=== PATIENT | male | born 1955 | race Hispanic/Latino ===

== ENCOUNTER 2017-01-29 09:48 | Inpatient (IN) | payer MEDICARE ==
[2017-01-29 09:49] VITALS: BMI 35.2
[2017-01-29 11:31] LABS: BASO # 0.02 K/mm3 (0.0-2.0); BASO % 0.1 % (0.0-3.0); EOS % 0.1 % (1.5-5.0); GRAN # 17.49 (1.4-6.5); GRAN % 83.9 % (50.0-68.0); HEMATOCRIT 38.4 % (42.0-52.0); LYMPH # 1.6 (1.2-3.4); LYMPH % 7.6 % (22.0-35.0); MEAN CELL VOLUME 81.4 fl (80.0-105.0); MEAN CORPUSCULAR HEMOGLOBIN 27.3 pg (25.0-35.0); MEAN CORPUSCULAR HGB CONC 33.6 g/dl (31.0-37.0); MEAN PLATELET VOLUME 9.9 fl (7.0-11.0); MONO # 1.7 (0.1-0.6); MONO % 8.3 % (1.0-6.0); RED CELL DISTRIBUTION WIDTH 13.1 % (11.5-14.5); WHITE BLOOD COUNT 20.9 10^3/ul (4.5-11.0)
[2017-01-29 11:42] LABS: INR 1.4 (0.93-1.08); PARTIAL THROMBOPLASTIN TIME 30.8 Seconds (25.1-36.5)
[2017-01-29 11:50] LABS: ALB/GLOB RATIO 0.8 (1.1-1.8); ALKALINE PHOSPHATASE 105 U/L (38-126); ALT/SGPT 31 U/L (7-56); AST/SGOT 23 U/L (17-59); BILIRUBIN,TOTAL 0.5 mg/dL (0.2-1.3); BLOOD UREA NITROGEN 12 mg/dL (7-21); CALCIUM 9.1 mg/dL (8.4-10.5); CARBON DIOXIDE 27 mmol/L (21-33); CHLORIDE 97 mmol/L (98-107); GFR AFRICAN-AMERICAN > 60; GLUCOSE,RANDOM 308 mg/dL (70-110); POTASSIUM 4.1 mmol/L (3.6-5.0); SODIUM 134 mmol/L (132-148); TOTAL PROTEIN 7.6 g/dL (5.8-8.3)
[2017-01-29] MEDS ORDERED: Piperacill/Tazo 4.5gm in NS 4.5 GM/100 ML BAG IVPB STA (12:01)
[2017-01-29] MEDS ORDERED: Vancomycin 1gm in NS 250ml 1 GM/250 ML BAG IVPB STA (12:01)
[2017-01-29] MEDS ORDERED: Sodium Chloride 0.9% 1,000 ML IV STA (12:01)
--- NOTE | 2017-01-29 12:03 | ED PDOC ---
Arrival/HPI - General Chief Complaint: Lower Extremity Problem/Injury Time Seen by Provider: 01/29/17 10:36 Historian: Patient - History of Present Illness Narrative History of Present Illness (Text): 01/29/17 12:07 61 yo male w/PMHx of hypertension, NIDDM, PVD/stent placement, hx of osteo left foot, was sent to Emergency department by his processing manager for admission and further evaluation and treatment of Right heel non-healing ulcer. Pt admits, just recently completed abx tx without improvement. Strong wound odor noted from Right foot. Otherwise, pt denies fever, chills, headache, dizziness, chest pain, shortness of breath, dyspnea, diaphoresis, abd. pain, V/D , back apin, denies weakness, sensory or vascular deficit to Right leg. Ambulate to Emergency department for evaluation, not in any apparent distress. His medical history; Hypertension Diabetes Status post B2 amputation of the left foot /osteomyelitis Psoriasis PVD/stent placement noncompliance past surgical history; multiple surgeries in the leftFoot in 1976 and 1986. Left big toe amputation 1 year ago Peripheral vascular disease with stent placement in The left leg. Medications at home; Metformin 500 by mouth twice a day Glipizide 5 by mouth daily Oxycodone when necessary Allergies; None Social history; Smokes a few cigarettes per day. Used to smoke heavily about 2 packs for 30 years. denies alcohol abuse Denies drug abuse Past Medical History - Provider Review Nursing Documentation Reviewed: Yes - Travel History Have you recently traveled outside [place] w/in the past 3 mons?: No - Infectious Disease Hx of Infectious Diseases: None - Cardiac Hx Peripheral Vascular Disease: Yes Other/Comment: PAD - Pulmonary Hx Respiratory Disorders: No - Neurological Hx Neurological Disorder: No - HEENT Hx HEENT Disorder: No - Renal Hx Renal Disorder: No - Endocrine/Metabolic Hx Endocrine Disorders: Yes Hx Diabetes Mellitus Type 2: Yes - Hematological/Oncological Hx Blood Disorders: No - Integumentary Hx Dermatological Disorder: Yes Hx Psoriasis: Yes - Musculoskeletal/Rheumatological Hx Musculoskeletal Disorders: Yes Hx Osteoarthritis: Yes (KNEES ANKLES) Hx Osteomyelitis: Yes Hx Unsteady Gait: Yes (cane) - Gastrointestinal Hx Gastrointestinal Disorders: No - Genitourinary/Gynecological Hx Genitourinary Disorders: No - Psychiatric Hx Psychophysiologic Disorder: No Hx Substance Use: No - Surgical History Hx Amputation: Yes (great left toe) Hx Angiogram: Yes (STENTING LEFT LEG) Hx Orthopedic Surgery: Yes (L FOOT) - Anesthesia Hx Anesthesia: Yes Hx Anesthesia Reactions: No Hx Malignant Hyperthermia: No - Suicidal Assessment Feels Threatened In Home Enviroment: No Family/Social History - Physician Review Nursing Documentation Reviewed: Yes Family/Social History: No Known Family HX Smoking Status: Current Some Days Smoker Hx Alcohol Use: No Hx Substance Use: No Hx Substance Use Treatment: No Allergies/Home Meds Allergies/Adverse Reactions: Allergies No Known Allergies Allergy (Verified 01/29/17 10:19) Home Medications: Home Meds Medication Instructions Recorded Confirmed Glipizide 5 mg PO DAILY 07/18/15 01/29/17 Metformin HCl [Glucophage] 500 mg PO BID 07/18/15 01/29/17 Review of Systems - Review of Systems Constitutional: Normal Eyes: Normal ENT: Normal Respiratory: Normal Cardiovascular: Normal Gastrointestinal: Normal Genitourinary Male: Normal Musculoskeletal: Normal Skin: Ulcer Neurological: Normal Endocrine: Normal Hemo/Lymphatic: Normal Psychiatric: Normal Physical Exam Vital Signs Reviewed: Yes Vital Signs Temp Pulse Resp BP Pulse Ox 01/29/17 10:39 98.0 F 88 17 128/61 97 Temperature: Afebrile Blood Pressure: Normal Pulse: Regular Respiratory Rate: Normal Appearance: Positive for: Well-Appearing, Non-Toxic, Comfortable Pain Distress: Moderate Mental Status: Positive for: Alert and Oriented X 3 Finger Stick Blood Glucose: 280 - Systems Exam Conjunctiva: Present: Normal Mouth: Present: Moist Mucous Membranes Pharnyx: No: ERYTHEMA Neck: Present: Trachea Midline. No: JVD, Bruit Respiratory/Chest: Present: Clear to Auscultation, Good Air Exchange. No: Respiratory Distress, Accessory Muscle Use Cardiovascular: Present: Regular Rate and Rhythm, Normal S1, S2. No: Murmurs Abdomen: Present: Normal Bowel Sounds. No: Tenderness, Distention, Peritoneal Signs, Rebound Back: No: CVA Tenderness Upper Extremity: Present: Normal ROM, NORMAL PULSES. No: Deformity Lower Extremity: Present: Normal ROM Neurological: Present: GCS=15, Speech Normal Skin: Present: Warm, Dry, Normal Color. No: Rashes Psychiatric: Present: Alert, Oriented x 3, Normal Insight, Normal Concentration Medical Decision Making ED Course and Treatment: 01/29/17 12:12 Pt was seen in Emergency department by and Arterial Doppler RLE performed. Blood work review, acute leukocytosis with left shift, hyperglycemia. No evidence of ketoacidosis. Pt is afebrile in ED. Cutures ordered. Abx initiated empirically. case discussed with and admission arranged. also evaluated pt in Emergency department. During the Emergency department evaluation, pt remained stable, not in any apparent distress - Lab Interpretations Lab Results: 01/29/17 11:10 01/29/17 11:10 Lab Results 01/29/17 11:10: Sodium 134, Potassium 4.1, Chloride 97 L, Carbon Dioxide 27, Anion Gap 15, BUN 12, Creatinine 0.7 L, Est GFR ( Amer) > 60, Est GFR ( Non-Af Amer) > 60, Random Glucose 308 H*, Calcium 9.1, Total Bilirubin 0.5, AST 23, ALT 31, Alkaline Phosphatase 105, Total Protein 7.6, Albumin 3.5, Globulin 4.1, Albumin/Globulin Ratio 0.8 L 01/29/17 11:10: PT 15.5 H, INR 1.40 H, APTT 30.8 01/29/17 11:10: WBC 20.9 H, RBC 4.72, Hgb 12.9 L, Hct 38.4 L, MCV 81.4, MCH 27.3 , MCHC 33.6, RDW 13.1, Plt Count 456 H, MPV 9.9, Gran % 83.9 H, Lymph % (Auto) 7.6 L, [place] % (Auto) 8.3 H, Eos % (Auto) 0.1 L, Baso % (Auto) 0.1, Gran # 17.49 H, Lymph # 1.6, [place] # 1.7 H, Eos # 0.0, Baso # 0.02 01/29/17 10:36: POC Glucose (mg/dL) 280 H - RAD Interpretation Radiology Orders: 01/29/17 10:39 FOOT RIGHT 3 VIEWS ROUTINE [RAD] Stat 01/29/17 12:04 LOWER EXT ART NON-INV COMPL [US] Stat - Medication Orders Current Medication Orders: Vancomycin HCl (Vancomycin 1gm) 1 gm in 250 mls @ 167 mls/hr IVPB STAT STA PRN Reason: Protocol Stop: 01/29/17 13:30 Sodium Chloride (Sodium Chloride 0.9%) 1,000 mls @ 999 mls/hr IV .Q1H1M STA Stop: 01/29/17 13:01 Discontinued Medications Piperacillin Sod/Tazobactam Sod (Zosyn 4.5 Gm In Ns 100ml) 4.5 gm in 100 mls @ 200 mls/hr IVPB STAT STA PRN Reason: Protocol Stop: 01/29/17 12:30 Ketorolac Tromethamine (Toradol) 30 mg IVP STAT STA Stop: 01/29/17 12:02 Disposition/Present on Arrival - Present on Arrival Any Indicators Present on Arrival: No History of DVT/PE: No History of Uncontrolled Diabetes: No Urinary Catheter: No History of Decub. Ulcer: Yes (heels) History Surgical Site Infection Following: None - Disposition Have Diagnosis and Disposition been Completed?: Yes Diagnosis: Foot ulcer due to secondary DM, Osteomyelitis Disposition: HOSPITALIZED Disposition Time: 12:00 Condition: STABLE Referrals: Tra Soto MD [Primary Care Provider] - Follow up with primary Forms: [employer] (Peruvian)
--- NOTE | 2017-01-29 14:48 | CP.PCM.HP ---
History of Present Illness - History of Present Illness History of Present Illness: Noé Ralph PGY1 IM H&P Note for Dr. Gutiérrez CC: Sent by Dr. Solis for R heel ulcer Mr. Willoughby is a 61yo male with a PMH of poorly controlled DM2 (not on insulin), severe PAD s/p multiple angioplasties, Left 1st toe amputation s/p gangrene and osteomyelitis, b/l non-healing heel ulcers, tobacco smoker, non- compliance, and psoriasis who presents with non-healing b/l ulcers and difficulty ambulating due to progressing PAD. Patient states that he is unable to climb a flight of stairs before having his legs hurt, and isn't able to walk too much as well. He uses a cane to ambulate, however, his has a scooter at home, that he sometimes uses to get around. The patient follows up with Dr. Solis as an outpatient and was given an antibiotic for his ulcers; however, the patient states that he completed the course yesterday with no relief and was told to come into ED for workup. Patient was unable to come to ED yesterday for social issues and so he returned today. The patient denies any trauma to the region, numbness/tingling in his extremities, fevers/chills, weakness, weight changes, chest pain, shortness of breath, headaches, abdominal pain, and changes in urine/bowel habits. Regarding his medication, the patient states that he is only on Metformin and Glyburide, and that there was a period where he ran out and needed refills but Dr. Soto could not get them to him in time. Otherwise, the patient says he has been compliant. He is not on any other medications. He denies vision changes, however, he does wear glasses. 12-pt ROS was reviewed and is otherwise negative. PMD: Dr. Soto Pods: Dr. Solis Pharm: [facility] PMH: PSH: amputation of L 1st toe (03/2013), cataract NKDA SHx: "former" 50pkyr tobacco user, states he quit 3 days ago. occasional ETOH use. denies recent substance/drug use. Meds: Metformin and Glyburide ([facility] was contacted regarding home meds however they state he doesn't feel meds with them) Present on Admission - Present on Admission Any Indicators Present on Admission: Yes History of DVT/PE: No History of Uncontrolled Diabetes: Yes Urinary Catheter: No Decubitus Ulcer Present: No Review of Systems - Review of Systems All systems: reviewed and no additional remarkable complaints except (as per HPI ) Past Patient History - Infectious Disease Hx of Infectious Diseases: None - Past Medical History & Family History Past Medical History?: Yes - Past Social History Smoking Status: Current Some Days Smoker Alcohol: Occasional Drugs: Denies Home Situation {Lives}: With Family ( and autistic son) - CARDIAC Hx Cardiac Disorders: Yes Hx Peripheral Vascular Disease: Yes Other/Comment: PAD - PULMONARY Hx Respiratory Disorders: No - NEUROLOGICAL Hx Neurological Disorder: No - HEENT Hx HEENT Problems: Yes Hx Cataracts: Yes - RENAL Hx Chronic Kidney Disease: No - ENDOCRINE/METABOLIC Hx Endocrine Disorders: Yes Hx Diabetes Mellitus Type 2: Yes - HEMATOLOGICAL/ONCOLOGICAL Hx Blood Disorders: No - INTEGUMENTARY Hx Dermatological Problems: Yes Hx Psoriasis: Yes - MUSCULOSKELETAL/RHEUMATOLOGICAL Hx Musculoskeletal Disorders: Yes Hx Osteoarthritis: Yes Hx Osteomyelitis: Yes (s/p L 1st toe amputation) Hx Unsteady Gait: Yes (cane) - GASTROINTESTINAL Hx Gastrointestinal Disorders: No - GENITOURINARY/GYNECOLOGICAL Hx Genitourinary Disorders: No - PSYCHIATRIC Hx Psychophysiologic Disorder: No Hx Substance Use: No - SURGICAL HISTORY Hx Amputation: Yes (great left toe) Hx Angiogram: Yes (STENTING LEFT LEG) Hx Angioplasty: Yes (L SFA and TA) Hx Cataract Extraction: Yes (R) - ANESTHESIA Hx Anesthesia: Yes Hx Anesthesia Reactions: No Hx Malignant Hyperthermia: No Meds Allergies/Adverse Reactions: Allergies Allergy/AdvReac Type Severity Reaction Status Date / Time No Known Allergies Allergy Verified 01/29/17 10:19 Physical Exam - Constitutional Appears: Well, Non-toxic, No Acute Distress - Head Exam Head Exam: ATRAUMATIC, NORMOCEPHALIC Additional comments: +dandruff - Eye Exam Eye Exam: EOMI, Normal appearance, PERRL - ENT Exam ENT Exam: Mucous Membranes Moist, Normal Exam - Neck Exam Neck exam: Positive for: Normal Inspection - Respiratory Exam Respiratory Exam: Clear to Auscultation Bilateral, NORMAL BREATHING PATTERN. absent: Rales, Wheezes - Cardiovascular Exam Cardiovascular Exam: RRR, +S1, +S2. absent: JVD - GI/Abdominal Exam GI & Abdominal Exam: Normal Bowel Sounds, Soft. absent: Distended, Tenderness - Extremities Exam Extremities exam: Negative for: calf tenderness, pedal edema, pedal pulses present Additional comments: pedal pulses could not be detected manually at popliteal or pedal level chronic poor circulation skin changes both feet wrapped in gauze bandage and in short boot L toe digit 1 s/p amputation - Back Exam Back exam: NORMAL INSPECTION. absent: tenderness Additional comments: 1inch lipoma over L scapular region psoriatic skin peeling over lower back - Neurological Exam Neurological exam: Alert, Oriented x3 Additional comments: requires cane to ambulate - Psychiatric Exam Psychiatric exam: Normal Affect, Normal Mood - Skin Skin Exam: Normal Color, Warm Results - Vital Signs Recent Vital Signs: Last Vital Signs Temp 98.0 F 01/29/17 14:04 Pulse 90 01/29/17 14:04 Resp 17 01/29/17 14:04 BP 130/71 01/29/17 14:04 Pulse Ox 98 01/29/17 14:04 - Labs Result Diagrams: 01/29/17 11:10 01/29/17 11:10 Assessment & Plan - Assessment and Plan (Free Text) Assessment: 61yo male with a PMH of poorly controlled DM2 (not on insulin), PAD s/ p multiple angioplasties, Left 1st toe amputation s/p gangrene and osteomyelitis , b/l non-healing heel ulcers, tobacco smoker, non-compliance, and psoriasis who presents with non-healing b/l ulcers and difficulty ambulating due to progressing PAD. Leukocytosis is present but patient is afebrile. will need to r /o osteomyelitis of feet. Patient has moderate severity PAD s/p LE duplex. Pt is noted to be hyperglycemic, will need to r/o DKA. Plan: 1. b/l heel ulcers 2/2 PAD and poorly controlled DM2 - will rule out osteomyelitis - MRI b/l feet ordered - ESR and CRP ordered - cont Vanc and Zosyn d1 for osteomyelitis empiric coverage - Tylenol PRN fevers - Motrin and Toradol PRN pain - Zofran PRN n/v - blood, urine and wound cultures ordered - LE duplex showed absence of pulses popliteal artery and distal b/l; MAURO showed moderate severe PAD b/l calf and distally - R foot XR showed ossible osseous erosion of the inferior calcaneus immediately adjacent to the plantar ulceration. Possible osteomyelitis. - ID consulted, recs appreciated - Podiatry consulted, recs appreciated - IR consulted, recs appreciated - wound care eval and nursing referral ordered for wound - PT/OT ordered 2. PAD - LE duplex shwoed absence of distal pulses and moderate severe PAD - IR consulted 3. DM2 - Hyperglycemia, will need UA to r/o DKA (VBG shock panel and UA ordered; currently no AG so DKA unlikely) - A1C 11 - holding PO home medications due to poor control - ISS - Levemir 10u HS - Accuchecks ACHS - diabetic education ordered - Carb consistent HHD 4. Leukocytosis - likely 2/2 cellulitis vs oteomyelitis - conducting tests to r/o osteomyelitis - will trend WBC - blood, urine and wound cultures to be sent - UA to be collected 5. Anemia - will trend and follow up more workup if needed or if continues to trend down 6. DVT/GI PPX - Heparin/PTX Patient was seen, examined and discussed with attending, Dr. Gutiérrez, Noé Rosas PGY1 Pager # [phone] - Date & Time Date: 01/29/17 Time: 13:38
[2017-01-29 14:54] LABS: PHOSPHOROUS 4.6 mg/dL (2.5-4.5)
--- NOTE | 2017-01-29 15:06 | RAD ---
PROCEDURE: Right Foot Radiographs. HISTORY: PAIN, CHROIC WOUND R/O OSTEO COMPARISON: None. FINDINGS: BONES: No osseous fracture. There is questionable erosion of the inferior most aspect of the calcaneus without clear periosteal reaction. Consider correlation with magnetic resonance imaging if there is clinical concern for osteomyelitis. Plantar calcaneal spur noted. JOINTS: Normal. SOFT TISSUES: Probable ulceration of the posterior plantar aspect immediately beneath the calcaneus. OTHER FINDINGS: None. IMPRESSION: Possible osseous erosion of the inferior calcaneus immediately adjacent to the plantar ulceration. Possible osteomyelitis. Consider correlation with magnetic resonance imaging.
[2017-01-29 16:04] LABS: VENOUS BLOOD GAS BASE EXCESS 4.5 mmol/L (0.0-2.0); VENOUS BLOOD PH 7.42 (7.32-7.43)
[2017-01-29] MEDS ORDERED: Lidocaine 2% Inj (20ml) ONE (17:08)
[2017-01-29] MEDS ORDERED: Iodixanol 320 mg/ml 150 ml Bottle IV ONE (17:09)
[2017-01-29] MEDS ORDERED: Iodixanol 320 MG/ML 200 ML BOTTLE IV ONE (17:09)
[2017-01-29] MEDS ORDERED: Nitroglycerin 50mg in D5W 50 MG/250 ML BOTTLE IV ONE (17:09)
[2017-01-29] MEDS ORDERED: HEPARIN SODIUM/NS 1,000 ML IV ONE ×2 (17:09→18:46)
[2017-01-29] MEDS: Insulin Lispro (humaLOG) MEDIUM Coverage SC SCH (17:26)
--- NOTE | 2017-01-29 17:26 | US ---
PROCEDURE: Lower extremity MAURO exam HISTORY: Severe peripheral vascular disease. Infected ischemic ulcers bilaterally. Diabetes. Smoker. PHYSICIAN(S): Nir Paez MD. FINDINGS: The resting MAURO's are moderately abnormal: Right, 0.52 and left, 0.6 There is a 23 mm difference between the brachial pressures, lower on the right. The high thigh pressures are symmetric. The right high thigh PVR waveform is decreased in amplitude compared to the left. This is of uncertain significance. A could represent right iliac occlusive disease P There is an 82 mm gradient across the right thigh and a 49 mm gradient across the left thigh. The calf PVR waveforms do not augment. The findings are consistent with bilateral SFA occlusive disease. The ankle and metatarsal waveforms are moderately blunted bilaterally. Findings are suggestive of bilateral tibial disease. IMPRESSION: 1. Moderately abnormal ABIs at rest. 2. Bilateral SFA occlusive disease 3. Bilateral tibial disease. 4. Possible right iliac occlusive disease.
[2017-01-29] MEDS ORDERED: Midazolam 2 MG/2 ML VIAL ONE ×3 (17:54→19:45)
[2017-01-29] MEDS ORDERED: Piperacillin/Tazobact 3.375 gm 100 ML IVPB SCH (18:00)
[2017-01-29] MEDS ORDERED: Iodixanol 320 MG/ML 100 ML BOTTLE IV ONE (19:33)
[2017-01-29] MEDS ORDERED: Vancomycin 500 mg Inj IVPB SCH (22:00)
[2017-01-29] MEDS ORDERED: Vancomycin 1.75 GM in Sodium Chloride 0.9% 500 ML IVPB SCH (22:00)
[2017-01-29] MEDS: Vancomycin 1gm in NS 250ml 1 GM/250 ML BAG IVPB SCH (22:11)
--- NOTE | 2017-01-29 23:10 | CON ---
The patient was seen earlier today. The patient's complaint is right foot infection times several days. HISTORY OF PRESENT ILLNESS: This is a 61-year-old male with significant peripheral vascular disease, diabetes mellitus, hypertension, high cholesterol, psoriasis, history of sensitive Staph aureus left foot cellulitis, history of left big toe amputation and a left leg stent placement in the past. He has no known allergies. Admitted now with a right foot infection times several days. The patient denies any fevers, any chills, any chest pain, any shortness of breath or cough. No abdominal pain, diarrhea or constipation. PAST MEDICAL HISTORY: Significant for diabetes mellitus, hypertension, peripheral vascular disease, high cholesterol and psoriasis and a sensitive Staph aureus left foot cellulitis. PAST SURGICAL HISTORY: Significant for left leg stent placement and a left big toe amputation. SOCIAL HISTORY: The patient is a tobacco user. The patient has also had angioplasty and angiogram done in the past. ALLERGIES: THE PATIENT HAS NO KNOWN ALLERGIES TO ANY ANTIBIOTICS. MEDICATIONS AT HOME: Include glipizide and metformin. PHYSICAL EXAMINATION: GENERAL: The patient is in bed, answering questions. VITAL SIGNS: Temperature of 98, blood pressure is 128/60, heart rate of 90, respiratory rate of 20. HEENT: Examination of HEENT is unremarkable. NECK: Supple. LUNGS: Have decreased breath sounds. HEART: Normal S1 and S2. ABDOMEN: Soft, nontender. EXTREMITIES: Examination of right foot is foul odorous, erythematous. LABORATORY DATA: Laboratory examination reveals a white count of 20,000, hemoglobin of 12, platelets of 466. BUN of 12, creatinine of 0.7 and glucose is 308. Microbiology is pending. The patient had an x-ray of the foot, which is consistent with an osteomyelitis and Dr. Nir Paez's note is reviewed from the ultrasound. ASSESSMENT AND PLAN: This is a 61-year-old male with peripheral vascular disease, diabetes, hypertension, high cholesterol, psoriasis, sensitive Staphylococcus aureus left foot cellulitis. Presenting now with a right foot cellulitis with an osteomyelitis. We will treat the patient with vancomycin and Zosyn and awaiting for the patient for possible OR and Vascular consultation, Podiatry consultation. We will follow closely with you. Pending cultures, initial workup results. Rakesh Bautista MD [facility] # [id number]
[2017-01-30] MEDS: Insulin Lispro (humaLOG) MEDIUM Coverage SC SCH ×5 (00:05→22:00)
[2017-01-30] MEDS: Insulin Detemir 100 units/ml Vial (Levemir) SC SCH ×2 (00:06→22:00)
--- NOTE | 2017-01-30 00:06 | CON ---
DATE: 01/29/2017 HISTORY OF PRESENT ILLNESS: This is a 61-year-old diabetic male well known to me [facility], seen for sepsis, infections, and PVD. Patient has had this heel ulceration for several months. He has been extremely noncompliant with odors. I have been trying to get him arterial Doppler studies for almost a year, and he has never gotten the test done. He is still smoking against medical advise. Patient also was given a prescription for blood work and x-rays and an MRI over 5 weeks ago. He never had any of the test done, even though he __00:48__ at the [facility] weekly, and we would be remind him and give him new prescriptions. Patient did come in yesterday with blood work done and his white blood cell count was 21,000 at that time. He was afebrile yesterday when he presented to the [facility], however, he had a very foul smelling ulceration on his right heel. I told the patient to be admitted yesterday [facility] for sepsis and he denied. 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 Patient's temperature at the Emergency Room today was also afebrile. PAST MEDICAL HISTORY: Positive for diabetes and peripheral vascular disease. He also has a history of arthritic ankle on his right ankle secondary to an old trauma. Patient also has a history of psoriasis, which is partially the cause of his ulcerations. MEDICATIONS: His medication is noted on the MAR. Patient was seen with Dr. Paez while he was in x-ray today, and we spoke with this patient at length and told him that if he does not take care of himself, he will most likely loose his life, which is what I told him yesterday, but unfortunately, I am not even sure of at this point I can save his limb. I am extremely worried about a bone infection of the calcaneus. Patient states that he stopped smoking today and that he will abide by our orders and do all the testing that is necessary to get him well. SOCIAL HISTORY: Positive for smoking. Negative for alcohol and positive for living at home with who is also sick and an autistic son. Patient also has a history of lower extremity angiogram as noted above. Patient also had cataract history. ALLERGIES: PATIENT HAS NO KNOWN DRUG ALLERGIES. He was seen again up on the fifth floor. At that time, his vital signs were reviewed. His temperature is 98, his blood pressure is 130/71, his pulse is 90, respirations are 17. LABORATORY DATA: His labs again show white blood cell count of 21,000. His ESR is 109. His hemoglobin and hematocrit is 12.9 and 38.4, platelets of 456. Chemistry shows glucose of 308. His BUN and creatinine is 12 and 0.7 respectively. Coagulation has an INR of 1.4. Patient's microbiology from 01/14/2017 showed corynebacterium species and he had gotten quinolone for that infection and again he did not take the antibiotic until a week after was prescribed. Patient's foot was inspected. He has nonpalpable pedal pulses. I did then go over the arterial Doppler's, they were not formally read, but his MAURO was 0.5 on his bilateral lower extremities. His right lower extremity as well as his left does appear to be an SFA occlusion and I did speak to Dr. Paez about this. He is planning to take the patient for an angioplasty this evening. Patient's foot is foul smelling on the heel. There is necrotic infected tissue encompassing the entire heel, and there seems to be a sinus tract heading dorsally up the medial ankle. At this time, there is no bone exposed; however, once the tissue is cleaned, he may have bone exposed from the severity of this infection. He also has small ulceration on the base of the hallux of his right foot, this has pale tissue in it with some callus, but no sinus tract or signs of infection in the toe wound. He does have scaling on both feet secondary to psoriasis. His left heel also has a small ulceration and is not as infected as the right. There was some small amount of purulence coming from it. There is some callus and again that is heavy scaling from the psoriasis. ASSESSMENT: Diabetic peripheral vascular disease with sepsis and right foot infection and left heel ulcer. PLAN AND TREATMENT: Patient is going to angio today, antibiotics as per Infectious Disease. Culture and sensitivity was taken today. We will do another one tomorrow during the OR. He is going down to the OR tomorrow for debridement of the bilateral heels. I discussed all this with the patient and he agreed. I also did review patient's foot x-ray and I did not see any break in the cortex on the plantar heel. There was some lucency in the posterior heel where a spur was. At this point, that is not the size of the ulceration, we will know more tomorrow post surgery and we will get an MRI to complete. Chantel Solis DPM
[2017-01-30] MEDS: Piperacillin/Tazobact 3.375 gm 100 ML IVPB SCH ×5 (00:10→23:28)
[2017-01-30] MEDS: Sodium Chloride 0.45% 1,000 ML IV SCH ×2 (05:25→06:34)
[2017-01-30] MEDS: Pantoprazole 40 mg EC Tab PO SCH (05:25)
[2017-01-30 06:14] LABS: HEMATOCRIT 38.6 % (42.0-52.0); MEAN CELL VOLUME 81.4 fl (80.0-105.0); MEAN CORPUSCULAR HEMOGLOBIN 26.8 pg (25.0-35.0); MEAN CORPUSCULAR HGB CONC 32.9 g/dl (31.0-37.0); MEAN PLATELET VOLUME 9.8 fl (7.0-11.0); RED CELL DISTRIBUTION WIDTH 13.1 % (11.5-14.5); WHITE BLOOD COUNT 17.1 10^3/ul (4.5-11.0)
[2017-01-30 06:42] LABS: ALB/GLOB RATIO 0.8 (1.1-1.8); ALKALINE PHOSPHATASE 93 U/L (38-126); ALT/SGPT 18 U/L (7-56); AST/SGOT 22 U/L (17-59); BILIRUBIN,TOTAL 0.5 mg/dL (0.2-1.3); BLOOD UREA NITROGEN 12 mg/dL (7-21); CALCIUM 8.7 mg/dL (8.4-10.5); CARBON DIOXIDE 26 mmol/L (21-33); CHLORIDE 103 mmol/L (98-107); GFR AFRICAN-AMERICAN > 60; GLUCOSE,RANDOM 160 mg/dL (70-110); POTASSIUM 3.9 mmol/L (3.6-5.0); SODIUM 139 mmol/L (132-148); TOTAL PROTEIN 7.4 g/dL (5.8-8.3)
--- NOTE | 2017-01-30 08:13 | PN ---
DATE: 01/30/2017 SUBJECTIVE: The patient is in bed, in no acute distress, nontoxic. PHYSICAL EXAMINATION: VITAL SIGNS: Temperature is 98, blood pressure is 140/70, respiratory rate of 16. HEENT: Unremarkable. NECK: Supple. LUNGS: Have decreased breath sounds. HEART: Normal S1, S2. ABDOMEN: Soft, nontender. LABORATORY DATA: Reveals the patient's white count of 17,000, hemoglobin of 12 and platelets of 441. Chemistries are noted. BUN of 12, creatinine 0.7. Microbiology reveals the right foot culture is pending. ASSESSMENT AND PLAN: A 61-year-old male with peripheral vascular disease, diabetes mellitus, hypertension, high cholesterol, psoriasis, sensitive Staph aureus, left foot cellulitis presenting now with right foot cellulitis and osteomyelitis, of vancomycin and Zosyn. The patient had a vascular intervention yesterday. Podiatry is on the case. We will check on the identification of the organism. The patient does have osteomyelitis and will need a prolonged antibiotics 4-6 weeks. The choice of antibiotics will be based on the culture results; however, the duration most likely will need further prolonged antibiotics. Currently, on vancomycin and Zosyn with a creatinine of 0.7. We will also order an HIV testing because of his age of 61. He has not had HIV testing in the past. Rakesh Bautista MD
[2017-01-30] MEDS: Vancomycin 1gm in NS 250ml 1 GM/250 ML BAG IVPB SCH ×2 (08:53→18:08)
--- NOTE | 2017-01-30 09:35 | RAD ---
HISTORY: preop COMPARISON: Chest radiograph dated 10/11/2015 FINDINGS: LUNGS: No active pulmonary disease. PLEURA: No significant pleural effusion identified, no pneumothorax apparent. CARDIOVASCULAR: Normal. OSSEOUS STRUCTURES: Unchanged. VISUALIZED UPPER ABDOMEN: Normal. OTHER FINDINGS: None. IMPRESSION: No active disease.
--- NOTE | 2017-01-30 10:00 | CP.PCM.PN ---
<Noé Rosas - Last Filed: 01/31/17 04:49> Subjective - Date & Time of Evaluation Date of Evaluation: 01/30/17 Time of Evaluation: 08:00 - Subjective Subjective: Patient was seen and examined at bedside. He had no complaints and states that he was able to reach his family. The patient denies current pain or acute problems overnight. He denies cp, sob, cough, fevers/chills, abdominal pain, or numbness/tingling. The patient was notified that he would be going to OR this morning per Dr. Solis's notes for surgical debridement. Objective - Vital Signs/Intake and Output Vital Signs (last 24 hours): Temp Pulse Resp BP Pulse Ox 98.6 F 88 18 146/75 96 01/30/17 00:10 01/30/17 05:59 01/30/17 02:40 01/30/17 02:40 01/30/17 00:10 Intake and Output: 01/30/17 01/30/17 06:59 18:59 Intake Total 900 Output Total 1450 Balance -550 - Medications Medications: Current Medications Acetaminophen (Tylenol 325mg Tab) 650 mg PO Q4 PRN PRN Reason: Fever >100.4 F Heparin Sodium (Porcine) (Heparin) 5,000 units SC Q12 SCOTTY PRN Reason: Protocol Vancomycin HCl (Vancomycin 1gm) 1 gm in 250 mls @ 167 mls/hr IVPB Q12H SCOTTY PRN Reason: Protocol Stop: 02/07/17 19:01 Last Admin: 01/30/17 08:53 Dose: 167 mls/hr Piperacillin Sod/Tazobactam Sod (Zosyn 3.375 In Ns 100ml) 100 mls @ 200 mls/hr IVPB Q6 SCOTTY PRN Reason: Protocol Stop: 02/08/17 00:01 Last Admin: 01/30/17 05:24 Dose: 200 mls/hr Sodium Chloride (Sodium Chloride 0.45%) 1,000 mls @ 100 mls/hr IV .Q10H [facility] Last Admin: 01/30/17 06:34 Dose: Not Given Ibuprofen (Motrin Tab) 400 mg PO Q6H PRN PRN Reason: Pain, Mild (1-3) Insulin Detemir (Levemir) 10 unit SC [facility] Last Admin: 01/30/17 00:06 Dose: Not Given Insulin Human Lispro (Humalog Med) 0 units SC ACHS SCOTTY PRN Reason: Protocol Last Admin: 01/30/17 08:17 Dose: Not Given Ketorolac Tromethamine (Toradol) 30 mg IVP Q6H PRN PRN Reason: Pain, moderate (4-7) Last Admin: 01/30/17 05:30 Dose: 30 mg Ondansetron HCl (Zofran Inj) 4 mg IVP Q4H PRN PRN Reason: Nausea/Vomiting Pantoprazole Sodium (Protonix Ec Tab) 40 mg PO 0600 [facility] Last Admin: 01/30/17 05:25 Dose: Not Given - Labs Labs: 01/30/17 05:50 01/30/17 05:50 PT 15.5 SECONDS (9.4-12.5) H 01/29/17 11:10 INR 1.40 (0.93-1.08) H 01/29/17 11:10 APTT 30.8 Seconds (25.1-36.5) 01/29/17 11:10 - Additional Findings Additional findings: - Constitutional Appears: Well, Non-toxic, No Acute Distress - Head Exam Head Exam: ATRAUMATIC, NORMOCEPHALIC - Eye Exam Eye Exam: EOMI, Normal appearance, PERRL - ENT Exam ENT Exam: Mucous Membranes Moist, Normal Exam - Neck Exam Neck exam: Positive for: Normal Inspection - Respiratory Exam Respiratory Exam: Clear to Auscultation Bilateral, NORMAL BREATHING PATTERN. absent: Rales, Wheezes - Cardiovascular Exam Cardiovascular Exam: RRR, +S1, +S2. absent: JVD - GI/Abdominal Exam GI & Abdominal Exam: Normal Bowel Sounds, Soft. absent: Distended, Tenderness - Extremities Exam Extremities exam: Negative for: calf tenderness, pedal edema, pedal pulses present Additional comments: pedal pulses could not be detected manually at popliteal or pedal level chronic poor circulation skin changes both feet wrapped in gauze bandage and in short boot L toe digit 1 s/p amputation - Back Exam Back exam: NORMAL INSPECTION. 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 Leukocytosis is present, but improving and patient remains afebrile. MRI ordered to r/o osteomyelitis of feet. Patient has moderate severity PAD s/p LE duplex. Pt is noted to be hyperglycemic, but no DKA. Plan: 1. b/l heel ulcers 2/2 PAD and poorly controlled DM2 - MRI b/l feet ordered to r/o osteomyelitis - OR today for surgical debridement - ESR and CRP elevated - cont Vanc and Zosyn d2 for osteomyelitis empiric coverage - Tylenol PRN fevers - Motrin and Toradol PRN pain - Zofran PRN n/v - blood, and wound cultures negative as of now and urine culture is pending - LE duplex showed absence of pulses popliteal artery and distal b/l; MAURO showed moderate severe PAD b/l calf and distally - R foot XR showed possible osseous erosion of the inferior calcaneus immediately adjacent to the plantar ulceration. Possible osteomyelitis. - ID consulted, recs appreciated - Podiatry consulted, recs appreciated - IR consulted, recs appreciated - wound care eval and nursing referral ordered for wound - PT/OT ordered 2. PAD - LE duplex showed absence of distal pulses and moderate severe PAD - IR consulted, angio done showed recanalization of R SFA with angioplasty and stent placement; successful proximal R anterior tibilar a angioplasty, and severe b/l tibilar and pedal occlusive dz 3. DM2 - Hyperglycemia, but no acidosis so unlikely DKA - A1C 11 - holding PO home medications due to poor control - ISS - Levemir 10u HS - Accuchecks ACHS - diabetic education ordered - Carb consistent HHD 4. Leukocytosis - likely 2/2 cellulitis vs oteomyelitis - conducting tests to r/o osteomyelitis - will trend WBC, trending down - blood, and wound cultures negative as of now and urine culture is pending - UA to be collected 5. Anemia - will trend and follow up more workup if needed or if continues to trend down 6. DVT/GI PPX - Heparin/PTX Patient was seen, examined and discussed with attending, Dr. Marbella Rosas PGY1 Pager # [phone] <Scott Tyson - Last Filed: 02/06/17 17:22> Objective - Vital Signs/Intake and Output Vital Signs (last 24 hours): Temp Pulse Resp BP Pulse Ox 98.6 F 68 20 158/91 H 96 02/03/17 07:30 02/03/17 07:30 02/03/17 07:30 02/03/17 07:30 02/03/17 07:30 - Labs Labs: 02/03/17 07:00 02/03/17 07:00 PT 15.5 SECONDS (9.4-12.5) H 01/29/17 11:10 INR 1.40 (0.93-1.08) H 01/29/17 11:10 APTT 30.8 Seconds (25.1-36.5) 01/29/17 11:10 Attending/Attestation - Attestation I have personally seen and examined this patient.: Yes I have fully participated in the care of the patient.: Yes I have reviewed all pertinent clinical information, including history, physical exam and plan: Yes Notes (Text): 02/06/17 17:22 Medical record note made by the resident after discussion with my direction and input after the patient was personally seen and examined by me. I have reviewed the chart and agree that the record accurately reflects by personal performance of the history, physical exam, data review, and medical decision-making, in the course for the patient. I have also personally directed the plan of care.
--- NOTE | 2017-01-30 10:06 | VASCULAR ---
PROCEDURE: 1. Abdominal aortogram and bilateral lower extremity runoff with right selective views. 2. Long segment right SFA drug-eluting balloon angioplasty and Supera stent placement 3. Proximal right anterior tibial artery angioplasty HISTORY: Severe peripheral vascular disease. Diabetes. Smoker. Bilateral ischemic ulcers with gangrene right posterior foot PHYSICIAN(S): Nir Paez M.D. TECHNIQUE: The relative risks and indications of the procedure were explained to the patient and consent obtained. The patient was hydrated prior to the procedure and the appropriate labs drawn. The patient was placed supine on the arteriogram table and the left groin prepped and draped in the usual sterile fashion. Conscious sedation and monitoring were provided throughout the procedure by a nurse. Via a left common femoral artery approach, a 5 Indian sheath was placed in the left groin. Through the sheath and over a guidewire, a 5 Indian flush catheter was placed in the abdominal aorta at the level of the renal arteries and a PA DSA abdominal aortogram performed. The catheter was pulled down to the aortic bifurcation and bilateral oblique DSA pelvic arteriograms performed. Overlapping bilateral lower extremity DSA arteriograms were obtained from the inguinal ligaments to the ankles. A 0.035 angled Glidewire was advanced over the bifurcation and placed in the right SFA origin. A 7 Indian 45 cm destination sheath was placed in the right common femoral artery. Heparin 6000 units IV and nitroglycerin in 250 mcg aliquots were given. With some difficulty, the long segment occlusion of the right SFA was crossed with a wildcat catheter and 0.035 glidewire. A support V-18 wire was placed in the right peroneal artery. The right SFA occlusion was initially dilated with a 5 mm balloon. Overlapping 6 mm drug-eluting balloons were then utilized. Residual narrowing was noted in the distal right SFA and at the re- entry site. The distal right SFA was dilated with a 7 mm balloon. Next a 6.5 x 150 Supera stent was deployed in the mid to distal right SFA extending into the right popliteal artery above the knee. An excellent angiographic result was obtained with brisk flow. The narrowing in the proximal right anterior tibial artery was crossed with 0.035 glidewire. 0.014 support wire was placed in the right anterior tibial artery. The proximal right anterior tibial artery was dilated with 3.5 x 8 cm balloon. An excellent angiographic result was obtained. Completion angiograms were performed. The sheath was removed and hemostasis obtained with a Mynx device. FINDINGS: There are 2 right renal arteries and a single left renal artery present. The renal arteries are patent. Occasion the infrarenal abdominal aorta is noted. Aortic bifurcation is patent. The common and external iliac arteries are patent bilaterally. The internal iliac arteries are patent bilaterally. Right lower extremity: The right common femoral artery is patent with mild posterior plaque.. The right profunda femoral artery is hypertrophied. The origin of the right SFA is diffusely disease. There is a long segment occlusion of the right SFA. Reconstitution of the right popliteal artery at the patella is noted. The right popliteal artery is continuous. There is 2 vessel runoff via a dominant right anterior tibial artery and a smaller right peroneal artery. The right posterior tibial artery is occluded. There is a smooth 6 cm stenosis of the proximal right anterior tibial artery. Severe right pedal occlusive disease is noted. The right dorsalis pedis artery is patent. The plantar arch is not opacified. Collaterals are present Left lower extremity: Left common femoral artery is patent with posterior plaque which is mild.. The left profunda femoral artery is hypertrophied. The left superficial femoral artery is smoothly diseased with a 9 cm occlusion of the distal left SFA. The left popliteal artery reconstitutes above the patella. The left popliteal artery is continuous. There is 2 vessel runoff via a large left anterior tibial artery and a small left peroneal artery. The left posterior tibial artery is occluded.. IMPRESSION: 1.Successful long segment recanalization of the right SFA with drug-eluting balloon angioplasty and distal Supera stent placement 2. Successful proximal right anterior tibial artery angioplasty 3. Severe bilateral tibial and pedal occlusive disease. 4. Distal left SFA occlusion.
[2017-01-30] MEDS ORDERED: Lidocaine 2% Inj (20ml) ONE (11:39)
--- NOTE | 2017-01-30 12:18 | CP.PCM.PN ---
Subjective - Date & Time of Evaluation Date of Evaluation: 01/30/17 Time of Evaluation: 10:55 - Subjective Subjective: Podiatry Pre-operative Note- Dr. Solis 61 y.o old male 1 day s/p angiogram seen at bedside with sepsis secondary to bilaterally heel ulceration R>L LE. Patient reports that he understands he will go to the OR today for an I&D and debridement of bilaterally heel ulcerations. Patient understands is agreeable. Patient NPO status confirmed. Reports nothing to eat or drink before midnight last night. Patient denies n/v/sob/cp/chills or d. No overnight acute events. Objective - Vital Signs/Intake and Output Vital Signs (last 24 hours): Temp Pulse Resp BP Pulse Ox 98.7 F 85 20 112/63 93 L 01/30/17 11:35 01/30/17 11:35 01/30/17 11:35 01/30/17 11:35 01/30/17 11:35 Intake and Output: 01/30/17 01/30/17 06:59 18:59 Intake Total 900 Output Total 1450 Balance -550 - Medications Medications: Current Medications Acetaminophen (Tylenol 325mg Tab) 650 mg PO Q4 PRN PRN Reason: Fever >100.4 F Heparin Sodium (Porcine) (Heparin) 5,000 units SC Q12 SCOTTY PRN Reason: Protocol Vancomycin HCl (Vancomycin 1gm) 1 gm in 250 mls @ 167 mls/hr IVPB Q12H SCOTTY PRN Reason: Protocol Stop: 02/07/17 19:01 Last Admin: 01/30/17 08:53 Dose: 167 mls/hr Piperacillin Sod/Tazobactam Sod (Zosyn 3.375 In Ns 100ml) 100 mls @ 200 mls/hr IVPB Q6 SCOTTY PRN Reason: Protocol Stop: 02/08/17 00:01 Last Admin: 01/30/17 05:24 Dose: 200 mls/hr Sodium Chloride (Sodium Chloride 0.45%) 1,000 mls @ 100 mls/hr IV .Q10H SCOTTY Last Admin: 01/30/17 06:34 Dose: Not Given Ibuprofen (Motrin Tab) 400 mg PO Q6H PRN PRN Reason: Pain, Mild (1-3) Insulin Detemir (Levemir) 10 unit SC HS SCOTTY Last Admin: 01/30/17 00:06 Dose: Not Given Insulin Human Lispro (Humalog Med) 0 units SC ACHS SCOTTY PRN Reason: Protocol Last Admin: 01/30/17 08:17 Dose: Not Given Ketorolac Tromethamine (Toradol) 30 mg IVP Q6H PRN PRN Reason: Pain, moderate (4-7) Last Admin: 01/30/17 05:30 Dose: 30 mg Ondansetron HCl (Zofran Inj) 4 mg IVP Q4H PRN PRN Reason: Nausea/Vomiting Pantoprazole Sodium (Protonix Ec Tab) 40 mg PO 0600 [facility] Last Admin: 01/30/17 05:25 Dose: Not Given - Labs Labs: 01/30/17 05:50 01/30/17 05:50 PT 15.5 SECONDS (9.4-12.5) H 01/29/17 11:10 INR 1.40 (0.93-1.08) H 01/29/17 11:10 APTT 30.8 Seconds (25.1-36.5) 01/29/17 11:10 - Constitutional Appears: Well, Non-toxic - Extremities Exam Additional comments: Dressing is clean and intact Drainage noted to dressings bilaterally with strikethrough noted to the dressings Malodor noted to the LE - Neurological Exam Neurological Exam: Alert, Awake, Oriented x3 - Psychiatric Exam Psychiatric exam: Normal Affect, Normal Mood Assessment and Plan - Assessment and Plan (Free Text) Assessment: 61 y.o male evaluated for I&D and debridement of bilaterally heel ulcerations today in OR by Dr. Solis. Plan: Pt was seen and examined at bedside Pt NPO status was confirmed All Pre-op testing and clearance was in the chart Pt has exhausted all conservative treatment at this time and is opting for surgical intervention Pt was explained procedure and post-operative course All pt's questions were answered to satisfaction No guarantees were made Pt understands all risks, benefits and complications of procedure Pt will follow-up with Dr. Solis
--- NOTE | 2017-01-30 12:48 | CARD ---
APPROVED REPORT EKG Measurement Heart [id number] <Conclusion> Sinus rhythm APC's, new RBBB
[2017-01-30] MEDS ORDERED: Midazolam 2 MG/2 ML VIAL ONE (13:34)
[2017-01-30] MEDS ORDERED: Propofol 10 mg/ml Inj (20 ML) ONE (13:34)
[2017-01-30] MEDS ORDERED: Lidocaine 2% Inj (20ml) IJ ONE (14:12)
[2017-01-30] MEDS ORDERED: Gentamicin 80 mg/2mL Inj. ONE (14:18)
[2017-01-30] MEDS ORDERED: HYDROmorphone 0.5 mg/0.5 ml ISec IVP PRN (15:12)
--- NOTE | 2017-01-30 15:14 | PCM.SURG1 ---
Surgeon's Initial Post Op Note - Surgeon's Notes Surgeon: Dr. Solis DPM Research Program Assistant: Dr. Allan Campo DPM PGY-1 Type of Anesthesia: General LMA, Local Anesthesia Administered By: Dr. Marsh Pre-Operative Diagnosis: Infected bilateral heels ulceration Operative Findings: See dictations; injectables: 20cc of 2% lidocaine plain; materials: iodoform packing Post-Operative Diagnosis: infected bilateral heel ulcerations with abscess Operation Performed: irrigation and drainage with debridement of bilateral heel ulcerations with Versajet Specimen/Specimens Removed: soft tissue Estimated Blood Loss: EBL {In ML}: 2 Blood Products Given: N/A Drains Used: No Drains Post-Op Condition: Good Date of Surgery/Procedure: 01/30/17 Time of Surgery/Procedure: 13:25
[2017-01-30] MEDS ORDERED: Lactated Ringer's 1,000 ML IV SCH (15:15)
[2017-01-30] MEDS ORDERED: Oxycodone/Acetaminophen 5/325 mg Tab PO PRN ×2 (15:18)
[2017-01-30] MEDS ORDERED: HYDROmorphone 0.5 mg/0.5 ml ISec IVP ONE (16:15)
[2017-01-30] MEDS ORDERED: HYDROmorphone 0.5 mg/0.5 ml ISec ONE (16:17)
[2017-01-31] MEDS: Sodium Chloride 0.45% 1,000 ML IV SCH ×3 (03:00→13:34)
[2017-01-31] MEDS: Pantoprazole 40 mg EC Tab PO SCH (06:28)
[2017-01-31] MEDS: Piperacillin/Tazobact 3.375 gm 100 ML IVPB SCH ×3 (06:28→18:29)
[2017-01-31 07:28] LABS: HEMATOCRIT 34.9 % (42.0-52.0); MEAN CELL VOLUME 81.7 fl (80.0-105.0); MEAN CORPUSCULAR HEMOGLOBIN 26.5 pg (25.0-35.0); MEAN CORPUSCULAR HGB CONC 32.4 g/dl (31.0-37.0); MEAN PLATELET VOLUME 9.7 fl (7.0-11.0); RED CELL DISTRIBUTION WIDTH 13.4 % (11.5-14.5)
[2017-01-31] MEDS: Insulin Lispro (humaLOG) MEDIUM Coverage SC SCH ×4 (07:30→22:20)
[2017-01-31] MEDS ORDERED: HYDROmorphone 1 mg/ml ISec IVP STA ×2 (07:41→07:57)
[2017-01-31] MEDS: Vancomycin 1gm in NS 250ml 1 GM/250 ML BAG IVPB SCH ×2 (08:00→22:21)
[2017-01-31 08:01] LABS: ALB/GLOB RATIO 0.8 (1.1-1.8); ALKALINE PHOSPHATASE 81 U/L (38-126); ALT/SGPT 24 U/L (7-56); AST/SGOT 23 U/L (17-59); BILIRUBIN,TOTAL 0.4 mg/dL (0.2-1.3); BLOOD UREA NITROGEN 12 mg/dL (7-21); CALCIUM 7.9 mg/dL (8.4-10.5); CARBON DIOXIDE 27 mmol/L (21-33); CHLORIDE 104 mmol/L (98-107); GFR AFRICAN-AMERICAN > 60; GLUCOSE,RANDOM 179 mg/dL (70-110); POTASSIUM 3.7 mmol/L (3.6-5.0); SODIUM 137 mmol/L (132-148); TOTAL PROTEIN 6.8 g/dL (5.8-8.3)
--- NOTE | 2017-01-31 09:39 | CP.PCM.PN ---
<Conchita Young - Last Filed: 01/31/17 13:51> Subjective - Date & Time of Evaluation Date of Evaluation: 01/31/17 Time of Evaluation: 09:36 - Subjective Subjective: PGY-[address] Nicholas service patient seen and examined at bedside, no acute distress. Patient states that hes tried and wants to sleep. He denies any pain, including chest pain, abd pain , n/v, fever, chills. He states that he had debridement of both heels yesterday , he currently denies any pain. Objective - Vital Signs/Intake and Output Vital Signs (last 24 hours): Temp Pulse Resp BP Pulse Ox 98.0 F 80 20 89/57 L 96 01/31/17 01:00 01/31/17 01:00 01/31/17 01:00 01/31/17 01:00 01/31/17 01:00 Intake and Output: 01/31/17 01/31/17 06:59 18:59 Intake Total 660 Output Total 600 Balance 60 - Medications Medications: Current Medications Acetaminophen (Tylenol 325mg Tab) 650 mg PO Q4 PRN PRN Reason: Fever >100.4 F Acetaminophen (Tylenol 325mg Tab) 650 mg PO Q4H PRN PRN Reason: Pain, Mild (1-3) Heparin Sodium (Porcine) (Heparin) 5,000 units SC Q12 [facility] PRN Reason: Protocol Vancomycin HCl (Vancomycin 1gm) 1 gm in 250 mls @ 167 mls/hr IVPB Q12H [facility] PRN Reason: Protocol Stop: 02/07/17 19:01 Last Admin: 01/30/17 18:08 Dose: 167 mls/hr Piperacillin Sod/Tazobactam Sod (Zosyn 3.375 In Ns 100ml) 100 mls @ 200 mls/hr IVPB Q6 [facility] PRN Reason: Protocol Stop: 02/08/17 00:01 Last Admin: 01/31/17 06:28 Dose: 200 mls/hr Sodium Chloride (Sodium Chloride 0.45%) 1,000 mls @ 100 mls/hr IV .Q10H [facility] Last Admin: 01/31/17 03:00 Dose: 100 mls/hr Ibuprofen (Motrin Tab) 400 mg PO Q6H PRN PRN Reason: Pain, Mild (1-3) Insulin Detemir (Levemir) 10 unit SC HS [facility] Last Admin: 01/30/17 22:00 Dose: 10 unit Insulin Human Lispro (Humalog Med) 0 units SC [facility] PRN Reason: Protocol Last Admin: 01/30/17 22:00 Dose: Not Given Ketorolac Tromethamine (Toradol) 30 mg IVP Q6H PRN PRN Reason: Pain, moderate (4-7) Last Admin: 01/31/17 04:53 Dose: 30 mg Ondansetron HCl (Zofran Inj) 4 mg IVP Q4H PRN PRN Reason: Nausea/Vomiting Oxycodone/Acetaminophen (Percocet 5/325 Mg Tab) 1 tab PO Q4H PRN PRN Reason: Pain, moderate (4-7) Stop: 02/02/17 15:19 Oxycodone/Acetaminophen (Percocet 5/325 Mg Tab) 2 tab PO Q4H PRN PRN Reason: Pain, severe (8-10) Stop: 02/02/17 15:19 Pantoprazole Sodium (Protonix Ec Tab) 40 mg PO 0600 [facility] Last Admin: 01/31/17 06:28 Dose: 40 mg - Labs Labs: 01/31/17 06:45 01/31/17 06:45 PT 15.5 SECONDS (9.4-12.5) H 01/29/17 11:10 INR 1.40 (0.93-1.08) H 01/29/17 11:10 APTT 30.8 Seconds (25.1-36.5) 01/29/17 11:10 - Constitutional Appears: Well, No Acute Distress - Head Exam Head Exam: ATRAUMATIC, NORMAL INSPECTION, NORMOCEPHALIC - ENT Exam ENT Exam: Mucous Membranes Moist - Respiratory Exam Respiratory Exam: Clear to Ausculation Bilateral, NORMAL BREATHING PATTERN. absent: Rhonchi, Wheezes, Respiratory Distress - Cardiovascular Exam Cardiovascular Exam: REGULAR RHYTHM, +S1, +S2. absent: Tachycardia, Murmur - GI/Abdominal Exam GI & Abdominal Exam: Soft, Normal Bowel Sounds. absent: Distended, Firm, Guarding, Tenderness - Extremities Exam Extremities Exam: Normal Inspection. absent: Pedal Edema, Tenderness Additional comments: dressing clean, dry and intact - Neurological Exam Neurological Exam: Alert, Awake, Normal Gait, Oriented x3 - Skin Skin Exam: Dry, Intact, Normal Color, Warm Assessment and Plan - Assessment and Plan (Free Text) Assessment: 61yo male with a PMH of poorly controlled DM2 (not on insulin), PAD s/ p multiple angioplasties, Left 1st toe amputation s/p gangrene and osteomyelitis , b/l non-healing heel ulcers, tobacco smoker, non-compliance, and psoriasis who presents with non-healing bilateral foot ulcers and difficulty ambulating due to progressing PAD. Improving leukocytosis,patient remains afebrile. Patient has moderate severity PAD s/p LE duplex. Pt is noted to be hyperglycemic , but no DKA. Plan: 1. bilateral /l heel ulcers 2/2 PAD and poorly controlled DM2 - MRI b/l feet ordered to r/o osteomyelitis - OR today for surgical debridement - ESR and CRP elevated - cont Vanc and Zosyn d2 for osteomyelitis empiric coverage - Tylenol PRN fevers - Motrin and Toradol PRN pain - Zofran PRN n/v - blood, and wound cultures negative as of now and urine culture is pending - LE duplex showed absence of pulses popliteal artery and distal b/l; MAURO showed moderate severe PAD b/l calf and distally - R foot XR showed possible osseous erosion of the inferior calcaneus immediately adjacent to the plantar ulceration. Possible osteomyelitis. - ID consulted, recs appreciated - Podiatry consulted, recs appreciated - IR consulted, recs appreciated - wound care eval and nursing referral ordered for wound - PT/OT ordered 2. PAD - LE duplex showed absence of distal pulses and moderate severe PAD - IR consulted, angio done showed recanalization of R SFA with angioplasty and stent placement; successful proximal R anterior tibilar a angioplasty, and severe b/l tibilar and pedal occlusive dz 3. Diabetes - Hyperglycemia, but no acidosis so unlikely DKA - A1C 11 - holding PO home medications due to poor control - ISS - Levemir 10u HS - Accuchecks ACHS - diabetic education ordered - Carb consistent HHD 4. Leukocytosis - likely 2/2 cellulitis and oteomyelitis - pending MRI to r/o osteomyelitis - will trend WBC, trending down - blood, and wound cultures negative as of now and urine culture is pending - UA to be collected 5. Anemia - will trend and follow up more workup if needed or if continues to trend down 6. DVT/GI PPX - Heparin/PTX Patient was seen, examined and discussed with attending, Dr. Tyson <Scott Tyson - Last Filed: 02/06/17 17:23> Objective - Vital Signs/Intake and Output Vital Signs (last 24 hours): Temp Pulse Resp BP Pulse Ox 98.6 F 68 20 158/91 H 96 02/03/17 07:30 02/03/17 07:30 02/03/17 07:30 02/03/17 07:30 02/03/17 07:30 - Labs Labs: 02/03/17 07:00 02/03/17 07:00 PT 15.5 SECONDS (9.4-12.5) H 01/29/17 11:10 INR 1.40 (0.93-1.08) H 01/29/17 11:10 APTT 30.8 Seconds (25.1-36.5) 01/29/17 11:10 Attending/Attestation - Attestation I have personally seen and examined this patient.: Yes I have fully participated in the care of the patient.: Yes I have reviewed all pertinent clinical information, including history, physical exam and plan: Yes Notes (Text): 02/06/17 17:23 Medical record note made by the resident after discussion with my direction and input after the patient was personally seen and examined by me. I have reviewed the chart and agree that the record accurately reflects by personal performance of the history, physical exam, data review, and medical decision-making, in the course for the patient. I have also personally directed the plan of care.
--- NOTE | 2017-01-31 12:27 | CP.PCM.PCO ---
<Honey Dale - Last Filed: 01/31/17 12:23> Additional Comments - Additional Comments Additional Comments: Patient seen with attending, Dr. Duncan for dressing change, POD#1 irrigation and drainage with debridement of bilateral heel ulcerations with Versajet (DOS: 01/30/17). Upon arrival patient refused dressing changes despite being told multiple times he may lose limb if wounds not closely monitored. Patient still refused against medical advice. Patient has an extensive, detailed history of noncompliance, even refusing MRI to confirm osteomyelitis. Plan for dressing change tomorrow. <Burke Duncan - Last Filed: 02/04/17 08:29> Attending/Attestation - Attestation I have personally seen and examined this patient.: Yes I have fully participated in the care of the patient.: Yes I have reviewed all pertinent clinical information: Yes
--- NOTE | 2017-01-31 16:34 | PN ---
DATE: 01/31/2017 SUBJECTIVE: The patient is seen early this morning. No fevers and chills. PHYSICAL EXAMINATION: VITAL SIGNS: Temperature is 98, blood pressure is 140/70, respiratory rate of 16. HEENT: Unremarkable. NECK: Supple. LUNGS: Have decreased breath sounds. HEART: Normal S1, S2. ABDOMEN: Soft. LABORATORY EXAMINATION: Reveals a white count of 16,000. Chemistries noted. Serology HIV is negative. Microbiology reveals a Gram-positive cocci from the foot. The blood cultures are no growth. Urine cultures are no growth. Right foot culture, no growth. Left foot culture, no growth. There is one from the right foot culture that is positive. Review of the orders reveals the patient to be on vancomycin and Zosyn, and communication report by is reviewed. ASSESSMENT AND PLAN: A 61-year-old male with peripheral vascular disease, diabetes, hypertension, high cholesterol, psoriasis, sensitive to Staphylococcus aureus, left foot cellulitis, presenting with a right foot cellulitis and osteomyelitis, and will need prolonged antibiotics for 4-6 weeks. Awaiting for identification and sensitivity of the organism. Podiatric operative room culture results. The patient had an irrigation and drainage, debridement of the bilateral heel ulcers. Rakesh Bautista MD
[2017-01-31 19:47] LABS: URINE BILIRUBIN NEGATIVE (NEGATIVE); URINE BLOOD SMALL (NEGATIVE); URINE GLUCOSE (UA) NEGATIVE (NEGATIVE); URINE KETONE NEGATIVE (NEGATIVE); URINE LEUKOCYTE ESTERASE SMALL Leu/uL (NEGATIVE); URINE PROTEIN NEGATIVE mg/dL (<30 mg/dL); URINE UROBILINOGEN 0.2 E.U./dL (<1 E.U./dL)
[2017-01-31 19:51] LABS: URINE COLOR YELLOW (YELLOW)
[2017-01-31 19:52] LABS: URINE APPEARANCE CLEAR (CLEAR)
[2017-01-31 20:03] LABS: URINE WBC 15 - 20 /hpf (0-6)
[2017-01-31 20:04] LABS: URINE BACTERIA MOD (NEG)
[2017-01-31] MEDS: Insulin Detemir 100 units/ml Vial (Levemir) SC SCH (22:20)
[2017-02-01] MEDS: Piperacillin/Tazobact 3.375 gm 100 ML IVPB SCH ×5 (00:02→23:11)
[2017-02-01] MEDS: Pantoprazole 40 mg EC Tab PO SCH (06:43)
[2017-02-01 07:36] LABS: HEMATOCRIT 35.9 % (42.0-52.0); MEAN CORPUSCULAR HEMOGLOBIN 26.5 pg (25.0-35.0); MEAN CORPUSCULAR HGB CONC 32.3 g/dl (31.0-37.0); MEAN PLATELET VOLUME 9.8 fl (7.0-11.0); RED CELL DISTRIBUTION WIDTH 13.2 % (11.5-14.5)
[2017-02-01 07:54] LABS: ALB/GLOB RATIO 0.8 (1.1-1.8); ALKALINE PHOSPHATASE 81 U/L (38-126); ALT/SGPT 19 U/L (7-56); AST/SGOT 24 U/L (17-59); BILIRUBIN,TOTAL 0.4 mg/dL (0.2-1.3); BLOOD UREA NITROGEN 10 mg/dL (7-21); CALCIUM 8.4 mg/dL (8.4-10.5); CARBON DIOXIDE 26 mmol/L (21-33); CHLORIDE 104 mmol/L (98-107); GFR AFRICAN-AMERICAN > 60; GLUCOSE,RANDOM 178 mg/dL (70-110); SODIUM 137 mmol/L (132-148)
[2017-02-01] MEDS: Insulin Lispro (humaLOG) MEDIUM Coverage SC SCH ×4 (08:22→22:10)
--- NOTE | 2017-02-01 09:52 | CP.PCM.PN ---
<Conchita Young - Last Filed: 02/01/17 11:16> Subjective - Date & Time of Evaluation Date of Evaluation: 02/01/17 Time of Evaluation: 09:45 - Subjective Subjective: PGY-2 Medicine progress note Patient seen and examined at beside. No acute distress. Patient states that he has pain in the feet but manageable with pain medication. He denies chest pain, sob, abd pain, n/v, dysuria. Patient is tolerating diet. Objective - Vital Signs/Intake and Output Vital Signs (last 24 hours): Temp Pulse Resp BP Pulse Ox 97.8 F 72 22 105/66 96 02/01/17 07:30 02/01/17 07:30 02/01/17 07:30 02/01/17 07:30 02/01/17 07:30 Intake and Output: 02/01/17 02/01/17 06:59 18:59 Intake Total 900 Output Total 1500 Balance -600 - Medications Medications: Current Medications Acetaminophen (Tylenol 325mg Tab) 650 mg PO Q4 PRN PRN Reason: Fever >100.4 F Last Admin: 01/31/17 16:35 Dose: 650 mg Acetaminophen (Tylenol 325mg Tab) 650 mg PO Q4H PRN PRN Reason: Pain, Mild (1-3) Heparin Sodium (Porcine) (Heparin) 5,000 units SC Q12 [facility] PRN Reason: Protocol Last Admin: 01/31/17 22:26 Dose: Not Given Vancomycin HCl (Vancomycin 1gm) 1 gm in 250 mls @ 167 mls/hr IVPB Q12H [facility] PRN Reason: Protocol Stop: 02/07/17 19:01 Last Admin: 01/31/17 22:21 Dose: 167 mls/hr Piperacillin Sod/Tazobactam Sod (Zosyn 3.375 In Ns 100ml) 100 mls @ 200 mls/hr IVPB Q6 [facility] PRN Reason: Protocol Stop: 02/08/17 00:01 Last Admin: 02/01/17 06:29 Dose: 200 mls/hr Sodium Chloride (Sodium Chloride 0.45%) 1,000 mls @ 100 mls/hr IV .Q10H [facility] Last Admin: 01/31/17 13:34 Dose: 100 mls/hr Ibuprofen (Motrin Tab) 400 mg PO Q6H PRN PRN Reason: Pain, Mild (1-3) Insulin Detemir (Levemir) 10 unit SC [facility] Last Admin: 01/31/17 22:20 Dose: Not Given Insulin Human Lispro (Humalog Med) 0 units SC [facility] PRN Reason: Protocol Last Admin: 02/01/17 08:22 Dose: 1 units Ketorolac Tromethamine (Toradol) 30 mg IVP Q6H PRN PRN Reason: Pain, moderate (4-7) Last Admin: 02/01/17 04:14 Dose: 30 mg Ondansetron HCl (Zofran Inj) 4 mg IVP Q4H PRN PRN Reason: Nausea/Vomiting Oxycodone/Acetaminophen (Percocet 5/325 Mg Tab) 1 tab PO Q4H PRN PRN Reason: Pain, moderate (4-7) Stop: 02/02/17 15:19 Oxycodone/Acetaminophen (Percocet 5/325 Mg Tab) 2 tab PO Q4H PRN PRN Reason: Pain, severe (8-10) Stop: 02/02/17 15:19 Pantoprazole Sodium (Protonix Ec Tab) 40 mg PO 0600 [facility] Last Admin: 02/01/17 06:43 Dose: 40 mg - Labs Labs: 02/01/17 07:00 02/01/17 07:00 PT 15.5 SECONDS (9.4-12.5) H 01/29/17 11:10 INR 1.40 (0.93-1.08) H 01/29/17 11:10 APTT 30.8 Seconds (25.1-36.5) 01/29/17 11:10 - Constitutional Appears: Well, No Acute Distress - Head Exam Head Exam: ATRAUMATIC, NORMAL INSPECTION, NORMOCEPHALIC - Eye Exam Eye Exam: EOMI, Normal appearance - ENT Exam ENT Exam: Mucous Membranes Moist - Respiratory Exam Respiratory Exam: Clear to Ausculation Bilateral, NORMAL BREATHING PATTERN. absent: Rhonchi, Wheezes, Respiratory Distress - Cardiovascular Exam Cardiovascular Exam: REGULAR RHYTHM, +S1, +S2. absent: Tachycardia, Murmur - GI/Abdominal Exam GI & Abdominal Exam: Soft, Normal Bowel Sounds. absent: Tenderness - Extremities Exam Additional comments: dressings clean, dry and intact - Neurological Exam Neurological Exam: Alert, Awake, CN II-XII Intact, Oriented x3 - Skin Skin Exam: Dry, Intact, Normal Color, Warm Assessment and Plan - Assessment and Plan (Free Text) Assessment: 61yo male with a PMH of poorly controlled Diabetes (not on insulin), PAD s/p multiple angioplasties, Left 1st toe amputation s/p gangrene and osteomyelitis, b/l non-healing heel ulcers, tobacco smoker, non-compliance, and psoriasis who presents with non-healing bilateral foot ulcers and difficulty ambulating due to progressing PAD. Improving leukocytosis,patient remains afebrile. Patient has moderate severity PAD s/p LE duplex. Pt is noted to be hyperglycemic, but no DKA, blood glucose controlled Plan: 1. bilateral /l heel ulcers 2/2 PAD and poorly controlled DM2 - MRI bilateral feet ordered to r/o osteomyelitis, patient refused yesterday, will attemot again today - patient is pod#2 for debridment - ESR and CRP elevated - cont Vanc and Zosyn d2 for osteomyelitis empiric coverage - Tylenol PRN fevers - Motrin and Toradol PRN pain - Zofran PRN n/v - blood, and urine culture are negative - wound culture positive for corynebacterium - LE duplex showed absence of pulses popliteal artery and distal b/l; MAURO showed moderate severe PAD b/l calf and distally - Right foot XR showed possible osseous erosion of the inferior calcaneus immediately adjacent to the plantar ulceration. Possible osteomyelitis. - ID consulted, recs appreciated - Podiatry consulted, recs appreciated - IR consulted, recs appreciated - wound care eval and nursing referral ordered for wound - PT/OT ordered 2. PAD - LE duplex showed absence of distal pulses and moderate severe PAD - IR consulted, angio done showed recanalization of R SFA with angioplasty and stent placement; successful proximal R anterior tibilar a angioplasty, and severe b/l tibilar and pedal occlusive dz 3. Diabetes - Hyperglycemia on admission, improved - hgbA1C 11 - holding PO home medications due to poor control - ISS - Levemir 10u HS - Accuchecks ACHS - diabetic education ordered - Carb consistent HHD 4. Leukocytosis - likely due to cellulitis and oteomyelitis - pending MRI to r/o osteomyelitis - will trend WBC, trending down - blood, and urine culture are negative - wound culture positive for corynebacterium 5. Anemia - trending, stable - if continues to trend down, will order more workup 6. DVT/GI PPX - Heparin/PTX Patient was seen, examined and discussed with attending, <Khanh Traore - Last Filed: 02/02/17 10:06> Objective - Vital Signs/Intake and Output Vital Signs (last 24 hours): Temp Pulse Resp BP Pulse Ox 98.6 F 61 20 159/82 H 97 02/02/17 07:50 02/02/17 07:50 02/02/17 07:50 02/02/17 07:50 02/02/17 07:50 Intake and Output: 02/02/17 02/02/17 06:59 18:59 Intake Total 2420 Output Total 550 Balance 1870 - Medications Medications: Current Medications Acetaminophen (Tylenol 325mg Tab) 650 mg PO Q4 PRN PRN Reason: Fever >100.4 F Last Admin: 01/31/17 16:35 Dose: 650 mg Acetaminophen (Tylenol 325mg Tab) 650 mg PO Q4H PRN PRN Reason: Pain, Mild (1-3) Bacitracin (Bacitracin) 0 gm TOP DAILY [facility] Heparin Sodium (Porcine) (Heparin) 5,000 units SC Q12 [facility] PRN Reason: Protocol Last Admin: 02/01/17 22:09 Dose: 5,000 units Piperacillin Sod/Tazobactam Sod (Zosyn 3.375 In Ns 100ml) 100 mls @ 200 mls/hr IVPB Q6 [facility] PRN Reason: Protocol Stop: 02/08/17 00:01 Last Admin: 02/02/17 05:21 Dose: 200 mls/hr Sodium Chloride (Sodium Chloride 0.45%) 1,000 mls @ 100 mls/hr IV .Q10H [facility] Last Admin: 02/02/17 05:24 Dose: 100 mls/hr Vancomycin HCl (Vancomycin 1gm) 1 gm in 250 mls @ 167 mls/hr IVPB Q12H [facility] PRN Reason: Protocol Stop: 02/10/17 22:01 Last Admin: 02/01/17 21:31 Dose: 167 mls/hr Ibuprofen (Motrin Tab) 400 mg PO Q6H PRN PRN Reason: Pain, Mild (1-3) Insulin Detemir (Levemir) 10 unit SC [facility] Last Admin: 02/01/17 22:10 Dose: 10 unit Insulin Human Lispro (Humalog Med) 0 units SC [facility] PRN Reason: Protocol Last Admin: 02/02/17 08:51 Dose: 3 units Ketorolac Tromethamine (Toradol) 30 mg IVP Q6H PRN PRN Reason: Pain, moderate (4-7) Last Admin: 02/02/17 05:34 Dose: 30 mg Ondansetron HCl (Zofran Inj) 4 mg IVP Q4H PRN PRN Reason: Nausea/Vomiting Oxycodone/Acetaminophen (Percocet 5/325 Mg Tab) 1 tab PO Q4H PRN PRN Reason: Pain, moderate (4-7) Stop: 02/02/17 15:19 Oxycodone/Acetaminophen (Percocet 5/325 Mg Tab) 2 tab PO Q4H PRN PRN Reason: Pain, severe (8-10) Stop: 02/02/17 15:19 Pantoprazole Sodium (Protonix Ec Tab) 40 mg PO 0600 [facility] Last Admin: 02/02/17 05:21 Dose: 40 mg - Labs Labs: 02/02/17 07:00 02/02/17 07:00 PT 15.5 SECONDS (9.4-12.5) H 01/29/17 11:10 INR 1.40 (0.93-1.08) H 01/29/17 11:10 APTT 30.8 Seconds (25.1-36.5) 01/29/17 11:10 Assessment and Plan - Assessment and Plan (Free Text) Assessment: discussed w/ resident at length went over meds labs xray tests condition plans orders reviewed
[2017-02-01] MEDS: Sodium Chloride 0.45% 1,000 ML IV SCH (10:07)
[2017-02-01] MEDS ORDERED: HYDROmorphone 1 mg/ml ISec IVP STA (12:55)
[2017-02-01] MEDS: Vancomycin 1gm in NS 250ml 1 GM/250 ML BAG IVPB SCH ×2 (13:26→21:31)
--- NOTE | 2017-02-01 14:18 | MRI ---
PROCEDURE: MRI of both feet without contrast HISTORY: r/o osteo COMPARISON: No prior similar study available for comparison. TECHNIQUE: Axial coronal and sagittal MRI images of the feet were obtained without IV contrast administration. FINDINGS: MRI of the right foot: There is large plantar ulcer at the proximal portion of the right foot with large subcutaneous defect extending to the plantar aspect of the proximal right calcaneus bone. There is heterogeneous increased bone marrow signal and cortical destruction at the plantar aspect of the mid and posterior aspect of the right calcaneus. Findings highly suspicious for osteomyelitis at the plantar aspect of the calcaneus bone. There is diffuse increased hyperintense signal noted in the soft tissue at the plantar aspect of the right foot including thickening and increased signal of the plantaris fascia suggestive of inflammatory changes and myositis in addition to the plantar fasciitis. Moderate osteoarthritic degenerative changes seen at the right ankle and right tarsal joints Inflammatory changes also surrounding the tendon around the right ankle consistent with moderate to severe tendinopathy. MRI of the left foot: There is deep ulcer at the plantar aspect of the proximal left foot. There is a cortical destruction and adjacent mild bone marrow edema at the posterior plantar aspect of the left calcaneus bone suspicious for osteomyelitis. There are [id number] inflammatory changes at the soft tissue in the plantar aspect of the proximal and mid left foot. Mild thickening and slight increased signal at the plantar facial of the left foot suspicious for mild plantar fasciitis. There are severe arthritic changes and possible Charcot arthropathy. There are foci of hyperintense signal in the bone marrow adjacent to the joints in the left ankle and foot. IMPRESSION: Cortical destruction and bone marrow edema at the mid and lower portion of the calcaneus bone consistent with osteomyelitis. Severe inflammatory changes at the plantar aspect of the mid and proximal right foot including myositis tendinopathy and plantar fasciitis. Moderate osteoarthritic degenerative changes at the right ankle and right foot joints. Moderate soft tissue edema. Findings suggestive of osteomyelitis at the plantar posterior aspect of the left calcaneus bone. Inflammatory changes in the soft tissue at the plantar aspect of the left foot. Moderate to severe arthritic changes at the left ankle and proximal left foot may represent chocolate arthroplasty.
--- NOTE | 2017-02-01 16:04 | CP.PCM.PN ---
Subjective - Date & Time of Evaluation Date of Evaluation: 02/01/17 Time of Evaluation: 15:59 - Subjective Subjective: Podiatry Progress Note - Dr. Solis 61 year old male patient seen and evaluated at bedside POD#2 irrigation and drainage with debridement of bilateral heel ulcerations. Patient hemodynamically stable and NAD. Denies any acute events overnight. Reports continued pain to bilateral LE, R>L, well-controlled. Dressings clean/dry/ intact bilaterally. Offloading boots present b/l. Denies N/V/F/D/C/SOB/calf pain. Objective - Vital Signs/Intake and Output Vital Signs (last 24 hours): Temp Pulse Resp BP Pulse Ox 97.8 F 72 22 105/66 96 02/01/17 07:30 02/01/17 07:30 02/01/17 07:30 02/01/17 07:30 02/01/17 07:30 Intake and Output: 02/01/17 02/01/17 06:59 18:59 Intake Total 900 960 Output Total 1500 600 Balance -600 360 - Medications Medications: Current Medications Acetaminophen (Tylenol 325mg Tab) 650 mg PO Q4 PRN PRN Reason: Fever >100.4 F Last Admin: 01/31/17 16:35 Dose: 650 mg Acetaminophen (Tylenol 325mg Tab) 650 mg PO Q4H PRN PRN Reason: Pain, Mild (1-3) Bacitracin (Bacitracin) 0 gm TOP DAILY [facility] Heparin Sodium (Porcine) (Heparin) 5,000 units SC Q12 [facility] PRN Reason: Protocol Last Admin: 02/01/17 10:08 Dose: Not Given Vancomycin HCl (Vancomycin 1gm) 1 gm in 250 mls @ 167 mls/hr IVPB Q12H [facility] PRN Reason: Protocol Stop: 02/07/17 19:01 Last Admin: 02/01/17 13:26 Dose: 167 mls/hr Piperacillin Sod/Tazobactam Sod (Zosyn 3.375 In Ns 100ml) 100 mls @ 200 mls/hr IVPB Q6 [facility] PRN Reason: Protocol Stop: 02/08/17 00:01 Last Admin: 02/01/17 13:17 Dose: 200 mls/hr Sodium Chloride (Sodium Chloride 0.45%) 1,000 mls @ 100 mls/hr IV .Q10H [facility] Last Admin: 02/01/17 10:07 Dose: 100 mls/hr Ibuprofen (Motrin Tab) 400 mg PO Q6H PRN PRN Reason: Pain, Mild (1-3) Insulin Detemir (Levemir) 10 unit SC HS [facility] Last Admin: 01/31/17 22:20 Dose: Not Given Insulin Human Lispro (Humalog Med) 0 units SC ACHS [facility] PRN Reason: Protocol Last Admin: 02/01/17 13:16 Dose: 1 units Ketorolac Tromethamine (Toradol) 30 mg IVP Q6H PRN PRN Reason: Pain, moderate (4-7) Last Admin: 02/01/17 09:54 Dose: 30 mg Ondansetron HCl (Zofran Inj) 4 mg IVP Q4H PRN PRN Reason: Nausea/Vomiting Oxycodone/Acetaminophen (Percocet 5/325 Mg Tab) 1 tab PO Q4H PRN PRN Reason: Pain, moderate (4-7) Stop: 02/02/17 15:19 Oxycodone/Acetaminophen (Percocet 5/325 Mg Tab) 2 tab PO Q4H PRN PRN Reason: Pain, severe (8-10) Stop: 02/02/17 15:19 Pantoprazole Sodium (Protonix Ec Tab) 40 mg PO 0600 [facility] Last Admin: 02/01/17 06:43 Dose: 40 mg - Labs Labs: 02/01/17 07:00 02/01/17 07:00 PT 15.5 SECONDS (9.4-12.5) H 01/29/17 11:10 INR 1.40 (0.93-1.08) H 01/29/17 11:10 APTT 30.8 Seconds (25.1-36.5) 01/29/17 11:10 - Constitutional Appears: Well, Non-toxic, No Acute Distress - Extremities Exam Additional comments: VASC: DP and PT pulses nonpalpable b/l secondary to edema. Temperature gradient warm to warm bilateral. +1 pitting edema noted to bilateral LE. No increase in warmth noted to bilateral heels or right 1st MPJ. NEURO: Gross sensation absent. DERM: Full thickness ulceration with exposed bone encompassing right heel with a sinus tract proximally at medial ankle; ulcer is noted to have mixed fibrotic/ necrotic/granular base with erythema periwound; mild serosanguinous drainage noted; mild malodor present. Small ulceration noted to base of right hallux with pale tissue and hyperkeratotic rim; mild serous drainage noted; no purulence noted; no tunneling, undermining, ascending celulitis; no clinical signs of infection noted at this time. Left heel is noted to have a small plantar ulceration with mixed fibrogranular base and mild erythema periwound; absent purulence; mild serosanguinous drainage noted. Heavy scaling secondary to psoriasis to bilateral LE. ORTHO: No pain on palpation bilateral LE. - Neurological Exam Neurological Exam: Alert, Awake, Oriented x3 - Psychiatric Exam Psychiatric exam: Normal Affect, Normal Mood Assessment and Plan - Assessment and Plan (Free Text) Assessment: 61 year old male patient 1) POD#2 irrigation and drainage with debridement of bilateral heel ulcerations 2) right hallux plantar ulceration, stable Plan: Patient seen and evaluated Discussed with attending, Dr. Solis Afebrile, increased WBC @ 15.0 however trending downwards, ESR 109 Patient agreeable to dressing change today; patient has extensive history of noncompliance and refusal of treatment against medical advice -LLE cleansed with saline, repacked with 1/4" iodoform and dressed with DSD -Right heel cleansed with saline, repacked with 1"4" iodoform, and dressed with DSD -Right hallux cleansed with saline, bacitracin applied to ulceration, and dressed with DSD MRI obtained today -Cortical destruction and bone marrow edema at the mid and lower portion of the calcaneus bone consistent with osteomyelitis -Findings suggestive of osteomyelitis at the plantar posterior aspect of the left calcaneus bone Continue multipodus boots at all times while in bed Continue abx, Vancomycin and Zosyn Continue pain management Podiatry will continue to follow patient while in house
[2017-02-01 16:05] VITALS: RESP 20
--- NOTE | 2017-02-01 19:10 | PN ---
DATE: 02/01/2017 SUBJECTIVE: The patient is in bed in no acute distress. PHYSICAL EXAMINATION: VITAL SIGNS: Temperature is 98, blood pressure is 118/80, respiratory rate of 18. HEENT: Unremarkable. NECK: Supple. LUNGS: Have decreased breath sounds. HEART: Normal S1, S2. ABDOMEN: Soft. LABORATORY EXAMINATION: Reveals a white count of 15,000. Sed rate is 109. Chemistries reveal a BUN of 10, creatinine of 0.7. Urinalysis is noted. Serology, HIV is negative. Foot cultures; corynebacterium from the right foot. The blood cultures are negative. Another foot culture from the right is gram-positive cocci. Further identification and sensitivity is pending. The patient is currently on vancomycin and Zosyn. The patient had an MRI of his foot; cortical destruction of bone marrow consistent with osteomyelitis. MRI of the right foot, also with osteomyelitis. ASSESSMENT AND PLAN: This is a 61-year-old male with peripheral vascular disease, diabetes, hypertension, high cholesterol, psoriasis, history of sensitive Staphylococcus aureus left foot cellulitis, presenting with right foot cellulitis and osteomyelitis with corynebacterium, will need 4 to 6 weeks of antibiotics with vancomycin trough level and try to maintain at 15 to 20, CBC, SMA-18, sed rate, and C-reactive protein. We will order a vancomycin trough level now. Review of medications reveals the patient gets the vancomycin at 7 in the morning and 7 at night. We will order a vancomycin trough level for tomorrow at 6:00 a.m. an hour before the morning dose. We will make further recommendations pending final culture results and pathology report. Rakesh Bautista MD
[2017-02-01] MEDS: Insulin Detemir 100 units/ml Vial (Levemir) SC SCH (22:10)
[2017-02-02] MEDS: Pantoprazole 40 mg EC Tab PO SCH (05:21)
[2017-02-02] MEDS: Piperacillin/Tazobact 3.375 gm 100 ML IVPB SCH ×4 (05:21→23:05)
[2017-02-02] MEDS: Sodium Chloride 0.45% 1,000 ML IV SCH ×2 (05:24→17:20)
[2017-02-02 07:28] LABS: HEMATOCRIT 35.1 % (42.0-52.0); MEAN CELL VOLUME 81.8 fl (80.0-105.0); MEAN CORPUSCULAR HEMOGLOBIN 26.8 pg (25.0-35.0); MEAN CORPUSCULAR HGB CONC 32.8 g/dl (31.0-37.0); MEAN PLATELET VOLUME 9.9 fl (7.0-11.0); RED CELL DISTRIBUTION WIDTH 13.3 % (11.5-14.5); WHITE BLOOD COUNT 12.4 10^3/ul (4.5-11.0)
[2017-02-02 07:50] LABS: ALB/GLOB RATIO 0.8 (1.1-1.8); ALKALINE PHOSPHATASE 85 U/L (38-126); ALT/SGPT 25 U/L (7-56); AST/SGOT 17 U/L (17-59); BILIRUBIN,TOTAL 0.3 mg/dL (0.2-1.3); BLOOD UREA NITROGEN 12 mg/dL (7-21); CALCIUM 8.3 mg/dL (8.4-10.5); CARBON DIOXIDE 25 mmol/L (21-33); CHLORIDE 103 mmol/L (98-107); GFR AFRICAN-AMERICAN > 60; GLUCOSE,RANDOM 246 mg/dL (70-110); POTASSIUM 4.1 mmol/L (3.6-5.0); SODIUM 137 mmol/L (132-148); TOTAL PROTEIN 7.1 g/dL (5.8-8.3)
[2017-02-02 07:51] VITALS: TEMP 98.6
[2017-02-02] MEDS: Insulin Lispro (humaLOG) MEDIUM Coverage SC SCH ×4 (08:51→22:16)
[2017-02-02] MEDS: Vancomycin 1gm in NS 250ml 1 GM/250 ML BAG IVPB SCH ×2 (09:00→23:06)
[2017-02-02] MEDS: Bacitracin Ointment 30 GM TUBE TOP SCH (10:41)
--- NOTE | 2017-02-02 12:22 | CP.PCM.PN ---
<Marino Son - Last Filed: 02/02/17 12:18> Subjective - Date & Time of Evaluation Date of Evaluation: 02/02/17 Time of Evaluation: 12:18 - Subjective Subjective: Medicine progress note - Anne Marie Son PGY2 Patient seen and examined at bedside this morning. No acute overnight events or new complaints reported. Patient aware of MRI results consistent with osteomyelitis. Will continue with IV antibiotics per ID recommendations and podiatry recommendations. Denies chest pain, palpitations, SOB. Objective - Vital Signs/Intake and Output Vital Signs (last 24 hours): Temp Pulse Resp BP Pulse Ox 98.6 F 61 20 159/82 H 97 02/02/17 07:50 02/02/17 07:50 02/02/17 07:50 02/02/17 07:50 02/02/17 07:50 Intake and Output: 02/02/17 02/02/17 06:59 18:59 Intake Total 2420 Output Total 550 Balance 1870 - Medications Medications: Current Medications Acetaminophen (Tylenol 325mg Tab) 650 mg PO Q4 PRN PRN Reason: Fever >100.4 F Last Admin: 01/31/17 16:35 Dose: 650 mg Acetaminophen (Tylenol 325mg Tab) 650 mg PO Q4H PRN PRN Reason: Pain, Mild (1-3) Bacitracin (Bacitracin) 0 gm TOP DAILY [facility] Last Admin: 02/02/17 10:41 Dose: 1 applic Heparin Sodium (Porcine) (Heparin) 5,000 units SC Q12 [facility] PRN Reason: Protocol Last Admin: 02/02/17 09:00 Dose: 5,000 units Piperacillin Sod/Tazobactam Sod (Zosyn 3.375 In Ns 100ml) 100 mls @ 200 mls/hr IVPB Q6 [facility] PRN Reason: Protocol Stop: 02/08/17 00:01 Last Admin: 02/02/17 05:21 Dose: 200 mls/hr Sodium Chloride (Sodium Chloride 0.45%) 1,000 mls @ 100 mls/hr IV .Q10H [facility] Last Admin: 02/02/17 05:24 Dose: 100 mls/hr Vancomycin HCl (Vancomycin 1gm) 1 gm in 250 mls @ 167 mls/hr IVPB Q12H [facility] PRN Reason: Protocol Stop: 02/10/17 22:01 Last Admin: 02/02/17 09:00 Dose: 167 mls/hr Ibuprofen (Motrin Tab) 400 mg PO Q6H PRN PRN Reason: Pain, Mild (1-3) Insulin Detemir (Levemir) 10 unit SC HS [facility] Last Admin: 02/01/17 22:10 Dose: 10 unit Insulin Human Lispro (Humalog Med) 0 units SC ACHS [facility] PRN Reason: Protocol Last Admin: 02/02/17 08:51 Dose: 3 units Ketorolac Tromethamine (Toradol) 30 mg IVP Q6H PRN PRN Reason: Pain, moderate (4-7) Last Admin: 02/02/17 05:34 Dose: 30 mg Ondansetron HCl (Zofran Inj) 4 mg IVP Q4H PRN PRN Reason: Nausea/Vomiting Oxycodone/Acetaminophen (Percocet 5/325 Mg Tab) 1 tab PO Q4H PRN PRN Reason: Pain, moderate (4-7) Stop: 02/02/17 15:19 Oxycodone/Acetaminophen (Percocet 5/325 Mg Tab) 2 tab PO Q4H PRN PRN Reason: Pain, severe (8-10) Stop: 02/02/17 15:19 Pantoprazole Sodium (Protonix Ec Tab) 40 mg PO 0600 [facility] Last Admin: 02/02/17 05:21 Dose: 40 mg - Labs Labs: 02/02/17 07:00 02/02/17 07:00 PT 15.5 SECONDS (9.4-12.5) H 01/29/17 11:10 INR 1.40 (0.93-1.08) H 01/29/17 11:10 APTT 30.8 Seconds (25.1-36.5) 01/29/17 11:10 - Constitutional Appears: Non-toxic, No Acute Distress - Head Exam Head Exam: ATRAUMATIC, NORMAL INSPECTION, NORMOCEPHALIC - Eye Exam Eye Exam: EOMI, PERRL - ENT Exam ENT Exam: Mucous Membranes Moist - Respiratory Exam Respiratory Exam: Clear to Ausculation Bilateral. absent: Rales, Rhonchi, Wheezes - Cardiovascular Exam Cardiovascular Exam: RRR, +S1, +S2. absent: Gallop, JVD, Rubs - GI/Abdominal Exam GI & Abdominal Exam: Soft. absent: Distended, Firm, Guarding, Rigid, Tenderness , Rebound - Extremities Exam Additional comments: dressing clean, dry and intact - Neurological Exam Neurological Exam: Alert, Awake, CN II-XII Intact, Oriented x3 - Psychiatric Exam Psychiatric exam: Normal Affect, Normal Mood - Skin Skin Exam: Dry, Intact, Normal Color, Warm Assessment and Plan - Assessment and Plan (Free Text) Plan: 61yo male with history of poorly controlled DM type 2, PAD s/p multiple angioplasties, Left 1st toe amputation s/p gangrene and osteomyelitis, b/l non-healing heel ulcers, tobacco smoker, non-compliance, and psoriasis who presents with non-healing bilateral foot ulcers and difficulty ambulating due to progressing PAD 1. Osteomyelitis - MRI results reviewed; revealed osteomyelitis at the plantar aspect of the R. calcaneus bone, osteomyelitis at the posterior plantar aspect of the L. calcaneus bone, myositis tendinopathy and plantar fasciitis of the R foot; see full report for further details - Patient is s/p podiatric debridement of bilateral heel ulcerations (POD #3) - ESR and CRP elevated - wound culture of right foot positive for corynebacterium and MRSA; wound culture left foot pending - cont Vanc and Zosyn d3 for osteomyelitis empiric coverage - Tylenol PRN fevers - Motrin and Toradol PRN pain - Zofran PRN n/v - blood, and urine culture are negative - Right foot XR showed possible osseous erosion of the inferior calcaneus immediately adjacent to the plantar ulceration. Possible osteomyelitis. - ID consulted - Dr. Bautista - Podiatry consulted - Dr. Solis - IR consulted - Dr. Paez - wound care eval and nursing referral ordered for wound - PT/OT ordered 2. Peripheral arterial disease - LE duplex showed absence of pulses popliteal artery and distal b/l; MAURO showed moderate severe PAD b/l calf and distally - Patient is s/p IR intervention with recanalization of the R. SFA with drug eluting balloon angioplasty and stent placement, proximal right anterior tibial artery angioplasty; patient with distal left SFA occlusion and severe bilateral tibial and pedal occlusive disease 3. Diabetes - Hyperglycemia on admission, improved - hgbA1C 11 - holding PO home medications due to poor control - ISS - Levemir 10u HS - Accuchecks ACHS - diabetic education ordered - Carb consistent HHD 4. Anemia - trending, stable - if continues to trend down, will order more workup 5. DVT/GI PPX - Heparin/PTX Patient seen and case discussed/reviewed with attending, Dr. Traore <Khanh Traore - Last Filed: 02/03/17 07:53> Objective - Vital Signs/Intake and Output Vital Signs (last 24 hours): Temp Pulse Resp BP Pulse Ox 98.6 F 62 20 139/72 96 02/02/17 16:00 02/02/17 16:00 02/02/17 16:00 02/02/17 16:00 02/02/17 16:00 Intake and Output: 02/03/17 02/03/17 06:59 18:59 Intake Total 1020 Output Total 3300 Balance -2280 - Medications Medications: Current Medications Acetaminophen (Tylenol 325mg Tab) 650 mg PO Q4 PRN PRN Reason: Fever >100.4 F Last Admin: 01/31/17 16:35 Dose: 650 mg Acetaminophen (Tylenol 325mg Tab) 650 mg PO Q4H PRN PRN Reason: Pain, Mild (1-3) Bacitracin (Bacitracin) 0 gm TOP DAILY [facility] Last Admin: 02/02/17 10:41 Dose: 1 applic Heparin Sodium (Porcine) (Heparin) 5,000 units SC Q12 [facility] PRN Reason: Protocol Last Admin: 02/02/17 22:14 Dose: 5,000 units Piperacillin Sod/Tazobactam Sod (Zosyn 3.375 In Ns 100ml) 100 mls @ 200 mls/hr IVPB Q6 [facility] PRN Reason: Protocol Stop: 02/08/17 00:01 Last Admin: 02/03/17 06:41 Dose: 200 mls/hr Sodium Chloride (Sodium Chloride 0.45%) 1,000 mls @ 100 mls/hr IV .Q10H [facility] Last Admin: 02/02/17 17:20 Dose: 100 mls/hr Vancomycin HCl (Vancomycin 1gm) 1 gm in 250 mls @ 167 mls/hr IVPB Q12H [facility] PRN Reason: Protocol Stop: 02/10/17 22:01 Last Admin: 02/02/17 23:06 Dose: 167 mls/hr Ibuprofen (Motrin Tab) 400 mg PO Q6H PRN PRN Reason: Pain, Mild (1-3) Insulin Detemir (Levemir) 10 unit SC HS [facility] Last Admin: 02/02/17 22:55 Dose: 10 unit Insulin Human Lispro (Humalog Med) 0 units SC ACHS [facility] PRN Reason: Protocol Last Admin: 02/02/17 22:16 Dose: Not Given Ketorolac Tromethamine (Toradol) 30 mg IVP Q6H PRN PRN Reason: Pain, moderate (4-7) Last Admin: 02/03/17 01:21 Dose: 30 mg Ondansetron HCl (Zofran Inj) 4 mg IVP Q4H PRN PRN Reason: Nausea/Vomiting Pantoprazole Sodium (Protonix Ec Tab) 40 mg PO 0600 [facility] Last Admin: 02/03/17 06:55 Dose: 40 mg - Labs Labs: 02/03/17 07:00 02/03/17 07:00 PT 15.5 SECONDS (9.4-12.5) H 01/29/17 11:10 INR 1.40 (0.93-1.08) H 01/29/17 11:10 APTT 30.8 Seconds (25.1-36.5) 01/29/17 11:10 Assessment and Plan - Assessment and Plan (Free Text) Plan: discussed w/ resident at length went over meds labs orders tests xrays consults plans reviewed
--- NOTE | 2017-02-02 14:25 | CP.PCM.PN ---
Subjective - Date & Time of Evaluation Date of Evaluation: 02/02/17 Time of Evaluation: 10:18 - Subjective Subjective: Podiatry Progress Note - Dr. Solis 61 year old male patient seen and evaluated at bedside POD#3 irrigation and drainage with debridement of bilateral heel ulcerations. Patient OOB in recliner , hemodynamically stable and NAD. Denies any acute events overnight. Patient is agitated he remains bed bound, inquiring when he can start ambulating again. Patient refusing physical therapy and PICC line insertion. Reports continued pain to bilateral LE, R>L, well-controlled. Dressings clean/dry/intact bilaterally. Offloading boots present b/l. Denies N/V/F/D/C/SOB/calf pain. Objective - Vital Signs/Intake and Output Vital Signs (last 24 hours): Temp Pulse Resp BP Pulse Ox 98.6 F 61 20 159/82 H 97 02/02/17 07:50 02/02/17 07:50 02/02/17 07:50 02/02/17 07:50 02/02/17 07:50 Intake and Output: 02/02/17 02/02/17 06:59 18:59 Intake Total 2420 Output Total 550 Balance 1870 - Medications Medications: Current Medications Acetaminophen (Tylenol 325mg Tab) 650 mg PO Q4 PRN PRN Reason: Fever >100.4 F Last Admin: 01/31/17 16:35 Dose: 650 mg Acetaminophen (Tylenol 325mg Tab) 650 mg PO Q4H PRN PRN Reason: Pain, Mild (1-3) Bacitracin (Bacitracin) 0 gm TOP DAILY [facility] Last Admin: 02/02/17 10:41 Dose: 1 applic Heparin Sodium (Porcine) (Heparin) 5,000 units SC Q12 [facility] PRN Reason: Protocol Last Admin: 02/02/17 09:00 Dose: 5,000 units Piperacillin Sod/Tazobactam Sod (Zosyn 3.375 In Ns 100ml) 100 mls @ 200 mls/hr IVPB Q6 [facility] PRN Reason: Protocol Stop: 02/08/17 00:01 Last Admin: 02/02/17 12:28 Dose: 200 mls/hr Sodium Chloride (Sodium Chloride 0.45%) 1,000 mls @ 100 mls/hr IV .Q10H [facility] Last Admin: 02/02/17 05:24 Dose: 100 mls/hr Vancomycin HCl (Vancomycin 1gm) 1 gm in 250 mls @ 167 mls/hr IVPB Q12H [facility] PRN Reason: Protocol Stop: 02/10/17 22:01 Last Admin: 02/02/17 09:00 Dose: 167 mls/hr Ibuprofen (Motrin Tab) 400 mg PO Q6H PRN PRN Reason: Pain, Mild (1-3) Insulin Detemir (Levemir) 10 unit SC HS [facility] Last Admin: 02/01/17 22:10 Dose: 10 unit Insulin Human Lispro (Humalog Med) 0 units SC ACHS [facility] PRN Reason: Protocol Last Admin: 02/02/17 12:29 Dose: 3 units Ketorolac Tromethamine (Toradol) 30 mg IVP Q6H PRN PRN Reason: Pain, moderate (4-7) Last Admin: 02/02/17 05:34 Dose: 30 mg Ondansetron HCl (Zofran Inj) 4 mg IVP Q4H PRN PRN Reason: Nausea/Vomiting Oxycodone/Acetaminophen (Percocet 5/325 Mg Tab) 1 tab PO Q4H PRN PRN Reason: Pain, moderate (4-7) Stop: 02/02/17 15:19 Oxycodone/Acetaminophen (Percocet 5/325 Mg Tab) 2 tab PO Q4H PRN PRN Reason: Pain, severe (8-10) Stop: 02/02/17 15:19 Pantoprazole Sodium (Protonix Ec Tab) 40 mg PO 0600 [facility] Last Admin: 02/02/17 05:21 Dose: 40 mg - Labs Labs: 02/02/17 07:00 02/02/17 07:00 PT 15.5 SECONDS (9.4-12.5) H 01/29/17 11:10 INR 1.40 (0.93-1.08) H 01/29/17 11:10 APTT 30.8 Seconds (25.1-36.5) 01/29/17 11:10 - Constitutional Appears: Agitated - Extremities Exam Additional comments: VASC: DP and PT pulses nonpalpable b/l secondary to edema. Temperature gradient warm to warm bilateral. +1 pitting edema noted to bilateral LE. No increase in warmth noted to bilateral heels or right 1st MPJ. NEURO: Gross sensation absent. DERM: Full thickness ulceration with exposed bone encompassing right heel with a sinus tract proximally at medial ankle; ulcer is noted to have mixed fibrotic/ necrotic/granular base with erythema periwound; mild serosanguinous drainage noted; mild malodor present. Small ulceration noted to base of right hallux with pale tissue and hyperkeratotic rim; mild serous drainage noted; no purulence noted; no tunneling, undermining, ascending celulitis; no clinical signs of infection noted at this time. Left heel is noted to have a small plantar ulceration with mixed fibrogranular base and mild erythema periwound; absent purulence; mild serosanguinous drainage noted. Heavy scaling secondary to psoriasis to bilateral LE. ORTHO: No pain on palpation bilateral LE. - Neurological Exam Neurological Exam: Alert, Awake, Oriented x3 - Psychiatric Exam Psychiatric exam: Agitated Assessment and Plan - Assessment and Plan (Free Text) Assessment: 61 year old male patient 1) POD#3 irrigation and drainage with debridement of bilateral heel ulcerations 2) right hallux plantar ulceration, stable Plan: Patient seen and evaluated Discussed with attending, Dr. Solis Afebrile, increased WBC @ 12.4 however trending downwards, ESR 109 Patient agreeable to dressing change today; patient has extensive history of noncompliance and refusal of treatment against medical advice -LLE cleansed with saline, hydrogel applied to wound and dressed with xeroform DSD -Right heel cleansed with saline, hydrogel applied to wound and dressed with xeroform DSD -Right hallux cleansed with saline, bacitracin applied to ulceration, and dressed with DSD MRI report: -Cortical destruction and bone marrow edema at the mid and lower portion of the calcaneus bone consistent with osteomyelitis -Findings suggestive of osteomyelitis at the plantar posterior aspect of the left calcaneus bone Continue multipodus boots at all times Patient NWB to bilateral LE currently Continue abx, Vancomycin and Zosyn -Dr. Paez consulted for PICC insertion however patient is refusing insertion against medical advice Continue pain management Podiatry will continue to follow patient while in house
[2017-02-02 18:01] VITALS: O2SAT 96
[2017-02-02] MEDS ORDERED: Vancomycin 1gm in NS 250ml 1 GM/250 ML BAG IVPB STA (18:39)
--- NOTE | 2017-02-02 20:50 | PN ---
DATE: 02/02/2017 SUBJECTIVE: Patient is in bed in no acute distress, nontoxic. PHYSICAL EXAMINATION VITAL SIGNS: Temperature is 98, blood pressure is 150/80, respiratory rate of 20. HEENT: Unremarkable. NECK: Supple. LUNGS: Have decreased breath sounds. HEART: Normal S1, S2. ABDOMEN: Soft, nontender. LABORATORY EXAMINATION: Reveals white count of 12,400, hemoglobin of 11, BUN of 12, creatinine of 0.6. Urinalysis is noted. Serology is noted. Microbiology reveals MRSA from the foot culture and corynebacterium from the foot culture. Review of medications reveals the patient to be on vancomycin and Zosyn, MRSA sensitivity, INDRA of less than 0.5, sensitive to vancomycin, MRSA resistant to clindamycin. ASSESSMENT AND PLAN: A 61-year-old male with peripheral vascular disease, diabetes, hypertension, high cholesterol, psoriasis, history of sensitive Staph aureus, left foot cellulitis presenting with right foot cellulitis and osteomyelitis and MRSA and corynebacterium. He will need 4 to 6 weeks' of antibiotics and decreased sed rate, C-reactive protein and vanco trough level is SMA 18 and and vanco trough this morning 9.4. We will consider increasing of vancomycin and give a dose of vancomycin now. He may has to resort to daptomycin if we cannot adequate levels of vancomycin. Rakesh Bautista MD
[2017-02-02] MEDS: Insulin Detemir 100 units/ml Vial (Levemir) SC SCH (22:55)
[2017-02-03] MEDS: Piperacillin/Tazobact 3.375 gm 100 ML IVPB SCH ×2 (06:41→12:49)
[2017-02-03] MEDS: Pantoprazole 40 mg EC Tab PO SCH (06:55)
[2017-02-03 07:17] LABS: HEMATOCRIT 37.1 % (42.0-52.0); MEAN CELL VOLUME 81.9 fl (80.0-105.0); MEAN CORPUSCULAR HEMOGLOBIN 26.5 pg (25.0-35.0); MEAN CORPUSCULAR HGB CONC 32.3 g/dl (31.0-37.0); MEAN PLATELET VOLUME 10.2 fl (7.0-11.0); RED CELL DISTRIBUTION WIDTH 13.2 % (11.5-14.5); WHITE BLOOD COUNT 12.4 10^3/ul (4.5-11.0)
[2017-02-03 07:43] LABS: ALB/GLOB RATIO 0.8 (1.1-1.8); ALKALINE PHOSPHATASE 87 U/L (38-126); ALT/SGPT 31 U/L (7-56); AST/SGOT 19 U/L (17-59); BILIRUBIN,TOTAL 0.4 mg/dL (0.2-1.3); BLOOD UREA NITROGEN 9 mg/dL (7-21); CALCIUM 8.4 mg/dL (8.4-10.5); CARBON DIOXIDE 25 mmol/L (21-33); CHLORIDE 105 mmol/L (98-107); GFR AFRICAN-AMERICAN > 60; GLUCOSE,RANDOM 202 mg/dL (70-110); SODIUM 138 mmol/L (132-148); TOTAL PROTEIN 7.3 g/dL (5.8-8.3)
[2017-02-03 08:22] VITALS: BP 158/91; PULSE 68
[2017-02-03] MEDS: Insulin Lispro (humaLOG) MEDIUM Coverage SC SCH ×2 (08:32→15:39)
--- NOTE | 2017-02-03 09:11 | CP.PCM.PN ---
<Noé Rosas - Last Filed: 02/03/17 12:41> Subjective - Date & Time of Evaluation Date of Evaluation: 02/03/17 Time of Evaluation: 07:00 - Subjective Subjective: Noé Rosas PGY1 IM Progress Note for Dr. Tyson Patient was seen and examined bedside. He offers no complaints of fevers/chills , n/v/d, chest pain, sob, cough, weakness. pain is tolerated. patient is having bowel movements, but with some difficulty reaching the restroom. The patient was asked regarding PICC line insertion and the need for a PICC line for at least 6 weeks of IV antibiotics was explained to him in full, and he is now accepting the PICC line. he hasn't been able to get PT due to boot not fitting appropriately. Patient has an autistic son, which is mainly why he's agitated about remaining in the hospital over the weekend. The patient is asked if he needs any psoriatic medications for his lesions, however, the patient refuses medications and states that his dad had 70% lesions covering his body. Regarding his disposition, the patient is strongly against an outside [facility], however, he is willing to either do inpatient [place]in [facility] or have the PICC line placed and return to have infusions done at the hospital daily. Objective - Vital Signs/Intake and Output Vital Signs (last 24 hours): Temp Pulse Resp BP Pulse Ox 98.6 F 68 20 158/91 H 96 02/03/17 07:30 02/03/17 07:30 02/03/17 07:30 02/03/17 07:30 02/03/17 07:30 Intake and Output: 02/03/17 02/03/17 06:59 18:59 Intake Total 1020 Output Total 3300 Balance -2280 - Medications Medications: Current Medications Acetaminophen (Tylenol 325mg Tab) 650 mg PO Q4 PRN PRN Reason: Fever >100.4 F Last Admin: 01/31/17 16:35 Dose: 650 mg Acetaminophen (Tylenol 325mg Tab) 650 mg PO Q4H PRN PRN Reason: Pain, Mild (1-3) Bacitracin (Bacitracin) 0 gm TOP DAILY [facility] Last Admin: 02/02/17 10:41 Dose: 1 applic Heparin Sodium (Porcine) (Heparin) 5,000 units SC Q12 [facility] PRN Reason: Protocol Last Admin: 02/02/17 22:14 Dose: 5,000 units Piperacillin Sod/Tazobactam Sod (Zosyn 3.375 In Ns 100ml) 100 mls @ 200 mls/hr IVPB Q6 [facility] PRN Reason: Protocol Stop: 02/08/17 00:01 Last Admin: 02/03/17 06:41 Dose: 200 mls/hr Sodium Chloride (Sodium Chloride 0.45%) 1,000 mls @ 100 mls/hr IV .Q10H [facility] Last Admin: 02/02/17 17:20 Dose: 100 mls/hr Vancomycin HCl (Vancomycin 1gm) 1 gm in 250 mls @ 167 mls/hr IVPB Q12H [facility] PRN Reason: Protocol Stop: 02/10/17 22:01 Last Admin: 02/02/17 23:06 Dose: 167 mls/hr Ibuprofen (Motrin Tab) 400 mg PO Q6H PRN PRN Reason: Pain, Mild (1-3) Insulin Detemir (Levemir) 10 unit SC [facility] Last Admin: 02/02/17 22:55 Dose: 10 unit Insulin Human Lispro (Humalog Med) 0 units SC [facility] PRN Reason: Protocol Last Admin: 02/03/17 08:32 Dose: 1 units Ketorolac Tromethamine (Toradol) 30 mg IVP Q6H PRN PRN Reason: Pain, moderate (4-7) Last Admin: 02/03/17 01:21 Dose: 30 mg Ondansetron HCl (Zofran Inj) 4 mg IVP Q4H PRN PRN Reason: Nausea/Vomiting Pantoprazole Sodium (Protonix Ec Tab) 40 mg PO 0600 [facility] Last Admin: 02/03/17 06:55 Dose: 40 mg - Labs Labs: 02/03/17 07:00 02/03/17 07:00 PT 15.5 SECONDS (9.4-12.5) H 01/29/17 11:10 INR 1.40 (0.93-1.08) H 01/29/17 11:10 APTT 30.8 Seconds (25.1-36.5) 01/29/17 11:10 - Constitutional Appears: Well, Non-toxic, No Acute Distress, Unkempt - Head Exam Head Exam: NORMAL INSPECTION - Eye Exam Eye Exam: EOMI, Normal appearance, PERRL - ENT Exam ENT Exam: Mucous Membranes Moist - Neck Exam Neck Exam: Normal Inspection - Respiratory Exam Respiratory Exam: NORMAL BREATHING PATTERN. absent: Rales, Rhonchi, Wheezes - Cardiovascular Exam Cardiovascular Exam: RRR, +S1, +S2. absent: JVD - GI/Abdominal Exam GI & Abdominal Exam: Soft, Normal Bowel Sounds. 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 (large area); no scaling noted - Neurological Exam Neurological Exam: Alert, Awake, Oriented x3 - Psychiatric Exam Psychiatric exam: Normal Affect, Normal Mood - Skin Skin Exam: Normal Color, Rash (psoriatic lesions diffusely spread ), Warm Assessment and Plan - Assessment and Plan (Free Text) Assessment: 61yo male with history of poorly controlled DM type 2, PAD s/p multiple angioplasties, Left 1st toe amputation s/p gangrene and osteomyelitis, b/l non-healing heel ulcers, tobacco smoker, non-compliance, and psoriasis who presents with non-healing bilateral foot ulcers and difficulty ambulating due to progressing PAD. Being treated for b/l foot osteomyelitis and MRSA in R foot. Plan: 1. B/l foot osteomyelitis s/p surgical debridement of b/l heel ulcers POD4 - PICC line placement ordered, pt is agreeable - MRI results reviewed; osteomyelitis of b/l calcaneus bones, myositis tendinopathy and plantar fasciitis of the R foot; see full report for further details - wound culture of right foot positive for corynebacterium and MRSA; wound culture left foot negative - cont Vanc and Zosyn for osteomyelitis and MRSA coverage - Tylenol PRN fevers - Motrin and Toradol PRN pain - Zofran PRN n/v - blood, and urine culture are negative - ID consulted - Dr. Bautista - Podiatry consulted - Dr. Solis - wound care eval and nursing referral ordered for wound - PT/OT ordered 2. Peripheral arterial disease - LE duplex showed absence of pulses popliteal artery and distal b/l; MAURO showed moderate severe PAD b/l calf and distally - s/p recanalization of the R. SFA with drug eluting balloon angioplasty and stent placement, proximal right anterior tibial artery angioplasty; patient with distal left SFA occlusion and severe bilateral tibial and pedal occlusive disease - IR consulted - Dr. Paez 3. Diabetes - Hyperglycemia on admission, improved - hgbA1C 11 - holding PO home medications due to poor control - ISS - Levemir 10u HS - Accuchecks ACHS - diabetic education ordered - Carb consistent HHD 4. Anemia - improved, stable - if continues to trend down, will order more workup 5. DVT/GI PPX - Heparin/PTX Dispo: given hx of poor compliance, PICC will be placed and pt will either do [facility] inpatient care or be discharged and have to return for antibiotic therapy. Patient was seen, examined and discussed with attending, Dr. Marbella Rosas PGY1 Pager # [phone] <Scott Tyson - Last Filed: 02/06/17 17:25> Objective - Vital Signs/Intake and Output Vital Signs (last 24 hours): Temp Pulse Resp BP Pulse Ox 98.6 F 68 20 158/91 H 96 02/03/17 07:30 02/03/17 07:30 02/03/17 07:30 02/03/17 07:30 02/03/17 07:30 - Labs Labs: 02/03/17 07:00 02/03/17 07:00 PT 15.5 SECONDS (9.4-12.5) H 01/29/17 11:10 INR 1.40 (0.93-1.08) H 01/29/17 11:10 APTT 30.8 Seconds (25.1-36.5) 01/29/17 11:10 Attending/Attestation - Attestation I have personally seen and examined this patient.: Yes I have fully participated in the care of the patient.: Yes I have reviewed all pertinent clinical information, including history, physical exam and plan: Yes Notes (Text): 02/06/17 17:25 Medical record note made by the resident after discussion with my direction and input after the patient was personally seen and examined by me. I have reviewed the chart and agree that the record accurately reflects by personal performance of the history, physical exam, data review, and medical decision-making, in the course for the patient. I have also personally directed the plan of care.
[2017-02-03] MEDS: Vancomycin 1gm in NS 250ml 1 GM/250 ML BAG IVPB SCH (09:37)
[2017-02-03] MEDS: Bacitracin Ointment 30 GM TUBE TOP SCH (09:38)
[2017-02-03] MEDS: Sodium Chloride 0.45% 1,000 ML IV SCH (12:38)
[2017-02-03] MEDS ORDERED: Vancomycin 1 g Inj IVPB SCH (13:45)
[2017-02-03] MEDS ORDERED: DAPTOmycin 500 mg Inj (Cubicin) IV SCH (15:15)
--- NOTE | 2017-02-03 19:22 | PN ---
DATE: 02/03/2017 SUBJECTIVE: This 61-year-old diabetic male with bilateral heel osteomyelitis, seen at bedside. He states he has a stick in place and he would like to go home today. The patient's dressings are clean, dry and intact to the feet. PHYSICAL EXAMINATION: VITAL SIGNS: Show a temperature of 98.6, his blood pressure is 158/91, and his respirations are 20. LABORATORY DATA: His labs were reviewed. His BUN and creatinine are 9 and 0.6. The glucose was 202. His hematology shows a white blood cell count of 12.4, that is down from 21.1 when he was admitted. His ESR is at 109. The patient's coagulation has an INR of 1.4. The patient is being discharged today on home IV antibiotics, daptomycin is being used for a positive MRSA culture. The patient had extensive debridement on 01/31/2017. At which time, he was noted to have purulent abscess with a sinus tract going up the lateral aspect of the right ankle. This sinus tract is closing, it now has an undermining in the tract of approximately 2 cm, no longer goes quite up towards the calf as it was during the OR. There is no longer any pus coming from it; however, the tissue in the entire heel ulceration which encompasses the entire heel is slough and it is a mix of necrotic and yellow slough. He was just revascularized by Dr. Paez previous to the debridement and during the debridement procedure, he did have a good amount of free bleeding. The patient's cellulitis has resolved. He is, however, left with a very large deep ulcer with exposure of the periosteum of the calcaneus. The left foot no longer has any pus coming out of it. This foot has an ulceration measuring approximately 3 x 2 cm with a sinus tract that goes down to the calcaneus. He has no pus with cellulitis noted on his foot. ASSESSMENT: Diabetic with peripheral vascular disease, neuropathy bilateral and osteomyelitis of the bilateral calcaneus. PLAN OF TREATMENT: The patient is to be toe touch only while walking on the right, he has an offloading shoe for the left and once his foot is stable, hopefully we can get him into the total contact cast. His healing on the right side, his prognosis, is very guarded at this time. The patient was admonished not to go home and start smoking, he stopped it the day he was admitted to the hospital. I did tell him the dangers of smoking which I have spoken to him about many times in the past, hopefully this admission is enough to scare him. The patient also has visiting nurses coming to the house, they will be coming in every other day and dressing the heel with Santyl, Xeroform and dry sterile dressing on the right and Maxorb with a dry sterile dressing to the left. The patient will [facility]. He does have a scooter at home and he was advised to use it at all times. Chantel Solis DPM
--- NOTE | 2017-02-03 20:53 | PN ---
DATE: 02/03/2017 SUBJECTIVE: The patient is in bed in no acute distress who was seen early this morning. PHYSICAL EXAMINATION: VITAL SIGNS: Temperature of 98, blood pressure is 150/70 and respiratory rate of 16. HEENT: Unremarkable. NECK: Supple. LUNGS: Has decreased breath sounds. HEART: Normal S1 and S2. ABDOMEN: Soft and nontender. LABORATORY DATA: Reveals the patient did have white count of 12,400 and hemoglobin of 12. BUN of 9, creatinine of 0.6. Urinalysis is noted. HIV is negative. Microbiology is growing MRSA with INDRA of 0.5 reviewed. Microbiology reveals the patient to have corynebacterium species on the right foot also. ASSESSMENT AND PLAN: A 61-year-old male with peripheral vascular disease, diabetes, hypertension, high cholesterol, psoriasis, sensitive to Staphylococcus aureus, left foot cellulitis in the past and right foot cellulitis, now with methicillin-resistant Staphylococcus aureus and corynebacterium, osteomyelitis, unable to reach adequate vancomycin trough level. We will switch to daptomycin 6 mg/kg IV q. 24 hours, 4 to 6 weeks of antibiotics with a repeat CBC C-reactive protein and a CPK. Rakesh Bautista MD
--- NOTE | 2017-02-03 22:13 | CP.PCM.DIS ---
<Noé Rosas - Last Filed: 02/03/17 22:10> Provider - Provider Date of Admission: 01/29/17 12:31 Attending physician: Gilbert Gutiérrez MD Primary care physician: Tra Soto MD Time Spent in preparation of Discharge (in minutes): 40 Diagnosis - Discharge Diagnosis (1) Osteomyelitis Status: Acute (2) MRSA (methicillin resistant Staphylococcus aureus) infection Status: Acute (3) Foot ulcer due to secondary DM Status: Acute (4) PAD (peripheral artery disease) Status: Chronic (5) Diabetes Status: Chronic (6) Tobacco abuse Status: Chronic Hospital Course - Lab Results Lab Results: Micro Results 01/30/17 16:12 Foot - Left Gram Stain - Final 01/30/17 16:12 Foot - Left Wound Culture - Final No Growth 01/30/17 16:12 Decubitus - Foot-Right Gram Stain - Final 01/30/17 16:12 Decubitus - Foot-Right Wound Culture - Final Methicillin Resistant S Aureus 01/29/17 15:30 Foot - Right Gram Stain - Final 01/29/17 15:30 Foot - Right Wound Culture - Final Corynebacterium Species 01/29/17 17:30 Urine Urine Culture - Final No Growth (<1,000 CFU/ML) Most Recent Lab Values WBC 12.4 10^3/ul (4.5-11.0) H 02/03/17 07:00 RBC 4.53 10^6/uL (3.5-6.1) 02/03/17 07:00 Hgb 12.0 g/dL (14.0-18.0) L 02/03/17 07:00 Hct 37.1 % (42.0-52.0) L 02/03/17 07:00 MCV 81.9 fl (80.0-105.0) 02/03/17 07:00 MCH 26.5 pg (25.0-35.0) 02/03/17 07:00 MCHC 32.3 g/dl (31.0-37.0) 02/03/17 07:00 RDW 13.2 % (11.5-14.5) 02/03/17 07:00 Plt Count 415 10^3/uL (120.0-450.0) 02/03/17 07:00 MPV 10.2 fl (7.0-11.0) 02/03/17 07:00 Gran % 83.9 % (50.0-68.0) H 01/29/17 11:10 Lymph % (Auto) 7.6 % (22.0-35.0) L 01/29/17 11:10 Jerome % (Auto) 8.3 % (1.0-6.0) H 01/29/17 11:10 Eos % (Auto) 0.1 % (1.5-5.0) L 01/29/17 11:10 Baso % (Auto) 0.1 % (0.0-3.0) 01/29/17 11:10 Gran # 17.49 (1.4-6.5) H 01/29/17 11:10 Lymph # 1.6 (1.2-3.4) 01/29/17 11:10 Jerome # 1.7 (0.1-0.6) H 01/29/17 11:10 Eos # 0.0 (0.0-0.7) 01/29/17 11:10 Baso # 0.02 K/mm3 (0.0-2.0) 01/29/17 11:10 ESR 109 mm/hr (0.00-15.0) H 01/29/17 11:10 PT 15.5 SECONDS (9.4-12.5) H 01/29/17 11:10 INR 1.40 (0.93-1.08) H 01/29/17 11:10 APTT 30.8 Seconds (25.1-36.5) 01/29/17 11:10 pO2 24 mm/Hg (30-55) L 01/29/17 15:57 VBG pH 7.42 (7.32-7.43) 01/29/17 15:57 VBG pCO2 46.0 (40-60) 01/29/17 15:57 VBG HCO3 29.8 mmol/l (21-28) H 01/29/17 15:57 VBG Total CO2 31.2 mmol.L (22-28) H 01/29/17 15:57 VBG O2 Sat (Calc) 53.4 % (40-65) 01/29/17 15:57 VBG Base Excess 4.5 mmol/L (0.0-2.0) H 01/29/17 15:57 VBG Potassium 4.7 mmol/L (3.6-5.2) 01/29/17 15:57 Sodium 134.0 mmol/L (132-148) 01/29/17 15:57 Chloride 100.0 mmol/L (98-107) 01/29/17 15:57 Glucose 255 mg/dl (75-110) H 01/29/17 15:57 Lactate 1.2 mmol/L (0.7-2.1) 01/29/17 15:57 FiO2 21.0 % 01/29/17 15:57 Sodium 138 mmol/L (132-148) 02/03/17 07:00 Potassium 4.0 mmol/L (3.6-5.0) 02/03/17 07:00 Chloride 105 mmol/L (98-107) 02/03/17 07:00 Carbon Dioxide 25 mmol/L (21-33) 02/03/17 07:00 Anion Gap 13 (10-20) 02/03/17 07:00 BUN 9 mg/dL (7-21) 02/03/17 07:00 Creatinine 0.6 mg/dl (0.8-1.5) L 02/03/17 07:00 Est GFR ( Amer) > 60 02/03/17 07:00 Est GFR (Non-Af Amer) > 60 02/03/17 07:00 POC Glucose (mg/dL) 197 mg/dL (65-110) H 02/03/17 16:19 Random Glucose 202 mg/dL (70-110) H 02/03/17 07:00 Calcium 8.4 mg/dL (8.4-10.5) 02/03/17 07:00 Phosphorus 4.6 mg/dL (2.5-4.5) H 01/29/17 11:10 Magnesium 2.0 mg/dL (1.7-2.2) 01/29/17 11:10 Total Bilirubin 0.4 mg/dL (0.2-1.3) 02/03/17 07:00 AST 19 U/L (17-59) 02/03/17 07:00 ALT 31 U/L (7-56) 02/03/17 07:00 Alkaline Phosphatase 87 U/L (38-126) 02/03/17 07:00 C-React Prot High Sens > 15.00 mg/L (1.00-3.00) H 01/30/17 06:30 Total Protein 7.3 g/dL (5.8-8.3) 02/03/17 07:00 Albumin 3.3 g/dL (3.0-4.8) 02/03/17 07:00 Globulin 4.0 gm/dL 02/03/17 07:00 Albumin/Globulin Ratio 0.8 (1.1-1.8) L 02/03/17 07:00 Triglycerides 134 mg/dL (35-160) 01/29/17 11:10 Cholesterol 130 mg/dL (130-200) 01/29/17 11:10 LDL Cholesterol Direct 86 mg/dL (0-129) 01/29/17 11:10 HDL Cholesterol 18 mg/dL (29-60) L 01/29/17 11:10 Venous Blood Potassium 4.7 mmol/L (3.6-5.2) 01/29/17 15:57 Urine Color Yellow (YELLOW) 01/31/17 19:44 Urine Appearance Clear (CLEAR) 01/31/17 19:44 Urine pH 7.0 (4.7-8.0) 01/31/17 19:44 Ur Specific [place] 1.015 (1.005-1.035) 01/31/17 19:44 Urine Protein Negative mg/dL (<30 mg/dL) 01/31/17 19:44 Urine Glucose (UA) Negative mg/dL (NEGATIVE) 01/31/17 19:44 Urine Ketones Negative mg/dL (NEGATIVE) 01/31/17 19:44 Urine Blood Small (NEGATIVE) H 01/31/17 19:44 Urine Nitrate Negative (NEGATIVE) 01/31/17 19:44 Urine Bilirubin Negative (NEGATIVE) 01/31/17 19:44 Urine Urobilinogen 0.2 E.U./dL (<1 E.U./dL) 01/31/17 19:44 Ur Leukocyte Esterase Small Jaz/uL (NEGATIVE) H 01/31/17 19:44 Urine RBC 1 - 3 /hpf (0-2) 01/31/17 19:44 Urine WBC 15 - 20 /hpf (0-6) 01/31/17 19:44 Ur Epithelial Cells 4 - 5 /hpf (0-5) 01/31/17 19:44 Urine Bacteria Mod (NEG) 01/31/17 19:44 Urine Other Usperm 01/31/17 19:44 Vancomycin Trough 9.4 ug/mL (5.0-10.0) 02/02/17 07:00 HIV 1&2 Ag/Ab, 4th Gen Nonreactive (Nonreactive) 01/30/17 06:30 - Hospital Course Hospital Course: Mr. Willoughby is a 61yo male with a PMH of poorly controlled DM2 (not on insulin), severe PAD s/p multiple angioplasties, Left 1st toe amputation s/p gangrene and osteomyelitis, b/l non-healing heel ulcers, tobacco smoker, non- compliance, and psoriasis who presents with non-healing b/l ulcers and difficulty ambulating due to progressing PAD. He uses a cane to ambulate, however, his has a scooter at home, that he sometimes uses to get around. The patient follows up with Dr. Solis as an outpatient and was given an antibiotic for his ulcers; however, the patient states that he completed the course yesterday with no relief and was told to come into ED for workup. The patient states that he is only on Metformin and Glyburide, and that there was a period where he ran out and needed refills but Dr. Soto could not get them to him in time. Otherwise, the patient says he has been compliant. The patient had leukocytosis on presentation but was afebrile. Hyperglycemia was also noted in the ED, however, DKA/HHS was ruled out. LE duplex showed absence of pulses popliteal artery and distal b/l; MAURO showed moderate severe PAD b/l calf and distally. R foot XR showed ossible osseous erosion of the inferior calcaneus immediately adjacent to the plantar ulceration w/ possible osteomyelitis. The patient was started on Vancomycin and Zosyn. ID, podiatry and IR were consulted. Patient was transferred to [facility]-surg floors for continued management. Patent received femoral angio by IR and surgical debridement by podiatry team. R foot culture showed MRSA and corynebacterium. MRI of b/l feet was consistent with b/ l osteo as well as severe inflammatory changes at the plantar aspect of the mid and proximal right foot including myositis tendinopathy and plantar fasciitis. L foot, blood and urine cultures were negative. PICC was placed. Both podiatry and ID cleared the patient for discharge. PAtient was adamant about not going to a [facility] and so was discharged to receive 6 weeks of infusions of IV antibiotics through the PICC. Patient was medically stable for discharge.PT evaluated the patient prior to discharge. He will be receiving 6 weeks of IV daptomycin, per ID recs, and receive CBC,CMP,ESR,CRP regular check ups. PAtient will follow up with PMD and podiatry as outpatient. - Date & Time of H&P Date of H&P: 01/29/17 Time of H&P: 14:34 Discharge Exam - Additional Findings Additional findings: - Constitutional Appears: Well, Non-toxic, No Acute Distress, Unkempt - Head Exam Head Exam: NORMAL INSPECTION - Eye Exam Eye Exam: EOMI, Normal appearance, PERRL - ENT Exam ENT Exam: Mucous Membranes Moist - Neck Exam Neck Exam: Normal Inspection - Respiratory Exam Respiratory Exam: NORMAL BREATHING PATTERN. absent: Rales, Rhonchi, Wheezes - Cardiovascular Exam Cardiovascular Exam: RRR, +S1, +S2. absent: JVD - GI/Abdominal Exam GI & Abdominal Exam: Soft, Normal Bowel Sounds. absent: Distended, Tenderness - Extremities Exam Extremities Exam: absent: Calf Tenderness Additional comments: b/l feet covered with gauze dressing and in boots multiple psoriatic lesions covering UE - Back Exam Back Exam: rash noted Additional comments: erythmatous psoriatic lesions covering lumbar back region (large area); no scaling noted - Neurological Exam Neurological Exam: Alert, Awake, Oriented x3 - Psychiatric Exam Psychiatric exam: Normal Affect, Normal Mood - Skin Skin Exam: Normal Color, Rash (psoriatic lesions diffusely spread ), Warm Discharge Plan - Follow Up Plan Condition: STABLE Disposition: AGAINST MEDICAL ADVICE Instructions: MRSA (Methicillin Resistant Staphylococcus Aureus) (DC), Osteomyelitis (DC), Peripherally Inserted Central Catheters and Midline Catheters (DC) Additional Instructions: - please follow up with your PMD within 1 week of discharge - please follow up with Dr. Solis within 1 week of discharge - please continue taking the medications regularly - please stick to a low carbohydrate and low fat diet and measure your blood glucose levels strictly - if you experience new or worsening of symptoms, fevers/chills, numbness/ tingling please return to ER for evaluation Referrals: Tra Soto MD [Primary Care Provider] - Chantel Solis DPM [Staff Provider] - <Scott Tyson - Last Filed: 02/06/17 17:26> Provider - Provider Date of Admission: 01/29/17 12:31 Attending physician: Gilbert Gutiérrez MD Primary care physician: Tra Soto MD Hospital Course - Lab Results Lab Results: Micro Results 01/30/17 16:12 Foot - Left Gram Stain - Final 01/30/17 16:12 Foot - Left Wound Culture - Final No Growth 01/30/17 16:12 Decubitus - Foot-Right Gram Stain - Final 01/30/17 16:12 Decubitus - Foot-Right Wound Culture - Final Methicillin Resistant S Aureus 01/29/17 15:30 Foot - Right Gram Stain - Final 01/29/17 15:30 Foot - Right Wound Culture - Final Corynebacterium Species 01/29/17 17:30 Urine Urine Culture - Final No Growth (<1,000 CFU/ML) Most Recent Lab Values WBC 12.4 10^3/ul (4.5-11.0) H 02/03/17 07:00 RBC 4.53 10^6/uL (3.5-6.1) 02/03/17 07:00 Hgb 12.0 g/dL (14.0-18.0) L 02/03/17 07:00 Hct 37.1 % (42.0-52.0) L 02/03/17 07:00 MCV 81.9 fl (80.0-105.0) 02/03/17 07:00 MCH 26.5 pg (25.0-35.0) 02/03/17 07:00 MCHC 32.3 g/dl (31.0-37.0) 02/03/17 07:00 RDW 13.2 % (11.5-14.5) 02/03/17 07:00 Plt Count 415 10^3/uL (120.0-450.0) 02/03/17 07:00 MPV 10.2 fl (7.0-11.0) 02/03/17 07:00 Gran % 83.9 % (50.0-68.0) H 01/29/17 11:10 Lymph % (Auto) 7.6 % (22.0-35.0) L 01/29/17 11:10 Jerome % (Auto) 8.3 % (1.0-6.0) H 01/29/17 11:10 Eos % (Auto) 0.1 % (1.5-5.0) L 01/29/17 11:10 Baso % (Auto) 0.1 % (0.0-3.0) 01/29/17 11:10 Gran # 17.49 (1.4-6.5) H 01/29/17 11:10 Lymph # 1.6 (1.2-3.4) 01/29/17 11:10 Jerome # 1.7 (0.1-0.6) H 01/29/17 11:10 Eos # 0.0 (0.0-0.7) 01/29/17 11:10 Baso # 0.02 K/mm3 (0.0-2.0) 01/29/17 11:10 ESR 109 mm/hr (0.00-15.0) H 01/29/17 11:10 PT 15.5 SECONDS (9.4-12.5) H 01/29/17 11:10 INR 1.40 (0.93-1.08) H 01/29/17 11:10 APTT 30.8 Seconds (25.1-36.5) 01/29/17 11:10 pO2 24 mm/Hg (30-55) L 01/29/17 15:57 VBG pH 7.42 (7.32-7.43) 01/29/17 15:57 VBG pCO2 46.0 (40-60) 01/29/17 15:57 VBG HCO3 29.8 mmol/l (21-28) H 01/29/17 15:57 VBG Total CO2 31.2 mmol.L (22-28) H 01/29/17 15:57 VBG O2 Sat (Calc) 53.4 % (40-65) 01/29/17 15:57 VBG Base Excess 4.5 mmol/L (0.0-2.0) H 01/29/17 15:57 VBG Potassium 4.7 mmol/L (3.6-5.2) 01/29/17 15:57 Sodium 134.0 mmol/L (132-148) 01/29/17 15:57 Chloride 100.0 mmol/L (98-107) 01/29/17 15:57 Glucose 255 mg/dl (75-110) H 01/29/17 15:57 Lactate 1.2 mmol/L (0.7-2.1) 01/29/17 15:57 FiO2 21.0 % 01/29/17 15:57 Sodium 138 mmol/L (132-148) 02/03/17 07:00 Potassium 4.0 mmol/L (3.6-5.0) 02/03/17 07:00 Chloride 105 mmol/L (98-107) 02/03/17 07:00 Carbon Dioxide 25 mmol/L (21-33) 02/03/17 07:00 Anion Gap 13 (10-20) 02/03/17 07:00 BUN 9 mg/dL (7-21) 02/03/17 07:00 Creatinine 0.6 mg/dl (0.8-1.5) L 02/03/17 07:00 Est GFR ( Amer) > 60 02/03/17 07:00 Est GFR (Non-Af Amer) > 60 02/03/17 07:00 POC Glucose (mg/dL) 197 mg/dL (65-110) H 02/03/17 16:19 Random Glucose 202 mg/dL (70-110) H 02/03/17 07:00 Calcium 8.4 mg/dL (8.4-10.5) 02/03/17 07:00 Phosphorus 4.6 mg/dL (2.5-4.5) H 01/29/17 11:10 Magnesium 2.0 mg/dL (1.7-2.2) 01/29/17 11:10 Total Bilirubin 0.4 mg/dL (0.2-1.3) 02/03/17 07:00 AST 19 U/L (17-59) 02/03/17 07:00 ALT 31 U/L (7-56) 02/03/17 07:00 Alkaline Phosphatase 87 U/L (38-126) 02/03/17 07:00 C-React Prot High Sens > 15.00 mg/L (1.00-3.00) H 01/30/17 06:30 Total Protein 7.3 g/dL (5.8-8.3) 02/03/17 07:00 Albumin 3.3 g/dL (3.0-4.8) 02/03/17 07:00 Globulin 4.0 gm/dL 02/03/17 07:00 Albumin/Globulin Ratio 0.8 (1.1-1.8) L 02/03/17 07:00 Triglycerides 134 mg/dL (35-160) 01/29/17 11:10 Cholesterol 130 mg/dL (130-200) 01/29/17 11:10 LDL Cholesterol Direct 86 mg/dL (0-129) 01/29/17 11:10 HDL Cholesterol 18 mg/dL (29-60) L 01/29/17 11:10 Venous Blood Potassium 4.7 mmol/L (3.6-5.2) 01/29/17 15:57 Urine Color Yellow (YELLOW) 01/31/17 19:44 Urine Appearance Clear (CLEAR) 01/31/17 19:44 Urine pH 7.0 (4.7-8.0) 01/31/17 19:44 Ur Specific [place] 1.015 (1.005-1.035) 01/31/17 19:44 Urine Protein Negative mg/dL (<30 mg/dL) 01/31/17 19:44 Urine Glucose (UA) Negative mg/dL (NEGATIVE) 01/31/17 19:44 Urine Ketones Negative mg/dL (NEGATIVE) 01/31/17 19:44 Urine Blood Small (NEGATIVE) H 01/31/17 19:44 Urine Nitrate Negative (NEGATIVE) 01/31/17 19:44 Urine Bilirubin Negative (NEGATIVE) 01/31/17 19:44 Urine Urobilinogen 0.2 E.U./dL (<1 E.U./dL) 01/31/17 19:44 Ur Leukocyte Esterase Small Jaz/uL (NEGATIVE) H 01/31/17 19:44 Urine RBC 1 - 3 /hpf (0-2) 01/31/17 19:44 Urine WBC 15 - 20 /hpf (0-6) 01/31/17 19:44 Ur Epithelial Cells 4 - 5 /hpf (0-5) 01/31/17 19:44 Urine Bacteria Mod (NEG) 01/31/17 19:44 Urine Other Usperm 01/31/17 19:44 Vancomycin Trough 9.4 ug/mL (5.0-10.0) 02/02/17 07:00 HIV 1&2 Ag/Ab, 4th Gen Nonreactive (Nonreactive) 01/30/17 06:30 Attending/Attestation - Attestation I have personally seen and examined this patient.: Yes I have fully participated in the care of the patient.: Yes I have reviewed all pertinent clinical information, including history, physical exam and plan: Yes Notes (Text): 02/06/17 17:26 Medical record note made by the resident after discussion with my direction and input after the patient was personally seen and examined by me. I have reviewed the chart and agree that the record accurately reflects by personal performance of the history, physical exam, data review, and medical decision-making, in the course for the patient. I have also personally directed the plan of care.
--- NOTE | 2017-02-04 10:53 | OP ---
PROCEDURE DATE: 01/30/2017 PREOPERATIVE DIAGNOSIS: Infected bilateral heel ulcerations. POSTOPERATIVE DIAGNOSIS: Infected bilateral heel ulcerations with abscess. NAME OF PROCEDURE: Irrigation and drainage with debridement of bilateral heel ulcerations with abscess SURGEON: Chantel Solis DPM FEEDER ASSOCIATE: Allan Campo DPM, PGY-1. ANESTHESIOLOGIST: Dr. De Leon. ANESTHESIA: General LMA and local. INDICATIONS: The patient is a 61-year-old male with above diagnosis. The patient has exhausted all conservative treatment at this time, and now requires surgical intervention. The patient signed the consent after careful explanation of risks, benefits, complications, and alternatives for surgical procedure. No guarantees were given nor implied. N.p.o. status was confirmed prior to taking the patient to the OR. PREPARATION: The patient was brought into the operating room and placed on the operating room table in a supine position. A time-out was performed for identification of the correct patient and procedure. After general anesthesia is administered and local block consisting of 10 mL of 2% lidocaine plain in a local block fashion to the right ankle and a local block fashion consisting of 5 mL of 2% lidocaine plain in a local block fashion to the left ulcer. The lower extremities were then prepped and draped in a normal sterile manner and the procedure began. No tourniquet was used during the procedure. DESCRIPTION OF PROCEDURE: Attention was then directed to the plantar aspect of the right heel, where the ulcer was located. The ulcer measures approximately 5 cm x 4 cm x 0.4 cm and tunnel laterally 6 cm at the 10 o'clock position. The ulceration wound base is the mixture of fibrotic and necrotic tissue; wound is extremely malodorous. Using a #10 blade and a pickup, an incision was made outlining circumferentially around the border of the wound. The incision was carried through the subcutaneous tissues and using a #10-blade and pickup, all nonviable and necrotic tissue was debrided and removed until a healthy epidural layer was exposed. Next, using a [employer] SonicVAC handle, on setting 5, the ulcer was non-excisionally debrided of all fibrotic and nonviable tissue until fresh and healthy granular bleeding tissue appeared. Next using a hemostat, a tunnel at the later aspect of the wound was opened up, approximately 4 mL of purulent drainage was expressed from the tunnel. The site was cultured, and the specimens sent for COMMERCIAL REPRESENTATIVE. Next, using a [employer] tunnel handle, the site with tunneling non-excisionally debrided of all fibrotic and nonfibrotic tissue until fresh and healthy bleeding granular tissue appeared. The right ulceration was irrigated with copious amounts of normal saline using bulb syringe. Next, the ulceration was dressed with 1/2-inch iodoform packing, gauze, foam, ABD, and Kerlix applied. Attention was then directed to the plantar aspect of the left heel where the ulcer was located. The ulcer measures approximately 1 cm x 1 cm x 0.3 cm with undermining noted to the wound edges. The wound base is near fibrotic. The wound was malodorous as well. Approximately, 2 mL of purulence drainage were expressed using a #10 blade, and a pickup incision was made outlining circumferentially around border of the wound. The incision was carried through the subcutaneous tissue and using a #10 blade and pickup, all nonviable and necrotic tissue was debrided and removed until a healthier epithelial layer were exposed. Next, using the [employer] SonicVAC handle on setting 5 the ulceration was also non -excisionally debrided of all fibrotic and nonviable tissue until healthy bleeding granular tissue. The left ulceration was irrigated with copious amount of normal saline using a syringe bulb. Next, the ulceration is dressed with 1/2-inch iodoform packing, gauze, foam, ABD and Kerlix. POSTOPERATIVE CONDITION: The patient tolerated the anesthesia and the procedure well and was escorted to the recovery room with vital signs stable, and neurovascular status intact to the bilateral lower extremity. The patient will continue to be followed while in-house. Allan Campo DPM Chantel Solis DPM JENNIFER
== END 2017-02-03 18:09 | disposition left against medical advice (07) | DRG 252 ==
LOC: ED 09:48 → ERH 12:31 → 5RNO 14:14 → 2RSO 20:47 → 5RSO 01-30 09:55
PROVIDERS: ADMIT Internal Medicine; ATTEND Internal Medicine
PROC: 047K34Z Dilation of Right Femoral Artery with Drug-eluting Intraluminal Device, Percutaneous Approach (ICD-10-PCS; 2017-01-29)
PROC: B41DYZZ Fluoroscopy of Aorta and Bilateral Lower Extremity Arteries using Other Contrast (ICD-10-PCS; 2017-01-29)
PROC: 0JBQ0ZZ Excision of Right Foot Subcutaneous Tissue and Fascia, Open Approach (ICD-10-PCS; 2017-01-30)
PROC: 0JBR0ZZ Excision of Left Foot Subcutaneous Tissue and Fascia, Open Approach (ICD-10-PCS; principal; 2017-01-30 13:15)
PROC: 02HV33Z Insertion of Infusion Device into Superior Vena Cava, Percutaneous Approach (ICD-10-PCS; 2017-02-03)
PROC: B548ZZA Ultrasonography of Superior Vena Cava, Guidance (ICD-10-PCS; 2017-02-03)
DX: E11.52 Type 2 diabetes mellitus with diabetic peripheral angiopathy with gangrene (principal); M86.171 Other acute osteomyelitis, right ankle and foot; M86.172 Other acute osteomyelitis, left ankle and foot; I70.261 Atherosclerosis of native arteries of extremities with gangrene, right leg; A41.9 Sepsis, unspecified organism; L03.115 Cellulitis of right lower limb; L97.419 Non-pressure chronic ulcer of right heel and midfoot with unspecified severity; L03.116 Cellulitis of left lower limb; L97.429 Non-pressure chronic ulcer of left heel and midfoot with unspecified severity; E11.621 Type 2 diabetes mellitus with foot ulcer; B95.62 Methicillin resistant Staphylococcus aureus infection as the cause of diseases classified elsewhere; E11.69 Type 2 diabetes mellitus with other specified complication; E11.65 Type 2 diabetes mellitus with hyperglycemia; L40.9 Psoriasis, unspecified; M60.9 Myositis, unspecified; M72.2 Plantar fascial fibromatosis; R26.2 Difficulty in walking, not elsewhere classified; E78.00 Pure hypercholesterolemia, unspecified; I10 Essential (primary) hypertension; D64.9 Anemia, unspecified; H26.9 Unspecified cataract; Z91.19 Patient's noncompliance with other medical treatment and regimen; Z89.412 Acquired absence of left great toe

== ENCOUNTER 2017-02-18 15:58 | Inpatient (IN) | payer MEDICARE, OTHER ==
[2017-02-18] MEDS ORDERED: Morphine 2 mg/ml ISec IVP STA (18:17)
[2017-02-18 18:32] LABS: ALB/GLOB RATIO 0.7 (1.1-1.8); ALBUMIN 3.9 g/dL (3.0-4.8); ALT/SGPT 47 U/L (7-56); AST/SGOT 48 U/L (17-59); BLOOD UREA NITROGEN 14 mg/dL (7-21); CALCIUM 9.9 mg/dL (8.4-10.5); GFR AFRICAN-AMERICAN > 60; GFR NON-AFRICAN AMERICAN > 60
[2017-02-18 18:48] LABS: BASO # 0.02 K/mm3 (0.0-2.0); BASO % 0.1 % (0.0-3.0); EOS # 0.3 (0.0-0.7); EOS % 1.7 % (1.5-5.0); GRAN # 12.93 (1.4-6.5); GRAN % 74.7 % (50.0-68.0); HEMOGLOBIN 13.1 g/dL (14.0-18.0); LYMPH # 2.5 (1.2-3.4); LYMPH % 14.3 % (22.0-35.0); MEAN CELL VOLUME 80.2 fl (80.0-105.0); MEAN CORPUSCULAR HEMOGLOBIN 26.8 pg (25.0-35.0); MEAN CORPUSCULAR HGB CONC 33.4 g/dl (31.0-37.0); MEAN PLATELET VOLUME 10.2 fl (7.0-11.0); MONO # 1.6 (0.1-0.6); MONO % 9.2 % (1.0-6.0); RBC 4.89 10^6/uL (3.5-6.1); RED CELL DISTRIBUTION WIDTH 13.8 % (11.5-14.5); WHITE BLOOD COUNT 17.3 10^3/ul (4.5-11.0)
--- NOTE | 2017-02-18 20:01 | ED PDOC ---
Arrival/HPI - General Chief Complaint: Lower Extremity Problem/Injury Time Seen by Provider: 02/18/17 17:50 Historian: Patient - History of Present Illness Narrative History of Present Illness (Text): 02/18/17 20:41 61-year-old male with a history of right foot infection presents today sent in by Dr. solis for admission to the hospital for osteomyelitis. Patient states that he has an infection in the foot that is being managed by the gas meter installer. He states the gas meter installer wants the patient admitted to the hospital to have a skin graft placed. He states that the doctor said that this was his last chance to have his foot heel otherwise he was going to have to have an amputation. He denies fevers at home. He is complaining of 7 out of 10 throbbing pain to the plantar aspect of the right foot. He denies dizziness or weakness. No other complaints Quality: Throbbing Severity Level: 7 Past Medical History - Provider Review Nursing Documentation Reviewed: Yes - Travel History Have you recently traveled outside [place] w/in the past 3 mons?: No - Infectious Disease Hx of Infectious Diseases: None - Cardiac Hx Cardiac Disorders: Yes Hx Congestive Heart Failure: No Hx Hypertension: No - Pulmonary Hx Chronic Obstructive Pulmonary Disease (COPD): No - Neurological HX Cerebrovascular Accident: No - HEENT Hx HEENT Disorder: Yes Hx Blind: No Hx Cataracts: Yes Hx Deafness: No Hx Difficulty Chewing: No Hx Epistaxis: No Hx Glaucoma: No Hx Macular Degeneration: No - Renal Hx Renal Failure: No - Endocrine/Metabolic Hx Diabetes Mellitus Type 1: No Hx Diabetes Mellitus Type 2: Yes Hx Hypothyroidism: No - Hematological/Oncological Hx Cancer: No - Integumentary Hx Dermatological Disorder: Yes - Musculoskeletal/Rheumatological Hx Arthritis: Yes - Gastrointestinal Hx Gastrointestinal Disorders: No Hx Colostomy: No Hx Crohn's Disease: No Hx Diverticulitis: No Hx Gall Bladder Disease: No Hx Gastroesophageal Reflux: No Hx Gastrointestinal Ulcer: No Hx Ileostomy: No Hx Liver Failure: No Hx Pancreatitis: No HX Swallowing Problems: No - Genitourinary/Gynecological Hx Genitourinary Disorders: No Hx Hematuria: No Hx Incontinence: No Hx Prostate Problems: No Hx Sexually Transmitted Diseases: No Hx Urinary Tract Infection: No - Psychiatric Hx Emotional Abuse: No Hx Physical Abuse: No Hx Substance Use: No - Surgical History Hx Mastectomy: No Hx Vascular Surgery: Yes - Anesthesia Hx Anesthesia Reactions: No Hx Malignant Hyperthermia: No - Suicidal Assessment Feels Threatened In Home Enviroment: No Family/Social History - Physician Review Nursing Documentation Reviewed: Yes Family/Social History: Unknown Family HX Smoking Status: Former Smoker Hx Alcohol Use: No Hx Substance Use: No Hx Substance Use Treatment: No Allergies/Home Meds Allergies/Adverse Reactions: Allergies No Known Allergies Allergy (Verified 02/18/17 16:55) Home Medications: Home Meds Medication Instructions Recorded Confirmed Glipizide 5 mg PO DAILY 07/18/15 02/18/17 Metformin HCl [Glucophage] 500 mg PO BID 07/18/15 02/18/17 Daptomycin [Cubicin Rf] 680 mg IV DAILY 02/18/17 02/18/17 Review of Systems - Review of Systems Constitutional: absent: Fatigue, Fevers Respiratory: absent: SOB, Cough Cardiovascular: absent: Chest Pain, Palpitations Gastrointestinal: absent: Abdominal Pain, Nausea, Vomiting Musculoskeletal: Arthralgias Skin: Ulcer, Cellulitis Neurological: absent: Headache, Dizziness Psychiatric: absent: Anxiety, Depression Physical Exam Vital Signs Reviewed: Yes Vital Signs Temp Pulse Resp BP Pulse Ox 02/18/17 18:54 86 18 148/71 98 02/18/17 16:48 97.9 F 97 H 17 154/73 H 96 Temperature: Afebrile Blood Pressure: Hypertensive Pulse: Regular Respiratory Rate: Normal Appearance: Positive for: Well-Appearing, Non-Toxic, Comfortable Pain Distress: None Mental Status: Positive for: Alert and Oriented X 3 - Systems Exam Head: Present: Atraumatic Neck: Present: Normal Range of Motion Respiratory/Chest: Present: Clear to Auscultation Cardiovascular: Present: Regular Rate and Rhythm Lower Extremity: Present: Tenderness (right foot;+ tenderness over plantar aspect of foot and posterior ankle; + ulceration noted to the plantar aspect of the heel. decreased sensation in foot; + edema extending into distal calf. ), Swelling, Erythema Neurological: Present: GCS=15 Skin: Present: Warm, Dry Psychiatric: Present: Alert, Oriented x 3 Medical Decision Making ED Course and Treatment: 02/18/17 20:56 61-year-old male with osteomyelitis to the right foot on daptomycin at home took last dose today. vitals stable morphine given for pain. CBC: White blood cell count 17.3 CMP: wnl X-ray of the right foot: Bony erosion of the calcaneus Case discussed with Dr. Solis. She would like to continue daptomycin at this point and have infectious disease determine antibiotic options. Case discussed in depth with Dr. Krishnamurthy covering for Dr. crump who covers for Dr. Tra soto. accepts admission impression; osteomyelitis,f oot, leukocytosis admit to med/surg - Lab Interpretations Lab Results: 02/18/17 18:00 02/18/17 18:00 Lab Results 02/18/17 18:00: WBC 17.3 H D, RBC 4.89, Hgb 13.1 L, Hct 39.2 L, MCV 80.2, MCH 26.8, MCHC 33.4, RDW 13.8, Plt Count 390, MPV 10.2, Gran % 74.7 H, Lymph % (Auto ) 14.3 L, [place] % (Auto) 9.2 H, Eos % (Auto) 1.7, Baso % (Auto) 0.1, Gran # 12.93 H, Lymph # 2.5, [place] # 1.6 H, Eos # 0.3, Baso # 0.02 02/18/17 18:00: Sodium 136, Potassium 4.2, Chloride 96 L, Carbon Dioxide 27, Anion Gap 17, BUN 14, Creatinine 0.7 L, Est GFR ( Amer) > 60, Est GFR ( Non-Af Amer) > 60, Random Glucose 110, Calcium 9.9, Total Bilirubin 1.0, AST 48 , ALT 47, Alkaline Phosphatase 131 H D, Total Protein 9.3 H, Albumin 3.9, Globulin 5.4, Albumin/Globulin Ratio 0.7 L - RAD Interpretation Radiology Orders: 02/18/17 18:02 FOOT RIGHT 3 VIEWS ROUTINE [RAD] Stat - Medication Orders Current Medication Orders: Glipizide (Glucotrol) 5 mg PO DAILY [facility] Daptomycin 680 mg/ Sodium (Chloride) 100 mls @ 200 mls/hr IV Q24H [facility] Stop: 02/19/17 10:29 Insulin Human Regular (Humulin R Low) 0 units SC ACHS [facility] PRN Reason: Protocol Discontinued Medications Daptomycin 680 mg/ Sodium (Chloride) 100 mls @ 200 mls/hr IV Q24H [facility] Stop: 02/18/17 20:29 Morphine Sulfate (Morphine) 2 mg IVP STAT STA Stop: 02/18/17 18:18 Last Admin: 02/18/17 19:03 Dose: 2 mg MAR Pain Assessment Document 02/18/17 19:03 [facility] (Rec: 02/18/17 19:04 [facility] [id number]) Pain Reassessment Is this a pain reassessment? No IVP Administration Document 02/18/17 19:03 [facility] (Rec: 02/18/17 19:04 [facility] [id number]) Charges for Administration # of IVP Administrations 1 Morphine Sulfate (Morphine) 4 mg IVP STAT STA Stop: 02/18/17 20:43 Disposition/Present on Arrival - Present on Arrival Any Indicators Present on Arrival: Yes History of DVT/PE: No History of Uncontrolled Diabetes: Yes Urinary Catheter: No History of Decub. Ulcer: No History Surgical Site Infection Following: None - Disposition Have Diagnosis and Disposition been Completed?: Yes Diagnosis: Osteomyelitis, Leukocytosis Disposition: HOSPITALIZED Disposition Time: 20:00 Patient Plan: Admission Patient Problems: Current Active Problems Problem Status Onset Leukocytosis Acute Osteomyelitis Acute Condition: FAIR Referrals: Tra Soto MD [Primary Care Provider] - Follow up with primary Forms: [employer] Panels (Slovenian)
[2017-02-18] MEDS ORDERED: Morphine 4 mg/ml ISec IVP STA (20:42)
[2017-02-18] MEDS: Insulin Reg-LOW-Coverage SC SCH (22:30)
[2017-02-18] MEDS ORDERED: Vancomycin 1gm in NS 250ml 1 GM/250 ML BAG IVPB SCH (23:45)
[2017-02-19] MEDS ORDERED: Morphine 4 mg/ml ISec ONE (04:02)
[2017-02-19] MEDS: Morphine 4 mg/ml ISec IVP PRN ×3 (04:08→20:23)
--- NOTE | 2017-02-19 08:04 | RAD ---
PROCEDURE: Right Foot Radiographs. HISTORY: foot pain/infection COMPARISON: 01/29/2017 FINDINGS: BONES: There is increased bony destruction of the anterior portion of the calcaneus in the adjacent cuboid. Findings consistent with osteomyelitis JOINTS: Normal. SOFT TISSUES: Normal. OTHER FINDINGS: None. IMPRESSION: There is increased bony destruction of the anterior portion of the calcaneus in the adjacent cuboid. Findings consistent with osteomyelitis
[2017-02-19] MEDS: Insulin Reg-LOW-Coverage SC SCH ×4 (08:28→21:35)
[2017-02-19] MEDS: ceFAZolin 1 gm in NS 1 GM/100 ML BAG IVPB SCH ×2 (08:45→18:59)
[2017-02-19] MEDS ORDERED: DAPTOmycin 500 mg Inj (Cubicin) IV SCH (10:00)
--- NOTE | 2017-02-19 10:34 | CP.PCM.CON ---
History of Present Illness - History of Present Illness History of Present Illness: 61 year old male with PMH of DM was being treated by his Paper Processing Machine Helper outside of the hospital for osteomyelitis. He has been following regularly with his criminal defense attorney and he was told that he was told that this is his last chance for non -surgical option for his right foot / heel and he needs to get a skin graft and this is the reason for admission. Infectious diseases consult is requested to continue his antibiotic therapy. He is currently afebrile, no headache or dizziness, no chest pain, no SOB, no nausea or vomiting, no chest pain, no sore throat, no cough or colds, no abdominal pain, no diarrhea, no dysuria. Review of Systems - Review of Systems All systems: reviewed and no additional remarkable complaints except (as per HPI ) Past Patient History - Infectious Disease Hx of Infectious Diseases: None - Past Medical History & Family History Past Medical History?: Yes - Past Social History Smoking Status: Former Smoker - CARDIAC Hx Cardiac Disorders: Yes Hx Congestive Heart Failure: No Hx Hypertension: No - PULMONARY Hx Chronic Obstructive Pulmonary Disease (COPD): No - NEUROLOGICAL HX Cerebrovascular Accident: No - HEENT Hx HEENT Problems: Yes Hx Blind: No Hx Cataracts: Yes Hx Deafness: No Hx Difficulty Chewing: No Hx Epistaxis: No Hx Glaucoma: No Hx Macular Degeneration: No - RENAL Hx Renal Failure: No - ENDOCRINE/METABOLIC Hx Diabetes Mellitus Type 1: No Hx Diabetes Mellitus Type 2: Yes Hx Hypothyroidism: No - HEMATOLOGICAL/ONCOLOGICAL Hx Cancer: No - INTEGUMENTARY Hx Dermatological Problems: Yes - MUSCULOSKELETAL/RHEUMATOLOGICAL Hx Arthritis: Yes - GASTROINTESTINAL Hx Gastrointestinal Disorders: No Hx Colostomy: No Hx Crohn's Disease: No Hx Diverticulitis: No Hx Gall Bladder Disease: No Hx Gastroesophageal Reflux: No Hx Ileostomy: No Hx Liver Failure: No Hx Pancreatitis: No HX Swallowing Problems: No - GENITOURINARY/GYNECOLOGICAL Hx Genitourinary Disorders: No Hx Hematuria: No Hx Incontinence: No Hx Prostate Problems: No Hx Sexually Transmitted Disorders: No Hx Urinary Tract Infection: No - PSYCHIATRIC Hx Emotional Abuse: No Hx Physical Abuse: No Hx Substance Use: No - SURGICAL HISTORY Hx Mastectomy: No Hx Vascular Surgery: Yes - ANESTHESIA Hx Anesthesia Reactions: No Hx Malignant Hyperthermia: No Meds Allergies/Adverse Reactions: Allergies Allergy/AdvReac Type Severity Reaction Status Date / Time No Known Allergies Allergy Verified 02/18/17 16:55 - Medications Medications: Current Medications Glipizide (Glucotrol) 5 mg PO DAILY [facility] Daptomycin 680 mg/ Sodium (Chloride) 100 mls @ 200 mls/hr IV Q24H [facility] Stop: 02/19/17 10:29 Insulin Human Regular (Humulin R Low) 0 units SC ACHS [facility] PRN Reason: Protocol Physical Exam - Constitutional Appears: Non-toxic, No Acute Distress - Head Exam Head Exam: NORMAL INSPECTION - ENT Exam ENT Exam: Mucous Membranes Moist - Neck Exam Neck exam: Negative for: Lymphadenopathy, Meningismus - Respiratory Exam Respiratory Exam: Decreased Breath Sounds. absent: Rales - Cardiovascular Exam Cardiovascular Exam: +S1, +S2 - GI/Abdominal Exam GI & Abdominal Exam: Soft. absent: Tenderness - Extremities Exam Additional comments: right foot with dressings in place Results - Vital Signs Recent Vital Signs: Last Vital Signs Temp 97.9 F 02/18/17 16:48 Pulse 86 02/18/17 18:54 Resp 18 02/18/17 18:54 BP 148/71 02/18/17 18:54 Pulse Ox 98 02/18/17 18:54 - Labs Result Diagrams: 02/18/17 18:00 02/18/17 18:00 Assessment & Plan - Assessment and Plan (Free Text) Plan: Assessment right foot / heel osteomyelitis, in Dec. grew MRSA and E. coli DM Plan Will continue the patient on Vancomycin and Cefazolin and will await repeat wound cx; CRP still elevated plan for skin graft during this admission will monitor clinically
[2017-02-19] MEDS ORDERED: Insulin Regular 1 UNITS/0.01 ML ML ONE (11:38)
--- NOTE | 2017-02-19 13:06 | CP.PCM.CON ---
History of Present Illness - History of Present Illness History of Present Illness: 61 year old male familiar to our service seen in ED for chronically infected, necrotic right heel ulceration with exposed calcaneus. Patient was seen in clinic earlier this week and told to check in to the hospital through the ED due to the infection. Patient is to be taken to the OR tomorrow at 11:00 for wound debridement and graft application. Patient has been informed that if the wound does not heal as a result of the surgery then he will most likely need a BKA. Patient was AAO x 3 at examination. Denies any new pain or symptoms. Denies N/V/F/C/CP/SOB/D/posterior calf pain Review of Systems - Review of Systems Review of Systems: ROS as per HPI Past Patient History - Infectious Disease Hx of Infectious Diseases: None - Past Medical History & Family History Past Medical History?: Yes - Past Social History Smoking Status: Former Smoker - CARDIAC Hx Cardiac Disorders: Yes Hx Congestive Heart Failure: No Hx Hypertension: No - PULMONARY Hx Chronic Obstructive Pulmonary Disease (COPD): No - NEUROLOGICAL HX Cerebrovascular Accident: No - HEENT Hx HEENT Problems: Yes Hx Blind: No Hx Cataracts: Yes Hx Deafness: No Hx Difficulty Chewing: No Hx Epistaxis: No Hx Glaucoma: No Hx Macular Degeneration: No - RENAL Hx Renal Failure: No - ENDOCRINE/METABOLIC Hx Diabetes Mellitus Type 1: No Hx Diabetes Mellitus Type 2: Yes Hx Hypothyroidism: No - HEMATOLOGICAL/ONCOLOGICAL Hx Cancer: No - INTEGUMENTARY Hx Dermatological Problems: Yes - MUSCULOSKELETAL/RHEUMATOLOGICAL Hx Arthritis: Yes - GASTROINTESTINAL Hx Gastrointestinal Disorders: No Hx Colostomy: No Hx Crohn's Disease: No Hx Diverticulitis: No Hx Gall Bladder Disease: No Hx Gastroesophageal Reflux: No Hx Ileostomy: No Hx Liver Failure: No Hx Pancreatitis: No HX Swallowing Problems: No - GENITOURINARY/GYNECOLOGICAL Hx Genitourinary Disorders: No Hx Hematuria: No Hx Incontinence: No Hx Prostate Problems: No Hx Sexually Transmitted Disorders: No Hx Urinary Tract Infection: No - PSYCHIATRIC Hx Emotional Abuse: No Hx Physical Abuse: No Hx Substance Use: No - SURGICAL HISTORY Hx Mastectomy: No Hx Vascular Surgery: Yes - ANESTHESIA Hx Anesthesia Reactions: No Hx Malignant Hyperthermia: No Meds Allergies/Adverse Reactions: Allergies Allergy/AdvReac Type Severity Reaction Status Date / Time No Known Allergies Allergy Verified 02/18/17 16:55 - Medications Medications: Current Medications Glipizide (Glucotrol) 5 mg PO DAILY [facility] Last Admin: 02/19/17 11:51 Dose: 5 mg Cefazolin Sodium (Ancef 1gm In Ns) 1 gm in 100 mls @ 100 mls/hr IVPB Q8 [facility] PRN Reason: Protocol Last Admin: 02/19/17 08:45 Dose: 100 mls/hr Vancomycin HCl (Vancomycin 1gm) 1 gm in 250 mls @ 167 mls/hr IVPB 0430,1630 [facility] PRN Reason: Protocol Insulin Human Regular (Humulin R Low) 0 units SC ACHS [facility] PRN Reason: Protocol Last Admin: 02/19/17 11:39 Dose: 1 units Morphine Sulfate (Morphine) 4 mg IVP Q6H PRN PRN Reason: severe pain Last Admin: 02/19/17 11:40 Dose: 4 mg Physical Exam - Constitutional Appears: Well, Non-toxic, No Acute Distress - Extremities Exam Additional comments: LE focused exam: Vasc: DP pulses palpable b/l. PT pulses nonpalpable b/l. CFT > 3 seconds to all digits. Skin temperature warm to warm from proximal to distal. No edema noted b/ l Neuro: Epicritic and protective sensation grossly diminished b/l Derm: Roughly 8 cm x 7 cm full thickness ulceration with exposed calcaneus noted to left foot. Periwound erythema noted. Wound base is friable granulation tissue mixed with necrotic tissue. No serous, purulent or sanguinous drainage noted. Malodor present. Psoriatic changes noted to toenails b/l MSK: No POP to ulceration site - Neurological Exam Neurological exam: Alert, Oriented x3 - Psychiatric Exam Psychiatric exam: Normal Affect, Normal Mood Results - Vital Signs Recent Vital Signs: Last Vital Signs Temp 97.9 F 02/18/17 16:48 Pulse 80 02/19/17 10:51 Resp 18 02/19/17 10:51 BP 120/70 02/19/17 10:51 Pulse Ox 97 02/19/17 10:51 - Labs Result Diagrams: 02/18/17 18:00 02/18/17 18:00 Labs: Laboratory Results - last 24 hr 02/19/17 02/19/17 02/19/17 08:20 10:30 11:32 ESR 130 H POC Glucose (mg/dL) 113 H 191 H Assessment & Plan - Assessment and Plan (Free Text) Assessment: 61 year old male seen in ED for infected, full thickness ulceration of right heel Plan: Patient seen and evaluated in ED with attending Dr. Solis Afebrile WBC 17.3 ESR 130 R foot xray 02/18: There is increased bony destruction of the anterior portion of the calcaneus and in the adjacent cuboid. Findings consistent with OM STAT dose Levofloxacin 750 mg PO given Continue abx F/u wound cx Patient for OR tomorrow at 11 am for wound debridement and graft application NPO after midnight Podiatry will continue to follow while patient in house - Date & Time Date: 02/19/17 Time: 13:37
[2017-02-19] MEDS ORDERED: levoFLOXacin 750 MG TAB PO STA (13:33)
[2017-02-19] MEDS ORDERED: Vancomycin 1gm in NS 250ml 1 GM/250 ML BAG IVPB SCH (16:30)
--- NOTE | 2017-02-19 17:35 | CARD ---
APPROVED REPORT EKG Measurement Heart [id number] <Conclusion> Normal sinus rhythm right bundle branch block Borderline ECG
[2017-02-19 18:22] VITALS: BMI 28.7
[2017-02-19] MEDS ORDERED: Pneumococcal 23-Valent Vaccine IM ONE (18:22)
[2017-02-19] MEDS ORDERED: Influenza Vaccine 60 mcg/0.5 mL SYR (4YR UP) IM ONE (18:22)
[2017-02-20] MEDS: ceFAZolin 1 gm in NS 1 GM/100 ML BAG IVPB SCH ×4 (00:30→21:59)
[2017-02-20] MEDS: Morphine 4 mg/ml ISec IVP PRN ×3 (03:01→19:57)
[2017-02-20] MEDS ORDERED: Vancomycin 1gm in NS 250ml 1 GM/250 ML BAG IVPB SCH (04:30)
--- NOTE | 2017-02-20 04:32 | HP ---
HISTORY OF PRESENT ILLNESS: This is a 61-year-old male who is coming into the hospital with complaints of right foot ulcer, drainage. He was sent by Dr. Solis for evaluation. He has been getting outpatient IV daptomycin through a PICC line. He was not having improvement of symptoms. The patient is being admitted per podiatry for further management. He does have a history of diabetes. The patient has a presumptive diagnosis of osteomyelitis. The patient denies any fevers or chills. No nausea. No vomiting. He has no headaches or dizziness. No abdominal pain. No back pain. No dysuria or frequency. No nocturia. REVIEW OF SYSTEMS: All other review of symptoms are within normal limits except as mentioned. ALLERGIES: NO KNOWN DRUG ALLERGIES. HOME MEDICATIONS: Glipizide, daptomycin, and regular insulin. SOCIAL HISTORY: He is a former smoker. He denies alcohol or substance abuse. FAMILY HISTORY: Noncontributory. PHYSICAL EXAMINATION: VITAL SIGNS: Temperature is 98.2, pulse of 78, blood pressure 132/78, respirations 18, and O2 saturation 97%. GENERAL: The patient lying in bed, uncomfortable, and in no acute distress. HEENT: Atraumatic and normocephalic. Anicteric sclerae. Moist mucosa. Donovan conjunctivae. No oral lesions. NECK: No JVD, anterior and posterior adenopathy, thyromegaly, or bruits. CARDIOVASCULAR: S1 and S2 regular. No murmur, rubs, or gallop. LUNGS: Clear to auscultation bilaterally. No wheezes, rales, or rhonchi. ABDOMEN: Bowel sounds are positive. Soft, nontender and nondistended. No hepatosplenomegaly. No rebound and no guarding EXTREMITIES: No cyanosis, clubbing, or edema. NEUROLOGIC: No facial asymmetry. Tongue is midline. No uvula deviation. Power is 5/5 upper extremity and lower extremity. Sensation intact in upper extremity and lower extremity. PSYCHIATRIC: He is awake, alert and oriented x3. No anxiety or depression. He has normal affect. GENITOURINARY: No CVA tenderness. VASCULAR: 2+ pulses in the carotid pulses and pedal pulses. SKIN: No erythema or nodules SPINE: Shows normal curvature. The right foot unable to exam in that the patient has a dressing in place. There is some drainage that can be seen through the dressing. LABORATORY DATA: Have been reviewed. White count of 17.3, hemoglobin 13.1, ESR is 130. Creatinine 0.6. CRP is greater than 15. ASSESSMENT: 1. Right foot osteomyelitis. 2. Diabetes, type 2. 3. Peripheral arterial disease with stenting of left leg. 4. Status post right PICC line. PLAN: The patient is going to be admitted to the hospital. We will get evaluation by Dr. Solis, Dr. Bautista. I did speak with Dr. Solis regarding the case. The patient is going to be on Glucotrol for his diabetes. He is on morphine for pain. The patient is going to be on vancomycin. A right foot x-ray was done, there was increased bony destruction of the anterior portion of the calcaneus consistent with osteomyelitis. The patient has an EKG that shows sinus rhythm. We will repeat the patient's blood work tomorrow. Overall prognosis is guarded. He may need surgical intervention given that he has osteomyelitis. We will wait for the input from the consultants. Jose Newberry MD
[2017-02-20 07:12] LABS: MEAN CELL VOLUME 79.6 fl (80.0-105.0); MEAN CORPUSCULAR HEMOGLOBIN 26.1 pg (25.0-35.0); MEAN CORPUSCULAR HGB CONC 32.8 g/dl (31.0-37.0); MEAN PLATELET VOLUME 9.9 fl (7.0-11.0); RBC 4.17 10^6/uL (3.5-6.1); RED CELL DISTRIBUTION WIDTH 13.9 % (11.5-14.5); WHITE BLOOD COUNT 13.2 10^3/ul (4.5-11.0)
[2017-02-20 07:20] LABS: ALB/GLOB RATIO 0.8 (1.1-1.8); ALBUMIN 3.3 g/dL (3.0-4.8); ALT/SGPT 41 U/L (7-56); AST/SGOT 38 U/L (17-59); BLOOD UREA NITROGEN 11 mg/dL (7-21); CALCIUM 8.9 mg/dL (8.4-10.5); GFR AFRICAN-AMERICAN > 60; GFR NON-AFRICAN AMERICAN > 60
[2017-02-20 07:39] LABS: HEMOGLOBIN 10.9 g/dL (14.0-18.0)
[2017-02-20] MEDS: Insulin Reg-LOW-Coverage SC SCH ×4 (08:34→22:00)
[2017-02-20] MEDS ORDERED: Lidocaine 2% Inj (20ml) ONE (10:15)
--- NOTE | 2017-02-20 10:21 | PN ---
DATE: SUBJECTIVE: The patient has no complaints of any chest pain or shortness of breath. He says, he is comfortable. His foot pain is controlled. PHYSICAL EXAMINATION: VITAL SIGNS: Temperature is 98, pulse is 78, blood pressure is 131/68, respirations 18. GENERAL: The patient is lying in bed, flat, comfortable. HEENT: No oral lesion. Anicteric sclerae. Moist mucosa. NECK: No JVD, adenopathy, or thyromegaly. CARDIOVASCULAR: S1 and S2, regular. No murmurs, rubs, or gallops. LUNGS: Clear to auscultation bilaterally. No wheeze, rales, or rhonchi. ABDOMEN: Bowel sounds are positive, soft, nontender, and nondistended. EXTREMITIES: No cyanosis, clubbing or edema. Right foot is wrapped. ASSESSMENT: 1. Right foot osteomyelitis. 2. Type 2 diabetes. 3. Peripheral arterial disease, status post stent of the left leg. 4. Right arm PICC line. PLAN: The patient is currently on cefazolin for antibiotics. He is being followed by Podiatry and Infectious Disease. The patient has glipizide for his diabetes. The patient has morphine for pain. He is receiving vancomycin for antibiotics. A chest x-ray has been ordered as well as an EKG. I will get Dr. Dwyer to evaluate the patient for preoperative. Jose Newberry MD
[2017-02-20] MEDS ORDERED: Propofol 10 mg/ml Inj (20 ML) ONE (10:36)
[2017-02-20] MEDS ORDERED: Midazolam 2 MG/2 ML VIAL ONE (10:36)
[2017-02-20] MEDS ORDERED: Gentamicin 80 mg/2mL Inj. ONE (10:55)
[2017-02-20] MEDS ORDERED: HYDROmorphone 0.5 mg/0.5 ml ISec IVP PRN (12:06)
--- NOTE | 2017-02-20 12:12 | PCM.SURG1 ---
Surgeon's Initial Post Op Note - Surgeon's Notes Surgeon: Dr. Chantel Solis, DPM Sorting Machine Attendant: Noé Tejada, PGY1 Type of Anesthesia: General LMA, Local Anesthesia Administered By: Dr. Foster Pre-Operative Diagnosis: Non-healing necrotic ulceration of right heel with exposed, osteomyelitic calcaneus Operative Findings: See dictation report. M- Alloderm cadaveric skin graft, 2- 0 vicryl, KCI wound vac. I- Preop: 18 cc 2% lidocaine plain Post-Operative Diagnosis: Same Operation Performed: Debridement of non-healing, full thickness right heel ulceration with application of Alloderm skin graft and wound vac Specimen/Specimens Removed: Soft tissue, bone right heel Estimated Blood Loss: EBL {In ML}: 20 Blood Products Given: N/A Drains Used: No Drains Post-Op Condition: Good Date of Surgery/Procedure: 02/20/17 Time of Surgery/Procedure: 12:12
[2017-02-20] MEDS ORDERED: Lactated Ringer's 1,000 ML IV SCH (12:15)
--- NOTE | 2017-02-20 14:16 | CP.PCM.PN ---
Subjective - Date & Time of Evaluation Date of Evaluation: 02/20/17 Time of Evaluation: 08:30 - Subjective Subjective: For surgery today on his foot, no fevers overnight, no diarrhea, no nausea. Objective - Vital Signs/Intake and Output Vital Signs (last 24 hours): Temp Pulse Resp BP Pulse Ox 98.4 F 90 20 152/76 H 95 02/20/17 07:30 02/20/17 10:14 02/20/17 07:30 02/20/17 10:14 02/20/17 07:30 Intake and Output: 02/20/17 02/20/17 06:59 18:59 Intake Total 480 Output Total 2350 Balance -1870 - Medications Medications: Current Medications Glipizide (Glucotrol) 5 mg PO DAILY [facility] Last Admin: 02/20/17 09:05 Dose: Not Given Cefazolin Sodium (Ancef 1gm In Ns) 1 gm in 100 mls @ 100 mls/hr IVPB Q8 SCOTTY PRN Reason: Protocol Last Admin: 02/20/17 05:11 Dose: 100 mls/hr Vancomycin HCl 1.5 gm/ Sodium (Chloride) 250 mls @ 167 mls/hr IVPB Q12H SCOTTY PRN Reason: Protocol Insulin Human Regular (Humulin R Low) 0 units SC ACHS SCOTTY PRN Reason: Protocol Last Admin: 02/20/17 08:34 Dose: Not Given Lisinopril (Zestril) 5 mg PO DAILY [facility] Last Admin: 02/20/17 10:14 Dose: 5 mg Metoprolol Tartrate (Lopressor) 25 mg PO BID [facility] Last Admin: 02/20/17 10:14 Dose: 25 mg Morphine Sulfate (Morphine) 4 mg IVP Q6H PRN PRN Reason: Pain, severe (8-10) Last Admin: 02/20/17 03:01 Dose: 4 mg - Labs Labs: 02/20/17 06:15 02/20/17 06:15 - Constitutional Appears: Non-toxic, Chronically Ill - Head Exam Head Exam: NORMAL INSPECTION - Neck Exam Neck Exam: absent: Meningismus - Respiratory Exam Respiratory Exam: Decreased Breath Sounds - Cardiovascular Exam Cardiovascular Exam: +S1, +S2 - GI/Abdominal Exam GI & Abdominal Exam: Soft. absent: Tenderness - Extremities Exam Additional comments: right foot with dressings in place Assessment and Plan - Assessment and Plan (Free Text) Plan: Assessment right foot / heel osteomyelitis with necrotic ulcer, in Dec. grew MRSA and E. coli DM Plan Will continue the patient on Vancomycin and Cefazolin and will await repeat OR cx and pathology; CRP still elevated plan for skin graft and debridement today will continue to monitor clinically
--- NOTE | 2017-02-20 19:24 | CON ---
DATE: 02/20/2017 CONSULT SERVICE: Cardiology. CONSULTING PHYSICIAN: Dr. Reymundo Felix. REASON FOR CONSULTATION: Preoperative evaluation risk stratification for right foot debridement nonhealing ulcer. BRIEF CLINICAL HISTORY: This is a 61-year-old male with past medical history of diabetes, hypertension, hyperlipidemia, active tobacco abuse, obese admitted with complaint of nonhealing ulcer at the right foot. The patient had local debridement and it got worse, so, now needs only wound debridement, admitted for wound debridement and preoperative evaluation and risk stratification for surgery and Cardiac consult was called. The patient denies any chest pain, shortness of breath, any palpitation. The patient is very obnoxious, does not want to give any history, telling us to go and read the chart, heart is strong. Does not want to follow up with heart, because heart is very strong. No issues with the heart. PAST MEDICAL HISTORY: Significant for diabetes, hypertension, hyperlipidemia, obesity. SOCIAL HISTORY: Active tobacco abuse. Negative history of alcohol abuse. States that he quit two months ago, but still off and on smokes. CURRENT MEDICATIONS: Glipizide, daptomycin, and insulin. ALLERGIES: NO KNOWN DRUG ALLERGIES. REVIEW OF SYSTEMS: As per HPI. No chest pain. No shortness of breath. No palpitations, except for HPI. PHYSICAL EXAMINATION VITAL SIGNS: Temperature afebrile, heart rate 90, blood pressure 134/68. HEENT: Atraumatic and normocephalic. NECK: Supple. No carotid or thyromegaly. CHEST: Clear to auscultation. HEART: S1 and S2 regular. ABDOMEN: Soft. EXTREMITIES: Clubbing and cyanosis negative. LABORATORY DATA: Blood workup as follows: WBC 13.2, hemoglobin 10.9, hematocrit 33.2 ,and platelet count 324,000. Chemistry shows sodium 135, potassium 4.3, chloride 97, carbon dioxide 24.7, anion gap of 14, BUN 11, and creatinine 0.6. EKG showed normal sinus right bundle branch block. IMPRESSION: A 61-year-old male with past medical history significant for diabetes, hypertension, hyperlipidemia, peripheral arterial disease, nonhealing ulcer, obese, active tobacco abuse. No evidence of active ischemia noticed, congestive heart failure, angina or arrhythmia. The patient is cleared to go from cardiology point of view for wound debridement. No absolute contraindication. We will suggest the patient to have a stress test, though the patient is very obnoxious, very noncompliant and cursing, but suggested a stress test. I told the patient to have a stress test as an outpatient in four weeks, if the patient agrees, but I doubt the patient is very noncompliant and thinks that heart is good and everybody is trying to take advantage of him. I also suggested a stress test, but at this point, the patient is cleared to go for foot surgery. We will follow with you. Thank you Dr. Newberry for providing us the opportunity in taking care of the patient Travis Willoughyb. Elvira Dwyre MD
[2017-02-21] MEDS: Morphine 4 mg/ml ISec IVP PRN ×3 (02:59→22:09)
[2017-02-21] MEDS: ceFAZolin 1 gm in NS 1 GM/100 ML BAG IVPB SCH ×3 (06:21→22:02)
[2017-02-21 11:38] LABS: HEMOGLOBIN 11.6 g/dL (14.0-18.0); MEAN CELL VOLUME 80.4 fl (80.0-105.0); MEAN CORPUSCULAR HEMOGLOBIN 26.1 pg (25.0-35.0); MEAN CORPUSCULAR HGB CONC 32.5 g/dl (31.0-37.0); MEAN PLATELET VOLUME 9.8 fl (7.0-11.0); RBC 4.44 10^6/uL (3.5-6.1); WHITE BLOOD COUNT 14.8 10^3/ul (4.5-11.0)
[2017-02-21 11:50] LABS: ALB/GLOB RATIO 0.8 (1.1-1.8); ALBUMIN 3.5 g/dL (3.0-4.8); ALT/SGPT 39 U/L (7-56); AST/SGOT 40 U/L (17-59); BLOOD UREA NITROGEN 12 mg/dL (7-21); CALCIUM 9.1 mg/dL (8.4-10.5); GFR AFRICAN-AMERICAN > 60; GFR NON-AFRICAN AMERICAN > 60
--- NOTE | 2017-02-21 14:04 | PN ---
DATE: 02/21/2017 LOCATION: Room 562, bed 1. REASON FOR CONSULTATION: Cardiac evaluation, risk stratification for debridement of the wound on the right heel. SUBJECTIVE: The patient is postop debridement of the right heel wound with osteomyelitis. The patient is lying flat in bed without chest pain, shortness of breath, or palpitation. PHYSICAL EXAMINATION: VITAL SIGNS: Blood pressure 120/62, respirations 20, pulse 81, and temperature 98.2. HEENT: Head is normocephalic. Eyes, pupils normal, conjunctivae normal. Nose and throat normal. NECK: JVP low. Carotids equal. THORAX: AP diameter normal. LUNGS: Clear. CARDIOVASCULAR: S1 and S2. ABDOMEN: Soft and nontender. No organomegaly. Bowel sounds normal. EXTREMITIES: No clubbing. No cyanosis. The patient has dressing on the right foot because of the wound. LABORATORY DATA: WBC 13.2, hemoglobin 10.9, hematocrit 33.2, and platelets 324. Sodium 135, potassium 4.1, BUN 11, and creatinine 0.6. Random sugar 166. Total bilirubin, calcium, AST, and ALT normal. Total protein and albumin normal. DIAGNOSES: Diabetes, hypertension, hyperlipidemia, peripheral vascular disease, nonhealing wound of right heel, osteomyelitis, obesity, and active tobacco abuse. PLAN: Clinically, cardiac status is stable, but the patient has risk factors for coronary artery disease, so in 4 weeks as outpatient, we will suggest that the patient to do stress test. In the meantime, we will continue glipizide 5 mg p.o. daily, metoprolol 25 b.i.d. The patient is getting vancomycin 1.5 g q. 12 hours. and lisinopril 5 mg daily. We will follow. Elvira Garcia MD
[2017-02-21] MEDS: Insulin Reg-LOW-Coverage SC SCH ×2 (14:11→18:00)
--- NOTE | 2017-02-21 18:26 | PN ---
DATE: 02/21/2017 SUBJECTIVE: The patient in bed, in no acute distress, seen early this morning in room 562, bed 1. PHYSICAL EXAMINATION: VITAL SIGNS: Temperature is 98, blood pressure is 120/60, respiratory rate 20, heart rate of 80. HEENT: Unremarkable. NECK: Supple. LUNGS: Have decreased breath sounds. HEART: Normal S1 and S2. ABDOMEN: Soft. LABORATORY DATA: Reveals a white of count of 14,800, hemoglobin of 11, sed rate is 130, BUN of 12, creatinine of 0.6. The patient's blood cultures are reported to have no growth in 48 hours. The patient is currently on cefazolin and vancomycin. We will follow up. Rakesh Bautista MD
[2017-02-22] MEDS: Insulin Reg-LOW-Coverage SC SCH ×5 (04:05→23:17)
[2017-02-22] MEDS: ceFAZolin 1 gm in NS 1 GM/100 ML BAG IVPB SCH ×3 (05:42→21:48)
[2017-02-22] MEDS: Morphine 4 mg/ml ISec IVP PRN ×3 (09:43→21:48)
--- NOTE | 2017-02-22 14:48 | PN ---
DATE: 02/22/2017 LOCATION: The patient is in room 562, bed 1. REASON FOR CONSULTATION AND FOLLOWUP: Cardiac evaluation, risk stratification, debridement of the wound on the right heel. SUBJECTIVE: The patient is postop debridement of the right heel wound with osteomyelitis. The patient is lying comfortably in bed. Denies any cardiac symptoms like chest pain, shortness of breath or palpitation. PHYSICAL EXAMINATION VITAL SIGNS: Blood pressure 143/77, respirations 18, pulse 80, temperature 98.6. HEENT: Head is normocephalic. Eyes, pupils normal, conjunctivae normal. NECK: JVP low. Carotids equal. THORAX: AP diameter normal. LUNGS: Clear. CARDIOVASCULAR: S1 and S2. ABDOMEN: Soft and nontender. No organomegaly. EXTREMITIES: The patient has dressing on the right foot. No clubbing. No cyanosis. LABORATORY DATA: WBC 14.8, hemoglobin 11.6, hematocrit 35.7, platelets 387. Sodium 136, potassium 4.2, BUN 12, creatinine 0.6. Random sugar 196. Calcium, bilirubin, AST, and ALT normal. DIAGNOSES: Diabetes, hypertension, hyperlipidemia, peripheral vascular disease, nonhealing wound of right heel, osteomyelitis, obesity, active tobacco abuse. PLAN: The patient is on cefazolin 1 g IV q. 8 hours, glipizide 5 mg daily, metoprolol 25 b.i.d., vancomycin 1.5 g IV q. 12 hours, lisinopril 5 mg daily. We will continue present therapy. We will follow. Elvira Garcia MD
--- NOTE | 2017-02-22 16:28 | CP.PCM.PN ---
Subjective - Date & Time of Evaluation Date of Evaluation: 02/22/17 Time of Evaluation: 16:24 - Subjective Subjective: Podiatry Progress Note- Dr. Duncan/Dr. Solis 61 y.o male seen and evaluated at bedside for s/p 2 days debridement right heel ulceration with application of Alloferm skin graft and wound VAC placement. Patient is seen sitting up at bedside, in NAD, and AA0x3. Patient was not in a good mood during visitation. Patient reports that he wants to go home. Patient denies n/v/sob/cp/chills or f. Wound VAC is on and running continuously with dressing c/d/i with strikethrough noted. No new pedal complaints Objective - Vital Signs/Intake and Output Vital Signs (last 24 hours): Temp Pulse Resp BP Pulse Ox 98.6 F 80 18 143/77 97 02/22/17 08:12 02/22/17 09:43 02/22/17 08:12 02/22/17 09:43 02/22/17 08:12 Intake and Output: 02/22/17 02/22/17 06:59 18:59 Intake Total 2210 Output Total 3100 Balance -890 - Medications Medications: Current Medications Glipizide (Glucotrol) 5 mg PO DAILY [facility] Last Admin: 02/22/17 10:56 Dose: 5 mg Cefazolin Sodium (Ancef 1gm In Ns) 1 gm in 100 mls @ 100 mls/hr IVPB Q8 SCOTTY PRN Reason: Protocol Last Admin: 02/22/17 14:10 Dose: 100 mls/hr Vancomycin HCl 1.5 gm/ Sodium (Chloride) 250 mls @ 167 mls/hr IVPB Q12H SCOTTY PRN Reason: Protocol Last Admin: 02/22/17 05:42 Dose: 167 mls/hr Insulin Human Regular (Humulin R Low) 0 units SC ACHS SCOTTY PRN Reason: Protocol Last Admin: 02/22/17 12:32 Dose: 1 units Lisinopril (Zestril) 5 mg PO DAILY [facility] Last Admin: 02/22/17 09:42 Dose: 5 mg Metoprolol Tartrate (Lopressor) 25 mg PO BID [facility] Last Admin: 02/22/17 09:43 Dose: 25 mg Morphine Sulfate (Morphine) 4 mg IVP Q6H PRN PRN Reason: Pain, severe (8-10) Last Admin: 02/22/17 15:51 Dose: 4 mg - Labs Labs: 02/21/17 11:34 02/21/17 11:34 - Constitutional Appears: Well, Non-toxic, No Acute Distress - Extremities Exam Additional comments: Dressing to the LE is clean, dry, and intact without strikethrough noted Wound VAC is on and continuously running at 250mmhg About 50 cc of sangious drainage noted in canister - Neurological Exam Neurological Exam: Alert, Awake, Oriented x3 - Psychiatric Exam Psychiatric exam: Agitated, Normal Affect Assessment and Plan - Assessment and Plan (Free Text) Assessment: 61 y.o male seen and evaluated at bedside for s/p 2 days debridement right heel ulceration with application of Alloferm skin graft and wound VAC placement secondary to nonhealing right heel ulceration with OM calcaneus Plan: Patient is seen and examined at bedside Discussed plan in detail with attending Dr. Solis Charts, labs, vitals reviewed- WBC=14.8, afebrile Right heel deep tissue culture tissue final light growth of corynebacterium species. Pending gram stain results Right culture- bone- preliminary moderate growth corynebacterium species, light growth gram negative renata Patient's dressing kept c/d/i. Podiatry did not change dressing/wound VAC today Patient to continue NWB to the R LE with ambulatory aid continue to work with physical therapy C/w abx cefazolin and vancomycin per ID Pain management per medicine Podiatry will continue to follow while in house
[2017-02-22 21:47] VITALS: TEMP 98.7
--- NOTE | 2017-02-23 00:27 | PN ---
DATE: 02/22/2017 SUBJECTIVE: Patient was seen earlier this morning. No fevers and no chills. PHYSICAL EXAMINATION: VITAL SIGNS: Temperature is 98, blood pressure is 130/70, respiratory rate of 16. HEENT: Unremarkable. NECK: Supple. LUNGS: Decreased breath sounds. HEART: Normal S1, S2. ABDOMEN: Soft, nontender. LABORATORY DATA: Reveals a white of count of 14,800, hemoglobin of 11, sed rate is 130. Chemistry reveals a BUN of 12, creatinine of 0.6. Microbiology reveals a bone culture, corynebacterium species and a gram-negative renata and another culture reveals corynebacterium. Blood cultures have no growth. The patient is currently on vancomycin and cefazolin. Review of medications reveals the patient has charis receiving vancomycin at 6:30 in the morning and 6:30 at night. ASSESSMENT AND PLAN: This is a 61-year-old male who was seen earlier today in 562, has a right foot/heel osteomyelitis and chronic ulcer, grew methicillin-resistant Staphylococcus aureus and Escherichia coli, on vancomycin and cefazolin, corynebacterium. We will order a vancomycin trough level. Pathology is still pending. We will follow with you. Rakesh Bautista MD
[2017-02-23] MEDS: Morphine 4 mg/ml ISec IVP PRN ×3 (04:10→15:38)
[2017-02-23] MEDS: ceFAZolin 1 gm in NS 1 GM/100 ML BAG IVPB SCH ×2 (05:04→13:41)
[2017-02-23 08:16] VITALS: PULSE 72; RESP 18; O2SAT 95
[2017-02-23] MEDS: Insulin Reg-LOW-Coverage SC SCH ×2 (08:30→15:09)
[2017-02-23 09:24] VITALS: BP 138/68
[2017-02-23 09:28] LABS: HEMOGLOBIN 11.3 g/dL (14.0-18.0); MEAN CELL VOLUME 80.6 fl (80.0-105.0); MEAN CORPUSCULAR HEMOGLOBIN 26.2 pg (25.0-35.0); MEAN CORPUSCULAR HGB CONC 32.5 g/dl (31.0-37.0); MEAN PLATELET VOLUME 9.8 fl (7.0-11.0); RBC 4.32 10^6/uL (3.5-6.1); WHITE BLOOD COUNT 13.3 10^3/ul (4.5-11.0)
--- NOTE | 2017-02-23 09:36 | OP ---
PROCEDURE DATE: 02/20/2017 PREOPERATIVE DIAGNOSIS: Nonhealing necrotic ulceration of right heel with exposed osteomyelitic calcaneus. POSTOPERATIVE DIAGNOSIS: Nonhealing necrotic ulceration of right heel with exposed osteomyelitic calcaneus. NAME OF PROCEDURE: Debridement of nonhealing full thickness right heel ulceration with application of AlloDerm skin graft and wound VAC. SURGEON: Chantel Solis DPM PRODUCTION CONTROL SCHEDULER: Noé Tejada PGY1 ANESTHESIOLOGIST: Willy Foster TYPE OF ANESTHESIA: General LMA with local. INDICATIONS: The patient is a 61-year-old male with the above diagnosis. The patient has exhausted all conservative treatment at this time and now require surgical intervention. The patient signed the consent after careful explanation of risks, benefits, complications, and alternatives of the surgical procedure. No guarantees were given nor implied, n.p.o. status was confirmed prior to taking the patient to the OR. PREPARATION: The patient was brought into the operating room and placed on the operating room table in a supine position. A time-out was performed for identification of the correct patient and procedure. After induction of general LMA anesthesia, 18 mL of 2% lidocaine plain were administered to the ankle in a standard ankle block fashion. The right lower extremity was then prepped and draped in normal sterile manner and the procedure began. No tourniquet was used during this procedure. PROCEDURE: Attention was then turned to the right heel where a full thickness approximately 8 cm x 8 cm ulceration was noted extending her in compensating the entirety of the patient's heel extending distally to the mid level of the calcaneus and proximately to the most posterior aspect of the plantar heel. The wound base consisted of completely necrotic, soft tissue with no identifiable neurovascular soft tissue structures seen as well as exposed necrotic calcaneus bone. Using Misonix debriding technology with a curette head, the entirety of the ulceration was debrided down to healthy granular bleeding tissue. The calcaneus was also debrided using the Misonix equipment. Any soft tissue that was deemed to be nonviable, that was not debrided by the Misonix was shortly debrided using pickups and iris scissors and following debridement the entirety of the ulceration site was noted to be viable healthy tissue with no signs of necrotic tissue left. Following this extensive debridement, a AlloDerm cadaveric skin graft was applied to the ulceration site and sutured into place using 2-0 Vicryl suture. After the skin graft was sutured into its proper place, a #15 blade was used to puncture multiple slits into the skin graft in order to allow any possible postoperative seroma and/or hematoma to exude out from the surgical site into the bandaging, the wound VAC was next placed on the outside of the skin graft. As previously stated after the skin graft was put on,a wound VAC was applied over the skin graft in standard manner and was turned on and noted to be fully functioning at the conclusion of the procedure. This wound VAC was wrapped in the entirety of the foot and ankle including the wound VAC and the graft were wrapped in Kerlix and the procedure was completed. POSTOPERATIVE CONDITION: The patient tolerated the anesthesia and procedure well and was escorted to the recovery room with vital signs stable and neurovascular status intact to his right lower extremity. The patient is to remain strictly nonweightbearing to the right lower extremity and he was told this on multiple occasions both preoperatively and postoperatively. The patient demonstrates very good understanding. He was also instructed to keep his dressings clean, dry, and intact and demonstrated good understanding of this as well when it was explained to him. Podiatry will continue to follow the patient while he remains in-house and once he is discharged, he will follow up with Dr. [facility], his next regularly scheduled appointment. The patient has made aware both preoperatively and postoperatively that this procedure was essentially a last-ditch effort to try and save his leg. He has been told that if he does not comply, does not quit smoking, and does not make radicle lifestyle changes in order to become a more healthy individual, the chances of this surgery ultimately failing in saving his lower extremity and the need for him go on to receive a below the knee amputation is highly likely. The patient demonstrated good understanding when it was explained to him. Noé Tejada DPM Chantel Solis DPM [facility] # [id number]
[2017-02-23 09:42] LABS: ALB/GLOB RATIO 0.8 (1.1-1.8); ALBUMIN 3.4 g/dL (3.0-4.8); ALT/SGPT 54 U/L (7-56); AST/SGOT 42 U/L (17-59); BLOOD UREA NITROGEN 10 mg/dL (7-21); CALCIUM 9.2 mg/dL (8.4-10.5); GFR AFRICAN-AMERICAN > 60; GFR NON-AFRICAN AMERICAN > 60
--- NOTE | 2017-02-23 10:22 | CP.PCM.PN ---
Subjective - Date & Time of Evaluation Date of Evaluation: 02/23/17 Time of Evaluation: 10:15 - Subjective Subjective: 61 year old male seen at bedside today 3 days s/p debridment of necrotic right heel ulceration and debridement of exposed osteomyelitic right calcaneus with application of Alloderm skin graft and application of wound vac. Patient is AAO x 3 and NAD resting comfortably in bed. Denies any acute overnight events and denies walking on his right foot. Denies any new pedal complaints at this time. Denies any recent N/V/F/C/CP/SOB/D/Posterior calf pain when squeezed Objective - Vital Signs/Intake and Output Vital Signs (last 24 hours): Temp Pulse Resp BP Pulse Ox 98.7 F 72 18 138/68 95 02/23/17 07:30 02/23/17 09:21 02/23/17 07:30 02/23/17 09:21 02/23/17 07:30 Intake and Output: 02/23/17 02/23/17 06:59 18:59 Intake Total 180 Output Total 600 Balance -420 - Medications Medications: Current Medications Glipizide (Glucotrol) 5 mg PO DAILY [facility] Last Admin: 02/22/17 10:56 Dose: 5 mg Cefazolin Sodium (Ancef 1gm In Ns) 1 gm in 100 mls @ 100 mls/hr IVPB Q8 SCOTTY PRN Reason: Protocol Last Admin: 02/23/17 05:04 Dose: 100 mls/hr Vancomycin HCl 1.5 gm/ Sodium (Chloride) 250 mls @ 167 mls/hr IVPB Q12H SCOTTY PRN Reason: Protocol Last Admin: 02/23/17 06:20 Dose: 167 mls/hr Insulin Human Regular (Humulin R Low) 0 units SC ACHS SCOTTY PRN Reason: Protocol Last Admin: 02/23/17 08:30 Dose: 2 units Lisinopril (Zestril) 5 mg PO DAILY [facility] Last Admin: 02/23/17 09:21 Dose: 5 mg Metoprolol Tartrate (Lopressor) 25 mg PO BID [facility] Last Admin: 02/23/17 09:21 Dose: 25 mg Morphine Sulfate (Morphine) 4 mg IVP Q6H PRN PRN Reason: Pain, severe (8-10) Last Admin: 02/23/17 09:22 Dose: 4 mg - Labs Labs: 02/23/17 09:10 02/23/17 09:10 - Constitutional Appears: Well, Non-toxic, No Acute Distress - Extremities Exam Additional comments: RLE focused exam: Vasc: DP pulses palpable b/l. PT pulses nonpalpable b/l. CFT > 3 seconds to all digits. Skin temperature warm to warm from proximal to distal. No edema noted b/ l Neuro: Epicritic and protective sensation grossly diminished b/l Derm: Full thickness, alloderm skin graft noted to be covering a full thickness right heel ulceration that at last measurment was 12 cm x 7 cm with exposed calcaneus. Minimal periwound erythema noted. No evidence of underlying hematoma , seroma or abscess appreciated at this time. No malodor, purulent drainage or maceration appreciated at surgical site. MSK: No POP to ulceration site - Neurological Exam Neurological Exam: Alert, Awake, Oriented x3 - Psychiatric Exam Psychiatric exam: Normal Affect, Normal Mood Assessment and Plan - Assessment and Plan (Free Text) Assessment: 61 year old male seen at bedside today 3 days s/p debridment of necrotic right heel ulceration and debridement of exposed osteomyelitic right calcaneus with application of Alloderm skin graft and application of wound vac Plan: Patient seen and evaluated at bedside with attending Dr. Solis Afebrile Leukocytosis trending down: 13.3 today Intra-operative wound culture: Corynebacterium Intra-operative bone specimen: Stenotrophomonas Maltophilia, Corynebacterium species Patient to be discharged home today with portable wound vac All other conservative options have been attempted to heel patient's ulcer at this time and a wound vac over his skin graft is believed to be the last viable option for saving his foot before more drastic measures such as below knee amputation must be sought Patient will continue at home abx pending ID He will change wound vac three times per week (MWF) All of the above has been discussed with patient and he demonstrates good understanding Patient's surgical site was dressed today with new adaptic, and wound vac was applied Skin graft appears to be viable and in proper placement at this time Patient will follow up with Dr. Solis as outpatient
[2017-02-23] MEDS ORDERED: Sulfamethoxazole/Trimethoprim 240 MG in Dextrose 5% In Water 250 ML IVPB SCH (14:16)
--- NOTE | 2017-02-23 16:45 | PN ---
DATE: 02/23/2017 LOCATION: The patient is in room 562, bed 1. REASON FOR CONSULTATION AND FOLLOWUP: Cardiac evaluation, risk stratification, debridement of the wound on the right heel, hypertension, diabetes, hyperlipidemia, and peripheral vascular disease. SUBJECTIVE: The patient denies any chest pain, shortness of breath, or palpitation. He is complaining of discomfort on the wound area on the right foot. The patient is sitting comfortably in bed at present. PHYSICAL EXAMINATION: VITAL SIGNS: Blood pressure 138/68, respirations 18, pulse 72, and temperature 98.7. HEENT: Head is normocephalic. Eyes, pupils normal. Conjunctivae slightly pale. NECK: JVP low. Carotids equal. THORAX: AP diameter normal. LUNGS: Clear. CARDIOVASCULAR: S1 and S2. ABDOMEN: Soft. No tenderness. No organomegaly. EXTREMITIES: The patient has dressing on the right foot. LABORATORY DATA: WBC 13.3, hemoglobin 11.3, hematocrit 34.8, and platelets 422. Sodium 136, potassium 4.3, BUN 10, creatinine 0.6, random sugar 284, calcium 9.2. AST and ALT normal. Total protein and albumin normal. DIAGNOSES: Diabetes, hypertension, hyperlipidemia, peripheral vascular disease, nonhealing wound of right heel, osteomyelitis, obesity, and active tobacco abuse. PLAN: The patient is getting Ancef 1 g IV q.8 hours, Glucotrol 5 mg daily, metoprolol 25 b.i.d., and lisinopril 5 mg daily. We will continue present therapy and we will follow with you. The patient still has drainage from the wound and still has drain put in. We will follow with you. Elvira Garcia MD
--- NOTE | 2017-02-23 19:24 | PN ---
DATE: 02/23/2017 The patient seen earlier today in room 562, bed 1. SUBJECTIVE: The patient seen earlier today, in no acute distress. The patient is doing well. No fevers. No chills. No nausea. PHYSICAL EXAMINATION: VITAL SIGNS: Temperature is 98, blood pressure is 130/80, respiratory rate of 18. HEENT: Unremarkable. NECK: Supple. LUNGS: Have decreased breath sounds. HEART: Normal S1 and S2. ABDOMEN: Soft, nontender. LABORATORY EXAMINATION: Reveals the patient has Stenotrophomonas maltophilia and Corynebacterium from the bone culture and the patient's sensitivity is not available. Pathology report reveals the patient have soft tissue and bone fragments, marked acute on chronic inflammation with areas of gangrenous necrosis, fragments of bone showing patchy acute osteomyelitis. The patient's EKG reveals a QTc of 466. ASSESSMENT AND PLAN: A 61-year-old male, seen earlier with a right foot heel ulcer and osteomyelitis with methicillin-resistant Staphylococcus aureus, had Escherichia coli, Corynebacterium and the patient does have Stenotrophomonas maltophilia, treatment for that is actually Bactrim. Stenotrophomonas is intrinsically resistant to beta-lactam, penicillin, cephalosporins, aztreonam, and carbapenems. Due to the presence of a zinc dependent [id number], aztreonam is another and it is stable in the presence of a beta-lactamase; however, other mechanism resistance to aztreonam often present. Decreased permeability. Quinolones and aminoglycosides are also resistant to vast majority of a more resistant to quinolones and aminoglycoside. A response for positive cultures guided by the vitreous susceptibility results and minocycline is an alternative. Quinolones only if this active in vitro. Tigecycline is no longer available. did not defer between Bactrim monotherapy and minocycline. Bactrim is the primary regimen. There are reports of resistance. Tygacil is the other option. Bactrim and ceftazidime possibility. We will check on the sensitivity. Would treat with the daptomycin. The patient did have methicillin-resistant Staphylococcus aureus from 01/2017 of the right foot and has had multiple Corynebacterium infections in the past. Rakesh Bautista MD
== END 2017-02-23 18:40 | disposition home or self-care (01) | DRG 623 ==
LOC: ED 15:58 → ERH 19:57 → 5RNO 02-19 14:47 → UNDODISIN 02-19 17:47
PROVIDERS: ADMIT Internal Medicine; ATTEND Internal Medicine
PROC: 0JBQ0ZZ Excision of Right Foot Subcutaneous Tissue and Fascia, Open Approach (ICD-10-PCS; principal; 2017-02-20 11:00)
PROC: 0HRMXK3 Replacement of Right Foot Skin with Nonautologous Tissue Substitute, Full Thickness, External Approach (ICD-10-PCS; 2017-02-20 11:00)
DX: E11.69 Type 2 diabetes mellitus with other specified complication (principal); M86.171 Other acute osteomyelitis, right ankle and foot; E11.52 Type 2 diabetes mellitus with diabetic peripheral angiopathy with gangrene; I96 Gangrene, not elsewhere classified; E11.621 Type 2 diabetes mellitus with foot ulcer; L97.419 Non-pressure chronic ulcer of right heel and midfoot with unspecified severity; I10 Essential (primary) hypertension; E78.5 Hyperlipidemia, unspecified; E66.9 Obesity, unspecified; B96.89 Other specified bacterial agents as the cause of diseases classified elsewhere; Z72.0 Tobacco use

== ENCOUNTER 2017-03-09 09:37 | Inpatient (IN) | payer MEDICARE, OTHER ==
[2017-03-09 09:38] VITALS: BMI 28.7
[2017-03-09] MEDS ORDERED: Sodium Chloride 0.9% 1,000 ML IV STA ×3 (10:25→11:43)
[2017-03-09] MEDS ORDERED: Morphine 4 mg/ml ISec IVP STA ×2 (10:58→16:13)
[2017-03-09 10:59] LABS: VENOUS BLOOD GAS BASE EXCESS -1.2 mmol/L (0.0-2.0); VENOUS BLOOD GAS PO2 30 mm/Hg (30-55); VENOUS BLOOD PH 7.31 (7.32-7.43)
[2017-03-09] MEDS ORDERED: Morphine 4 mg/ml ISec ONE (10:59)
--- NOTE | 2017-03-09 11:18 | ED PDOC ---
Arrival/HPI - General Chief Complaint: Lower Extremity Problem/Injury Time Seen by Provider: 03/09/17 09:50 Historian: Patient - History of Present Illness Narrative History of Present Illness (Text): 03/09/17 11:17 61-year-old male with a history of osteomyelitis to the right foot presents today sent in by his senior resident care director for admission. Patient states the skin graft failed and the patient needs to have an amputation of the right foot. Patient states she has not had an appetite since being on the antibiotics. Patient states yesterday he stopped the antibiotics and is feeling better. Patient complaining of pain to the right foot. Denies fevers at home. Denies dizziness or weakness. No other complaints Time/Duration: > month Symptom Onset: Gradual Symptom Course: Worsening Quality: Aching Severity Level: Moderate Past Medical History - Provider Review Nursing Documentation Reviewed: Yes - Travel History Have you recently traveled outside [place] w/in the past 3 mons?: No - Infectious Disease Hx of Infectious Diseases: None - Cardiac Hx Cardiac Disorders: Yes (STENT L LEG) Hx Congestive Heart Failure: No Hx Hypertension: No - Pulmonary Hx Chronic Obstructive Pulmonary Disease (COPD): No - Neurological HX Cerebrovascular Accident: No - HEENT Hx HEENT Disorder: Yes Hx Blind: No Hx Cataracts: Yes Hx Deafness: No Hx Difficulty Chewing: No Hx Epistaxis: No Hx Glaucoma: No Hx Macular Degeneration: No - Renal Hx Renal Failure: No - Endocrine/Metabolic Hx Diabetes Mellitus Type 1: No Hx Diabetes Mellitus Type 2: Yes Hx Hypothyroidism: No - Hematological/Oncological Hx Blood Transfusions: No Hx Blood Transfusion Reaction: No - Integumentary Hx Dermatological Disorder: Yes Hx Psoriasis: Yes Other/Comment: INFECTED CHRONIC NECROTIC RIGHT HEEL,EXPOSED CALCANEUS.PLAN OF SKIN GRAFT DEBRIDEMENT. RIGHT PICC LINE. - Musculoskeletal/Rheumatological Hx Arthritis: Yes - Gastrointestinal Hx Gastrointestinal Disorders: No Hx Colostomy: No Hx Crohn's Disease: No Hx Diverticulitis: No Hx Gall Bladder Disease: No Hx Gastroesophageal Reflux: No Hx Ileostomy: No Hx Liver Failure: No Hx Pancreatitis: No HX Swallowing Problems: No - Genitourinary/Gynecological Hx Genitourinary Disorders: No Hx Hematuria: No Hx Incontinence: No Hx Prostate Problems: No Hx Sexually Transmitted Diseases: No Hx Urinary Tract Infection: No - Psychiatric Hx Emotional Abuse: No Hx Physical Abuse: No Hx Substance Use: No - Surgical History Hx Mastectomy: No - Anesthesia Hx Anesthesia Reactions: No Hx Malignant Hyperthermia: No - Suicidal Assessment Feels Threatened In Home Enviroment: No Family/Social History - Physician Review Nursing Documentation Reviewed: Yes Family/Social History: Unknown Family HX Smoking Status: Current Some Days Smoker Hx Alcohol Use: No Hx Substance Use: No Hx Substance Use Treatment: No Allergies/Home Meds Allergies/Adverse Reactions: Allergies No Known Allergies Allergy (Verified 03/09/17 10:23) Home Medications: Home Meds Medication Instructions Recorded Confirmed Glipizide 5 mg PO DAILY 07/18/15 03/09/17 Metformin HCl [Glucophage] 500 mg PO BID 07/18/15 03/09/17 Collagenase [Santyl] 30 gm TOP DAILY 03/09/17 03/09/17 Glimepiride [amaRYL] 4 mg PO DAILY 03/09/17 03/09/17 Oxycodone HCl/Acetaminophen 1 each PO TID 03/09/17 03/09/17 [Percocet 10-325 mg Tablet] Review of Systems - Review of Systems Constitutional: absent: Fatigue, Fevers Respiratory: absent: SOB, Cough Cardiovascular: absent: Chest Pain, Palpitations Gastrointestinal: Appetite Changes. absent: Abdominal Pain, Nausea, Vomiting Musculoskeletal: Arthralgias Skin: Skin Lesions, Cellulitis Neurological: absent: Headache, Dizziness Physical Exam Vital Signs Reviewed: Yes Vital Signs Temp Pulse Resp BP Pulse Ox 03/09/17 15:49 127/64 03/09/17 15:47 99 H 18 95 03/09/17 14:34 118 H 18 96 03/09/17 14:30 98.0 F 03/09/17 12:40 92 H 18 139/76 97 03/09/17 11:44 94 H 18 132/71 97 03/09/17 10:22 97.6 F 107 H 19 134/78 97 Temperature: Afebrile Blood Pressure: Normal Pulse: Tachycardic Respiratory Rate: Normal Appearance: Positive for: Well-Appearing, Non-Toxic, Comfortable Pain Distress: None Mental Status: Positive for: Alert and Oriented X 3 - Systems Exam Head: Present: Atraumatic Mouth: Present: Moist Mucous Membranes Neck: Present: Normal Range of Motion Respiratory/Chest: Present: Clear to Auscultation, Good Air Exchange. No: Respiratory Distress, Accessory Muscle Use Cardiovascular: Present: Regular Rate and Rhythm, Normal S1, S2. No: Murmurs Upper Extremity: Present: Normal ROM, Other (PICC line in right upper arm.) Lower Extremity: Present: Tenderness (right foot; + large ulceration noted to the plantar aspect of the foot and heel with surrounding erythema extending along the posterior aspect of the ankle. decreased sensation. ), Swelling, Erythema. No: CALF TENDERNESS, Normal ROM Neurological: Present: GCS=15, Speech Normal Skin: Present: Warm, Dry Psychiatric: Present: Alert, Oriented x 3 Medical Decision Making ED Course and Treatment: 03/09/17 11:38 61yr old diabetic male with right foot osteomyelitis presenting for admission for amputation. 1L NS given IV. lactate: 2.1; pt currently afebrile; will wait for wbc count CMP; cr; wnl, NA: 129 glucose; 493 corrected NA for hyperglycemia; 135.29 Awaiting CBC result 2nd L NS given. 03/09/17 12:[address] jovel; pt has been on daptomycin and Bactrim IV at home. recent wbc of 14. no improvement. pt will need BKA. she would like dr. stevens as she has already spoken with him regarding the case. pt seen at beside by dr. crump. case discussed with dr. crump; accepts admission. wbc; 21.1 code sepsis called; NS 3120cc in total ordered. pt admitted to tele. ekg and troponin added on. EKG: Sinus tachycardia with occasional PVCs at 119 bpm right bundle branch block no ST elevations vancomycin and zosyn ordered pt started on zosyn and shortly after developed pruritis and rash. vancomycin was held due to allergic reaction to zosyn. pt seen and evaluated by dr. Figueroa; benadryl, pepcid and solumedrol ordered. benadryl cancelled as patient is very drowsy and symptoms have resolved. pt reassessment; pt drowsy. pt denies any complaints; no cp or sob. denies pruritis. lungs clear; still remains slightly tachycardic. vancomycin started. impression; sepsis, cellulitis admit to tele. - Lab Interpretations Lab Results: 03/09/17 12:27 03/09/17 10:48 Lab Results 03/09/17 13:45: pO2 69 H, VBG pH 7.30 L, VBG pCO2 45.0, VBG HCO3 22.1, VBG Total CO2 23.5, VBG O2 Sat (Calc) 94.7 H, VBG Base Excess -4.4 L, VBG Potassium 4.9, Sodium 131.0 L, Chloride 98.0, Glucose 349 H, Lactate 3.1 H, FiO2 21.0, Venous Blood Potassium 4.9 03/09/17 13:32: POC Glucose (mg/dL) 317 H 03/09/17 12:27: PT 14.1 H, INR 1.22 H, APTT 34.8 03/09/17 12:27: WBC 21.4 H D, RBC 4.71, Hgb 12.1 L, Hct 36.7 L, MCV 77.9 L, MCH 25.7, MCHC 33.0, RDW 14.5, Plt Count 479 H, MPV 9.8, Gran % 82.8 H, Lymph % ( Auto) 8.6 L, Sampson % (Auto) 7.9 H, Eos % (Auto) 0.5 L, Baso % (Auto) 0.2, Gran # 17.70 H, Lymph # 1.8, Sampson # 1.7 H, Eos # 0.1, Baso # 0.04 03/09/17 11:00: Lactate Dehydrogenase 490, Total Creatine Kinase 49, Troponin I < 0.01 03/09/17 10:48: pO2 30, VBG pH 7.31 L, VBG pCO2 51.0, VBG HCO3 25.7, VBG Total CO2 27.3, VBG O2 Sat (Calc) 66.5 H, VBG Base Excess -1.2 L, VBG Potassium 5.4 H , Sodium 129.0 L, Chloride 92.0 L, Lactate 2.1, FiO2 21.0, Venous Blood Potassium 5.4 H 03/09/17 10:48: Sodium 129 L, Chloride 92 L, Potassium 5.2 H, Carbon Dioxide 25 , Anion Gap 17, BUN 13, Creatinine 0.7 L, Est GFR ( Amer) > 60, Est GFR ( Non-Af Amer) > 60, Random Glucose 493 H* D, Calcium 10.2, Total Bilirubin 0.5, AST 48, ALT 76 H, Alkaline Phosphatase 167 H D, Total Protein 8.4 H, Albumin 3.7 , Globulin 4.7, Albumin/Globulin Ratio 0.8 L - RAD Interpretation Radiology Orders: 03/09/17 10:24 CHEST PORTABLE [RAD] Stat - Medication Orders Current Medication Orders: Discontinued Medications Acetaminophen (Tylenol 325mg Tab) 975 mg PO STAT STA Stop: 03/09/17 14:10 Last Admin: 03/09/17 15:09 Dose: 975 mg Famotidine (Pepcid) 20 mg IVP STAT STA Stop: 03/09/17 14:16 Last Admin: 03/09/17 14:32 Dose: 20 mg IVP Administration Document 03/09/17 14:32 SF (Rec: 03/09/17 14:32 SF [id number]) Charges for Administration # of IVP Administrations 1 Sodium Chloride (Sodium Chloride 0.9%) 1,000 mls @ 999 mls/hr IV .Q1H1M STA Stop: 03/09/17 11:25 Last Admin: 03/09/17 11:01 Dose: 999 mls/hr eMAR Start Stop Document 03/09/17 11:01 MR (Rec: 03/09/17 11:01 MR [id number]) Intravenous Solution Start Date 03/09/17 Start Time 11:01 End Date 03/09/17 End time 12:01 Total Infusion Time 60 Sodium Chloride (Sodium Chloride 0.9%) 1,000 mls @ 999 mls/hr IV .Q1H1M STA Stop: 03/09/17 12:43 Last Admin: 03/09/17 12:25 Dose: 999 mls/hr eMAR Start Stop Document 03/09/17 12:25 SF (Rec: 03/09/17 12:25 SF [id number]) Intravenous Solution Start Date 03/09/17 Start Time 12:25 End Date 03/09/17 End time 13:26 Total Infusion Time 61 Vancomycin HCl (Vancomycin 1gm) 1 gm in 250 mls @ 167 mls/hr IVPB STAT STA PRN Reason: Protocol Stop: 03/09/17 14:42 Last Admin: 03/09/17 15:22 Dose: 167 mls/hr eMAR Start Stop Document 03/09/17 15:22 SF (Rec: 03/09/17 15:23 SF [id number]) Intravenous Solution Start Date 03/09/17 Start Time 15:22 End Date 03/09/17 End time 16:52 Total Infusion Time 90 Piperacillin Sod/Tazobactam Sod (Zosyn 3.375 In Ns 100ml) 100 mls @ 200 mls/hr IVPB STAT STA PRN Reason: Protocol Stop: 03/09/17 13:42 Last Admin: 03/09/17 13:20 Dose: 200 mls/hr eMAR Start Stop Document 03/09/17 13:20 SF (Rec: 03/09/17 13:20 SF [id number]) Intravenous Solution Start Date 03/09/17 Start Time 13:20 End Date 03/09/17 End time 13:50 Total Infusion Time 30 Sodium Chloride (Sodium Chloride 0.9%) 1,120 mls @ 999 mls/hr IV .Q1H8M STA Stop: 03/09/17 14:21 Last Admin: 03/09/17 13:18 Dose: 999 mls/hr eMAR Start Stop Document 03/09/17 13:18 SF (Rec: 03/09/17 13:18 SF [id number]) Intravenous Solution Start Date 03/09/17 Start Time 13:18 End Date 03/09/17 End time 14:26 Total Infusion Time 68 Methylprednisolone (Solu-Medrol) 125 mg IVP STAT STA Stop: 03/09/17 14:16 Last Admin: 03/09/17 14:32 Dose: 125 mg IVP Administration Document 03/09/17 14:32 SF (Rec: 03/09/17 14:32 SF [id number]) Charges for Administration # of IVP Administrations 1 Morphine Sulfate (Morphine) 4 mg IVP STAT STA Stop: 03/09/17 10:59 Last Admin: 03/09/17 11:02 Dose: 4 mg MAR Pain Assessment Document 03/09/17 11:02 MR (Rec: 03/09/17 11:02 MR [id number]) Pain Reassessment Is this a pain reassessment? No Sleep Is patient sleeping during reassessment? No Presence of Pain Presence of Pain Yes Pain Scale Used Pain Scale Used Numeric Location Left, Right or Bilateral Right Pain Location Body Site Foot Description Description Constant Intensity of Pain at present 8 Pain Behavior Facial Grimacing Aggravating Factors Changing Position Exercise/Activity Walking Alleviating Factors/Management Medication Techniques Alleviating Factors Medication IVP Administration Document 03/09/17 11:02 MR (Rec: 03/09/17 11:02 MR [id number]) Charges for Administration # of IVP Administrations 1 Morphine Sulfate (Morphine) 4 mg IVP STAT STA Stop: 03/09/17 16:14 Disposition/Present on Arrival - Present on Arrival Any Indicators Present on Arrival: Yes History of DVT/PE: No History of Uncontrolled Diabetes: Yes Urinary Catheter: No History of Decub. Ulcer: No History Surgical Site Infection Following: None - Disposition Have Diagnosis and Disposition been Completed?: Yes Diagnosis: Leukocytosis, Osteomyelitis, Sepsis Disposition: HOSPITALIZED Disposition Time: 12:30 Patient Plan: Admission Patient Problems: Current Active Problems Problem Status Onset Leukocytosis Acute Osteomyelitis Acute Sepsis Acute Condition: SERIOUS
[2017-03-09 11:23] LABS: ALB/GLOB RATIO 0.8 (1.1-1.8); ALBUMIN 3.7 g/dL (3.0-4.8); ALT/SGPT 76 U/L (7-56); AST/SGOT 48 U/L (17-59); BLOOD UREA NITROGEN 13 mg/dL (7-21); CALCIUM 10.2 mg/dL (8.4-10.5); GFR AFRICAN-AMERICAN > 60; GFR NON-AFRICAN AMERICAN > 60
--- NOTE | 2017-03-09 11:31 | RAD ---
HISTORY: foot infection COMPARISON: 01/30/2017. FINDINGS: LUNGS: The lungs are well inflated and clear. PLEURA: No significant pleural effusion identified, no pneumothorax apparent. CARDIOVASCULAR: Normal. OSSEOUS STRUCTURES: No significant abnormalities. VISUALIZED UPPER ABDOMEN: Normal. OTHER FINDINGS: None. IMPRESSION: No active pulmonary disease.
[2017-03-09 12:32] LABS: BASO # 0.04 K/mm3 (0.0-2.0); BASO % 0.2 % (0.0-3.0); EOS # 0.1 (0.0-0.7); EOS % 0.5 % (1.5-5.0); GRAN # 17.7 (1.4-6.5); GRAN % 82.8 % (50.0-68.0); HEMOGLOBIN 12.1 g/dL (14.0-18.0); LYMPH # 1.8 (1.2-3.4); LYMPH % 8.6 % (22.0-35.0); MEAN CELL VOLUME 77.9 fl (80.0-105.0); MEAN CORPUSCULAR HEMOGLOBIN 25.7 pg (25.0-35.0); MEAN PLATELET VOLUME 9.8 fl (7.0-11.0); MONO # 1.7 (0.1-0.6); MONO % 7.9 % (1.0-6.0); RBC 4.71 10^6/uL (3.5-6.1); RED CELL DISTRIBUTION WIDTH 14.5 % (11.5-14.5); WHITE BLOOD COUNT 21.4 10^3/ul (4.5-11.0)
[2017-03-09 12:46] LABS: INR 1.22 (0.93-1.08); PARTIAL THROMBOPLASTIN TIME 34.8 Seconds (25.1-36.5); PROTHROMBIN TIME 14.1 SECONDS (9.4-12.5)
[2017-03-09] MEDS ORDERED: Piperacillin/Tazobact 3.375 gm 100 ML IVPB STA (13:13)
[2017-03-09 14:01] LABS: VENOUS BLOOD GAS BASE EXCESS -4.4 mmol/L (0.0-2.0); VENOUS BLOOD GAS PO2 69 mm/Hg (30-55)
[2017-03-09] MEDS ORDERED: DiphenhydrAMINE 50 mg/ml Inj IVP STA ×2 (14:09→14:15)
[2017-03-09] MEDS: Vancomycin 1gm in NS 250ml 1 GM/250 ML BAG IVPB STA ×2 (14:11→15:22)
[2017-03-09 15:18] LABS: TROPONIN I < 0.01 ng/mL
--- NOTE | 2017-03-09 15:42 | CP.PCM.CON ---
History of Present Illness - History of Present Illness History of Present Illness: GENERAL SURGERY CONSULT NOTE FOR DR. KINSEY Patient is a 61 year old male with a PMHx significant for Diabetes type II, severe peripheral vascular disease (w/ multiple angioplasties), psoriasis, and osteomyelitis who states that he was sent by his associate justice for an amputation. Patient had debridement of non-healing right heel ulcer with an alloderm cadeveric skin graft. When asked his reason for coming to the [facility] he gets aggravated and states "the graft failed, so I am here to get my leg chopped off " Of note, patient is agitated and is a poor historian. He stated that he was told to come to the hospital last week for an amputation but is presenting just today due to multiple social issues. ROS POSITIVES: Bilateral distal lower extremity pain. NEGATIVES: Fever, chest pain, SOB, abdominal pain. PMHx: Diabetes type II, severe peripheral vascular disease (w/ multiple angioplasties), psoriasis, and osteomyelitis PSHx: Left 1st toe amputation (2013), Cataracts surgery (10/2015), Multiple angioplasties/angiogram(Most recent in 01/29/17), b/l heel debridements, Skin Graft (02/20/17) Allergies: Denies Social Hx: PPD for 50 years. Reduced to 3-4 cigarettes daily. Admits to occasional EtOH use. Denies illicit drug use Hos: B/L heel ulcers (01/2017), Skin Graft (Adm: 02/19/17) FamHx: Non-Contributory Meds: Reviewed Engineering Associate: Dr. Solis Review of Systems - Review of Systems Review of Systems: As per HPI Past Patient History - Infectious Disease Hx of Infectious Diseases: None - Past Medical History & Family History Past Medical History?: Yes - Past Social History Smoking Status: Current Some Days Smoker - CARDIAC Hx Cardiac Disorders: Yes (STENT L LEG) Hx Congestive Heart Failure: No Hx Hypertension: No - PULMONARY Hx Chronic Obstructive Pulmonary Disease (COPD): No - NEUROLOGICAL HX Cerebrovascular Accident: No - HEENT Hx HEENT Problems: Yes Hx Blind: No Hx Cataracts: Yes Hx Deafness: No Hx Difficulty Chewing: No Hx Epistaxis: No Hx Glaucoma: No Hx Macular Degeneration: No - RENAL Hx Renal Failure: No - ENDOCRINE/METABOLIC Hx Diabetes Mellitus Type 1: No Hx Diabetes Mellitus Type 2: Yes Hx Hypothyroidism: No - HEMATOLOGICAL/ONCOLOGICAL Hx Blood Transfusions: No Hx Blood Transfusion Reaction: No - INTEGUMENTARY Hx Dermatological Problems: Yes Hx Psoriasis: Yes Other/Comment: INFECTED CHRONIC NECROTIC RIGHT HEEL,EXPOSED CALCANEUS.PLAN OF SKIN GRAFT DEBRIDEMENT. RIGHT PICC LINE. - MUSCULOSKELETAL/RHEUMATOLOGICAL Hx Arthritis: Yes - GASTROINTESTINAL Hx Gastrointestinal Disorders: No Hx Colostomy: No Hx Crohn's Disease: No Hx Diverticulitis: No Hx Gall Bladder Disease: No Hx Gastroesophageal Reflux: No Hx Ileostomy: No Hx Liver Failure: No Hx Pancreatitis: No HX Swallowing Problems: No - GENITOURINARY/GYNECOLOGICAL Hx Genitourinary Disorders: No Hx Hematuria: No Hx Incontinence: No Hx Prostate Problems: No Hx Sexually Transmitted Disorders: No Hx Urinary Tract Infection: No - PSYCHIATRIC Hx Emotional Abuse: No Hx Physical Abuse: No Hx Substance Use: No - SURGICAL HISTORY Hx Mastectomy: No - ANESTHESIA Hx Anesthesia Reactions: No Hx Malignant Hyperthermia: No Meds Allergies/Adverse Reactions: Allergies Allergy/AdvReac Type Severity Reaction Status Date / Time No Known Allergies Allergy Verified 03/09/17 10:23 Physical Exam - Constitutional Appears: Well, Non-toxic, Agitated - Head Exam Head Exam: ATRAUMATIC, NORMAL INSPECTION, NORMOCEPHALIC - Eye Exam Eye Exam: EOMI, Normal appearance. absent: Scleral icterus - Respiratory Exam Respiratory Exam: NORMAL BREATHING PATTERN. absent: Accessory Muscle Use - Cardiovascular Exam Cardiovascular Exam: Tachycardia, +S1, +S2 - GI/Abdominal Exam GI & Abdominal Exam: Soft. absent: Tenderness - Extremities Exam Additional comments: Right Lower Ext. Edema +2 B/L Femoral Pulses + 2 Left Popliteal pulse/+1 Right Popliteal pulse with Thril Patient denied examination of distal lower extremities due to recent dressing. - Neurological Exam Neurological exam: Alert, Oriented x3 - Psychiatric Exam Psychiatric exam: Agitated - Skin Skin Exam: Dry, Intact, Normal Color, Warm Results - Vital Signs Recent Vital Signs: Last Vital Signs Temp 98.0 F 03/09/17 14:30 Pulse 118 H 03/09/17 14:34 Resp 18 03/09/17 14:34 BP 139/76 03/09/17 12:40 Pulse Ox 94 L 03/09/17 14:34 - Labs Result Diagrams: 03/09/17 12:27 03/09/17 10:48 Assessment & Plan - Assessment and Plan (Free Text) Assessment: 61 year old male with a PMHx significant for Diabetes type II, severe peripheral vascular disease (w/ multiple angioplasties), psoriasis, and osteomyelitis. General Surgery consulted for evaluation and treatment of unresponsive Osteomyelitis of the right foot. Plan: Patient denied examination of distal lower extremities. Tentative Right BKA on Thursday (03/11/17) pending patient's consent Further Recs as per Dr. Kinsey. Divya Bucio - PGY1
--- NOTE | 2017-03-09 16:10 | CP.PCM.PN ---
Subjective - Date & Time of Evaluation Date of Evaluation: 03/09/17 Time of Evaluation: 04:00 - Subjective Subjective: Pt seen in ER for osteomyelitis of his right foot; pt needs an BKA on the right for unresponsive OM to the right heel; the pt has had an angioplasty 3 weeks ago on the RLE by Dr Paez which has been successful; pt however went home on IV antibiotics continued to smoke and walk on his heel against advice; he was seen in wound care center last week where it was noted that after 3 weeks of IV antibiotics his WBC was still elevated at almost 15 000; he was advised at that time to go into the hospital for BKA; he just came today and now his WBC is 21, 000 Objective - Vital Signs/Intake and Output Vital Signs (last 24 hours): Temp Pulse Resp BP Pulse Ox 98.0 F 99 H 18 127/64 95 03/09/17 14:30 03/09/17 15:47 03/09/17 15:47 03/09/17 15:49 03/09/17 15:47 - Labs Labs: PT 14.1 SECONDS (9.4-12.5) H 03/09/17 12:27 INR 1.22 (0.93-1.08) H 03/09/17 12:27 APTT 34.8 Seconds (25.1-36.5) 03/09/17 12:27 - Constitutional Appears: Toxic
[2017-03-09] MEDS ORDERED: Morphine 5 MG/ML SYRINGE IVP STA (16:45)
[2017-03-09] MEDS ORDERED: Influenza Vaccine 60 mcg/0.5 mL SYR (4YR UP) IM ONE (17:00)
[2017-03-09] MEDS ORDERED: Pneumococcal 23-Valent Vaccine IM ONE (17:00)
--- NOTE | 2017-03-09 17:25 | PCM.SEPTIC ---
Sepsis Progress Note - Reassessment Type Date of Evaluation: 03/09/17 Time of Evaluation: 17:23 Reassessment Type: Non-invasive reassessment - Non Invasive Reassessment Were the most recent vital sign reviewed: Yes Vital Sign (Latest): Temp Pulse Resp BP Pulse Ox 97.6 F 89 18 121/65 96 03/09/17 15:48 03/09/17 17:03 03/09/17 17:03 03/09/17 17:03 03/09/17 17:03 Cardiovascular: Yes: Regular Rate, Rhythm. No: Gallop, Murmur, Tachycardia Respiratory: Yes: Normal Breath Sounds. No: Accessory Muscle Use, Rhonchi, Stridor, Wheezing, Respiratory Distress Capillary Refill: Normal (Less than 2 sec) Skin: Warm, Dry
--- NOTE | 2017-03-09 18:05 | CARD ---
APPROVED REPORT EKG Measurement Heart [id number] <Conclusion> Poor data quality, interpretation may be adversely affected Sinus tachycardia with occasional premature ventricular complexes Low voltage QRS Right bundle branch block Abnormal ECG
[2017-03-09] MEDS ORDERED: Vancomycin 1gm in NS 250ml 1 GM/250 ML BAG IVPB SCH ×2 (19:45→21:45)
[2017-03-09] MEDS ORDERED: Meropenem 1 GM in Dextrose 5% In Water 100 ML IVPB SCH (22:00)
[2017-03-09] MEDS: Insulin Reg-HIGH-Coverage SC SCH (22:21)
[2017-03-09] MEDS: Meropenem IV 1 gm in NS 50 ML IVPB SCH (22:21)
[2017-03-10] MEDS ORDERED: Piperacillin/Tazobact 3.375 gm 100 ML IVPB SCH
--- NOTE | 2017-03-10 01:51 | HP ---
HISTORY OF PRESENT ILLNESS: Patient is a 61-year-old white male who was seen by [facility]. [facility]. She did not like the wound and referred him to emergency room because his treatment for osteomyelitis has not been responding; so she referred him to ER for possible BKA. The patient states that he had skin graft done, but it did not take on him, and got infected. So it was decided by mutual discussion that he needs amputation. Patient is depressed about it; however, want to have it done. Patient had angioplasty done three weeks ago by Dr. Nir Paez of the right lower extremity. According to Dr. Solis's input after angioplasty, patient kept on smoking, and he was advised to have non-weightbearing, but he was walking on his feet, and probably that is why his skin graft did not take and wound got worse. PAST MEDICAL HISTORY: Significant for; 1. Recurrent MRSA foot infection. 2. Non-insulin dependent diabetes. 3. Severe peripheral vascular disease. 4. Active smoker. ALLERGIES: NOT ALLERGIC TO ANY MEDICATION. MEDICATION AT HOME: He is on Percocet, he is on glimepiride 4 mg daily, metoprolol 25 twice a day, metformin 500 twice a day, lisinopril 5 mg daily, glipizide 5 mg daily. SOCIAL HISTORY: He is an active smoker. Lives by himself. PHYSICAL EXAMINATION: GENERAL: He is awake, alert, oriented, able to communicate. VITAL SIGNS: He is afebrile, pulse 118, respirations 18, blood pressure 139/76. LUNGS: Bilateral fair airflow. No rhonchi or crackles. HEART: S1 and S2 audible. ABDOMEN: Soft, obese, and nontender. No rebound. No guarding. NEUROLOGIC: The patient is awake, alert, oriented, communicative. EXTREMITIES: His right foot is in the dressing, that was just dressed by Dr. Solis. LABORATORY EXAM: WBC 21.4, hemoglobin 12, hematocrit 36, platelet of 479. PT 14.1, INR 1.22. Chemistry; sodium 129, potassium 5.2, chloride 92, CO2 of 25, BUN 13, creatinine 0.5, blood sugar of 329. ASSESSMENT: 1. Right foot osteomyelitis and pending below-knee amputation. 2. Uncontrolled diabetes. 3. Hypertension. 4. Hyperlipidemia. 5. Peripheral vascular disease, status post recent angioplasty. PLAN: Patient will be admitted to Med/Surg. We will start him on IV antibiotics. Podiatry consult, Dr. Solis. ID consult, Dr. Bautista. We will monitor his blood sugar and analgesic as needed. Stacey Ross MD
[2017-03-10] MEDS: Pantoprazole 40 mg EC Tab PO SCH (06:32)
[2017-03-10] MEDS: Meropenem IV 1 gm in NS 50 ML IVPB SCH ×3 (06:32→21:10)
[2017-03-10] MEDS: HYDROmorphone 2 mg/ml ISec IVP PRN ×3 (07:16→17:46)
[2017-03-10] MEDS: Insulin Reg-HIGH-Coverage SC SCH (08:26)
[2017-03-10 10:09] LABS: BASO # 0.01 K/mm3 (0.0-2.0); GRAN # 18.95 (1.4-6.5); GRAN % 90.5 % (50.0-68.0); HEMOGLOBIN 10.4 g/dL (14.0-18.0); LYMPH # 1.1 (1.2-3.4); LYMPH % 5.2 % (22.0-35.0); MEAN CELL VOLUME 77.3 fl (80.0-105.0); MEAN CORPUSCULAR HEMOGLOBIN 25.4 pg (25.0-35.0); MEAN CORPUSCULAR HGB CONC 32.8 g/dl (31.0-37.0); MEAN PLATELET VOLUME 9.6 fl (7.0-11.0); MONO # 0.9 (0.1-0.6); MONO % 4.3 % (1.0-6.0); PLATELET COUNT 397 10^3/uL (120.0-450.0); RED CELL DISTRIBUTION WIDTH 14.6 % (11.5-14.5)
--- NOTE | 2017-03-10 10:24 | CP.PCM.PN ---
Subjective - Date & Time of Evaluation Date of Evaluation: 03/10/17 Time of Evaluation: 11:46 - Subjective Subjective: GENERAL SURGERY CONSULT PROGRESS NOTE FOR DR. KINSEY Patient has been seen and examined. No overnight events reported. Still complains of lower ext. tenderness and asked for medications. Patient wanted to be evaluated at a later time because he was dressing up. Patient's lower extremity was evaluated by Attending. Objective - Vital Signs/Intake and Output Vital Signs (last 24 hours): Temp Pulse Resp BP Pulse Ox 97.5 F L 95 H 18 110/73 96 03/10/17 06:00 03/10/17 09:17 03/10/17 06:00 03/10/17 09:17 03/10/17 06:00 Intake and Output: 03/10/17 03/10/17 06:59 18:59 Intake Total 100 480 Output Total 1400 Balance 100 -920 - Medications Medications: Current Medications Acetaminophen (Tylenol 325mg Tab) 650 mg PO Q6H PRN PRN Reason: Fever >100.4 F Glimepiride (Amaryl) 4 mg PO DAILY [facility] Last Admin: 03/10/17 09:17 Dose: 4 mg Hydromorphone HCl (Dilaudid) 2 mg IVP Q4H PRN PRN Reason: Pain, moderate (4-7) Last Admin: 03/10/17 07:16 Dose: 2 mg Meropenem (Merrem Iv 1 Gm Premix) 50 mls @ 100 mls/hr IVPB Q8 [facility] Stop: 03/16/17 22:01 Last Admin: 03/10/17 06:32 Dose: 100 mls/hr Insulin Human Regular (Humulin R High) 0 units SC ACHS [facility] PRN Reason: Protocol Last Admin: 03/10/17 08:26 Dose: 12 units Lisinopril (Zestril) 5 mg PO DAILY [facility] Last Admin: 03/10/17 09:16 Dose: 5 mg Metformin HCl (Glucophage) 500 mg PO BID [facility] Last Admin: 03/10/17 09:17 Dose: 500 mg Metoprolol Tartrate (Lopressor) 25 mg PO BID [facility] Last Admin: 03/10/17 09:17 Dose: 25 mg Ondansetron HCl (Zofran Inj) 4 mg IVP Q6H PRN PRN Reason: Nausea/Vomiting Pantoprazole Sodium (Protonix Ec Tab) 40 mg PO 0630 [facility] Last Admin: 03/10/17 06:32 Dose: 40 mg - Labs Labs: PT 14.1 SECONDS (9.4-12.5) H 03/09/17 12:27 INR 1.22 (0.93-1.08) H 03/09/17 12:27 APTT 34.8 Seconds (25.1-36.5) 03/09/17 12:27 - Additional Findings Additional findings: - Constitutional Appears: Well, Non-toxic, Agitated - Head Exam Head Exam: ATRAUMATIC, NORMAL INSPECTION, NORMOCEPHALIC - Eye Exam Eye Exam: EOMI, Normal appearance. absent: Scleral icterus - Respiratory Exam Respiratory Exam: NORMAL BREATHING PATTERN. absent: Accessory Muscle Use - Cardiovascular Exam Cardiovascular Exam: Tachycardia, +S1, +S2 - GI/Abdominal Exam GI & Abdominal Exam: Soft. absent: Tenderness - Extremities Exam Additional comments: Right Lower Ext. Edema +2 B/L Femoral Pulses + 2 Left Popliteal pulse/+1 Right Popliteal pulse with Thril Patient denied examination of distal lower extremities due to recent dressing. - Neurological Exam Neurological exam: Alert, Oriented x3 - Psychiatric Exam Psychiatric exam: Agitated - Skin Skin Exam: Dry, Intact, Normal Color, Warm Assessment and Plan - Assessment and Plan (Free Text) Assessment: 61 year old male with a PMHx significant for Diabetes type II, severe peripheral vascular disease (w/ multiple angioplasties), psoriasis, and osteomyelitis. General Surgery consulted for evaluation and treatment of unresponsive Osteomyelitis of the right foot. Plan: Right BKA on Thursday (03/11/17). D/W Dr. Kinsey. Divya Bucio - PGY1
[2017-03-10 10:26] LABS: ALB/GLOB RATIO 0.8 (1.1-1.8); ALBUMIN 3.1 g/dL (3.0-4.8); ALT/SGPT 60 U/L (7-56); AST/SGOT 30 U/L (17-59); BLOOD UREA NITROGEN 20 mg/dL (7-21); CALCIUM 9.3 mg/dL (8.4-10.5); GFR AFRICAN-AMERICAN > 60; GFR NON-AFRICAN AMERICAN > 60; MAGNESIUM 1.9 mg/dL (1.7-2.2)
[2017-03-10 10:38] LABS: T4 5.5 ug/dL (5.5-11.0)
[2017-03-10 11:53] LABS: BAND 3 % (0-2); LYMPHOCYTE 5 % (22.0-35.0); NEUTROPHIL 88 % (50.0-70.0)
[2017-03-10 11:54] LABS: ANISOCYTOSIS 1+; HYPOCHROMIA SLIGHT; MICROCYTOSIS 1+; MONOCYTE 4 % (1.0-6.0); PLATELET ESTIMATE NORMAL (NORMAL)
[2017-03-10] MEDS: Insulin Reg-MEDIUM-Coverage SC SCH ×3 (12:53→22:46)
[2017-03-10 15:58] LABS: PH,URINE 5.5 (4.7-8.0); URINE BILIRUBIN NEGATIVE (NEGATIVE); URINE BLOOD NEGATIVE (NEGATIVE); URINE GLUCOSE (UA) >=1000 mg/dL (NEGATIVE); URINE LEUKOCYTE ESTERASE NEGATIVE Leu/uL (NEGATIVE); URINE NITRATE NEGATIVE (NEGATIVE); URINE PROTEIN NEGATIVE mg/dL (<30 mg/dL); URINE UROBILINOGEN 0.2 E.U./dL (<1 E.U./dL)
[2017-03-10 15:59] LABS: URINE APPEARANCE CLEAR (CLEAR); URINE COLOR YELLOW (YELLOW)
--- NOTE | 2017-03-10 16:11 | PN ---
DATE: 03/10/2017 SUBJECTIVE: The patient is 61-year-old male seen and examined. He is doing well, anxious for surgery that is scheduled for . He was seen by a assistant maintenance manager and surgeon. PHYSICAL EXAMINATION VITAL SIGNS: The patient is afebrile, pulse is 95, respirations are 18, and blood pressure is 110/73. LUNGS: Bilateral fair airflow. No rhonchi or crackle. HEART: S1 and S2 audible. ABDOMEN: Soft, obese, and nontender. No rebound. No guarding. NEUROLOGIC: The patient is awake, alert, and oriented. He is able to communicate. LABORATORY DATA: WBC is 21, hemoglobin is 10.4, hematocrit is 31.7, and platelets of 397. Chemistries: Sodium of 133, potassium of 4.4, chloride of 98, CO2 of 25, BUN of 20, creatinine of 0.7, and blood sugar of 448. Blood cultures are negative. ASSESSMENT AND PLAN: 1. Right foot osteomyelitis. 2. Nonhealing ulcer status post skin graft. 3. Poorly controlled diabetes. 4. Severe peripheral vascular disease status post angioplasty. 5. Active smoker. PLAN: I will order for echocardiogram. I will request Dr. Dwyer for Cardiology evaluation. The patient is currently on Zyvox. We will start the patient on insulin for better control of his diabetes. Cardiology evaluation by Dr. Dwyer has been requested. Discussed with the patient about diabetes control and he is agreeable to start him on insulin. Stacey Ross MD
[2017-03-10] MEDS: Insulin Lispro (humaLOG) MIX 75/25(10 ml) SC SCH (17:47)
--- NOTE | 2017-03-10 20:42 | CON ---
DATE: 03/10/2017 The patient was seen earlier this morning in room 378, bed 2. The patient's is at the bedside. CHIEF COMPLAINT: Weakness times several days. HISTORY OF PRESENT ILLNESS: This is a 61-year-old male with past medical history significant for recent hospitalization and history of osteomyelitis of the right foot and the patient had a skin graft, which failed and he was told that he would need an amputation of the right foot. He admitted with generalized weakness and admitted with a diagnosis of osteomyelitis and hyperglycemia. The patient denies any fever, any chills, any nausea, or any vomiting. No headaches or blurred vision. No neck pain. No sore throat. PAST MEDICAL HISTORY: Significant for peripheral vascular disease, diabetes mellitus, hypertension, high cholesterol, psoriasis, and sensitive Staph aureus left foot infection. The patient was recently seen in the hospital in January and also positive MRSA infection and excessive debridement. He has neuropathy. PAST SURGICAL HISTORY: Significant for left big toe amputation and left leg stent placement. ALLERGIES: THE PATIENT IS ALLERGIC TO VANCOMYCIN. MEDICATIONS AT HOME: Noted to include oxycodone, metoprolol, metformin, lisinopril, and glipizide. SOCIAL HISTORY: The patient also continues to smoke. PHYSICAL EXAMINATION: GENERAL: He is in bed, awake and alert. His is at the bedside. VITAL SIGNS: Temperature of 97, heart rate of 95, was up to 107,respiratory rate of 18, and blood pressure is 120/60. HEENT: Unremarkable. NECK: Supple. LUNGS: Decreased breath sounds. HEART: Normal S1 and S2. ABDOMEN: Soft and nontender. EXTREMITIES: Examination of the foot is noted as per his description of Dr. Ross and Podiatry. LABORATORY DATA: Also reveals a white count of 21,000, hemoglobin of 12, MCV is 77, and platelets are 479. Coagulation is noted. Chemistries, blood gases are reviewed. BUN of 20 and creatinine of 0.7. Microbiology, the blood cultures are negative. Wound cultures from the past has Stenotrophomonas maltophilia, corynebacterium, and the patient outpatient, on Bactrim. ASSESSMENT AND PLAN: A 61-year-old male with severe peripheral vascular disease, long-term active smoker, and diabetes mellitus, hypertension, psoriasis, admitted with sepsis with a right foot cellulitis and osteomyelitis with poor vascular supply and has failed outpatient therapy. We will treat the patient with meropenem and Zyvox and pending podiatric intervention for possible amputation and the patient continues to be a smoker. Overall prognosis quite poor. Zyvox and meropenem, pending podiatric care, cultures and bone cultures. The patient with sepsis, leukocytosis, and tachycardia. Rakesh Bautista MD
[2017-03-10] MEDS: Linezolid 600 mg in D5W 300 ml 600 MG/300 ML BAG IVPB SCH (21:10)
[2017-03-10] MEDS: Insulin Detemir 100 units/ml Vial (Levemir) SC SCH (22:46)
[2017-03-11] MEDS: Meropenem IV 1 gm in NS 50 ML IVPB SCH ×3 (05:08→22:05)
[2017-03-11] MEDS: Pantoprazole 40 mg EC Tab PO SCH (06:06)
[2017-03-11 06:16] LABS: BASO # 0.02 K/mm3 (0.0-2.0); BASO % 0.1 % (0.0-3.0); EOS # 0.2 (0.0-0.7); EOS % 1.1 % (1.5-5.0); GRAN # 10.56 (1.4-6.5); GRAN % 74.8 % (50.0-68.0); HEMOGLOBIN 10.1 g/dL (14.0-18.0); LYMPH # 2.5 (1.2-3.4); LYMPH % 17.6 % (22.0-35.0); MEAN CELL VOLUME 78.4 fl (80.0-105.0); MEAN CORPUSCULAR HEMOGLOBIN 25.1 pg (25.0-35.0); MEAN PLATELET VOLUME 9.5 fl (7.0-11.0); MONO # 0.9 (0.1-0.6); MONO % 6.4 % (1.0-6.0); RBC 4.03 10^6/uL (3.5-6.1); RED CELL DISTRIBUTION WIDTH 14.6 % (11.5-14.5); WHITE BLOOD COUNT 14.1 10^3/ul (4.5-11.0)
[2017-03-11 06:32] LABS: BLOOD UREA NITROGEN 18 mg/dL (7-21); CALCIUM 8.6 mg/dL (8.4-10.5); GFR AFRICAN-AMERICAN > 60; GFR NON-AFRICAN AMERICAN > 60
[2017-03-11] MEDS ORDERED: Vancomycin 1gm in NS 250ml 1 GM/250 ML BAG IVPB ONE (08:00)
[2017-03-11] MEDS: Insulin Lispro (humaLOG) MIX 75/25(10 ml) SC SCH (08:02)
[2017-03-11] MEDS: Insulin Reg-MEDIUM-Coverage SC SCH ×3 (08:03→22:05)
[2017-03-11] MEDS: HYDROmorphone 2 mg/ml ISec IVP PRN ×2 (09:32→22:12)
[2017-03-11] MEDS: Linezolid 600 mg in D5W 300 ml 600 MG/300 ML BAG IVPB SCH ×2 (09:46→22:06)
--- NOTE | 2017-03-11 10:35 | CP.PCM.PN ---
<Elena Diaz - Last Filed: 03/11/17 10:35> Subjective - Date & Time of Evaluation Date of Evaluation: 03/11/17 Time of Evaluation: 10:32 - Subjective Subjective: 61 y/o male seen at bedside with attending Dr. Solis for right foot plantar calcaneal infected ulceration. Pt is resting in bed at time of visit, appears depressed. States he feels lousy and just wants the surgery over with. Is agreeable to move forward with the procedure at this time. Denies F/C/N/V/CP/ SOB at present Objective - Vital Signs/Intake and Output Vital Signs (last 24 hours): Temp Pulse Resp BP Pulse Ox 97.4 F L 85 19 131/78 98 03/11/17 06:00 03/11/17 06:00 03/11/17 06:00 03/11/17 06:00 03/11/17 06:00 Intake and Output: 03/11/17 03/11/17 06:59 18:59 Intake Total 520 Output Total 600 Balance -80 - Medications Medications: Current Medications Acetaminophen (Tylenol 325mg Tab) 650 mg PO Q6H PRN PRN Reason: Fever >100.4 F Hydromorphone HCl (Dilaudid) 2 mg IVP Q4H PRN PRN Reason: Pain, moderate (4-7) Last Admin: 03/11/17 09:32 Dose: 2 mg Meropenem (Merrem Iv 1 Gm Premix) 50 mls @ 100 mls/hr IVPB Q8 [facility] Stop: 03/16/17 22:01 Last Admin: 03/11/17 05:08 Dose: 100 mls/hr Linezolid (Zyvox 600mg/300ml D5w) 600 mg in 300 mls @ 200 mls/hr IVPB Q12 [facility] PRN Reason: Protocol Stop: 03/20/17 22:01 Last Admin: 03/11/17 09:46 Dose: 200 mls/hr Insulin Detemir (Levemir) 30 unit SC HS [facility] Last Admin: 03/10/17 22:46 Dose: Not Given Insulin Human Regular (Humulin R Med) 0 units SC ACHS [facility] PRN Reason: Protocol Last Admin: 03/11/17 08:03 Dose: Not Given Insulin Lispro Protam/Lispro Human (Humalog Mix 75/25) 25 units SC ACBD [facility] Last Admin: 03/11/17 08:02 Dose: Not Given Lisinopril (Zestril) 5 mg PO DAILY [facility] Last Admin: 03/10/17 09:16 Dose: 5 mg Metoprolol Tartrate (Lopressor) 25 mg PO BID [facility] Last Admin: 03/10/17 17:54 Dose: Not Given Ondansetron HCl (Zofran Inj) 4 mg IVP Q6H PRN PRN Reason: Nausea/Vomiting Pantoprazole Sodium (Protonix Ec Tab) 40 mg PO 30 [facility] Last Admin: 03/11/17 06:06 Dose: Not Given - Labs Labs: 03/11/17 06:00 03/11/17 06:00 PT 14.1 SECONDS (9.4-12.5) H 03/09/17 12:27 INR 1.22 (0.93-1.08) H 03/09/17 12:27 APTT 34.8 Seconds (25.1-36.5) 03/09/17 12:27 - Constitutional Appears: Well, Non-toxic, No Acute Distress - Extremities Exam Additional comments: Right foot wound dressing clean, dry and intact Mild strikethrough noted to wound dressing - left intact at this time prior to surgery later Left foot previous wound care dressing intact at this time, no strikethrough noted - Neurological Exam Neurological Exam: Alert, Awake, Oriented x3 - Psychiatric Exam Psychiatric exam: Normal Affect, Normal Mood Assessment and Plan - Assessment and Plan (Free Text) Assessment: 61 y/o male with right foot non-healing infected diabetic ulceration, to go to OR for right BKA later today with Dr. Gonsalez Plan: Pt seen and evaluated with attending Dr. Solis Labs and vitals reviewed- afebrile, WBC 14.1 Wound dressings left intact at this time Pt to go for right BKA later today with Dr. Gonsalez Rigid multipodus boot ordered for L foot for adequate compensation and transfer of weight Pt to wear multipodus boot at ALL times weightbearing to left foot Will continue to follow patient while in house and address left foot wounds <Chantel Solis - Last Filed: 03/18/17 07:58> Objective - Vital Signs/Intake and Output Vital Signs (last 24 hours): Temp Pulse Resp BP Pulse Ox 98.1 F 71 19 100/60 95 03/16/17 16:00 03/16/17 17:25 03/16/17 16:00 03/16/17 17:25 03/16/17 16:00 - Labs Labs: 03/16/17 05:45 03/12/17 06:15 PT 14.1 SECONDS (9.4-12.5) H 03/09/17 12:27 INR 1.22 (0.93-1.08) H 03/09/17 12:27 APTT 34.8 Seconds (25.1-36.5) 03/09/17 12:27
[2017-03-11] MEDS ORDERED: Propofol 10 mg/ml Inj (20 ML) ONE (16:33)
[2017-03-11] MEDS ORDERED: Midazolam 2 MG/2 ML VIAL ONE (16:33)
[2017-03-11] MEDS ORDERED: Succinylcholine 200 mg/10 ml Inj IV ONE (16:33)
[2017-03-11] MEDS ORDERED: Desflurane Inhalation Anesthetic Liq (240 ml) ONE (17:04)
[2017-03-11] MEDS ORDERED: Bupivacaine 0.25% Inj(30mL) ONE (17:09)
--- NOTE | 2017-03-11 20:10 | PN ---
DATE: SUBJECTIVE: The patient is 61 years old came to emergency room because of worsening right foot infection, so it was decided to have BKA done that he is scheduled for today. OBJECTIVE: GENERAL: He looks anxious and depressed, at the same time, he is concerned and scared about the procedure. VITAL SIGNS: The patient is afebrile, pulse 83, respirations 20, and blood pressure 136/59. LUNGS: Bilateral fair airflow. No rhonchi or crackle. HEART: S1 and S2 audible. ABDOMEN: Soft and nontender. No rebound. No guarding. NEUROLOGIC: The patient is awake, alert, oriented, and able to communicate. EXTREMITIES: Bilateral legs, no edema. Right foot is in the dressing. LABORATORY DATA: WBC is 14.1, hemoglobin is 10, hematocrit is 31.6, and platelets are 395. Chemistry; sodium 132, potassium 4.1, chloride 99, CO2 of 27, BUN 18, creatinine 0.6, and blood sugar of 219. ASSESSMENT: 1. Right foot diabetic ulcer, nonhealing. 2. Status post skin graft, nonhealing. 3. Severe peripheral vascular disease. 4. Insulin-dependent diabetes. 5. Hypertension. 6. Hyperlipidemia. PLAN: Currently, the patient is on IV antibiotics. Insulin has been started to better control his diabetes. Continue him on meropenem and Lyrica as needed. We will follow up the patient in a.m. Stacey Ross MD
[2017-03-11] MEDS ORDERED: Lactated Ringer's 1,000 ML IV SCH (20:15)
--- NOTE | 2017-03-11 20:20 | PCM.SURG1 ---
Surgeon's Initial Post Op Note - Surgeon's Notes Surgeon: Dr. Gonsalez Electrical Superintendent: Feliz PGY3, Esteban PGY1, Pollo MS3 Type of Anesthesia: General Endo, Local Anesthesia Administered By: Dr. Sal Pre-Operative Diagnosis: Osteomyelitis Operative Findings: see operative report Post-Operative Diagnosis: same Operation Performed: Right Below Knee Amputation. On-Q catheter placement x2 Specimen/Specimens Removed: Right distal lower extremity stump Estimated Blood Loss: EBL {In ML}: 50 Blood Products Given: N/A Drains Used: David Post-Op Condition: Fair Date of Surgery/Procedure: 03/11/17 Time of Surgery/Procedure: 20:20
[2017-03-11] MEDS: HYDROmorphone 0.5 mg/0.5 ml ISec IVP PRN ×2 (20:25→20:34)
[2017-03-11] MEDS: Insulin Detemir 100 units/ml Vial (Levemir) SC SCH (22:06)
[2017-03-11] MEDS: Lactated Ringer's 1,000 ML IV SCH (22:11)
--- NOTE | 2017-03-11 22:31 | PN ---
DATE: 03/11/2017 SUBJECTIVE: The patient is seen early this morning, no acute distress and comfortable. No fevers or chills. PHYSICAL EXAMINATION: VITAL SIGNS: Temperature is 97, blood pressure is 130/60, respiratory rate is 16. HEENT: Unremarkable. NECK: Supple. LUNGS: Decreased breath sounds. HEART: Normal S1 and S2. ABDOMEN: Soft and nontender. LABORATORY DATA: Reveals the patient's blood culture in one bottle has gram-positive cocci and the second bottle has no growth. ASSESSMENT AND PLAN: A 61-year-old male with severe peripheral vascular disease, long-term active smoker, diabetes mellitus, hypertension, psoriasis, admitted with sepsis with a right foot cellulitis and osteomyelitis and poor vascular supply and gram-positive cocci bacteremia. One bottle had a two repeat blood cultures x2 and currently the patient was given a dose of vancomycin, one dose, and currently on Zyvox and meropenem. We will check on echocardiogram and we will continue aggressive course. The patient does have a PICC line, possible source of gram-positive cocci, and the patient for possible right [id number] amputation today. We will check an identification of the gram-positive cocci in the blood and check repeat blood cultures. Check on the echocardiogram. Rakesh Bautista MD
[2017-03-12] MEDS: Oxycodone/Acetaminophen 5/325 mg Tab PO PRN ×2 (00:42→07:31)
[2017-03-12] MEDS: HYDROmorphone 2 mg/ml ISec IVP PRN ×3 (05:01→17:30)
[2017-03-12] MEDS: Meropenem IV 1 gm in NS 50 ML IVPB SCH (05:02)
[2017-03-12] MEDS: Pantoprazole 40 mg EC Tab PO SCH (05:32)
[2017-03-12 06:45] LABS: BASO # 0.03 K/mm3 (0.0-2.0); BASO % 0.2 % (0.0-3.0); EOS # 0.2 (0.0-0.7); EOS % 1.2 % (1.5-5.0); GRAN # 10.49 (1.4-6.5); GRAN % 76.5 % (50.0-68.0); HEMOGLOBIN 9.1 g/dL (14.0-18.0); LYMPH # 1.8 (1.2-3.4); LYMPH % 13.1 % (22.0-35.0); MEAN CELL VOLUME 78.6 fl (80.0-105.0); MEAN CORPUSCULAR HEMOGLOBIN 24.6 pg (25.0-35.0); MEAN CORPUSCULAR HGB CONC 31.3 g/dl (31.0-37.0); MEAN PLATELET VOLUME 9.6 fl (7.0-11.0); MONO # 1.2 (0.1-0.6); RBC 3.7 10^6/uL (3.5-6.1); RED CELL DISTRIBUTION WIDTH 14.8 % (11.5-14.5); WHITE BLOOD COUNT 13.7 10^3/ul (4.5-11.0)
[2017-03-12] MEDS ORDERED: Meropenem 1 GM in Sodium Chloride 0.9% 100 ML IVPB SCH (07:33)
[2017-03-12 07:53] LABS: LDL CHOLESTEROL 62 mg/dL (0-129)
[2017-03-12 07:54] LABS: ALB/GLOB RATIO 0.8 (1.1-1.8); ALBUMIN 2.7 g/dL (3.0-4.8); ALT/SGPT 42 U/L (7-56); AST/SGOT 49 U/L (17-59); BLOOD UREA NITROGEN 13 mg/dL (7-21); GFR AFRICAN-AMERICAN > 60; GFR NON-AFRICAN AMERICAN > 60; HDL CHOLESTEROL 20 mg/dL (29-60); MAGNESIUM 1.7 mg/dL (1.7-2.2)
[2017-03-12] MEDS: Insulin Reg-MEDIUM-Coverage SC SCH ×4 (08:03→22:14)
[2017-03-12] MEDS: Insulin Lispro (humaLOG) MIX 75/25(10 ml) SC SCH ×2 (08:04→17:22)
--- NOTE | 2017-03-12 09:08 | CON ---
DATE: 03/11/2017 CONSULT SERVICE: Cardiology. CONSULTING PHYSICIAN: Elvira Dwyer M.D. REASON FOR CONSULTATION AND FOLLOWUP: Preoperative evaluation and risk stratification for right foot amputation, possible BKA. BRIEF CLINICAL HISTORY: The is a 61-year-old male with past medical history of diabetes, hypertension, hyperlipidemia, active tobacco abuse, obese, admitted with complaint of nonhealing ulcer at the right. Previously, the patient had multiple debridement done. Now, it gets worse, and now, he needs amputation. Cardiology consult was called for preoperative evaluation and risk stratification. The patient denies any chest pain, denies any shortness of breath, and denies any palpitation. The patient is very nauseous and does not want to give any history and telling us to go and read the chart and said he does not want to talk, and he repeated the same story again though, he completely denies any chest pain, denies any shortness of breath, and denies any palpitation. PAST MEDICAL HISTORY: Significant for diabetes, hypertension, hyperlipidemia, and obesity. SOCIAL HISTORY: Active tobacco use. No history of alcohol abuse. Denies any history of substance abuse. He says that he quits 2 months before. CURRENT MEDICATION: The patient is taking at home oxycodone, metoprolol, metformin, glipizide, lisinopril, Amaryl, glyburide, and Santyl. REVIEW OF SYSTEMS: As per HPI. PHYSICAL EXAMINATION: VITAL SIGNS: Temperature afebrile, heart rate 85, and blood pressure 131/78. HEENT: PERRLA. Extraocular muscles intact. NECK: Supple. No carotid bruits or thyromegaly. CHEST: Clear to auscultation. HEART: S1 and S2, regular. ABDOMEN: Soft. EXTREMITIES: Clubbing and cyanosis negative. LABORATORY DATA: Blood workup are as follows, WBC , hemoglobin hematocrit 31.6, platelet count of 395. Chemistry shows sodium 135, potassium 4.1, chloride 90, carbon dioxide 27, anion gap of 10, BUN 18, and creatinine 0.6. RADIOLOGY: EKG shows sinus tachycardia. Heart rate of 119. Right bundle branch block is unchanged from before except sinus tachycardia. IMPRESSION: Osteomyelitis, nonhealing ulcer, possible right shgzw-[id number] amputation, diabetes, hypertension, peripheral arterial disease, had multiple percutaneous transluminal coronary angioplasty and last percutaneous transluminal coronary angioplasty was done by Dr. Nir Paez 3 weeks ago, still has a nonhealing ulcer, possibly requiring amputation for osteomyelitis and nonhealing ulcer, diabetes, hypertension, hyperlipidemia. Last time, the patient was given a stress test suggested but patient is very noncompliant and he did not come for the test, he thinks heart is good. No evidence of active ischemia. No evidence of angina, arrhythmia, or congestive heart failure, though to be at [id number] risk because of underlying comorbidity, but no absolute contraindication. As mentioned, no evidence of ischemia, palpitation, angina, or congestive heart failure but the patient being on moderate to high risk because of underlying comorbidity diabetes. We will clear him to go with the [id number] risk for amputation. Continue preoperative beta carlos. We will follow with you. Thank you Dr. Ross for providing me the opportunity in taking care of the patient. We will follow with you. Elvira Dwyer MD
--- NOTE | 2017-03-12 09:15 | CP.PCM.PN ---
"Subjective - Date & Time of Evaluation Date of Evaluation: 03/12/17 Time of Evaluation: 09:11 - Subjective Subjective: GENERAL SURGERY CONSULT PROGRESS NOTE FOR DR. KINSEY Patient has been seen and examined. No overnight events reported. Drain is draining serosanguineous fluid. Pain is controlled. Objective - Vital Signs/Intake and Output Vital Signs (last 24 hours): Temp Pulse Resp BP Pulse Ox 98.2 F 88 19 158/75 H 97 03/12/17 08:52 03/12/17 08:52 03/12/17 08:52 03/12/17 08:52 03/12/17 08:52 Intake and Output: 03/12/17 03/12/17 06:59 18:59 Intake Total 1145 Output Total 420 Balance 725 - Medications Medications: Current Medications Acetaminophen (Tylenol 325mg Tab) 650 mg PO Q6H PRN PRN Reason: Fever >100.4 F Desoximetasone (Topicort 0.05%) 0 ea TOP BID [facility] Hydromorphone HCl (Dilaudid) 2 mg IVP Q4H PRN PRN Reason: Pain, severe (8-10) Last Admin: 03/12/17 05:01 Dose: 2 mg Linezolid (Zyvox 600mg/300ml D5w) 600 mg in 300 mls @ 200 mls/hr IVPB Q12 [facility] PRN Reason: Protocol Stop: 03/20/17 22:01 Last Admin: 03/11/17 22:06 Dose: 200 mls/hr Lactated Ringer's (Lactated Ringer's) 1,000 mls @ 75 mls/hr IV .[id number] [facility] Last Admin: 03/11/17 22:11 Dose: 75 mls/hr Meropenem 1 gm/ Sodium (Chloride) 100 mls @ 100 mls/hr IVPB Q8 [facility] Stop: 03/16/17 22:01 Insulin Detemir (Levemir) 30 unit SC HS [facility] Last Admin: 03/11/17 22:06 Dose: 30 unit Insulin Human Regular (Humulin R Med) 0 units SC ACHS [facility] PRN Reason: Protocol Last Admin: 03/12/17 08:03 Dose: 1 units Insulin Lispro Protam/Lispro Human (Humalog Mix 75/25) 25 units SC ACBD [facility] Last Admin: 03/12/17 08:04 Dose: 25 u Lisinopril (Zestril) 5 mg PO DAILY [facility] Last Admin: 03/11/17 10:00 Dose: Not Given Metoprolol Tartrate (Lopressor) 25 mg PO BID [facility] Last Admin: 03/11/17 10:00 Dose: Not Given Ondansetron HCl (Zofran Inj) 4 mg IVP Q6H PRN PRN Reason: Nausea/Vomiting Oxycodone/Acetaminophen (Percocet 5/325 Mg Tab) 1 tab PO Q6H PRN PRN Reason: Pain, moderate (4-7) Stop: 03/14/17 20:23 Last Admin: 03/12/17 07:31 Dose: 1 tab Pantoprazole Sodium (Protonix Ec Tab) 40 mg PO 0630 [facility] Last Admin: 03/12/17 05:32 Dose: 40 mg - Labs Labs: 03/12/17 06:15 03/12/17 06:15 PT 14.1 SECONDS (9.4-12.5) H 03/09/17 12:27 INR 1.22 (0.93-1.08) H 03/09/17 12:27 APTT 34.8 Seconds (25.1-36.5) 03/09/17 12:27 - Constitutional Appears: Unkempt - Head Exam Head Exam: ATRAUMATIC, NORMAL INSPECTION, NORMOCEPHALIC - Eye Exam Eye Exam: EOMI, Normal appearance - Respiratory Exam Respiratory Exam: NORMAL BREATHING PATTERN. absent: Accessory Muscle Use - Cardiovascular Exam Cardiovascular Exam: +S1, +S2. absent: Bradycardia, Tachycardia - GI/Abdominal Exam GI & Abdominal Exam: Soft. absent: Tenderness, Normal Bowel Sounds - Extremities Exam Additional comments: Right leg BKA. Wound is clean dry and intact. Q-catheter x 2. - Neurological Exam Neurological Exam: Alert, Awake, Oriented x3 - Skin Skin Exam: Dry, Intact, Normal Color, Warm Assessment and Plan - Assessment and Plan (Free Text) Assessment: 61 year old male with a PMHx significant for Diabetes type II, severe peripheral vascular disease (w/ multiple angioplasties), psoriasis, and osteomyelitis. General Surgery consulted for evaluation and treatment of unresponsive Osteomyelitis of the right foot. Plan: -Monitor Drain Output -Pain Control | Increased On-Q infusion to 7cc/hr -Aggressive PT -OT -Trapeze -Knee Immobilizer -Multipodus Boot per Podiatry -Begin to plan for rehab placement. -Further Recs as per Dr. Wallace Bucio - PGY1"
[2017-03-12] MEDS: Linezolid 600 mg in D5W 300 ml 600 MG/300 ML BAG IVPB SCH ×2 (10:28→22:26)
--- NOTE | 2017-03-12 13:10 | PN ---
DATE: SUBJECTIVE: The patient is 61 years old, seen and examined lying in bed, seems to be comfortable. Looks depressed. Does not complain of any pain. PHYSICAL EXAMINATION: VITAL SIGNS: He is afebrile, pulse 80, respirations 19, blood pressure 158/75. LUNGS: Bilateral fair airflow. No rhonchi or crackle. HEART: S1 and S2 audible. ABDOMEN: Soft. Nontender. No rebound. No guarding. NEUROLOGIC: The patient is awake, alert, oriented, able to communicate. EXTREMITIES: Right BKA is in the dressing. Has STELLA drain, contains 15 mL of bloody fluid. LABORATORY DATA: WBC is 13.7, hemoglobin 9.1, hematocrit 29.1, platelet of 384. Chemistry: Sodium 135, potassium 4.0, chloride 101, CO2 of 27, BUN 13, creatinine 0.6, blood sugar of 98. ASSESSMENT: 1. Uncontrolled diabetes. 2. Status post right below-knee amputation. 3. Peripheral vascular disease, status post angioplasty. 4. Active smoker. 5. Leukocytosis, improving. 6. Insulin-dependent diabetes. PLAN: We will continue the patient on current regimen for insulin. He is on subcutaneous heparin. We will discontinue IV fluids. Encourage p.o. intake. The patient is hemodynamically stable. Can discontinue telemetry. Stacey Ross MD
--- NOTE | 2017-03-12 13:51 | CP.PCM.PN ---
Subjective - Date & Time of Evaluation Date of Evaluation: 03/12/17 Time of Evaluation: 11:05 - Subjective Subjective: Had right BKA yesterday, still with some pain in the right BKA stump, no fevers overnight, not in distress. Objective - Vital Signs/Intake and Output Vital Signs (last 24 hours): Temp Pulse Resp BP Pulse Ox 98.2 F 88 19 158/75 H 97 03/12/17 08:52 03/12/17 08:52 03/12/17 08:52 03/12/17 08:52 03/12/17 08:52 Intake and Output: 03/12/17 03/12/17 06:59 18:59 Intake Total 1145 Output Total 420 Balance 725 - Medications Medications: Current Medications Acetaminophen (Tylenol 325mg Tab) 650 mg PO Q6H PRN PRN Reason: Fever >100.4 F Hydromorphone HCl (Dilaudid) 2 mg IVP Q4H PRN PRN Reason: Pain, severe (8-10) Last Admin: 03/12/17 05:01 Dose: 2 mg Linezolid (Zyvox 600mg/300ml D5w) 600 mg in 300 mls @ 200 mls/hr IVPB Q12 [facility] PRN Reason: Protocol Stop: 03/20/17 22:01 Last Admin: 03/11/17 22:06 Dose: 200 mls/hr Lactated Ringer's (Lactated Ringer's) 1,000 mls @ 75 mls/hr IV .[id number] [facility] Last Admin: 03/11/17 22:11 Dose: 75 mls/hr Meropenem 1 gm/ Sodium (Chloride) 100 mls @ 100 mls/hr IVPB Q8 [facility] Stop: 03/16/17 22:01 Insulin Detemir (Levemir) 30 unit SC HS [facility] Last Admin: 03/11/17 22:06 Dose: 30 unit Insulin Human Regular (Humulin R Med) 0 units SC ACHS [facility] PRN Reason: Protocol Last Admin: 03/12/17 08:03 Dose: 1 units Insulin Lispro Protam/Lispro Human (Humalog Mix 75/25) 25 units SC ACBD [facility] Last Admin: 03/12/17 08:04 Dose: 25 u Lisinopril (Zestril) 5 mg PO DAILY [facility] Last Admin: 03/11/17 10:00 Dose: Not Given Metoprolol Tartrate (Lopressor) 25 mg PO BID [facility] Last Admin: 03/11/17 10:00 Dose: Not Given Ondansetron HCl (Zofran Inj) 4 mg IVP Q6H PRN PRN Reason: Nausea/Vomiting Oxycodone/Acetaminophen (Percocet 5/325 Mg Tab) 1 tab PO Q6H PRN PRN Reason: Pain, moderate (4-7) Stop: 03/14/17 20:23 Last Admin: 03/12/17 07:31 Dose: 1 tab Pantoprazole Sodium (Protonix Ec Tab) 40 mg PO 0630 [facility] Last Admin: 03/12/17 05:32 Dose: 40 mg - Labs Labs: 03/12/17 06:15 03/12/17 06:15 PT 14.1 SECONDS (9.4-12.5) H 03/09/17 12:27 INR 1.22 (0.93-1.08) H 03/09/17 12:27 APTT 34.8 Seconds (25.1-36.5) 03/09/17 12:27 - Constitutional Appears: Non-toxic - Head Exam Head Exam: NORMAL INSPECTION - ENT Exam ENT Exam: Mucous Membranes Moist - Neck Exam Neck Exam: absent: Meningismus - Respiratory Exam Respiratory Exam: Decreased Breath Sounds - Cardiovascular Exam Cardiovascular Exam: +S1, +S2 - GI/Abdominal Exam GI & Abdominal Exam: Soft. absent: Tenderness - Extremities Exam Additional comments: right BKA stump with dressings in place ,as well as STELLA drain in place Assessment and Plan - Assessment and Plan (Free Text) Plan: Assessment right foot / heel osteomyelitis with necrotic ulcer, in Dec. grew MRSA and E. coli, S/P right below the knee amputation POD #1 Micrococcus in 1 out of 4 bottles, probably contamination S/P PICC line placement DM Plan given a dose of IV Vanco yesterday - follow up repeat blood cx results also on Zyvox and Merrem for the right foot infection - since BKA has been done , can d/c these antibiotics will continue to monitor clinically
--- NOTE | 2017-03-12 17:20 | CARD ---
APPROVED REPORT EXAM: Two-dimensional and M-mode echocardiogram with Doppler and color Doppler. INDICATION Pre-Op 2D DIMENSIONS Left Atrium (2D)3.7 (1.6-4.0cm)IVSd1.1 (0.7-1.1cm) LVDd4.0 (3.9-5.9cm)PWd1.1 (0.7-1.1cm) LVDs2.9 (2.5-4.0cm)FS (%) 26.3 % LVEF (%)52.0 (>50%) M-Mode DIMENSIONS Aortic Root3.10 (2.2-3.7cm)Aortic Cusp Exc.1.30 (1.5-2.0cm) Aortic Valve AoV Peak Iemeugrl679.0cm/sAoV VTI39.8cmAO Peak GR.16mmHg LVOT Peak Aazwkoah63.3cm/sLVOT VTI16.70cmAO Mean GR.10mmHg Mitral Valve MV E Wbtliyuh34.9cm/sMV A Fmrwfodm48.0cm/sE/A ratio1.1 TDI E/Lateral E'0.0E/Medial E'0.0 Pulmonary Valve PV Peak Nhzpxfow143.0cm/sPV Peak Grad.4mmHg Tricuspid Valve TR Peak Jpxjpkhi912bz/sRAP PSNBEVPG29waZwCF Peak Gr.19mmHg MXEU28nhSe LEFT VENTRICLE The left ventricle is normal size. There is normal left ventricular wall thickness. The left ventricular function is normal.EF-50-55% There is normal LV segmental wall motion. The left ventricular diastolic function is normal. No left ventricle thrombus noted on this study. There is no ventricular septal defect visualized. There is no left ventricular aneurysm. There is no mass noted in the left ventricle. RIGHT VENTRICLE The right ventricle is normal size. There is normal right ventricular wall thickness. The right ventricular systolic function is normal. ATRIA The left atrium size is normal. The right atrium size is normal. The interatrial septum is intact with no evidence for an atrial septal defect. AORTIC VALVE The aortic valve is moderately thickened. The aortic valve is moderately sclerotic. No aortic regurgitation is present. There is mild valvular aortic stenosis. There is no aortic valvular vegetation. MITRAL VALVE The mitral valve is thickened but opens well. Mitral regurgitation is trace. There is no mitral valve stenosis. There is no evidence of mitral valve prolapse. TRICUSPID VALVE The tricuspid valve leaflets are thickened , but open well. There is trace tricuspid regurgitation.RVSP-29 mmof hg. There is no tricuspid valve stenosis. There is no tricuspid valve prolapse or vegetation. PULMONIC VALVE The pulmonic valve is not well visualized. GREAT VESSELS The aortic root is normal in size. The ascending aorta is normal in size. The pulmonary artery is normal. The IVC is normal in size and collapses >50% with inspiration. PERICARDIAL EFFUSION There is no pleural effusion. There is no pericardial effusion. <Conclusion> Nor,mal chamber Size. EF-50-55% Mild Trace MR There is trace tricuspid regurgitation.RVSP-29 mmof hg. No vegetation or thrombus noted.
--- NOTE | 2017-03-12 21:23 | PN ---
DATE: 03/12/2017 REASON FOR CONSULTATION AND FOLLOWUP: Preop evaluation, postop followup, status post right BKA. SUBJECTIVE: The patient denies chest pain but complaining of pain at the operative site. OBJECTIVE: GENERAL: Mild distress from the postop pain. VITAL SIGNS: Temperature afebrile, heart rate 88, blood pressure 158/75. HEENT: PERRLA. Extraocular muscles intact. NECK: Supple. No carotid bruits or thyromegaly. CHEST: Clear to auscultation. HEART: S1 and S2, regular. ABDOMEN: Soft. EXTREMITIES: Clubbing and cyanosis negative. LABORATORY DATA: Blood workup as follows: WBC is 13.7, hemoglobin , hematocrit 29.1, platelet count 384. Chemistry shows sodium 135, potassium 4, chloride 101, carbon dioxide of 27, anion gap of 11, BUN 13, creatinine 0.6. Total protein 6.3, albumin 2.7, albumin-globulin ratio 0.8. IMPRESSION: Protein calorie malnutrition, which was not present on admission; anemia; leukocytosis; sepsis; osteomyelitis with nonhealing ulcer, status post right below-knee amputation; peripheral arterial disease. RECOMMENDATION: Continue adequate analgesia, continue beta-carlos, continue subcu heparin for DVT prophylaxis, continue lisinopril. Follow up the level. We will follow with you. Needs aggressive control of blood sugar. Emphasis on weight reduction modification, lifestyle modification, risk factor for coronary artery disease. Thank you Dr. Ross for providing me the opportunity in taking care of patient, Fartun. Elvira Dwyer MD
[2017-03-12] MEDS: Insulin Detemir 100 units/ml Vial (Levemir) SC SCH (22:15)
[2017-03-12] MEDS: Meropenem 1g/NS 100mL IVPB 1 GM/100 ML PIGGYBACK IVPB SCH (22:23)
--- NOTE | 2017-03-12 22:58 | OP ---
PROCEDURE DATE: PREOPERATIVE DIAGNOSES: Ischemia and necrosis of the right foot. POSTOPERATIVE DIAGNOSES: Ischemia and necrosis of the right foot. OPERATION PERFORMED: Right below-knee amputation. SURGEON: Jose Guadalupe Gonsalez MD. ASSISTANTS: Dr. Kathe Piper and Dr. Rousseau. DESCRIPTION OF PROCEDURE: In the operating room, the patient was identified by name of the procedure, laterality, my yanna, the consent, birthday and wrist band. Right leg was prepped and draped in the usual manner using an Esmarch bandage and Kerlix. The leg was exsanguinated with an Esmarch bandage, after which it was prepped and draped and after successful timeout, the operation began. The tourniquet pressure was about 300. The area was cleaned, examined, marked with a long posterior flap. The skin flap mapped out with the tourniquet up, successful timeout. The area was then cut out down to the fascia sharply followed by the cautery. The muscle groups on either side were taken down exposing first the tibia and then the fibula. The tibia was taken down with a saw protecting the posterior structures. The fibula was taken down with a saw also having tried and failed to use the bone cutter. It shattered the bone superiorly. The superior bone on the fibula was rongeured out. The bone itself was eventually sculpted taking the anterior lip and using the saw and a file. The tibia and fibula were clamped and pulled up. The amputation knife was used to excise and amputate the leg. Circumferentially, hemostasis was achieved. Multiple nerves were identified and divided. The arteries were clamped, tied and suture ligated depending on its size. The posterior muscle was trimmed down. The tourniquet was let down, hemostasis was achieved. The muscle was then sculpted and sutured [id number] over a David and the On-Q, which were placed on either side. David was connected as was the On-Q. The incision was closed by deep fascial stitches followed by jeramy. A light pressure dressing was applied. The patient was taken to the recovery room in good condition after the sponge and needle counts were declared as correct. Jose Guadalupe Gonsalez MD
[2017-03-13] MEDS: Lactated Ringer's 1,000 ML IV SCH (01:49)
[2017-03-13] MEDS: Meropenem 1g/NS 100mL IVPB 1 GM/100 ML PIGGYBACK IVPB SCH (05:25)
[2017-03-13] MEDS: Oxycodone/Acetaminophen 5/325 mg Tab PO PRN (05:27)
[2017-03-13] MEDS: Pantoprazole 40 mg EC Tab PO SCH (05:36)
[2017-03-13 06:27] LABS: BASO # 0.02 K/mm3 (0.0-2.0); BASO % 0.1 % (0.0-3.0); EOS % 0.2 % (1.5-5.0); GRAN # 13.07 (1.4-6.5); GRAN % 80.6 % (50.0-68.0); HEMOGLOBIN 9.9 g/dL (14.0-18.0); LYMPH # 1.8 (1.2-3.4); LYMPH % 10.8 % (22.0-35.0); MEAN CELL VOLUME 78.2 fl (80.0-105.0); MEAN CORPUSCULAR HEMOGLOBIN 24.8 pg (25.0-35.0); MEAN CORPUSCULAR HGB CONC 31.7 g/dl (31.0-37.0); MEAN PLATELET VOLUME 10.1 fl (7.0-11.0); MONO # 1.4 (0.1-0.6); MONO % 8.3 % (1.0-6.0); RBC 3.99 10^6/uL (3.5-6.1); RED CELL DISTRIBUTION WIDTH 14.7 % (11.5-14.5); WHITE BLOOD COUNT 16.2 10^3/ul (4.5-11.0)
--- NOTE | 2017-03-13 08:15 | CP.PCM.PN ---
"Subjective - Date & Time of Evaluation Date of Evaluation: 03/13/17 Time of Evaluation: 08:08 - Subjective Subjective: GENERAL SURGERY CONSULT PROGRESS NOTE FOR DR. KINSEY Patient has been seen and examined. No overnight events reported. Drain is draining serosanguineous fluid. Pain is controlled at rest and aggravated with movement. Patient refused knee immobilizer yesterday because it was causing him pain. Per nursing, another larger knee immobilizer was attempted to be put on but it was only larger in length and not circumference so it still caused him pain. Patient explained the risk of not using the knee immobilizer including difficulty of fitting his prothesis due to restricted range of motion. Patient states that he feels that he is getting weaker. Objective - Vital Signs/Intake and Output Vital Signs (last 24 hours): Temp Pulse Resp BP Pulse Ox 98.2 F 88 20 150/80 94 L 03/13/17 06:00 03/13/17 06:00 03/13/17 06:00 03/13/17 06:00 03/13/17 06:00 Intake and Output: 03/13/17 03/13/17 06:59 18:59 Intake Total 1140 Output Total 1725 Balance -585 - Medications Medications: Current Medications Acetaminophen (Tylenol 325mg Tab) 650 mg PO Q6H PRN PRN Reason: Fever >100.4 F Desoximetasone (Topicort 0.05%) 0 ea TOP BID [facility] Heparin Sodium (Porcine) (Heparin) 5,000 units SC Q8 [facility] PRN Reason: Protocol Last Admin: 03/13/17 05:24 Dose: 5,000 units Hydromorphone HCl (Dilaudid) 2 mg IVP Q4H PRN PRN Reason: Pain, severe (8-10) Last Admin: 03/13/17 04:05 Dose: 2 mg Linezolid (Zyvox 600mg/300ml D5w) 600 mg in 300 mls @ 200 mls/hr IVPB Q12 [facility] PRN Reason: Protocol Stop: 03/20/17 22:01 Last Admin: 03/12/17 22:26 Dose: 200 mls/hr Insulin Detemir (Levemir) 30 unit SC HS [facility] Last Admin: 03/12/17 22:15 Dose: 30 unit Insulin Human Regular (Humulin R Med) 0 units SC ACHS [facility] PRN Reason: Protocol Last Admin: 03/12/17 22:14 Dose: Not Given Insulin Lispro Protam/Lispro Human (Humalog Mix 75/25) 25 units SC ACBD [facility] Last Admin: 03/12/17 17:22 Dose: 25 u Lisinopril (Zestril) 5 mg PO DAILY [facility] Last Admin: 03/12/17 10:27 Dose: 5 mg Metoprolol Tartrate (Lopressor) 25 mg PO BID [facility] Last Admin: 03/12/17 17:22 Dose: 25 mg Ondansetron HCl (Zofran Inj) 4 mg IVP Q6H PRN PRN Reason: Nausea/Vomiting Oxycodone/Acetaminophen (Percocet 5/325 Mg Tab) 1 tab PO Q6H PRN PRN Reason: Pain, moderate (4-7) Stop: 03/14/17 20:23 Last Admin: 03/13/17 05:27 Dose: 1 tab Pantoprazole Sodium (Protonix Ec Tab) 40 mg PO 0630 [facility] Last Admin: 03/13/17 05:36 Dose: 40 mg - Labs Labs: 03/13/17 05:45 03/12/17 06:15 PT 14.1 SECONDS (9.4-12.5) H 03/09/17 12:27 INR 1.22 (0.93-1.08) H 03/09/17 12:27 APTT 34.8 Seconds (25.1-36.5) 03/09/17 12:27 - Additional Findings Additional findings: - Constitutional Appears: Unkempt - Head Exam Head Exam: ATRAUMATIC, NORMAL INSPECTION, NORMOCEPHALIC - Eye Exam Eye Exam: EOMI, Normal appearance - Respiratory Exam Respiratory Exam: NORMAL BREATHING PATTERN. absent: Accessory Muscle Use - Cardiovascular Exam Cardiovascular Exam: +S1, +S2. absent: Bradycardia, Tachycardia - GI/Abdominal Exam GI & Abdominal Exam: Soft, non-distended. absent: Tenderness, - Extremities Exam Additional comments: Right leg BKA: With dressing. No signs of bleeding or drainage. On Q-catheter x 2. Drain is scant serosanguinous. Right Upper arm single lumen PICC Multipodis boot on left foot. - Neurological Exam Neurological Exam: Alert, Awake, Oriented x3 - Skin Skin Exam: Dry, Intact, Normal Color, Warm Assessment and Plan - Assessment and Plan (Free Text) Assessment: 61 year old male with a PMHx significant for Diabetes type II, severe peripheral vascular disease (w/ multiple angioplasties), psoriasis, and osteomyelitis. General Surgery consulted for evaluation and treatment of unresponsive Osteomyelitis of the right foot. POD Day #2 of Right Sided BKA Plan: -Monitor Drain Output. Scant serosanguinous today. -Pain Control | Increased On-Q infusion to 7cchr yesterday Changed Diluaded from 2mg Q4 to 1mg Q6H. Added Neurotin 300 TID and Toradol 30 IVP Q6H. Perc 10 for Severe pain and Perc 5 for moderate pain. -Aggressive PT -OT -Trapeze -Knee Immobilizer Patient refused Knee Immobilizer yesterday/this morning. Risk of not wearing immobilizer were explained to patient and he expressed his understanding. -Multipodus Boot per Podiatry -Rehab placement planning with [facility]. Patient needs PT eval first. -Further Recs as per Dr. Wallace Bucio - PGY1"
[2017-03-13] MEDS: Insulin Lispro (humaLOG) MIX 75/25(10 ml) SC SCH ×2 (08:20→17:12)
--- NOTE | 2017-03-13 08:24 | PN ---
DATE: 03/12/2017 SUBJECTIVE: This is a 61-year-old diabetic male, seen at bedside status post BKA to his right lower extremity yesterday. Patient is resting comfortably. He is not complaining of any pain. He denies any fever or chills. He does have a history of a heel ulceration on his left plantar heel, which was evaluated today. We did order him a rigid Multi Podus boot to protect that heel, now that he has BKA, from any kind of friction from the bed. His neurovascular status is unchanged. He has nonpalpable pedal pulses, but the whole heel ulceration has gone on to close. It did have a depth of 0.5 cm. At this time, the heel ulcer is relatively superficial with a measurement of 0.3 x 0.1 cm. There is no drainage on the dressing. There is no cellulitis, no flatulence, and no signs of infection. Patient does have scaling of the skin secondary to psoriasis and a topical steroid is going to be ordered for his psoriasis. In the meantime, we will continue with local wound care. We are going to use Maxorb and a foam dressing and the rigid Multi Podus boot is to be on in bed at all time. He does not need it when he is out of bed. ASSESSMENT: Diabetic with Trent 1 ulceration to the left heel and psoriasis. Chantel Solis DPM
[2017-03-13] MEDS: Insulin Reg-MEDIUM-Coverage SC SCH ×4 (08:25→21:29)
[2017-03-13] MEDS ORDERED: Oxycodone/Acetaminophen 5/325 mg Tab PO PRN ×2 (08:43→08:44)
[2017-03-13] MEDS: Linezolid 600 mg in D5W 300 ml 600 MG/300 ML BAG IVPB SCH (09:04)
[2017-03-13] MEDS: Desoximetasone 0.05% Cream(60 gm) TOP SCH (09:05)
--- NOTE | 2017-03-13 12:35 | CP.PCM.PN ---
Subjective - Date & Time of Evaluation Date of Evaluation: 03/13/17 Time of Evaluation: 10:50 - Subjective Subjective: Comfortable, no fevers, not in distress. Objective - Vital Signs/Intake and Output Vital Signs (last 24 hours): Temp Pulse Resp BP Pulse Ox 98.2 F 88 20 150/80 94 L 03/13/17 06:00 03/13/17 06:00 03/13/17 06:00 03/13/17 06:00 03/13/17 06:00 Intake and Output: 03/13/17 03/13/17 06:59 18:59 Intake Total 1140 Output Total 1725 Balance -585 - Medications Medications: Current Medications Acetaminophen (Tylenol 325mg Tab) 650 mg PO Q6H PRN PRN Reason: Fever >100.4 F Desoximetasone (Topicort 0.05%) 0 ea TOP BID [facility] Heparin Sodium (Porcine) (Heparin) 5,000 units SC Q8 [facility] PRN Reason: Protocol Last Admin: 03/13/17 05:24 Dose: 5,000 units Hydromorphone HCl (Dilaudid) 2 mg IVP Q4H PRN PRN Reason: Pain, severe (8-10) Last Admin: 03/13/17 04:05 Dose: 2 mg Linezolid (Zyvox 600mg/300ml D5w) 600 mg in 300 mls @ 200 mls/hr IVPB Q12 [facility] PRN Reason: Protocol Stop: 03/20/17 22:01 Last Admin: 03/12/17 22:26 Dose: 200 mls/hr Insulin Detemir (Levemir) 30 unit SC HS [facility] Last Admin: 03/12/17 22:15 Dose: 30 unit Insulin Human Regular (Humulin R Med) 0 units SC ACHS [facility] PRN Reason: Protocol Last Admin: 03/12/17 22:14 Dose: Not Given Insulin Lispro Protam/Lispro Human (Humalog Mix 75/25) 25 units SC ACBD [facility] Last Admin: 03/12/17 17:22 Dose: 25 u Lisinopril (Zestril) 5 mg PO DAILY [facility] Last Admin: 03/12/17 10:27 Dose: 5 mg Metoprolol Tartrate (Lopressor) 25 mg PO BID [facility] Last Admin: 03/12/17 17:22 Dose: 25 mg Ondansetron HCl (Zofran Inj) 4 mg IVP Q6H PRN PRN Reason: Nausea/Vomiting Oxycodone/Acetaminophen (Percocet 5/325 Mg Tab) 1 tab PO Q6H PRN PRN Reason: Pain, moderate (4-7) Stop: 03/14/17 20:23 Last Admin: 03/13/17 05:27 Dose: 1 tab Pantoprazole Sodium (Protonix Ec Tab) 40 mg PO 0630 [facility] Last Admin: 03/13/17 05:36 Dose: 40 mg - Labs Labs: 03/13/17 05:45 03/12/17 06:15 PT 14.1 SECONDS (9.4-12.5) H 03/09/17 12:27 INR 1.22 (0.93-1.08) H 03/09/17 12:27 APTT 34.8 Seconds (25.1-36.5) 03/09/17 12:27 - Constitutional Appears: Non-toxic - Head Exam Head Exam: NORMAL INSPECTION - ENT Exam ENT Exam: Mucous Membranes Moist - Neck Exam Neck Exam: absent: Meningismus - Respiratory Exam Respiratory Exam: Decreased Breath Sounds - Cardiovascular Exam Cardiovascular Exam: +S1, +S2 - GI/Abdominal Exam GI & Abdominal Exam: Soft. absent: Tenderness - Extremities Exam Additional comments: right BKA stump with dressings in place Assessment and Plan - Assessment and Plan (Free Text) Plan: Assessment right foot / heel osteomyelitis with necrotic ulcer, in Dec. grew MRSA and E. coli, S/P right below the knee amputation POD #2 Micrococcus in 1 out of 4 bottles, probably contamination S/P PICC line placement DM Plan repeat blood cx are negative, will monitor off antibiotics especially since BKA has been done will continue to monitor clinically
--- NOTE | 2017-03-13 15:06 | PN ---
DATE: SUBJECTIVE: The patient is a 61-year-old, seen and examined, lying in bed, seems to be comfortable, complained of pain in the right thumb. Seems to be a little depressed. Otherwise, doing well. PHYSICAL EXAMINATION VITAL SIGNS: He is afebrile, pulse 88, respirations 20, blood pressure 150/80. LUNGS: Bilateral fair airflow. No rhonchi or crackle. HEART: S1 and S2 audible. ABDOMEN: Soft, nontender. No rebound, no guarding. NEUROLOGIC: The patient is awake, alert, oriented, communicative. Right thumb is in the dressing. LABORATORY DATA: WBC 16.2, hemoglobin 9.9, hematocrit 31.2, platelets of 412,000. Chemistry: Blood sugar is 258. Blood culture shows Micrococcus species, are negative. ASSESSMENT: 1. Chronic recurrent right foot cellulitis and ulcer, status post [id number] amputation. 2. Leukocytosis. 3. Insulin-dependent diabetes. 4. Hypertension. 5. Hyperlipidemia. PLAN: We will continue the patient on current pain medications. He is on , keep him on current coverage of insulin, analgesic as needed. We will follow up this patient in the morning. Stacey Ross MD
--- NOTE | 2017-03-13 15:18 | CP.PCM.PN ---
<Alphonse Chaudhry - Last Filed: 03/13/17 15:15> Subjective - Date & Time of Evaluation Date of Evaluation: 03/13/17 Time of Evaluation: 10:30 - Subjective Subjective: 61 year old male seen and evaluated at bedside for right foot plantar calcaneal infected ulceration. Patient is resting in bed at time of visit and is in NAD. Denies F/C/N/V/CP/SOB at this time. Objective - Vital Signs/Intake and Output Vital Signs (last 24 hours): Temp Pulse Resp BP Pulse Ox 98.2 F 88 20 150/80 94 L 03/13/17 06:00 03/13/17 09:04 03/13/17 06:00 03/13/17 09:04 03/13/17 06:00 Intake and Output: 03/13/17 03/13/17 06:59 18:59 Intake Total 1140 Output Total 1725 Balance -585 - Medications Medications: Current Medications Acetaminophen (Tylenol 325mg Tab) 650 mg PO Q6H PRN PRN Reason: Fever >100.4 F Desoximetasone (Topicort 0.05%) 0 ea TOP BID [facility] Last Admin: 03/13/17 09:05 Dose: 1 applic Gabapentin (Neurontin) 300 mg PO TID [facility] PRN Reason: Protocol Last Admin: 03/13/17 13:58 Dose: 300 mg Heparin Sodium (Porcine) (Heparin) 5,000 units SC Q8 [facility] PRN Reason: Protocol Last Admin: 03/13/17 13:59 Dose: 5,000 units Hydromorphone HCl (Dilaudid) 1 mg IVP Q6H PRN PRN Reason: Pain, severe (8-10) Insulin Detemir (Levemir) 30 unit SC HS [facility] Last Admin: 03/12/17 22:15 Dose: 30 unit Insulin Human Regular (Humulin R Med) 0 units SC ACHS [facility] PRN Reason: Protocol Last Admin: 03/13/17 13:44 Dose: 5 units Insulin Lispro Protam/Lispro Human (Humalog Mix 75/25) 25 units SC ACBD [facility] Last Admin: 03/13/17 08:20 Dose: 25 u Ketorolac Tromethamine (Toradol) 30 mg IVP Q6 [facility] Stop: 03/15/17 06:01 Last Admin: 03/13/17 12:28 Dose: 30 mg Lisinopril (Zestril) 5 mg PO DAILY [facility] Last Admin: 03/13/17 09:04 Dose: 5 mg Metoprolol Tartrate (Lopressor) 25 mg PO BID [facility] Last Admin: 03/13/17 09:03 Dose: 25 mg Ondansetron HCl (Zofran Inj) 4 mg IVP Q6H PRN PRN Reason: Nausea/Vomiting Oxycodone/Acetaminophen (Percocet 5/325 Mg Tab) 1 tab PO Q4H PRN PRN Reason: Pain, Mild (1-3) Stop: 03/16/17 08:44 Oxycodone/Acetaminophen (Percocet 5/325 Mg Tab) 2 tab PO Q4H PRN PRN Reason: Pain, moderate (4-7) Stop: 03/14/17 20:23 Pantoprazole Sodium (Protonix Ec Tab) 40 mg PO 0630 [facility] Last Admin: 03/13/17 05:36 Dose: 40 mg - Labs Labs: 03/13/17 05:45 03/12/17 06:15 PT 14.1 SECONDS (9.4-12.5) H 03/09/17 12:27 INR 1.22 (0.93-1.08) H 03/09/17 12:27 APTT 34.8 Seconds (25.1-36.5) 03/09/17 12:27 - Constitutional Appears: Well, Non-toxic, No Acute Distress - Extremities Exam Additional comments: Right leg BKA Left foot previous wound care dressing intact at this time, no strikethrough noted. - Neurological Exam Neurological Exam: Alert, Awake, Oriented x3 - Psychiatric Exam Psychiatric exam: Normal Affect, Normal Mood Assessment and Plan - Assessment and Plan (Free Text) Assessment: 61 y/o male with left foot plantar calc non-infected wound Plan: Pt seen and evaluated Labs and vitals reviewed- afebrile, WBC 16.2 Dextramethsone cream applied to the left foot and Optifoam applied to the plantar left heel Rigid multipodus boot applied to the left foot Pt to wear multipodus boot at ALL times weightbearing to left foot Patient is stable from podiatry standpoint at this time Will continue to follow patient while in house <Burke Duncan - Last Filed: 03/13/17 15:29> Objective - Vital Signs/Intake and Output Vital Signs (last 24 hours): Temp Pulse Resp BP Pulse Ox 98.2 F 88 20 150/80 94 L 03/13/17 06:00 03/13/17 09:04 03/13/17 06:00 03/13/17 09:04 03/13/17 06:00 Intake and Output: 03/13/17 03/13/17 06:59 18:59 Intake Total 1140 Output Total 1725 Balance -585 - Medications Medications: Current Medications Acetaminophen (Tylenol 325mg Tab) 650 mg PO Q6H PRN PRN Reason: Fever >100.4 F Desoximetasone (Topicort 0.05%) 0 ea TOP BID [facility] Last Admin: 03/13/17 09:05 Dose: 1 applic Gabapentin (Neurontin) 300 mg PO TID [facility] PRN Reason: Protocol Last Admin: 03/13/17 13:58 Dose: 300 mg Heparin Sodium (Porcine) (Heparin) 5,000 units SC Q8 [facility] PRN Reason: Protocol Last Admin: 03/13/17 13:59 Dose: 5,000 units Hydromorphone HCl (Dilaudid) 1 mg IVP Q6H PRN PRN Reason: Pain, severe (8-10) Insulin Detemir (Levemir) 30 unit SC HS [facility] Last Admin: 03/12/17 22:15 Dose: 30 unit Insulin Human Regular (Humulin R Med) 0 units SC ACHS [facility] PRN Reason: Protocol Last Admin: 03/13/17 13:44 Dose: 5 units Insulin Lispro Protam/Lispro Human (Humalog Mix 75/25) 25 units SC ACBD [facility] Last Admin: 03/13/17 08:20 Dose: 25 u Ketorolac Tromethamine (Toradol) 30 mg IVP Q6 [facility] Stop: 03/15/17 06:01 Last Admin: 03/13/17 12:28 Dose: 30 mg Lisinopril (Zestril) 5 mg PO DAILY [facility] Last Admin: 03/13/17 09:04 Dose: 5 mg Metoprolol Tartrate (Lopressor) 25 mg PO BID [facility] Last Admin: 03/13/17 09:03 Dose: 25 mg Ondansetron HCl (Zofran Inj) 4 mg IVP Q6H PRN PRN Reason: Nausea/Vomiting Oxycodone/Acetaminophen (Percocet 5/325 Mg Tab) 1 tab PO Q4H PRN PRN Reason: Pain, Mild (1-3) Stop: 03/16/17 08:44 Oxycodone/Acetaminophen (Percocet 5/325 Mg Tab) 2 tab PO Q4H PRN PRN Reason: Pain, moderate (4-7) Stop: 03/14/17 20:23 Pantoprazole Sodium (Protonix Ec Tab) 40 mg PO 0630 [facility] Last Admin: 03/13/17 05:36 Dose: 40 mg - Labs Labs: 03/13/17 05:45 03/12/17 06:15 PT 14.1 SECONDS (9.4-12.5) H 03/09/17 12:27 INR 1.22 (0.93-1.08) H 03/09/17 12:27 APTT 34.8 Seconds (25.1-36.5) 03/09/17 12:27 Attending/Attestation - Attestation I have personally seen and examined this patient.: Yes I have fully participated in the care of the patient.: Yes I have reviewed all pertinent clinical information, including history, physical exam and plan: Yes
--- NOTE | 2017-03-13 20:54 | PN ---
DATE: REASON FOR CONSULTATION AND FOLLOWUP: Preop evaluation postop followup, status post right BKA. SUBJECTIVE: The patient denies any chest pain, but complaining of pain at the operative site and patient 00:29 surgical dressing was removed, so patient was in pain. PHYSICAL EXAMINATION: GENERAL: Not in apparent distress, except for pain to the operative site. VITAL SIGNS: Temperature afebrile, heart rate 80, blood pressure 150/80. HEENT: PERRLA. Extraocular muscles intact. NECK: Supple. No carotid bruits or thyromegaly. CHEST: Clear to auscultation. HEART: S1 and S2, regular. ABDOMEN: Soft. EXTREMITIES: Clubbing and cyanosis negative. LABORATORY DATA: Blood workup as follows, WBC is 00:50, hemoglobin 9.9, hematocrit 31.2, platelet count 412. Chemistry shows sodium 135, potassium 4, chloride 101, carbon dioxide 27, anion gap of 11, BUN 13, creatinine 0.6. Total protein 6.3, albumin 2.7, albumin-globulin ratio 0.8. IMPRESSION: Peripheral arterial disease, nonhealing ulcer, osteomyelitis of right foot, status post right [id number] amputation, diabetes, hypertension, hyperlipidemia. RECOMMENDATION: Continue adequate analgesia, continue beta-carlos, continue subcu heparin for DVT prophylaxis, continue lisinopril. We will follow with you. CVS status is stable. Thank you for providing me the opportunity in taking care of the patient, Travis Willoughby. Elvira Dwyer MD
[2017-03-13] MEDS: Insulin Detemir 100 units/ml Vial (Levemir) SC SCH (21:29)
[2017-03-14] MEDS: Pantoprazole 40 mg EC Tab PO SCH (05:58)
[2017-03-14 07:24] LABS: BASO # 0.03 K/mm3 (0.0-2.0); BASO % 0.2 % (0.0-3.0); EOS # 0.1 (0.0-0.7); EOS % 0.6 % (1.5-5.0); GRAN # 11.96 (1.4-6.5); GRAN % 77.7 % (50.0-68.0); HEMOGLOBIN 9.9 g/dL (14.0-18.0); LYMPH # 2.1 (1.2-3.4); LYMPH % 13.5 % (22.0-35.0); MEAN CELL VOLUME 78.6 fl (80.0-105.0); MEAN CORPUSCULAR HEMOGLOBIN 24.6 pg (25.0-35.0); MEAN CORPUSCULAR HGB CONC 31.3 g/dl (31.0-37.0); MEAN PLATELET VOLUME 10.1 fl (7.0-11.0); MONO # 1.2 (0.1-0.6); RBC 4.02 10^6/uL (3.5-6.1); RED CELL DISTRIBUTION WIDTH 14.8 % (11.5-14.5); WHITE BLOOD COUNT 15.4 10^3/ul (4.5-11.0)
[2017-03-14] MEDS: Insulin Lispro (humaLOG) MIX 75/25(10 ml) SC SCH ×2 (08:52→17:21)
[2017-03-14] MEDS: Insulin Reg-MEDIUM-Coverage SC SCH ×4 (08:52→21:37)
--- NOTE | 2017-03-14 09:11 | CP.PCM.PN ---
<Elena Diaz - Last Filed: 03/14/17 09:19> Subjective - Date & Time of Evaluation Date of Evaluation: 03/14/17 Time of Evaluation: 09:10 - Subjective Subjective: 61 y/o male seen at bedside this morning regarding left plantar heel preulcerative lesion. Pt is s/p right BKA and admits to pains up and down the right side of his body.He also says the left leg feels heavy and is tender upon elevation as it feels like it weighs a lot. Denies F/C/N/V/CP/SOB but admits to feeling weak. States he is eager to gain body strength back Objective - Vital Signs/Intake and Output Vital Signs (last 24 hours): Temp Pulse Resp BP Pulse Ox 98.2 F 77 20 138/68 94 L 03/13/17 06:00 03/13/17 17:57 03/13/17 06:00 03/13/17 17:57 03/13/17 06:00 Intake and Output: 03/14/17 03/14/17 06:59 18:59 Intake Total 360 Output Total 550 Balance -190 - Medications Medications: Current Medications Acetaminophen (Tylenol 325mg Tab) 650 mg PO Q6H PRN PRN Reason: Fever >100.4 F Desoximetasone (Topicort 0.05%) 0 ea TOP BID [facility] Last Admin: 03/13/17 09:05 Dose: 1 applic Gabapentin (Neurontin) 300 mg PO TID [facility] PRN Reason: Protocol Last Admin: 03/13/17 17:43 Dose: 300 mg Heparin Sodium (Porcine) (Heparin) 5,000 units SC Q8 [facility] PRN Reason: Protocol Last Admin: 03/14/17 05:58 Dose: 5,000 units Hydromorphone HCl (Dilaudid) 1 mg IVP Q6H PRN PRN Reason: Pain, severe (8-10) Insulin Detemir (Levemir) 30 unit SC HS [facility] Last Admin: 03/13/17 21:29 Dose: 30 unit Insulin Human Regular (Humulin R Med) 0 units SC ACHS [facility] PRN Reason: Protocol Last Admin: 03/14/17 08:52 Dose: 1 units Insulin Lispro Protam/Lispro Human (Humalog Mix 75/25) 25 units SC ACBD [facility] Last Admin: 03/14/17 08:52 Dose: 25 units Ketorolac Tromethamine (Toradol) 30 mg IVP Q6 [facility] Stop: 03/15/17 06:01 Last Admin: 03/14/17 05:59 Dose: 30 mg Lisinopril (Zestril) 5 mg PO DAILY [facility] Last Admin: 03/13/17 09:04 Dose: 5 mg Metoprolol Tartrate (Lopressor) 25 mg PO BID [facility] Last Admin: 03/13/17 17:57 Dose: 25 mg Ondansetron HCl (Zofran Inj) 4 mg IVP Q6H PRN PRN Reason: Nausea/Vomiting Oxycodone/Acetaminophen (Percocet 5/325 Mg Tab) 1 tab PO Q4H PRN PRN Reason: Pain, Mild (1-3) Stop: 03/16/17 08:44 Oxycodone/Acetaminophen (Percocet 5/325 Mg Tab) 2 tab PO Q4H PRN PRN Reason: Pain, moderate (4-7) Stop: 03/14/17 20:23 Pantoprazole Sodium (Protonix Ec Tab) 40 mg PO 0630 [facility] Last Admin: 03/14/17 05:58 Dose: 40 mg - Labs Labs: 03/14/17 06:20 03/12/17 06:15 PT 14.1 SECONDS (9.4-12.5) H 03/09/17 12:27 INR 1.22 (0.93-1.08) H 03/09/17 12:27 APTT 34.8 Seconds (25.1-36.5) 03/09/17 12:27 - Constitutional Appears: Well, Non-toxic, No Acute Distress - Extremities Exam Additional comments: Right BKA Left lower extremity exam: Vasc: DP/PT pulses are faintly palpable 1/4. Temperature gradient warm to cool. CFT delayed but present to all digits. Derm: Plantar superficial pre-ulcerative lesion noted at prior ulceration site. No opening noted, no drainage, no malodor, no fluctuance or bogginess noted. Posterior calcaneus exhibits additional healed ulceration with overlying mildly hyperkeratotic eschar. No krysta wound erythema or cellulitic changes noted Neuro: Protective sensation grossly diminished Ortho: tenderness to elevation of L leg (hip flexion); minimal tenderness noted to posteroplantar heel - Neurological Exam Neurological Exam: Alert, Awake, Oriented x3 - Psychiatric Exam Psychiatric exam: Flat Affect Assessment and Plan - Assessment and Plan (Free Text) Assessment: 61 y/o diabetic male s/p right BKA seen at bedside for stable left calcaneal ulceration, healing Plan: Pt seen and evaluated at bedside Discussed with attending Dr. Duncan Labs and vitals reviewed- afebrile, WBC 15.4 Cleansed with saline and dressed L foot with Optifoam dressing Wound does not appear clinically infected at this time Continue offloading with rigid multipodus boot - pt reminded to wear at ALL times weight bearing to prevent breakdown of skin Continue pain management as per primary team Patient is stable for discharge from podiatry standpoint Will continue to follow while in house Upon D/C, pt instructed to follow up in the wound care center with Dr. Solis regarding left heel ulcerations <Burke Duncan - Last Filed: 03/14/17 15:36> Objective - Vital Signs/Intake and Output Vital Signs (last 24 hours): Temp Pulse Resp BP Pulse Ox 98.2 F 83 20 145/75 94 L 03/13/17 06:00 03/14/17 10:23 03/13/17 06:00 03/14/17 10:23 03/13/17 06:00 Intake and Output: 03/14/17 03/14/17 06:59 18:59 Intake Total 360 1600 Output Total 550 1200 Balance -190 400 - Medications Medications: Current Medications Acetaminophen (Tylenol 325mg Tab) 650 mg PO Q6H PRN PRN Reason: Fever >100.4 F Desoximetasone (Topicort 0.05%) 0 ea TOP BID [facility] Last Admin: 03/14/17 10:24 Dose: 1 applic Gabapentin (Neurontin) 300 mg PO TID [facility] PRN Reason: Protocol Last Admin: 03/14/17 14:46 Dose: 300 mg Heparin Sodium (Porcine) (Heparin) 5,000 units SC Q8 [facility] PRN Reason: Protocol Last Admin: 03/14/17 14:46 Dose: 5,000 units Hydromorphone HCl (Dilaudid) 1 mg IVP Q6H PRN PRN Reason: Pain, severe (8-10) Insulin Detemir (Levemir) 30 unit SC HS [facility] Last Admin: 03/13/17 21:29 Dose: 30 unit Insulin Human Regular (Humulin R Med) 0 units SC ACHS [facility] PRN Reason: Protocol Last Admin: 03/14/17 12:39 Dose: 3 units Insulin Lispro Protam/Lispro Human (Humalog Mix 75/25) 28 units SC ACBD [facility] Ketorolac Tromethamine (Toradol) 30 mg IVP Q6 [facility] Stop: 03/15/17 06:01 Last Admin: 03/14/17 11:44 Dose: 30 mg Lisinopril (Zestril) 5 mg PO DAILY [facility] Last Admin: 03/14/17 10:23 Dose: 5 mg Metoprolol Tartrate (Lopressor) 25 mg PO BID [facility] Last Admin: 03/14/17 10:23 Dose: 25 mg Ondansetron HCl (Zofran Inj) 4 mg IVP Q6H PRN PRN Reason: Nausea/Vomiting Oxycodone/Acetaminophen (Percocet 5/325 Mg Tab) 1 tab PO Q4H PRN PRN Reason: Pain, Mild (1-3) Stop: 03/16/17 08:44 Oxycodone/Acetaminophen (Percocet 5/325 Mg Tab) 2 tab PO Q4H PRN PRN Reason: Pain, moderate (4-7) Stop: 03/14/17 20:23 Last Admin: 03/14/17 09:47 Dose: 2 tab Pantoprazole Sodium (Protonix Ec Tab) 40 mg PO 0630 [facility] Last Admin: 03/14/17 05:58 Dose: 40 mg - Labs Labs: 03/14/17 06:20 03/12/17 06:15 PT 14.1 SECONDS (9.4-12.5) H 03/09/17 12:27 INR 1.22 (0.93-1.08) H 03/09/17 12:27 APTT 34.8 Seconds (25.1-36.5) 03/09/17 12:27 Attending/Attestation - Attestation I have personally seen and examined this patient.: Yes I have fully participated in the care of the patient.: Yes I have reviewed all pertinent clinical information, including history, physical exam and plan: Yes
[2017-03-14] MEDS: Desoximetasone 0.05% Cream(60 gm) TOP SCH ×2 (10:24→17:21)
--- NOTE | 2017-03-14 11:41 | CP.PCM.PN ---
Subjective - Date & Time of Evaluation Date of Evaluation: 03/14/17 Time of Evaluation: 07:30 - Subjective Subjective: Surgery Progress note. Dr. Gonsalez Pt seen and examined at bedside. No acute events overnight. Pain well tolerated. No new complaints. No N/V/D. No F/C. Objective - Vital Signs/Intake and Output Vital Signs (last 24 hours): Temp Pulse Resp BP Pulse Ox 98.2 F 83 20 145/75 94 L 03/13/17 06:00 03/14/17 10:23 03/13/17 06:00 03/14/17 10:23 03/13/17 06:00 Intake and Output: 03/14/17 03/14/17 06:59 18:59 Intake Total 360 Output Total 550 Balance -190 - Medications Medications: Current Medications Acetaminophen (Tylenol 325mg Tab) 650 mg PO Q6H PRN PRN Reason: Fever >100.4 F Desoximetasone (Topicort 0.05%) 0 ea TOP BID [facility] Last Admin: 03/14/17 10:24 Dose: 1 applic Gabapentin (Neurontin) 300 mg PO TID [facility] PRN Reason: Protocol Last Admin: 03/14/17 10:23 Dose: 300 mg Heparin Sodium (Porcine) (Heparin) 5,000 units SC Q8 [facility] PRN Reason: Protocol Last Admin: 03/14/17 05:58 Dose: 5,000 units Hydromorphone HCl (Dilaudid) 1 mg IVP Q6H PRN PRN Reason: Pain, severe (8-10) Insulin Detemir (Levemir) 30 unit SC HS [facility] Last Admin: 03/13/17 21:29 Dose: 30 unit Insulin Human Regular (Humulin R Med) 0 units SC ACHS [facility] PRN Reason: Protocol Last Admin: 03/14/17 08:52 Dose: 1 units Insulin Lispro Protam/Lispro Human (Humalog Mix 75/25) 25 units SC ACBD [facility] Last Admin: 03/14/17 08:52 Dose: 25 units Ketorolac Tromethamine (Toradol) 30 mg IVP Q6 [facility] Stop: 03/15/17 06:01 Last Admin: 03/14/17 05:59 Dose: 30 mg Lisinopril (Zestril) 5 mg PO DAILY [facility] Last Admin: 03/14/17 10:23 Dose: 5 mg Metoprolol Tartrate (Lopressor) 25 mg PO BID [facility] Last Admin: 03/14/17 10:23 Dose: 25 mg Ondansetron HCl (Zofran Inj) 4 mg IVP Q6H PRN PRN Reason: Nausea/Vomiting Oxycodone/Acetaminophen (Percocet 5/325 Mg Tab) 1 tab PO Q4H PRN PRN Reason: Pain, Mild (1-3) Stop: 03/16/17 08:44 Oxycodone/Acetaminophen (Percocet 5/325 Mg Tab) 2 tab PO Q4H PRN PRN Reason: Pain, moderate (4-7) Stop: 03/14/17 20:23 Last Admin: 03/14/17 09:47 Dose: 2 tab Pantoprazole Sodium (Protonix Ec Tab) 40 mg PO 0630 [facility] Last Admin: 03/14/17 05:58 Dose: 40 mg - Labs Labs: 03/14/17 06:20 03/12/17 06:15 PT 14.1 SECONDS (9.4-12.5) H 03/09/17 12:27 INR 1.22 (0.93-1.08) H 03/09/17 12:27 APTT 34.8 Seconds (25.1-36.5) 03/09/17 12:27 - Constitutional Appears: Well, Non-toxic, No Acute Distress - Head Exam Head Exam: ATRAUMATIC, NORMAL INSPECTION, NORMOCEPHALIC - Eye Exam Eye Exam: EOMI, Normal appearance - ENT Exam ENT Exam: Mucous Membranes Moist - Respiratory Exam Respiratory Exam: NORMAL BREATHING PATTERN. absent: Accessory Muscle Use, Respiratory Distress - Cardiovascular Exam Cardiovascular Exam: absent: JVD - GI/Abdominal Exam GI & Abdominal Exam: Soft. absent: Distended, Guarding, Rigid, Tenderness - Extremities Exam Extremities Exam: absent: Calf Tenderness Additional comments: Right BKA dressing clean dry and intact. On-Q catheter in place, empty. Denies any severe tenderness on palpation. - Neurological Exam Neurological Exam: Alert, Awake, Oriented x3 - Skin Skin Exam: Dry, Intact, Normal Color, Warm Assessment and Plan - Assessment and Plan (Free Text) Assessment: 61yo M s/p Rt BKA on 03/11/17. POD 3 - Leukocytosis downtrending - Pain management - Knee immobilizer to R knee if patient agrees. Currently refusing. - Multipodus boot to left foot - PT and OT eval and treat - Will benefit if placed in Rehab for Dispo - Cont medical management Further recs as per Dr. Wallace Orellana PGY1 surgery pager: [phone]
--- NOTE | 2017-03-14 15:18 | PN ---
DATE: REASON FOR CONSULTATION AND FOLLOWUP: Preop evaluation, postop followup for right BKA. SUBJECTIVE: The patient denies chest pain, shortness of breath. Feels pain to the operative site. PHYSICAL EXAMINATION GENERAL: Not in apparent distress. VITAL SIGNS: Temperature afebrile, heart rate 77, blood pressure 136/68. HEENT: PERRLA. Extraocular muscles intact. NECK: Supple. No carotid bruits or thyromegaly. CHEST: Clear to auscultation. HEART: S1 and S2, regular. ABDOMEN: Soft. EXTREMITIES: Clubbing and cyanosis negative. LABORATORY DATA: Blood workup as follows: WBC is , hemoglobin 9.9, hematocrit 31.6, platelet count 444,000. Chemistry shows sodium 134, potassium 4, chloride 105, carbon dioxide 27, anion gap of 11, BUN 13, creatinine 0.6. Total protein 6.3, albumin 2.7. IMPRESSION: Peripheral arterial disease, status post right [id number] amputation; nonhealing ulcer; osteomyelitis; history of percutaneous transluminal coronary angioplasty in the past of the lower extremity; diabetes; hypertension; hyperlipidemia. RECOMMENDATIONS: Continue adequate analgesia, continue beta-carlos, continue DVT prophylaxis, continue lisinopril. CVS status is stable. We will follow with you. Discharge planning. Thank you, Dr. Ross for providing me the opportunity in taking care of the patient, Travis Willoughby. Elvira Dwyer MD
--- NOTE | 2017-03-14 18:18 | PN ---
DATE: SUBJECTIVE: Lying in bed, seems to be comfortable, seems to be upset because he is having pain in his left thumb. Otherwise, he is awake, alert, oriented, communicative. PHYSICAL EXAMINATION VITAL SIGNS: He is afebrile, pulse 83, respirations 18, blood pressure 145/75. LUNGS: Bilateral good airflow. No rhonchi or crackle. HEART: S1 and S2 audible. ABDOMEN: Soft, nontender. No rebound, no guarding. NEUROLOGIC: The patient is awake and alert, able to communicate. He has right BKA. LABORATORY DATA: WBC 15.4, hemoglobin 9.9, hematocrit 31.6, platelets 444. Chemistry, blood sugar is 205. ASSESSMENT: 1. Status post right below-knee amputation. 2. Insulin-dependent diabetes. 3. Hypertension. 4. Hyperlipidemia. 5. Peripheral vascular disease, status post angioplasty. 6. Active smoker. PLAN: Continue patient on analgesic. He is on DVT prophylaxis. Increase his coverage from 25 to 28 units before breakfast and dinner, and continue nighttime Lantus. Analgesic as needed. Wound care by the Surgical Team. Stacey Ross MD
[2017-03-14] MEDS: Insulin Detemir 100 units/ml Vial (Levemir) SC SCH (21:37)
--- NOTE | 2017-03-14 22:51 | PN ---
DATE: 03/14/2017 SUBJECTIVE: The patient is in bed, in no acute distress, nontoxic. PHYSICAL EXAMINATION: VITAL SIGNS: Temperature is 98, blood pressure is 140/70, respiratory rate of 16. HEENT: Unremarkable. NECK: Supple. LUNGS: Have decreased breath sounds. HEART: Normal S1 and S2. ABDOMEN: Soft, nontender. LABORATORY EXAMINATION: Reveals a white count of 16,400, hemoglobin of 9 and platelets of 444. Chemistries reveal the patient has a BUN of 13, creatinine of 0.6. Urinalysis is noted and microbiology reveals micrococcus in the blood cultures; repeat blood cultures show no growth. Review of orders reveals the patient to be on . ASSESSMENT AND PLAN: This is a 61-year-old male with a right heel and right foot osteomyelitis necrotic ulcer, methicillin-resistant Staphylococcus aureus and Escherichia coli in January, status post right below-knee amputation, post procedure day #3 with micrococcus; currently off of antibiotics since the below-knee amputation is done, continue to monitor. We will check on the pathology and we will follow with you. Rakesh Bautista MD
[2017-03-15 06:01] LABS: BASO # 0.03 K/mm3 (0.0-2.0); BASO % 0.2 % (0.0-3.0); EOS # 0.2 (0.0-0.7); EOS % 1.5 % (1.5-5.0); GRAN # 9.86 (1.4-6.5); GRAN % 75.6 % (50.0-68.0); HEMOGLOBIN 9.8 g/dL (14.0-18.0); LYMPH # 1.9 (1.2-3.4); LYMPH % 14.7 % (22.0-35.0); MEAN CELL VOLUME 78.7 fl (80.0-105.0); MEAN CORPUSCULAR HEMOGLOBIN 24.8 pg (25.0-35.0); MEAN CORPUSCULAR HGB CONC 31.5 g/dl (31.0-37.0); MEAN PLATELET VOLUME 9.6 fl (7.0-11.0); MONO # 1.1 (0.1-0.6); RBC 3.95 10^6/uL (3.5-6.1); WHITE BLOOD COUNT 13.1 10^3/ul (4.5-11.0)
[2017-03-15] MEDS ORDERED: Barium Sulfate Susp 2.1% w/v, 2.0% w/w 450 mL Bottle PO ONE (06:22)
--- NOTE | 2017-03-15 08:36 | CP.PCM.PN ---
Subjective - Date & Time of Evaluation Date of Evaluation: 03/15/17 Time of Evaluation: 07:00 - Subjective Subjective: Surgery Progress note. Dr. Gonsalez Pt seen and examined at bedside. No acute events overnight. No F/C. States that the pain is well controlled. States that his appetite is improving. No new complaints. Objective - Vital Signs/Intake and Output Vital Signs (last 24 hours): Temp Pulse Resp BP Pulse Ox 98.0 F 80 20 155/82 H 98 03/15/17 06:00 03/15/17 06:00 03/15/17 06:00 03/15/17 06:00 03/15/17 06:00 Intake and Output: 03/15/17 03/15/17 06:59 18:59 Intake Total 1020 Output Total 1100 Balance -80 - Medications Medications: Current Medications Acetaminophen (Tylenol 325mg Tab) 650 mg PO Q6H PRN PRN Reason: Fever >100.4 F Desoximetasone (Topicort 0.05%) 0 ea TOP BID [facility] Last Admin: 03/14/17 17:21 Dose: 1 applic Gabapentin (Neurontin) 300 mg PO TID [facility] PRN Reason: Protocol Last Admin: 03/14/17 17:22 Dose: 300 mg Heparin Sodium (Porcine) (Heparin) 5,000 units SC Q8 [facility] PRN Reason: Protocol Last Admin: 03/15/17 05:24 Dose: 5,000 units Hydromorphone HCl (Dilaudid) 1 mg IVP Q6H PRN PRN Reason: Pain, severe (8-10) Insulin Detemir (Levemir) 30 unit SC HS [facility] Last Admin: 03/14/17 21:37 Dose: Not Given Insulin Human Regular (Humulin R Med) 0 units SC ACHS [facility] PRN Reason: Protocol Last Admin: 03/14/17 21:37 Dose: Not Given Insulin Lispro Protam/Lispro Human (Humalog Mix 75/25) 28 units SC ACBD [facility] Last Admin: 03/14/17 17:21 Dose: 28 units Lisinopril (Zestril) 5 mg PO DAILY [facility] Last Admin: 03/14/17 10:23 Dose: 5 mg Metoprolol Tartrate (Lopressor) 25 mg PO BID [facility] Last Admin: 03/14/17 17:22 Dose: 25 mg Ondansetron HCl (Zofran Inj) 4 mg IVP Q6H PRN PRN Reason: Nausea/Vomiting Oxycodone/Acetaminophen (Percocet 5/325 Mg Tab) 1 tab PO Q4H PRN PRN Reason: Pain, Mild (1-3) Stop: 03/16/17 08:44 Pantoprazole Sodium (Protonix Ec Tab) 40 mg PO 0630 [facility] Last Admin: 03/14/17 05:58 Dose: 40 mg - Labs Labs: 03/15/17 05:30 03/12/17 06:15 PT 14.1 SECONDS (9.4-12.5) H 03/09/17 12:27 INR 1.22 (0.93-1.08) H 03/09/17 12:27 APTT 34.8 Seconds (25.1-36.5) 03/09/17 12:27 - Constitutional Appears: Well, Non-toxic, No Acute Distress - Head Exam Head Exam: ATRAUMATIC, NORMAL INSPECTION, NORMOCEPHALIC - Eye Exam Eye Exam: EOMI - ENT Exam ENT Exam: Mucous Membranes Moist - Respiratory Exam Respiratory Exam: NORMAL BREATHING PATTERN. absent: Accessory Muscle Use, Respiratory Distress - Cardiovascular Exam Cardiovascular Exam: absent: JVD - GI/Abdominal Exam GI & Abdominal Exam: Soft. absent: Distended, Firm, Guarding, Tenderness - Extremities Exam Additional comments: Right BKA dressing clean, dry and intact. On-Q in place, completed. David in place: serosang output - Neurological Exam Neurological Exam: Alert, Awake, Oriented x3 - Psychiatric Exam Psychiatric exam: Normal Affect, Normal Mood - Skin Skin Exam: Dry, Intact, Normal Color, Warm Assessment and Plan - Assessment and Plan (Free Text) Assessment: 61yo M s/p Rt BKA on 03/11/17. POD 4 - Leukocytosis downtrending Plan: - Pain management - Encourage Knee immobilizer to R knee if patient agrees - Continue Multipodus boot to left foot - Dispo: May benefit with Rehab - Cont medical management - PT and OT eval and treat Further recs as per Dr. Wallace Orellana PGY1 surgery pager: [phone]
[2017-03-15] MEDS: Insulin Lispro (humaLOG) MIX 75/25(10 ml) SC SCH ×2 (09:04→18:14)
[2017-03-15] MEDS: Insulin Reg-MEDIUM-Coverage SC SCH ×5 (09:05→21:50)
[2017-03-15] MEDS: Desoximetasone 0.05% Cream(60 gm) TOP SCH ×3 (09:54→18:19)
--- NOTE | 2017-03-15 16:42 | PN ---
DATE: 03/15/2017. HISTORY OF PRESENT ILLNESS: Mr. Willoughby is a 61-year-old male admitted to the hospital because of osteomyelitis, underwent below-knee amputation on the right leg. Complaining of pain on the right leg. He has history of also MRSA foot infection, diabetes mellitus type 2, not fairly controlled, peripheral vascular disease. He has been an active smoker. PAST MEDICAL HISTORY: 1. Recurrent MRSA foot infection. 2. Diabetes mellitus type 2. 3. Active smoker. 4. Peripheral arterial disease. ALLERGIES: NO KNOWN DRUG ALLERGIES. PERSONAL HISTORY: Smoker. SOCIAL HISTORY: Lives at home by himself. FAMILY HISTORY: Noncontributory. REVIEW OF SYSTEMS: As per HPI. Rest of 12-point review of systems reviewed and negative. PHYSICAL EXAMINATION GENERAL: Awake, alert, and oriented. Comfortable in bed. VITAL SIGNS: Stable, temperature 98.7, heart rate 80 per minute, respiratory rate 18 per minute, blood pressure 130/70, and oxygen saturation 98% on room air. HEENT: Normal. CHEST: Air entry present and equal bilaterally. No added sound. CARDIOVASCULAR: S1 and S2 normal. No murmur. No gallop. ABDOMEN: Soft and nontender. No hepatosplenomegaly. EXTREMITIES: Right leg below knee amputation. Drain present draining serosanguineous fluid. CENTRAL NERVOUS SYSTEM: Alert and oriented x3. LABORATORY DATA: White count of 13.1, hemoglobin of 9.8, hematocrit 31, and platelets 499. Glucose is 158. MEDICATIONS: Tylenol 650 q. 6 hours p.r.n., Neurontin 300 mg t.i.d., heparin 5000 subcutaneous q. 8 hours, Levemir, Humalog insulin, Toradol 30 q. 6, lisinopril 10 mg daily, metoprolol 25 mg b.i.d., Zofran 4 mg IV q. 6 hours, Percocet p.r.n. for pain, Protonix 40 mg daily. ASSESSMENT: 1. Right below-knee amputation due to osteomyelitis. 2. Diabetes mellitus type 2 - uncontrolled. 3. Peripheral arterial disease. 4. Leukocytosis, anemia, thrombocytosis. PLAN: Recent below-knee amputation currently draining serosanguineous fluid, complaining of pain. He does not want to take pain medication. Given Percocet half an hour ago. Does not want any IV medication for pain. He is currently on Toradol p.r.n. He will continue Neurontin 300 mg p.o. t.i.d. Heparin prophylaxis for DVT, insulin for diabetes mellitus, blood sugar is fairly controlled now. Continue beta-carlos 25 mg p.o. b.i.d., Protonix 40 mg daily. Zofran p.r.n. for nausea and vomiting. Ayah Wells MD
--- NOTE | 2017-03-15 18:36 | PN ---
DATE: 03/15/2017 CONSULTING PHYSICIAN: Elvira Dwyer M.D. REASON FOR THE CONSULTATION: Followup preop evaluation and postop followup, right BKA. SUBJECTIVE: The patient denies any chest pain, shortness of breath, any palpitation, feels pain at the operative site. The dressing is being changed. PHYSICAL EXAMINATION: As follows: VITAL SIGNS: Temperature afebrile, heart rate 80, blood pressure 120/68. HEENT: PERRLA. Extraocular muscles intact. NECK: Supple. No carotid bruits or thyromegaly. CHEST: Clear to auscultation. HEART: S1 and S2 regular. ABDOMEN: Soft. EXTREMITIES: Clubbing and cyanosis negative. LABORATORY DATA: Blood workup as follows: WBC 31, hemoglobin 9.8, hematocrit 31.1, platelet count 499. Chemistry shows sodium 132, potassium 4.0, chloride 99, carbon dioxide 27, anion gap of 10, BUN 18, creatinine 0.6. IMPRESSION: Peripheral arterial disease, status post nonhealing ulcer, status post amputation, right below-knee amputation, prior the patient had amputation of the toes, postoperative pain, osteomyelitis, history of transluminal angioplasty of the lower extremity, hypertension, hyperlipidemia, diabetes, morbid obesity. RECOMMENDATION: Aggressive medical treatment modification, lifestyle modification, risk factor for coronary artery disease, emphasis on weight reduction. Body mass index 28.70 per sq. m. Continue DVT prophylaxis. Continue low-dose beta carlos. Continue lisinopril 5 mg. We will follow with you. When reading this morning, blood pressure was 155/82. If remains blood pressure elevated, we will increase lisinopril to 10 mg from tomorrow. Thank you, Dr. Ross for providing us the opportunity in taking care of the patient, Travis Willoughby. We will follow with you if status is stable. Discharge planning, emphasis by the patient for ambulation. With wound heal, we will consider for evaluation for prosthesis of lower extremities. Elvira Dwyer MD
[2017-03-15] MEDS: Insulin Detemir 100 units/ml Vial (Levemir) SC SCH (21:48)
--- NOTE | 2017-03-15 21:59 | PN ---
DATE: 03/15/2017 SUBJECTIVE: Patient is in bed, in no acute distress, nontoxic. PHYSICAL EXAMINATION: VITAL SIGNS: Temperature is 98, blood pressure is 160/70, respiratory rate of 20. HEENT: Unremarkable. NECK: Supple. LUNGS: Decreased breath sounds. HEART: Normal S1 and S2. ABDOMEN: Soft. LABORATORY EXAMINATION: Reveals a white count of 13,000, hemoglobin of 9, platelets of 499. Patient's BUN of 13, creatinine of 0.6. Urinalysis is noted. Microbiology reveals blood cultures, one bottle, initially as micrococcus; repeat blood cultures are no growth. Review of the orders are noted. Patient is off of antibiotics. ASSESSMENT AND PLAN: He is a 61-year-old male, who was seen earlier this morning in [facility], bed 2, with right knee and right foot osteomyelitis, necrotic ulcer with Methicillin-resistant Staphylococcus aureus and Escherichia coli in January, status post right [id number] amputation, post procedure day #4, currently off of antibiotics. Micrococcus is a contamination in the blood; the repeat blood culture is negative. Patient is at risk for developing nosocomial infection. Rakesh Bautista MD
[2017-03-16 06:32] LABS: BASO # 0.04 K/mm3 (0.0-2.0); BASO % 0.3 % (0.0-3.0); EOS # 0.3 (0.0-0.7); EOS % 2.2 % (1.5-5.0); GRAN # 8.38 (1.4-6.5); GRAN % 71.5 % (50.0-68.0); HEMOGLOBIN 10.2 g/dL (14.0-18.0); LYMPH # 2.1 (1.2-3.4); LYMPH % 17.5 % (22.0-35.0); MEAN CELL VOLUME 78.9 fl (80.0-105.0); MEAN CORPUSCULAR HEMOGLOBIN 24.4 pg (25.0-35.0); MEAN CORPUSCULAR HGB CONC 30.9 g/dl (31.0-37.0); MEAN PLATELET VOLUME 9.2 fl (7.0-11.0); MONO % 8.5 % (1.0-6.0); RBC 4.18 10^6/uL (3.5-6.1); RED CELL DISTRIBUTION WIDTH 14.9 % (11.5-14.5); WHITE BLOOD COUNT 11.7 10^3/ul (4.5-11.0)
[2017-03-16] MEDS: Pantoprazole 40 mg EC Tab PO SCH (07:51)
[2017-03-16] MEDS ORDERED: Oxycodone/Acetaminophen 5/325 mg Tab PO PRN (08:02)
[2017-03-16] MEDS: Insulin Lispro (humaLOG) MIX 75/25(10 ml) SC SCH ×2 (08:33→17:24)
[2017-03-16] MEDS: Insulin Reg-MEDIUM-Coverage SC SCH ×3 (08:33→17:25)
--- NOTE | 2017-03-16 08:48 | CP.PCM.PN ---
Subjective - Date & Time of Evaluation Date of Evaluation: 03/16/17 Time of Evaluation: 08:44 - Subjective Subjective: General Surgery Progress Note for Dr. Gonsalez Patient seen and examined at bedside. Patient reports having an appetite, feels stronger, reports exercising in bed. We reviewed the risk and benefit of wearing the right leg immobilizer. The patient seems more amenable to this therapy. Objective - Vital Signs/Intake and Output Vital Signs (last 24 hours): Temp Pulse Resp BP Pulse Ox 98.7 F 83 20 131/75 97 03/16/17 08:24 03/16/17 08:24 03/16/17 08:24 03/16/17 08:24 03/16/17 08:24 Intake and Output: 03/16/17 03/16/17 06:59 18:59 Intake Total 660 Output Total 900 Balance -240 - Medications Medications: Current Medications Acetaminophen (Tylenol 325mg Tab) 650 mg PO Q6H PRN PRN Reason: Fever >100.4 F Desoximetasone (Topicort 0.05%) 0 ea TOP BID [facility] Last Admin: 03/15/17 18:19 Dose: 1 applic Gabapentin (Neurontin) 400 mg PO TID [facility] PRN Reason: Protocol Heparin Sodium (Porcine) (Heparin) 5,000 units SC Q8 [facility] PRN Reason: Protocol Last Admin: 03/16/17 07:52 Dose: 5,000 units Insulin Detemir (Levemir) 30 unit SC HS [facility] Last Admin: 03/15/17 21:48 Dose: 30 unit Insulin Human Regular (Humulin R Med) 0 units SC ACHS [facility] PRN Reason: Protocol Last Admin: 03/16/17 08:33 Dose: 1 units Insulin Lispro Protam/Lispro Human (Humalog Mix 75/25) 28 units SC ACBD [facility] Last Admin: 03/16/17 08:33 Dose: 28 units Ketorolac Tromethamine (Toradol) 30 mg IVP Q6 [facility] Stop: 03/18/17 23:59 Last Admin: 03/16/17 07:53 Dose: 30 mg Lisinopril (Zestril) 10 mg PO DAILY [facility] Metoprolol Tartrate (Lopressor) 25 mg PO BID [facility] Last Admin: 03/15/17 18:15 Dose: 25 mg Ondansetron HCl (Zofran Inj) 4 mg IVP Q6H PRN PRN Reason: Nausea/Vomiting Oxycodone/Acetaminophen (Percocet 5/325 Mg Tab) 1 tab PO Q4H PRN PRN Reason: Pain, Mild (1-3) Stop: 03/16/17 08:44 Last Admin: 03/15/17 09:58 Dose: 1 tab Oxycodone/Acetaminophen (Percocet 5/325 Mg Tab) 2 tab PO Q4H PRN PRN Reason: Pain, moderate (4-7) Stop: 03/19/17 08:03 Pantoprazole Sodium (Protonix Ec Tab) 40 mg PO 0630 [facility] Last Admin: 03/16/17 07:51 Dose: 40 mg - Labs Labs: 03/16/17 05:45 03/12/17 06:15 PT 14.1 SECONDS (9.4-12.5) H 03/09/17 12:27 INR 1.22 (0.93-1.08) H 03/09/17 12:27 APTT 34.8 Seconds (25.1-36.5) 03/09/17 12:27 - Constitutional Appears: Well, Non-toxic - Head Exam Head Exam: ATRAUMATIC, NORMOCEPHALIC - Eye Exam Eye Exam: EOMI, Normal appearance - ENT Exam ENT Exam: Mucous Membranes Moist - Neck Exam Neck Exam: Normal Inspection - Respiratory Exam Respiratory Exam: NORMAL BREATHING PATTERN. absent: Accessory Muscle Use - GI/Abdominal Exam GI & Abdominal Exam: Soft, Normal Bowel Sounds. absent: Rebound - Extremities Exam Additional comments: Right BKA - Back Exam Back Exam: NORMAL INSPECTION. absent: CVA tenderness (L), CVA tenderness (R) - Neurological Exam Neurological Exam: Alert, Awake, Oriented x3 - Skin Skin Exam: Dry, Intact, Normal Color, Warm Assessment and Plan - Assessment and Plan (Free Text) Assessment: 61 year old male s/p right BKA on 03/11/17. Plan: - Pain management. - Encourage Knee immobilizer to right knee. - Continue Multipodus boot to left foot - Physical therapy recommends patient to go to a subacute rehabilitation - Continue medical management Further recommendations as per Dr. Gonsalez
[2017-03-16] MEDS: Desoximetasone 0.05% Cream(60 gm) TOP SCH ×2 (10:30→17:27)
--- NOTE | 2017-03-16 15:09 | CP.PCM.PN ---
Subjective - Date & Time of Evaluation Date of Evaluation: 03/16/17 Time of Evaluation: 15:06 - Subjective Subjective: 61 y/o male seen at bedside this morning regarding left plantar heel pre- ulcerative lesion. Pt is s/p right BKA and admits to pains up and down the right side of his body. Denies of any acute overnight events and is eager to leave the hospital. Denies F/C/N/V/CP/SOB/headache. Denies of any other complains at this time. Objective - Vital Signs/Intake and Output Vital Signs (last 24 hours): Temp Pulse Resp BP Pulse Ox 98.7 F 83 20 131/75 97 03/16/17 08:24 03/16/17 09:42 03/16/17 08:24 03/16/17 09:42 03/16/17 08:24 Intake and Output: 03/16/17 03/16/17 06:59 18:59 Intake Total 660 875 Output Total 900 Balance -240 875 - Medications Medications: Current Medications Acetaminophen (Tylenol 325mg Tab) 650 mg PO Q6H PRN PRN Reason: Fever >100.4 F Desoximetasone (Topicort 0.05%) 0 ea TOP BID [facility] Last Admin: 03/16/17 10:30 Dose: 1 applic Gabapentin (Neurontin) 400 mg PO TID [facility] PRN Reason: Protocol Last Admin: 03/16/17 13:31 Dose: 400 mg Heparin Sodium (Porcine) (Heparin) 5,000 units SC Q8 [facility] PRN Reason: Protocol Last Admin: 03/16/17 13:30 Dose: 5,000 units Insulin Detemir (Levemir) 30 unit SC HS [facility] Last Admin: 03/15/17 21:48 Dose: 30 unit Insulin Human Regular (Humulin R Med) 0 units SC ACHS [facility] PRN Reason: Protocol Last Admin: 03/16/17 12:00 Dose: Not Given Insulin Lispro Protam/Lispro Human (Humalog Mix 75/25) 28 units SC ACBD [facility] Last Admin: 03/16/17 08:33 Dose: 28 units Ketorolac Tromethamine (Toradol) 30 mg IVP Q6 [facility] Stop: 03/18/17 23:59 Last Admin: 03/16/17 13:32 Dose: 30 mg Lisinopril (Zestril) 10 mg PO DAILY [facility] Last Admin: 03/16/17 09:42 Dose: 10 mg Metformin HCl (Glucophage) 500 mg PO BID [facility] Metoprolol Tartrate (Lopressor) 25 mg PO BID [facility] Last Admin: 03/16/17 09:41 Dose: 25 mg Ondansetron HCl (Zofran Inj) 4 mg IVP Q6H PRN PRN Reason: Nausea/Vomiting Oxycodone/Acetaminophen (Percocet 5/325 Mg Tab) 2 tab PO Q4H PRN PRN Reason: Pain, moderate (4-7) Stop: 03/19/17 08:03 Pantoprazole Sodium (Protonix Ec Tab) 40 mg PO 0630 [facility] Last Admin: 03/16/17 07:51 Dose: 40 mg - Labs Labs: 03/16/17 05:45 03/12/17 06:15 PT 14.1 SECONDS (9.4-12.5) H 03/09/17 12:27 INR 1.22 (0.93-1.08) H 03/09/17 12:27 APTT 34.8 Seconds (25.1-36.5) 03/09/17 12:27 - Constitutional Appears: Well, Non-toxic, No Acute Distress - Extremities Exam Additional comments: Right BKA Left lower extremity exam: Vasc: DP/PT pulses are faintly palpable 1/4. Temperature gradient warm to cool. CFT delayed but present to all digits. Derm: Plantar superficial pre-ulcerative lesion noted at prior ulceration site. No opening noted, no drainage, no malodor, no fluctuance or bogginess noted. Posterior calcaneus exhibits additional healed ulceration with overlying mildly hyperkeratotic eschar. No krysta wound erythema or cellulitic changes noted Neuro: Protective sensation grossly diminished Ortho: tenderness to elevation of L leg (hip flexion); minimal tenderness noted to posteroplantar heel - Neurological Exam Neurological Exam: Alert, Awake, Oriented x3 - Psychiatric Exam Psychiatric exam: Normal Affect, Normal Mood Assessment and Plan - Assessment and Plan (Free Text) Assessment: 61 y/o diabetic male s/p right BKA evaluated for stable left calcaneal ulceration, healing Plan: Pt seen and evaluated at bedside Discussed with attending Dr. Duncan Labs and vitals reviewed- afebrile, WBC 11.7 Hyperkeratotic lesion removed using sterile scissors Cleansed with saline and dressed L foot with maxorb and Optifoam dressing Wound does not appear clinically infected at this time Continue offloading with rigid multipodus boot - pt reminded to wear at ALL times weight bearing to prevent breakdown of skin Continue pain management as per primary team Patient is stable for discharge from podiatry standpoint Will continue to follow while in house Upon D/C, pt instructed to follow up in the wound care center with Dr. Solis regarding left heel ulcerations
--- NOTE | 2017-03-16 16:57 | PN ---
DATE: SUBJECTIVE: The patient is a 61-year-old, seen and examined, lying in bed, wants to get out of here, wants to go home. He is being evaluated by physical therapy today. PHYSICAL EXAMINATION: VITAL SIGNS: He is afebrile, pulse 63, respirations 20, blood pressure 131/75. LUNGS: Bilateral fair airflow. No rhonchi or crackle. HEART: S1 and S2 audible. ABDOMEN: Soft, obese, nontender. No rebound, no guarding. NEUROLOGIC: The patient is awake and alert, able to communicate, status post right BKA. STELLA in place. Left foot is in the dressing also. LABORATORY DATA: WBC is 11.7, hemoglobin 10, hematocrit 33, platelets 527. Blood sugar is 124. ASSESSMENT: 1. Insulin-dependent diabetes. 2. Peripheral vascular disease. 3. Active smoker up until few weeks ago. 4. Status post right below-knee amputation. 5. Diabetic neuropathy. PLAN: The patient will be evaluated by physical therapist. I will add metformin to his regimen. We will monitor his blood sugar closely. Discharge plan as per surgical team's plan. Once the patient is cleared by surgical team, we will make discharge plan either to subacute rehab or home with home therapy. The patient preferred to go home with therapy. He stated his is there to take care of him. He would rather go home than subacute rehab, but I will await for physical therapy evaluation. Stacey Ross MD
[2017-03-16 17:25] VITALS: PULSE 71; RESP 19; TEMP 98.1; O2SAT 95
[2017-03-16 17:30] VITALS: BP 100/60
--- NOTE | 2017-03-16 18:41 | PN ---
DATE: 03/16/2017 REASON FOR CONSULTATION AND FOLLOWUP: Cardiac evaluation, postop followup, status post right BKA. SUBJECTIVE: The patient denies any chest pain, shortness of breath or any palpitation. OBJECTIVE: GENERAL: Not in apparent distress. VITAL SIGNS: Temperature afebrile, heart rate 83, blood pressure 131/75. HEENT: PERRLA. Extraocular muscles intact. NECK: Supple. No carotid bruit or thyromegaly. CHEST: Clear to auscultation. HEART: S1, S2 regular. ABDOMEN: Soft. EXTREMITIES: Clubbing and cyanosis negative. LABORATORY DATA: WBC 11.7, hemoglobin 10.8, hematocrit 33.0 and platelet count 527. Chemistry shows sodium 131, potassium 4, chloride 101, carbon dioxide 27, anion gap of 11, BUN 13, creatinine 0.6, total protein 6.3, albumin 2.7, albumin-globulin ratio is 0.8. IMPRESSION: Protein-calorie malnutrition, which was not present during admission; anemia; status post right below-knee amputation; peripheral arterial disease and nonhealing ulcer; obesity; diabetes; hypertension; hyperlipidemia. RECOMMENDATIONS: Continue aggressive treatment, cardiac catheterization. Discussed with the patient. Patient states that "my heart is good, I don't want to be seen by junior art director." I explained to him, but patient does not want to be evaluated by junior art director. Discussed with Dr. Ross. Continue DVT prophylaxis, continue beta-carlos, continue lisinopril. Suggested do a stress test, but patient will think, number was given. If the patient agrees, stress test as an outpatient, otherwise, for now, continue metoprolol, continue DVT prophylaxis. We will sign off, glad to follow p.r.n. Thank you, Dr. Ross for providing us the opportunity in taking care of the patient, Travis Willoughby. Discussed with Dr. Ross. Elvira Dwyer MD
== END 2017-03-16 21:15 | DRG 240 ==
LOC: ED 09:37 → ERH 13:58 → 3RSO 18:46 → 2A 03-10 18:44 → 3RNO 03-14 07:36
PROVIDERS: ADMIT Internal Medicine; ATTEND Internal Medicine
PROC: 3E03328 Introduction of Oxazolidinones into Peripheral Vein, Percutaneous Approach (ICD-10-PCS; 2017-03-10)
PROC: 0Y6H0Z3 Detachment at Right Lower Leg, Low, Open Approach (ICD-10-PCS; principal; 2017-03-11 15:30)
DX: E11.52 Type 2 diabetes mellitus with diabetic peripheral angiopathy with gangrene (principal); M86.9 Osteomyelitis, unspecified; E11.40 Type 2 diabetes mellitus with diabetic neuropathy, unspecified; E46 Unspecified protein-calorie malnutrition; E11.621 Type 2 diabetes mellitus with foot ulcer; I96 Gangrene, not elsewhere classified; L97.419 Non-pressure chronic ulcer of right heel and midfoot with unspecified severity; L03.115 Cellulitis of right lower limb; L97.429 Non-pressure chronic ulcer of left heel and midfoot with unspecified severity; E11.69 Type 2 diabetes mellitus with other specified complication; E11.65 Type 2 diabetes mellitus with hyperglycemia; L40.9 Psoriasis, unspecified; F17.210 Nicotine dependence, cigarettes, uncomplicated; I10 Essential (primary) hypertension; E78.00 Pure hypercholesterolemia, unspecified; L97.519 Non-pressure chronic ulcer of other part of right foot with unspecified severity; D64.9 Anemia, unspecified; Z91.19 Patient's noncompliance with other medical treatment and regimen; Z79.4 Long term (current) use of insulin; Z86.14 Personal history of Methicillin resistant Staphylococcus aureus infection; Z89.412 Acquired absence of left great toe

== ENCOUNTER 2017-04-07 22:13 | Inpatient (IN) | payer MEDICARE, OTHER ==
--- NOTE | 2017-04-07 22:40 | ED PDOC ---
Arrival/HPI <Gene Ford - Last Filed: 04/07/17 23:48> - General Historian: Patient - History of Present Illness Time/Duration: Prior to Arrival Symptom Onset: Sudden Symptom Course: Unchanged Activities at Onset: Light Context: Home <Carrie Hyatt - Last Filed: 04/11/17 21:25> - General Time Seen by Provider: 04/07/17 22:40 - History of Present Illness Narrative History of Present Illness (Text): 04/07/17 22:40 61 year old male, whose past medical history includes IDDM and recent right AKA 1 week prior, who presents to the Emergency department status post fall at home tonight. Patient states he was recently discharged home 3 days prior following his surgery and physical therapy. Patient states he has been having difficulty ambulating and has been using his wheelchair. Patient states tonight he sat on the toilet and somehow slipped off and fell on to his buttocks. Patient now complaining of pain to the area. Patient denies any chest pain, shortness of breath, abdominal pain, nausea, vomiting, or any other complaints. (Carrie Hyatt ) Past Medical History - Provider Review Nursing Documentation Reviewed: Yes - Infectious Disease Hx of Infectious Diseases: None - Cardiac Hx Cardiac Disorders: Yes (STENT L LEG) Hx Congestive Heart Failure: No Hx Hypertension: No - Pulmonary Hx Chronic Obstructive Pulmonary Disease (COPD): No - Neurological HX Cerebrovascular Accident: No - HEENT Hx HEENT Disorder: Yes Hx Blind: No Hx Cataracts: Yes Hx Deafness: No Hx Difficulty Chewing: No Hx Epistaxis: No Hx Glaucoma: No Hx Macular Degeneration: No - Renal Hx Renal Failure: No - Endocrine/Metabolic Hx Diabetes Mellitus Type 1: No Hx Diabetes Mellitus Type 2: Yes Hx Hypothyroidism: No - Hematological/Oncological Hx Blood Transfusions: No Hx Blood Transfusion Reaction: No - Integumentary Hx Dermatological Disorder: Yes Hx Psoriasis: Yes Other/Comment: INFECTED CHRONIC NECROTIC RIGHT HEEL,EXPOSED CALCANEUS.PLAN OF SKIN GRAFT DEBRIDEMENT. RIGHT PICC LINE. - Musculoskeletal/Rheumatological Hx Arthritis: Yes - Gastrointestinal Hx Gastrointestinal Disorders: No Hx Colostomy: No Hx Crohn's Disease: No Hx Diverticulitis: No Hx Gall Bladder Disease: No Hx Gastroesophageal Reflux: No Hx Ileostomy: No Hx Liver Failure: No Hx Pancreatitis: No HX Swallowing Problems: No - Genitourinary/Gynecological Hx Genitourinary Disorders: No Hx Hematuria: No Hx Incontinence: No Hx Prostate Problems: No Hx Sexually Transmitted Diseases: No Hx Urinary Tract Infection: No - Psychiatric Hx Emotional Abuse: No Hx Physical Abuse: No Hx Substance Use: No - Surgical History Hx Mastectomy: No - Anesthesia Hx Anesthesia Reactions: No Hx Malignant Hyperthermia: No - Suicidal Assessment Feels Threatened In Home Enviroment: No <Carrie Hyatt - Last Filed: 04/11/17 21:25> Family/Social History - Physician Review Nursing Documentation Reviewed: Yes Family/Social History: Unknown Family HX Smoking Status: Current Some Days Smoker Hx Alcohol Use: No Hx Substance Use: No Hx Substance Use Treatment: No <Carrie Hyatt - Last Filed: 04/11/17 21:25> Allergies/Home Meds <Gene Ford - Last Filed: 04/07/17 23:48> <Carrie Hyatt P - Last Filed: 04/11/17 21:25> Allergies/Adverse Reactions: Allergies vancomycin Adverse Reaction (Verified 04/07/17 22:40) ITCHING Home Medications: Home Meds Medication Instructions Recorded Confirmed Glimepiride [amaRYL] 4 mg PO BID 03/09/17 04/07/17 Insulin Detemir [Levemir] 20 unit SC HS 04/07/17 04/07/17 metFORMIN [glucOPHAGE] 1,000 mg PO BID 04/07/17 04/07/17 Review of Systems - Physician Review All systems were reviewed & negative as marked: Yes - Review of Systems Constitutional: Normal. absent: Fevers Eyes: Normal ENT: Normal Respiratory: Normal. absent: SOB, Cough Cardiovascular: Normal. absent: Chest Pain Gastrointestinal: Normal. absent: Abdominal Pain, Diarrhea, Nausea, Vomiting Genitourinary Male: Normal. absent: Dysuria, Frequency, Hematuria, Urinary Output Changes Musculoskeletal: Other (+buttock discomfort). absent: Neck Pain Skin: Normal. absent: Rash Neurological: Normal. absent: Headache, Dizziness Endocrine: Normal Hemo/Lymphatic: Normal Psychiatric: Normal <HyattNahim P - Last Filed: 04/11/17 21:25> Physical Exam Vital Signs Reviewed: Yes Temperature: Afebrile Blood Pressure: Normal Pulse: Regular Respiratory Rate: Normal Appearance: Positive for: Well-Appearing, Non-Toxic, Comfortable Pain Distress: None Mental Status: Positive for: Alert and Oriented X 3 Finger Stick Blood Glucose: 94 - Systems Exam Head: Present: Atraumatic, Normocephalic Pupils: Present: PERRL Extroacular Muscles: Present: EOMI Conjunctiva: Present: Normal Mouth: Present: Moist Mucous Membranes Neck: Present: Normal Range of Motion. No: Meningeal Signs, MIDLINE TENDERNESS , Paraspinal Tenderness Respiratory/Chest: Present: Clear to Auscultation, Good Air Exchange. No: Respiratory Distress, Accessory Muscle Use Cardiovascular: Present: Regular Rate and Rhythm, Normal S1, S2. No: Murmurs Abdomen: Present: Normal Bowel Sounds. No: Tenderness, Distention, Peritoneal Signs Back: Present: Paraspinal Tenderness (Bilateral lower back tenderness). No: CVA Tenderness, Midline Tenderness, Other (No swelling/abrasions noted) Upper Extremity: Present: Normal Inspection. No: Cyanosis, Edema Lower Extremity: Present: NORMAL PULSES, Normal ROM, Neurovascularly Intact, Capillary Refill < 2 s, Other (Right AKA stump in non-tender, sutures in place, no cellulitis/discharge noted at surgical site). No: Edema, CALF TENDERNESS, Tenderness, Swelling, Erythema, Deformity, Temperature Abnormalties Neurological: Present: GCS=15, CN II-XII Intact, Speech Normal Skin: Present: Warm, Dry, Normal Color. No: Rashes Psychiatric: Present: Alert, Oriented x 3, Normal Insight, Normal Concentration <Edmar,Nahim P - Last Filed: 04/11/17 21:25> Vital Signs Temp Pulse Resp BP Pulse Ox 04/08/17 02:02 102 H 18 105/55 L 97 04/08/17 00:00 98.3 F 80 20 99/51 L 04/07/17 22:42 98.0 F 99 H 18 130/55 L 97 Medical Decision Making <Gene Ford - Last Filed: 04/07/17 23:48> Re-evaluation Time: 00:40 Reassessment Condition: Re-examined, Improving,but remains with symptoms - Lab Interpretations I have reviewed the lab results: Yes Interpretation: Abnormal lab values <Hyatt,Nahim P - Last Filed: 04/11/17 21:25> ED Course and Treatment: Impression: 61 year old male status post fall at home tonight. Plan: -- EKG -- Chest X-ray -- XR Lumbar Spine -- Labs, cardiac enzymes, BNP, blood cultures -- Urinalysis, urine cultures -- Reassess and disposition Progress Notes: 04/08/17 00:[address] Ross regarding patient complain. She agreed with plan for admission. Patient also agreed with plan for admission. (Carrie Hyatt) - Lab Interpretations Lab Results: 04/07/17 23:13 04/07/17 23:13 Lab Results 04/07/17 23:13: Sodium 139, Potassium 3.9, Chloride 101, Carbon Dioxide 27, Anion Gap 15, BUN 15, Creatinine 0.6 L, Est GFR ( Amer) > 60, Est GFR ( Non-Af Amer) > 60, Random Glucose 109, Calcium 9.8, Total Bilirubin 0.6, AST 29 , ALT 29, Alkaline Phosphatase 77, Lactate Dehydrogenase 355, Total Creatine Kinase 26 L, Troponin I < 0.01, NT-Pro-B Natriuret Pep 205, Total Protein 7.8, Albumin 4.0, Globulin 3.8, Albumin/Globulin Ratio 1.0 L 04/07/17 23:13: WBC 15.1 H D, RBC 4.78, Hgb 12.5 L D, Hct 38.1 L, MCV 79.7 L, MCH 26.2, MCHC 32.8, RDW 17.5 H, Plt Count 394, MPV 9.6, Gran % 68.1 H, Lymph % (Auto) 20.8 L, Hendricks % (Auto) 8.5 H, Eos % (Auto) 2.3, Baso % (Auto) 0.3, Gran # 10.29 H, Lymph # (Auto) 3.1, Hendricks # (Auto) 1.3 H, Eos # (Auto) 0.3, Baso # (Auto ) 0.04 04/07/17 22:36: POC Glucose (mg/dL) 94 - RAD Interpretation Radiology Orders: 04/07/17 22:41 CHEST PORTABLE [RAD] Stat 04/07/17 22:42 LS SPINE WITH OBL > 18 YRS OLD [RAD] Stat - Medication Orders Current Medication Orders: Discontinued Medications Fluocinonide (Lidex 0.05% Cream) 0 gm TOP BID [facility] Last Admin: 04/10/17 17:14 Dose: Not Given Non-Admin Reason: Patient Refused Gabapentin (Neurontin) 400 mg PO TID [facility] PRN Reason: Protocol Last Admin: 04/10/17 17:18 Dose: 400 mg Behavioural Document 04/10/17 17:18 AJ (Rec: 04/10/17 17:18 [id number]) Maintenance Maintenance Dose Yes Nonmedicinal Nonmedicinal Interventions Therapeutic Communication Behavior Behavior for Medication: Anxiety Insulin Human Regular (Humulin R Low) 0 units SC ACHS [facility] PRN Reason: Protocol Last Admin: 04/10/17 17:13 Dose: 2 units MAR Blood Glucose Document 04/10/17 17:13 AJ (Rec: 04/10/17 17:13 [id number]) Blood Glucose Finger Stick Blood Glucose (70-120) 238 Subcutaneous Administrations Document 04/10/17 17:13 AJ (Rec: 04/10/17 17:13 YESI [id number]) Injection Site MAR Injection Site Right Arm Charges for Administration # of Subcutaneous Administrations 1 Insulin Lispro Protam/Lispro Human (Humalog Mix 75/25) 10 units SC ACBD [facility] Last Admin: 04/10/17 17:09 Dose: 10 units MAR Blood Glucose Document 04/10/17 17:09 AJ (Rec: 04/10/17 17:10 [id number]) Blood Glucose Finger Stick Blood Glucose (70-120) 238 Subcutaneous Administrations Document 04/10/17 17:09 AJ (Rec: 04/10/17 17:10 [id number]) Injection Site MAR Injection Site Right Arm Charges for Administration # of Subcutaneous Administrations 1 Lisinopril (Zestril) 10 mg PO DAILY [facility] Last Admin: 04/10/17 10:36 Dose: 10 mg MAR Pulse and Blood Pressure Document 04/10/17 10:36 AJ (Rec: 04/10/17 10:36 [id number]) Pulse Pulse Rate (60-90) 72 Blood Pressure Blood Pressure (100/60-150/90) 141/75 Metoprolol Tartrate (Lopressor) 25 mg PO BID [facility] Last Admin: 04/10/17 17:18 Dose: 25 mg MAR Pulse and Blood Pressure Document 04/10/17 17:18 AJ (Rec: 04/10/17 17:19 [id number]) Pulse Pulse Rate (60-90) 76 Blood Pressure Blood Pressure (100/60-150/90) 104/67 Oxycodone/Acetaminophen (Percocet 5/325 Mg Tab) 1 tab PO Q6H PRN PRN Reason: Pain, moderate (4-7) Stop: 04/12/17 12:23 Last Admin: 04/10/17 04:56 Dose: 1 tab [facility] Pain Assessment Document 04/10/17 04:56 KP (Rec: 04/10/17 04:57 [id number]) Pain Reassessment Is this a pain reassessment? No Sleep Is patient sleeping during reassessment? No Presence of Pain Presence of Pain Yes Re-Assess: [facility] Pain Assessment Document 04/10/17 05:56 KP (Rec: 04/10/17 06:11 [id number]) Pain Reassessment Is this a pain reassessment? Yes Sleep Is patient sleeping during reassessment? No Presence of Pain Presence of Pain No Pantoprazole Sodium (Protonix Ec Tab) 40 mg PO 0630 [facility] Last Admin: 04/10/17 06:11 Dose: 40 mg Trimethoprim/Sulfamethoxazole (Bactrim Ss Tab) 1 tab PO Q6 [facility] PRN Reason: Protocol Trimethoprim/Sulfamethoxazole (Bactrim Ss Tab) 1 tab PO Q12 [facility] PRN Reason: Protocol Last Admin: 04/10/17 10:35 Dose: 1 tab - PA / INFORMATION TECHNOLOGY ANALYST / Resident Statement / has reviewed & agrees with the documentation as recorded. / has examined the patient and agrees with the treatment plan. <Gene Ford - Last Filed: 04/07/17 23:48> - Scribe Statement The provider has reviewed the documentation as recorded by the Scribe <Carrie Hyatt - Last Filed: 04/11/17 21:25> - Scribe Statement Shonda Ragland All medical record entries made by the Scribe were at my direction and personally dictated by me. I have reviewed the chart and agree that the record accurately reflects my personal performance of the history, physical exam, medical decision making, and the department course for this patient. I have also personally directed, reviewed, and agree with the discharge instructions and disposition. (Carrie Hyatt) Disposition/Present on Arrival <Gene Ford - Last Filed: 04/07/17 23:48> - Present on Arrival Any Indicators Present on Arrival: No History of DVT/PE: No History of Uncontrolled Diabetes: Yes Urinary Catheter: No History Surgical Site Infection Following: None - Disposition Have Diagnosis and Disposition been Completed?: Yes Disposition Time: 00:59 Patient Plan: Admission <Carrie Hyatt - Last Filed: 04/11/17 21:25> - Disposition Diagnosis: Generalized weakness, Gait instability, Leukocytosis Disposition: HOSPITALIZED Condition: STABLE
[2017-04-07 22:51] VITALS: BMI 27.2
[2017-04-07 23:21] LABS: BASO # 0.04 K/mm3 (0.0-2.0); BASO % 0.3 % (0.0-3.0); EOS # 0.3 (0.0-0.7); EOS % 2.3 % (1.5-5.0); GRAN # 10.29 (1.4-6.5); GRAN % 68.1 % (50.0-68.0); HEMOGLOBIN 12.5 g/dL (14.0-18.0); LYMPH # 3.1 (1.2-3.4); LYMPH % 20.8 % (22.0-35.0); MEAN CELL VOLUME 79.7 fl (80.0-105.0); MEAN CORPUSCULAR HEMOGLOBIN 26.2 pg (25.0-35.0); MEAN CORPUSCULAR HGB CONC 32.8 g/dl (31.0-37.0); MEAN PLATELET VOLUME 9.6 fl (7.0-11.0); MONO # 1.3 (0.1-0.6); MONO % 8.5 % (1.0-6.0); RBC 4.78 10^6/uL (3.5-6.1); RED CELL DISTRIBUTION WIDTH 17.5 % (11.5-14.5); WHITE BLOOD COUNT 15.1 10^3/ul (4.5-11.0)
[2017-04-07 23:27] LABS: ALT/SGPT 29 U/L (7-56); AST/SGOT 29 U/L (17-59); BLOOD UREA NITROGEN 15 mg/dL (7-21); CALCIUM 9.8 mg/dL (8.4-10.5); GFR AFRICAN-AMERICAN > 60; GFR NON-AFRICAN AMERICAN > 60
[2017-04-07 23:39] LABS: B-TYPE NATRIURETIC PEPTIDE 205 pg/mL (0-450); TROPONIN I < 0.01 ng/mL
[2017-04-08 02:23] LABS: URINE BILIRUBIN NEGATIVE (NEGATIVE); URINE BLOOD NEGATIVE (NEGATIVE); URINE GLUCOSE (UA) NEGATIVE (NEGATIVE); URINE LEUKOCYTE ESTERASE NEGATIVE Leu/uL (NEGATIVE); URINE NITRATE NEGATIVE (NEGATIVE); URINE PROTEIN NEGATIVE mg/dL (<30 mg/dL)
[2017-04-08 02:24] LABS: URINE APPEARANCE CLEAR (CLEAR); URINE COLOR YELLOW (YELLOW)
--- NOTE | 2017-04-08 09:02 | CARD ---
APPROVED REPORT EKG Measurement Heart [id number] TN [id number] <Conclusion> Normal sinus rhythm with sinus arrhythmia Low voltage QRS Right bundle branch block Abnormal ECG
--- NOTE | 2017-04-08 10:06 | RAD ---
HISTORY: admission COMPARISON: 03/09/2017 FINDINGS: LUNGS: No active pulmonary disease. PLEURA: No significant pleural effusion identified, no pneumothorax apparent. CARDIOVASCULAR: Normal. OSSEOUS STRUCTURES: No significant abnormalities. VISUALIZED UPPER ABDOMEN: Normal. OTHER FINDINGS: None. IMPRESSION: No active disease.
--- NOTE | 2017-04-08 10:10 | RAD ---
PROCEDURE: Radiographs of the Lumbar Spine. HISTORY: pain COMPARISON: No prior. FINDINGS: BONES: Normal alignment. No listhesis. No fracture. DISC SPACES: Mild multilevel disc degeneration. Right-sided osteophytes at L2-3 OTHER FINDINGS: None. IMPRESSION: Mild degenerative changes
[2017-04-08] MEDS: Insulin Reg-LOW-Coverage SC SCH ×3 (12:27→22:00)
--- NOTE | 2017-04-08 14:00 | CP.PCM.PCO ---
Physician Communication Note - Physician Communication Note Physician Communication Note: POD 29 s/p R BKA. All jeramy taken out.
--- NOTE | 2017-04-08 15:14 | CP.PCM.PN ---
Subjective - Date & Time of Evaluation Date of Evaluation: 04/08/17 Time of Evaluation: 15:11 - Subjective Subjective: Surgery PT s&e. Pt is POD 28 s/p R BKA. Jeramy removed. Tolerated it well. Pt is admitted s/p fall on his back. Imaging reviewed. Objective - Vital Signs/Intake and Output Vital Signs (last 24 hours): Temp Pulse Resp BP Pulse Ox 99.2 F 96 H 20 138/77 96 04/08/17 07:30 04/08/17 10:09 04/08/17 07:30 04/08/17 10:09 04/08/17 07:30 Intake and Output: 04/08/17 04/08/17 06:59 18:59 Intake Total 480 Output Total 600 Balance -120 - Medications Medications: Current Medications Gabapentin (Neurontin) 400 mg PO TID [facility] PRN Reason: Protocol Last Admin: 04/08/17 10:09 Dose: 400 mg Insulin Human Regular (Humulin R Low) 0 units SC ACHS [facility] PRN Reason: Protocol Last Admin: 04/08/17 12:27 Dose: 1 units Lisinopril (Zestril) 10 mg PO DAILY [facility] Last Admin: 04/08/17 10:08 Dose: 10 mg Metoprolol Tartrate (Lopressor) 25 mg PO BID [facility] Last Admin: 04/08/17 10:09 Dose: 25 mg Pantoprazole Sodium (Protonix Ec Tab) 40 mg PO 0630 [facility] - Constitutional Appears: No Acute Distress - Head Exam Head Exam: ATRAUMATIC, NORMAL INSPECTION, NORMOCEPHALIC - Eye Exam Eye Exam: EOMI, Normal appearance, PERRL Pupil Exam: NORMAL ACCOMODATION, PERRL - ENT Exam ENT Exam: Mucous Membranes Moist, Normal Exam - Neck Exam Neck Exam: Full ROM, Normal Inspection. absent: Lymphadenopathy - Respiratory Exam Respiratory Exam: Clear to Ausculation Bilateral, NORMAL BREATHING PATTERN - Cardiovascular Exam Cardiovascular Exam: REGULAR RHYTHM, +S1, +S2. absent: Murmur - GI/Abdominal Exam GI & Abdominal Exam: Soft, Normal Bowel Sounds. absent: Distended, Tenderness - Extremities Exam Extremities Exam: Normal Capillary Refill, Tenderness. absent: Calf Tenderness , Full ROM, Joint Swelling, Normal Inspection, Pedal Edema Additional comments: R stump jeramy removed. No signs of infection. NO erythema. MIld TTP. Incision has old blood cloth. Dressing/immobilizer applied. - Back Exam Back Exam: NORMAL INSPECTION - Neurological Exam Neurological Exam: Alert, Awake, CN II-XII Intact, Oriented x3. absent: Normal Gait - Psychiatric Exam Psychiatric exam: Normal Affect, Normal Mood - Skin Skin Exam: Dry, Intact, Normal Color, Warm. absent: Erythema, Mottled, Pallor, Pallor, Petechiae, Rash, Urticaria, Vesicles Assessment and Plan - Assessment and Plan (Free Text) Assessment: POD 28 s/p R BKA -[place] removed. -Medical management -Immobilizer can be removed. -No surgical intervention needed at this time. -Recommend PT -OK to take shower DW Dr. Gonsalez
[2017-04-08] MEDS ORDERED: Tmp-Smz 400 mg-80 mg SS Tab PO SCH (18:00)
--- NOTE | 2017-04-08 19:37 | CP.PCM.CON ---
History of Present Illness - History of Present Illness History of Present Illness: Podiatry Progress Note - Dr. Solis 61 year old male patient seen and evaluated for left ankle ulceration. Patient states he presented to ED s/p fall onto his back; reports that he was trying to transfer from his wheelchair when he slipped and fell. Offers no complaints to left foot currently. Dressing to left ankle clean/dry/intact. Patient s/p right BKA, states jeramy were removed earlier today by surgery. Denies N/V/F/D/C/ SOB. Review of Systems - Review of Systems All systems: reviewed and no additional remarkable complaints except (as per HPI ) Past Patient History - Infectious Disease Hx of Infectious Diseases: None - Past Medical History & Family History Past Medical History?: Yes - Past Social History Smoking Status: Never Smoked - CARDIAC Hx Cardiac Disorders: Yes (STENT L LEG) Hx Congestive Heart Failure: No Hx Hypertension: No - PULMONARY Hx Chronic Obstructive Pulmonary Disease (COPD): No - NEUROLOGICAL HX Cerebrovascular Accident: No - HEENT Hx HEENT Problems: Yes Hx Blind: No Hx Cataracts: Yes Hx Deafness: No Hx Difficulty Chewing: No Hx Epistaxis: No Hx Glaucoma: No Hx Macular Degeneration: No - RENAL Hx Renal Failure: No - ENDOCRINE/METABOLIC Hx Diabetes Mellitus Type 1: No Hx Diabetes Mellitus Type 2: Yes Hx Hypothyroidism: No - HEMATOLOGICAL/ONCOLOGICAL Hx Blood Disorders: No Hx Cancer: No - INTEGUMENTARY Hx Dermatological Problems: Yes Hx Psoriasis: Yes Other/Comment: INFECTED CHRONIC NECROTIC RIGHT HEEL,EXPOSED CALCANEUS.PLAN OF SKIN GRAFT DEBRIDEMENT. RIGHT PICC LINE. - MUSCULOSKELETAL/RHEUMATOLOGICAL Hx Falls: Yes - GASTROINTESTINAL Hx Gastrointestinal Disorders: No Hx Colostomy: No Hx Crohn's Disease: No Hx Diverticulitis: No Hx Gall Bladder Disease: No Hx Gastroesophageal Reflux: No Hx Ileostomy: No Hx Liver Failure: No Hx Pancreatitis: No HX Swallowing Problems: No - GENITOURINARY/GYNECOLOGICAL Hx Genitourinary Disorders: No Hx Hematuria: No Hx Incontinence: No Hx Prostate Problems: No Hx Sexually Transmitted Disorders: No Hx Urinary Tract Infection: No - PSYCHIATRIC Hx Emotional Abuse: No Hx Physical Abuse: No Hx Substance Use: No - SURGICAL HISTORY Hx Mastectomy: No - ANESTHESIA Hx Anesthesia Reactions: No Hx Malignant Hyperthermia: No Meds Allergies/Adverse Reactions: Allergies Allergy/AdvReac Type Severity Reaction Status Date / Time vancomycin AdvReac ITCHING Verified 04/07/17 22:40 - Medications Medications: Current Medications Fluocinonide (Lidex 0.05% Cream) 0 gm TOP BID [facility] Gabapentin (Neurontin) 400 mg PO TID [facility] PRN Reason: Protocol Last Admin: 04/08/17 17:59 Dose: 400 mg Insulin Human Regular (Humulin R Low) 0 units SC ACHS [facility] PRN Reason: Protocol Last Admin: 04/08/17 16:30 Dose: Not Given Lisinopril (Zestril) 10 mg PO DAILY [facility] Last Admin: 04/08/17 10:08 Dose: 10 mg Metoprolol Tartrate (Lopressor) 25 mg PO BID [facility] Last Admin: 04/08/17 17:59 Dose: 25 mg Pantoprazole Sodium (Protonix Ec Tab) 40 mg PO 0630 [facility] Trimethoprim/Sulfamethoxazole (Bactrim Ss Tab) 1 tab PO Q12 [facility] PRN Reason: Protocol Physical Exam - Constitutional Appears: Well, Non-toxic, No Acute Distress - Extremities Exam Additional comments: Right BKA Left lower extremity exam: Vasc: DP/PT pulses are faintly palpable 1/4. Temperature gradient cool to cool. CFT delayed but present to all digits x4. Derm: Previous ulceration noted to plantar left heel has healed; no opening noted, no drainage, no malodor, no fluctuance or bogginess. Posterior calcaneus exhibits additional healed ulceration with overlying mildly hyperkeratotic eschar. Ulceration measuring approximately 0.5 x 0.2 x 0.1 cm noted to medial malleolus - ulcer noted to have a 100% granular base and hyperkeratotic rim; minimal serosanguinous drainage noted; no purulence, no fluctuance, no periwound erythema noted. Neuro: Gross sensation absent Ortho: No pain on palpation left foot. Previous hallux amputation. - Neurological Exam Neurological exam: Alert, Oriented x3 - Psychiatric Exam Psychiatric exam: Normal Affect, Normal Mood Results - Vital Signs Recent Vital Signs: Last Vital Signs Temp 97.2 F L 04/08/17 18:58 Pulse 87 04/08/17 18:58 Resp 20 04/08/17 18:58 BP 112/69 04/08/17 18:58 Pulse Ox 95 04/08/17 18:58 - Labs Result Diagrams: 04/07/17 23:13 04/07/17 23:13 Labs: Laboratory Results - last 24 hr 04/08/17 04/08/17 04/08/17 01:20 03:29 07:19 POC Glucose (mg/dL) 128 H 132 H Urine Color Yellow Urine Appearance Clear Urine pH 6.0 Ur Specific [place] 1.025 Urine Protein Negative Urine Glucose (UA) Negative Urine Ketones Negative Urine Blood Negative Urine Nitrate Negative Urine Bilirubin Negative Urine Urobilinogen 1.0 H Ur Leukocyte Esterase Negative 04/08/17 04/08/17 11:25 15:51 POC Glucose (mg/dL) 190 H 139 H Urine Color Urine Appearance Urine pH Ur Specific [place] Urine Protein Urine Glucose (UA) Urine Ketones Urine Blood Urine Nitrate Urine Bilirubin Urine Urobilinogen Ur Leukocyte Esterase Assessment & Plan - Assessment and Plan (Free Text) Assessment: 61M with left ankle ulceration, stable Plan: Patient seen and evaluated with attending, Dr. Solis Afebrile, WBC elevated 15.1 Left ankle ulceration appears to be stable, healing - will continue to monitor -Optifoam left ankle Left heel ulcerations have resolved Stable per podiatry standpoint Podiatry will continue to follow while in house
[2017-04-08] MEDS: Tmp-Smz 400 mg-80 mg SS Tab PO SCH (21:00)
--- NOTE | 2017-04-09 01:54 | HP ---
HISTORY OF PRESENT ILLNESS: The patient is 61-year-old. The patient was recently discharged from [facility] on 04/01/2017 for Teague's. He remained in therapy, was discharged last week, but the patient stated he was unable to handle at home. He fell once and he is not feeling well. Blood sugar was running high. He was having some urine symptoms. He came to emergency room because of generalized weakness. Prior to coming to the hospital, he was trying to shift himself to the chair and he fell. He felt that his discharge was premature, he came back for further evaluation and extension of his rehab. PAST MEDICAL HISTORY: Significant for: 1. Poorly controlled diabetes. 2. Insulin-dependent diabetes. 3. Hypertension. 4. Severe peripheral vascular disease. 5. Right BKA because of nonhealing foot ulcer and osteomyelitis. ALLERGIES: HE IS ALLERGIC TO VANCOMYCIN. MEDICATIONS AT HOME: He is on Levemir 20 units at bedtime, Amaryl 4 mg twice a day, gabapentin 400 three times a day, metformin 1000 twice a day, Protonix 40 daily, metoprolol 25 twice a day, lisinopril 10 mg daily. SOCIAL HISTORY: He is . Lives at home with his . REVIEW OF SYSTEMS: Complains of generalized weakness. Complains of difficulty shifting himself from bed to chair. PHYSICAL EXAMINATION: GENERAL: He is awake and alert, able to communicate, not in any acute distress. VITAL SIGNS: He is afebrile, pulse 100, respirations 20, blood pressure 138/77. LUNGS: Bilateral fair airflow. No rhonchi or crackle. HEART: S1 and S2 audible. ABDOMEN: Soft, nontender. No rebound. No guarding. NEUROLOGIC: He is awake, alert, oriented, communicative. EXTREMITIES: His right stump is in immobilizer status post right BKA. Wound seems to have slight erythema. LABORATORY DATA: WBC 15.1, hemoglobin 12.5, hematocrit 38.1, platelets of 394. Chemistry: Sodium 139, potassium 3.9, chloride 101, CO2 of 27, BUN 15, creatinine 0.6, blood sugar of 190. There is an x-ray of lumbar spine done, which shows mild degenerative changes. X-ray of chest is unremarkable. ASSESSMENT: 1. Status post right below-knee amputation. 2. Difficulty ambulating. 3. Insulin-dependent diabetes. 4. Peripheral vascular disease. 5. Right below-knee amputation stump cellulitis. PLAN: We will start the patient on Bactrim. We will monitor his blood sugar. We will discuss with [employer] for disposition . Stacey Ross MD
[2017-04-09] MEDS: Pantoprazole 40 mg EC Tab PO SCH (06:47)
[2017-04-09 07:57] LABS: HEMOGLOBIN 11.9 g/dL (14.0-18.0); MEAN CORPUSCULAR HEMOGLOBIN 25.6 pg (25.0-35.0); MEAN PLATELET VOLUME 9.9 fl (7.0-11.0); RBC 4.65 10^6/uL (3.5-6.1); RED CELL DISTRIBUTION WIDTH 17.7 % (11.5-14.5)
[2017-04-09 08:12] LABS: BLOOD UREA NITROGEN 17 mg/dL (7-21); GFR AFRICAN-AMERICAN > 60; GFR NON-AFRICAN AMERICAN > 60
[2017-04-09 08:13] LABS: CALCIUM 9.7 mg/dL (8.4-10.5)
[2017-04-09] MEDS: Insulin Reg-LOW-Coverage SC SCH ×4 (11:03→21:43)
[2017-04-09] MEDS: Tmp-Smz 400 mg-80 mg SS Tab PO SCH ×2 (11:06→21:49)
[2017-04-09] MEDS ORDERED: Oxycodone/Acetaminophen 5/325 mg Tab PO PRN (12:22)
--- NOTE | 2017-04-09 15:13 | PN ---
DATE: SUBJECTIVE: Patient is 61 years old, seen and examined, lying in bed, seems to be comfortable, eating and tolerating, had with physical therapy. He was scared to fall. He did not go for therapy, will be reevaluated today. OBJECTIVE: VITAL SIGNS: He is afebrile, pulse 88, respirations 18, blood pressure 122/70. LUNGS: Bilateral good airflow. No rhonchi or crackle. HEART: S1 and S2 audible. ABDOMEN: Soft, nontender. No rebound. No guarding. NEUROLOGIC: Patient is awake and alert, able to communicate. LABORATORY EXAMINATION: WBC is 12.0, hemoglobin 11.9, hematocrit 37.2, and platelets of 328. Chemistry: Sodium 139, potassium 4.0, chloride 100, CO2 of 29. BUN 17, creatinine 0.7. Blood sugar of 191. ASSESSMENT: 1. Status post right below-knee amputation. 2. Insulin-dependent diabetes. 3. Peripheral vascular disease, status post angioplasty. 4. Hypertension. 5. Hyperlipidemia. PLAN: We will continue patient on Bactrim. We will monitor his blood sugar. Currently, he is on metoprolol, gabapentin, Protonix, and lisinopril. We will allow him to have Percocet for [id number] pain. Once , will make disposition plan. Patient states he does not feel comfortable going home because he fell at home and he was not able to go to the commode, so we will make disposition plan after we get physical therapy evaluation. Stacey Ross MD
--- NOTE | 2017-04-09 16:57 | CP.PCM.PN ---
Subjective - Date & Time of Evaluation Date of Evaluation: 04/09/17 Time of Evaluation: 16:53 - Subjective Subjective: Podiatry Progress Note - Dr. Solis 61 year old male patient seen and evaluated for left ankle ulceration. Patient s /p right BKA as well. Patient denies pain to his left ankle ulceration. Patient reports he is doing okay. Denies overnight acute events. Denies N/V/F/D/C/SOB. Objective - Vital Signs/Intake and Output Vital Signs (last 24 hours): Temp Pulse Resp BP Pulse Ox 98.9 F 70 18 122/70 99 04/09/17 07:30 04/09/17 11:07 04/09/17 07:30 04/09/17 11:07 04/09/17 07:30 Intake and Output: 04/09/17 04/09/17 06:59 18:59 Intake Total 360 600 Output Total 500 375 Balance -140 225 - Medications Medications: Current Medications Fluocinonide (Lidex 0.05% Cream) 0 gm TOP BID [facility] Last Admin: 04/09/17 11:07 Dose: 1 appl Gabapentin (Neurontin) 400 mg PO TID [facility] PRN Reason: Protocol Last Admin: 04/09/17 13:11 Dose: 400 mg Insulin Human Regular (Humulin R Low) 0 units SC ACHS [facility] PRN Reason: Protocol Last Admin: 04/09/17 11:46 Dose: 1 units Lisinopril (Zestril) 10 mg PO DAILY [facility] Last Admin: 04/09/17 11:07 Dose: 10 mg Metoprolol Tartrate (Lopressor) 25 mg PO BID [facility] Last Admin: 04/09/17 11:07 Dose: 25 mg Oxycodone/Acetaminophen (Percocet 5/325 Mg Tab) 1 tab PO Q6H PRN PRN Reason: Pain, moderate (4-7) Stop: 04/12/17 12:23 Pantoprazole Sodium (Protonix Ec Tab) 40 mg PO 0630 [facility] Last Admin: 04/09/17 06:47 Dose: 40 mg Trimethoprim/Sulfamethoxazole (Bactrim Ss Tab) 1 tab PO Q12 [facility] PRN Reason: Protocol Last Admin: 04/09/17 11:06 Dose: 1 tab - Labs Labs: 04/09/17 07:00 04/09/17 07:00 - Constitutional Appears: Well, Non-toxic, No Acute Distress - Extremities Exam Additional comments: Right BKA Left lower extremity exam: Vasc: DP/PT pulses are faintly palpable 1/4. Temperature gradient cool to cool. CFT delayed but present to all digits x4. Derm: Previous ulceration noted to plantar left heel has healed; no opening noted, no drainage, no malodor, no fluctuance or bogginess. Posterior calcaneus exhibits additional healed ulceration with overlying mildly hyperkeratotic eschar. Ulceration measuring approximately 0.5 x 0.2 x 0.1 cm noted to medial malleolus - ulcer noted to have a 100% granular base and hyperkeratotic rim; minimal serosanguinous drainage noted; no purulence, no fluctuance, no periwound erythema noted. Neuro: Gross sensation absent Ortho: No pain on palpation left foot. Previous hallux amputation. - Neurological Exam Neurological Exam: Alert, Awake, Oriented x3 - Psychiatric Exam Psychiatric exam: Normal Affect, Normal Mood Assessment and Plan - Assessment and Plan (Free Text) Assessment: 61M with left ankle ulceration, stable Plan: Patient seen and evaluated with attending, Dr. Solis Afebrile, WBC trending down (WBC 12 today from 15.1 on 04/07/17) Left ankle ulceration appears to be stable, healing - will continue to monitor -Optifoam left ankle Left heel ulcerations have resolved Stable per podiatry standpoint Podiatry will continue to follow while in house
[2017-04-10] MEDS: Pantoprazole 40 mg EC Tab PO SCH (06:11)
[2017-04-10] MEDS: Insulin Reg-LOW-Coverage SC SCH ×3 (07:57→17:13)
[2017-04-10] MEDS: Tmp-Smz 400 mg-80 mg SS Tab PO SCH (10:35)
--- NOTE | 2017-04-10 14:35 | CP.PCM.PN ---
<Allan Campo - Last Filed: 04/10/17 14:31> Subjective - Date & Time of Evaluation Date of Evaluation: 04/10/17 Time of Evaluation: 14:31 - Subjective Subjective: Podiatry Progress Note - Dr. Duncan 61 year old male patient seen and evaluated for left ankle ulceration. Patient s /p right BKA as well. Patient denies pain to his left ankle ulceration. Patient reports he is doing okay. Denies overnight acute events. Denies N/V/F/D/C/SOB. Objective - Vital Signs/Intake and Output Vital Signs (last 24 hours): Temp Pulse Resp BP Pulse Ox 97.7 F 67 20 142/76 97 04/10/17 07:00 04/10/17 10:37 04/10/17 07:00 04/10/17 10:37 04/10/17 07:00 Intake and Output: 04/10/17 04/10/17 06:59 18:59 Intake Total 480 Output Total 800 Balance -320 - Medications Medications: Current Medications Fluocinonide (Lidex 0.05% Cream) 0 gm TOP BID [facility] Last Admin: 04/10/17 10:31 Dose: Not Given Gabapentin (Neurontin) 400 mg PO TID [facility] PRN Reason: Protocol Last Admin: 04/10/17 13:32 Dose: 400 mg Insulin Human Regular (Humulin R Low) 0 units SC ACHS [facility] PRN Reason: Protocol Last Admin: 04/10/17 12:33 Dose: 2 units Insulin Lispro Protam/Lispro Human (Humalog Mix 75/25) 10 units SC ACBD [facility] Lisinopril (Zestril) 10 mg PO DAILY [facility] Last Admin: 04/10/17 10:36 Dose: 10 mg Metoprolol Tartrate (Lopressor) 25 mg PO BID [facility] Last Admin: 04/10/17 10:37 Dose: 25 mg Oxycodone/Acetaminophen (Percocet 5/325 Mg Tab) 1 tab PO Q6H PRN PRN Reason: Pain, moderate (4-7) Stop: 04/12/17 12:23 Last Admin: 04/10/17 04:56 Dose: 1 tab Pantoprazole Sodium (Protonix Ec Tab) 40 mg PO 0630 [facility] Last Admin: 04/10/17 06:11 Dose: 40 mg Trimethoprim/Sulfamethoxazole (Bactrim Ss Tab) 1 tab PO Q12 [facility] PRN Reason: Protocol Last Admin: 04/10/17 10:35 Dose: 1 tab - Labs Labs: 04/09/17 07:00 04/09/17 07:00 - Constitutional Appears: Well, Non-toxic, No Acute Distress - Extremities Exam Additional comments: Right BKA Left lower extremity exam: Vasc: DP/PT pulses are faintly palpable 1/4. Temperature gradient cool to cool. CFT delayed but present to all digits x4. Derm: Previous ulceration noted to plantar left heel has healed; no opening noted, no drainage, no malodor, no fluctuance or bogginess. Posterior calcaneus exhibits additional healed ulceration with overlying mildly hyperkeratotic eschar. Ulceration measuring approximately 0.5 x 0.2 x 0.1 cm noted to medial malleolus - ulcer noted to have a 100% granular base and hyperkeratotic rim; minimal serosanguinous drainage noted; no purulence, no fluctuance, no periwound erythema noted. Neuro: Gross sensation absent Ortho: No pain on palpation left foot. Previous hallux amputation. - Neurological Exam Neurological Exam: Alert, Awake, Oriented x3 - Psychiatric Exam Psychiatric exam: Normal Affect, Normal Mood Assessment and Plan - Assessment and Plan (Free Text) Assessment: 61M with left ankle ulceration, stable Plan: Patient seen and evaluated Afebrile, WBC trending down (WBC 12 on 04/09/17 from 15.1 on 04/07/17) Left ankle ulceration appears to be stable, healing - will continue to monitor -Cleansed ulceration with saline solution, Optifoam left ankle Left heel ulcerations have resolved Stable per podiatry standpoint Podiatry will continue to follow while in house Upon discharge, patient can followup in wound care within 1 week. -Pt will need to call for an appointment <Burke Duncan - Last Filed: 04/10/17 16:52> Objective - Vital Signs/Intake and Output Vital Signs (last 24 hours): Temp Pulse Resp BP Pulse Ox 97.7 F 67 20 142/76 97 04/10/17 07:00 04/10/17 10:37 04/10/17 07:00 04/10/17 10:37 04/10/17 07:00 Intake and Output: 04/10/17 04/10/17 06:59 18:59 Intake Total 480 Output Total 800 Balance -320 - Medications Medications: Current Medications Fluocinonide (Lidex 0.05% Cream) 0 gm TOP BID [facility] Last Admin: 04/10/17 10:31 Dose: Not Given Gabapentin (Neurontin) 400 mg PO TID [facility] PRN Reason: Protocol Last Admin: 04/10/17 13:32 Dose: 400 mg Insulin Human Regular (Humulin R Low) 0 units SC ACHS [facility] PRN Reason: Protocol Last Admin: 04/10/17 12:33 Dose: 2 units Insulin Lispro Protam/Lispro Human (Humalog Mix 75/25) 10 units SC ACBD [facility] Lisinopril (Zestril) 10 mg PO DAILY [facility] Last Admin: 04/10/17 10:36 Dose: 10 mg Metoprolol Tartrate (Lopressor) 25 mg PO BID [facility] Last Admin: 04/10/17 10:37 Dose: 25 mg Oxycodone/Acetaminophen (Percocet 5/325 Mg Tab) 1 tab PO Q6H PRN PRN Reason: Pain, moderate (4-7) Stop: 04/12/17 12:23 Last Admin: 04/10/17 04:56 Dose: 1 tab Pantoprazole Sodium (Protonix Ec Tab) 40 mg PO 0630 [facility] Last Admin: 04/10/17 06:11 Dose: 40 mg Trimethoprim/Sulfamethoxazole (Bactrim Ss Tab) 1 tab PO Q12 [facility] PRN Reason: Protocol Last Admin: 04/10/17 10:35 Dose: 1 tab - Labs Labs: 04/09/17 07:00 04/09/17 07:00 Attending/Attestation - Attestation I have personally seen and examined this patient.: Yes I have fully participated in the care of the patient.: Yes I have reviewed all pertinent clinical information, including history, physical exam and plan: Yes
[2017-04-10] MEDS ORDERED: Insulin Lispro (humaLOG) MIX 75/25(10 ml) SC SCH (16:30)
[2017-04-10 17:21] VITALS: BP 104/67; PULSE 76
[2017-04-10 17:40] VITALS: RESP 18; TEMP 97.6; O2SAT 96
--- NOTE | 2017-04-11 10:08 | DS ---
HISTORY OF PRESENT ILLNESS: The patient is 61 years old, seen and examined, doing well. He was admitted because he could not handle himself. He was unable to ambulate. He blames that he was discharged prematurely, although he was informed that he is on copay that were not covered by insurance, so he decided to go home since he could not afford to that copay. Anyway, he came because he fell at home and he was unable to use the bathroom and he was at a high risk of fall and he fell one day prior to coming to the hospital. Seen and examined, doing well. Eating and tolerating. PHYSICAL EXAMINATION GENERAL: He is afebrile. Pulse 72, respirations 20, blood pressure 142/76. LUNGS: Bilateral good airflow. No rhonchi or crackle. HEART: S1 and S2 audible. ABDOMEN: Soft, nontender. No rebound. No guarding. NEUROLOGIC: The patient is awake, alert, oriented, communicative. LABORATORY DATA: Blood sugar is 265. Urinalysis is unremarkable. ASSESSMENT 1. Status post right below-knee amputation. 2. Hypertension. 3. Hyperlipidemia. 4. Severe peripheral vascular disease. PLAN: We will continue him on Bactrim for a total of five more days. Monitor his blood sugar. He is currently on . His blood sugar seems to be running high. I will start him on Humalog ____ 10 units before breakfast and 10 before dinner. Monitor his blood sugar. 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 Once the rehab place is arranged, we will make disposition plan today. Stacey Ross MD
== END 2017-04-10 20:19 | DRG 565 ==
LOC: ED 22:13 → ERH 04-08 00:56 → 5RNO 04-08 05:58
PROVIDERS: ADMIT Internal Medicine; ATTEND Internal Medicine
DX: T87.43 Infection of amputation stump, right lower extremity (principal); L03.115 Cellulitis of right lower limb; E11.51 Type 2 diabetes mellitus with diabetic peripheral angiopathy without gangrene; E11.622 Type 2 diabetes mellitus with other skin ulcer; L97.329 Non-pressure chronic ulcer of left ankle with unspecified severity; R26.2 Difficulty in walking, not elsewhere classified; E78.5 Hyperlipidemia, unspecified; I10 Essential (primary) hypertension; R53.1 Weakness; Y83.5 Amputation of limb(s) as the cause of abnormal reaction of the patient, or of later complication, without mention of misadventure at the time of the procedure; Z89.511 Acquired absence of right leg below knee; Z79.4 Long term (current) use of insulin

== ENCOUNTER 2017-08-27 10:06 | Inpatient (IN) | payer MEDICARE, OTHER ==
--- NOTE | 2017-08-27 10:20 | ED PDOC ---
Arrival/HPI - General Chief Complaint: Lower Extremity Problem/Injury Time Seen by Provider: 08/27/17 10:09 Historian: Patient - History of Present Illness Narrative History of Present Illness (Text): 08/27/17 10:17 62 y/o Male, pmh including htn/dm, allergic to vancomycin?, rt. lower extremity amputation, last tetanus under 7 years ago, c/o lt. foot ulcer wound with cellulitis x 1 week. Pt. stated that he had a blood blister about 1 week ago from wearing the shoe to sleep, seen and follow up with DR. Solis which he has been place on augmentin, follow up yesterday with worsening on the left foot heel wound, Dr. Solis consulted with Dr. Bautista which recommend IV Telfaro 400mg IV bid for admission, pmd is Dr. Ross, no fever or chills, no night sweat, no numbness or tingling, no other medical or psychological complaints. Past Medical History - Provider Review Nursing Documentation Reviewed: Yes - Infectious Disease Hx of Infectious Diseases: None - Cardiac Hx Cardiac Disorders: Yes (STENT L LEG) Hx Congestive Heart Failure: No Hx Hypertension: No - Pulmonary Hx Chronic Obstructive Pulmonary Disease (COPD): No - Neurological HX Cerebrovascular Accident: No - HEENT Hx HEENT Disorder: Yes Hx Blind: No Hx Cataracts: Yes Hx Deafness: No Hx Difficulty Chewing: No Hx Epistaxis: No Hx Glaucoma: No Hx Macular Degeneration: No - Renal Hx Renal Failure: No - Endocrine/Metabolic Hx Diabetes Mellitus Type 1: No Hx Diabetes Mellitus Type 2: Yes Hx Hypothyroidism: No - Hematological/Oncological Hx Blood Transfusions: No Hx Blood Transfusion Reaction: No - Integumentary Hx Dermatological Disorder: Yes Hx Psoriasis: Yes Other/Comment: INFECTED CHRONIC NECROTIC RIGHT HEEL,EXPOSED CALCANEUS.PLAN OF SKIN GRAFT DEBRIDEMENT. RIGHT PICC LINE. - Musculoskeletal/Rheumatological Hx Arthritis: Yes - Gastrointestinal Hx Gastrointestinal Disorders: No Hx Colostomy: No Hx Crohn's Disease: No Hx Diverticulitis: No Hx Gall Bladder Disease: No Hx Gastroesophageal Reflux: No Hx Ileostomy: No Hx Liver Failure: No Hx Pancreatitis: No HX Swallowing Problems: No - Genitourinary/Gynecological Hx Genitourinary Disorders: No Hx Hematuria: No Hx Incontinence: No Hx Prostate Problems: No Hx Sexually Transmitted Diseases: No Hx Urinary Tract Infection: No - Psychiatric Hx Emotional Abuse: No Hx Physical Abuse: No Hx Substance Use: No - Surgical History Hx Mastectomy: No Hx Orthopedic Surgery: Yes (right foot amputation) - Anesthesia Hx Anesthesia Reactions: No Hx Malignant Hyperthermia: No - Suicidal Assessment Feels Threatened In Home Enviroment: No Family/Social History - Physician Review Nursing Documentation Reviewed: Yes Family/Social History: Unknown Family HX Smoking Status: Never Smoked Hx Alcohol Use: No Hx Substance Use: No Hx Substance Use Treatment: No Allergies/Home Meds Allergies/Adverse Reactions: Allergies vancomycin Adverse Reaction (Verified 08/27/17 10:09) ITCHING Home Medications: Home Meds Medication Instructions Recorded Confirmed Glimepiride [amaRYL] 4 mg PO BID 03/09/17 08/27/17 Insulin Detemir [Levemir] 20 unit SC HS 04/07/17 08/27/17 metFORMIN [glucOPHAGE] 1,000 mg PO BID 04/07/17 08/27/17 Review of Systems - Review of Systems Constitutional: absent: Fatigue, Fevers Eyes: absent: Vision Changes ENT: absent: Hearing Changes Respiratory: absent: SOB, Cough Cardiovascular: absent: Chest Pain Gastrointestinal: absent: Abdominal Pain Genitourinary Male: absent: Dysuria Musculoskeletal: absent: Arthralgias Skin: Rash, Skin Lesions, Ulcer, Cellulitis. absent: Pruritis, Laceration, Abscess Psychiatric: absent: Anxiety, Depression, Suicidal Ideation Physical Exam Vital Signs Reviewed: Yes Vital Signs Temp Pulse Resp BP Pulse Ox 08/27/17 10:09 97.9 F 98 H 18 137/61 97 Temperature: Afebrile Blood Pressure: Normal Pulse: Regular Respiratory Rate: Normal Appearance: Positive for: Well-Appearing, Non-Toxic, Comfortable Pain Distress: Moderate Mental Status: Positive for: Alert and Oriented X 3 - Systems Exam Head: Present: Atraumatic, Normocephalic Pupils: Present: PERRL Extroacular Muscles: Present: EOMI Conjunctiva: Present: Normal Mouth: Present: Moist Mucous Membranes Neck: Present: Normal Range of Motion Respiratory/Chest: Present: Clear to Auscultation, Good Air Exchange. No: Respiratory Distress, Accessory Muscle Use Cardiovascular: Present: Regular Rate and Rhythm, Normal S1, S2. No: Murmurs Abdomen: No: Tenderness, Distention, Peritoneal Signs Back: Present: Normal Inspection Upper Extremity: Present: Normal Inspection. No: Cyanosis, Edema Lower Extremity: Present: Edema, Other (Lt. foot: visible approx. 2cm diameter ulcer with surronding erythematous, streaking up to the lt. ankle region, neurological intact, FROM with pain, sensation intact, motor 5/5. ). No: Normal Inspection (Rt. lower leg amputation with no visible infected stump) Neurological: Present: GCS=15, CN II-XII Intact, Speech Normal Skin: Present: Warm, Dry, Normal Color. No: Rashes Psychiatric: Present: Alert, Oriented x 3, Normal Insight, Normal Concentration Medical Decision Making ED Course and Treatment: 08/27/17 10:48 Differential: DM Foot Cellulitis vs. DM foot ulcer vs. Failure of outpatient treatment -Labs/blood culture -Wound culture obtain previously show cornebaterium with no sensitivity -Lt. foot xray -IV Telfaro 400mg po IV/morphine 4mg -Calling Dr. Ross for admission with routine Dr. Solis and Dr. Bautista for routine consult -Observe and reassess 08/27/17 11:05 -Pt. refused xrays and radiology study, reviewed the cbc from yesterday wbc 14 with Hgba1c 10.0, risks and benefits explained. -I spoke to Dr. Ross about the case/consults, agreed to admit to her service and agreed with consults. -I discussed with Dr. Burris about this case, he will put in the admission. 101 08/27/17 12:08 -WBC 13.8, Glucose 350 (chronic DM, Hgba1c 10.0 insulin dependent and just ate, Fluid ordered). - RAD Interpretation Radiology Orders: 08/27/17 10:33 FOOT LEFT 3 VIEWS ROUTINE [RAD] Stat - Medication Orders Current Medication Orders: Discontinued Medications Ceftaroline Fosamil 400 mg/ (Sodium Chloride) 100 mls @ 100 mls/hr IVPB STAT STA PRN Reason: Protocol Stop: 08/27/17 11:35 Last Admin: 08/27/17 11:30 Dose: 100 mls/hr eMAR Start Stop Document 08/27/17 11:30 MANDIE (Rec: 08/27/17 11:30 MANDIE [id number]) Intravenous Solution Start Date 08/27/17 Start Time 11:30 End Date 07/19/18 End time 12:30 Total Infusion Time 60 Morphine Sulfate (Morphine) 4 mg IVP STAT STA Stop: 08/27/17 10:35 Last Admin: 08/27/17 11:29 Dose: 4 mg MAR Pain Assessment Document 08/27/17 11:29 MANDIE (Rec: 08/27/17 11:30 MANDIE [id number]) Pain Reassessment Is this a pain reassessment? No Sleep Is patient sleeping during reassessment? No Presence of Pain Presence of Pain Yes Pain Scale Used Pain Scale Used Numeric IVP Administration Document 08/27/17 11:29 MANDIE (Rec: 08/27/17 11:30 MANDIE [id number]) Charges for Administration # of IVP Administrations 1 - PA / [employer] / Resident Statement MD/DO has reviewed & agrees with the documentation as recorded. Disposition/Present on Arrival - Present on Arrival Any Indicators Present on Arrival: No History of DVT/PE: No History of Uncontrolled Diabetes: No Urinary Catheter: No History of Decub. Ulcer: No (diabetic foot ulcer) History Surgical Site Infection Following: Orthopedic Procedures - Disposition Have Diagnosis and Disposition been Completed?: Yes Diagnosis: Diabetes, Foot ulcer due to secondary DM, Leukocytosis Disposition: HOSPITALIZED Disposition Time: 10:51 Patient Plan: Admission Patient Problems: Current Active Problems Problem Status Onset Foot ulcer due to secondary DM Acute Leukocytosis Acute Diabetes Chronic Condition: STABLE
[2017-08-27] MEDS ORDERED: Morphine 4 mg/ml ISec IVP STA (10:34)
[2017-08-27] MEDS ORDERED: Piperacillin/Tazobact 3.375 gm 100 ML IVPB STA (10:34)
[2017-08-27 11:45] LABS: ALB/GLOB RATIO 1.3 (1.1-1.8); ALBUMIN 4.1 g/dL (3.0-4.8); ALT/SGPT 15 U/L (7-56); AST/SGOT 18 U/L (17-59); BLOOD UREA NITROGEN 14 mg/dL (7-21); CALCIUM 8.8 mg/dL (8.4-10.5); GFR AFRICAN-AMERICAN > 60; GFR NON-AFRICAN AMERICAN > 60
[2017-08-27 11:48] LABS: BASO # 0.05 K/mm3 (0.0-2.0); BASO % 0.4 % (0.0-3.0); EOS # 0.2 (0.0-0.7); EOS % 1.5 % (1.5-5.0); GRAN # 9.76 (1.4-6.5); GRAN % 70.7 % (50.0-68.0); HEMOGLOBIN 14.2 g/dL (14.0-18.0); LYMPH # 2.8 (1.2-3.4); LYMPH % 20.4 % (22.0-35.0); MEAN CELL VOLUME 79.6 fl (80.0-105.0); MEAN PLATELET VOLUME 10.7 fl (7.0-11.0); RBC 5.25 10^6/uL (3.5-6.1); RED CELL DISTRIBUTION WIDTH 13.5 % (11.5-14.5); WHITE BLOOD COUNT 13.8 10^3/ul (4.5-11.0)
[2017-08-27] MEDS ORDERED: Sodium Chloride 0.9% 500 ML IV STA (12:09)
[2017-08-27] MEDS ORDERED: Oxycodone/Acetaminophen 5/325 mg Tab PO PRN (12:45)
[2017-08-27 13:05] VITALS: BMI 31.4
--- NOTE | 2017-08-27 16:44 | CP.PCM.CON ---
History of Present Illness - History of Present Illness History of Present Illness: 62 year old male with PMH of DM, S/P right lower extremity BKA has been using a prosthetic limb to ambulated but has been putting a lot of pressure on the left foot and extremity and has developed a blister / ulcer. He saw Dr. Solis, and has been doing local wound care and was put on Augmentin for 1 week. On his follow up today, the foot is still in poor shape and is now admitted for IV antibiotics. The patient denies animal contacts, no soaking of his feet in water , denies fever or chills, no nausea or vomiting, no chest pain, no SOB, no cough or rhinorrhea, no abdominal pain, no diarrhea, no dysuria. Infectious Diseases consult is requested to further evaluate and manage. Review of Systems - Review of Systems All systems: reviewed and no additional remarkable complaints except (as per HPI ) Past Patient History - Infectious Disease Hx of Infectious Diseases: None - Past Medical History & Family History Past Medical History?: Yes - Past Social History Smoking Status: Never Smoked - CARDIAC Hx Cardiac Disorders: Yes (STENT L LEG) Hx Congestive Heart Failure: No Hx Hypertension: No - PULMONARY Hx Chronic Obstructive Pulmonary Disease (COPD): No - NEUROLOGICAL HX Cerebrovascular Accident: No - HEENT Hx HEENT Problems: Yes Hx Blind: No Hx Cataracts: Yes Hx Deafness: No Hx Difficulty Chewing: No Hx Epistaxis: No Hx Glaucoma: No Hx Macular Degeneration: No - RENAL Hx Renal Failure: No - ENDOCRINE/METABOLIC Hx Diabetes Mellitus Type 1: No Hx Diabetes Mellitus Type 2: Yes Hx Hypothyroidism: No - HEMATOLOGICAL/ONCOLOGICAL Hx Blood Transfusions: No Hx Blood Transfusion Reaction: No - INTEGUMENTARY Hx Dermatological Problems: Yes Hx Psoriasis: Yes Other/Comment: INFECTED CHRONIC NECROTIC RIGHT HEEL,EXPOSED CALCANEUS.PLAN OF SKIN GRAFT DEBRIDEMENT. RIGHT PICC LINE. - MUSCULOSKELETAL/RHEUMATOLOGICAL Hx Arthritis: Yes - GASTROINTESTINAL Hx Gastrointestinal Disorders: No Hx Colostomy: No Hx Crohn's Disease: No Hx Diverticulitis: No Hx Gall Bladder Disease: No Hx Gastroesophageal Reflux: No Hx Ileostomy: No Hx Liver Failure: No Hx Pancreatitis: No HX Swallowing Problems: No - GENITOURINARY/GYNECOLOGICAL Hx Genitourinary Disorders: No Hx Hematuria: No Hx Incontinence: No Hx Prostate Problems: No Hx Sexually Transmitted Disorders: No Hx Urinary Tract Infection: No - PSYCHIATRIC Hx Emotional Abuse: No Hx Physical Abuse: No Hx Substance Use: No - SURGICAL HISTORY Hx Mastectomy: No Hx Orthopedic Surgery: Yes (right foot amputation) - ANESTHESIA Hx Anesthesia Reactions: No Hx Malignant Hyperthermia: No Meds Allergies/Adverse Reactions: Allergies Allergy/AdvReac Type Severity Reaction Status Date / Time vancomycin AdvReac ITCHING Verified 08/27/17 10:09 - Medications Medications: Current Medications Sodium Chloride (Sodium Chloride 0.9%) 500 mls @ 999 mls/hr IV .Q31M STA Stop: 08/27/17 12:39 Physical Exam - Constitutional Appears: Non-toxic, Chronically Ill - Head Exam Head Exam: NORMAL INSPECTION - Neck Exam Neck exam: Negative for: Meningismus - Respiratory Exam Respiratory Exam: Decreased Breath Sounds - Cardiovascular Exam Cardiovascular Exam: +S1, +S2 - GI/Abdominal Exam GI & Abdominal Exam: Soft. absent: Tenderness - Extremities Exam Additional comments: left foot with dressings in place Results - Vital Signs Recent Vital Signs: Last Vital Signs Temp 97.9 F 08/27/17 10:09 Pulse 98 H 08/27/17 10:09 Resp 18 08/27/17 10:09 BP 137/61 08/27/17 10:09 Pulse Ox 97 08/27/17 10:09 - Labs Result Diagrams: 08/27/17 11:24 08/27/17 11:24 Labs: Laboratory Results - last 24 hr 08/27/17 08/27/17 11:24 11:24 WBC 13.8 H RBC 5.25 Hgb 14.2 Hct 41.8 L MCV 79.6 L MCH 27.0 MCHC 34.0 RDW 13.5 Plt Count 375 MPV 10.7 Gran % 70.7 H Lymph % (Auto) 20.4 L [place] % (Auto) 7.0 H Eos % (Auto) 1.5 Baso % (Auto) 0.4 Gran # 9.76 H Lymph # (Auto) 2.8 [place] # (Auto) 1.0 H Eos # (Auto) 0.2 Baso # (Auto) 0.05 Sodium 138 Potassium 4.3 Chloride 100 Carbon Dioxide 23 Anion Gap 19 BUN 14 Creatinine 0.6 L Est GFR ( Amer) > 60 Est GFR (Non-Af Amer) > 60 Random Glucose 350 H* D Calcium 8.8 Total Bilirubin 0.3 AST 18 ALT 15 Alkaline Phosphatase 85 Total Protein 7.4 Albumin 4.1 Globulin 3.3 Albumin/Globulin Ratio 1.3 Assessment & Plan - Assessment and Plan (Free Text) Plan: Assessment left foot infected ulcer history of right foot / heel osteomyelitis with necrotic ulcer, 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
[2017-08-27] MEDS ORDERED: Dextrose 50% SYRINGE Inj (50 ml) IV PRN (17:03)
--- NOTE | 2017-08-27 20:52 | HP ---
HISTORY OF PRESENT ILLNESS: The patient is 62 years old, know to me from previous admission, came to see Dr. Solis today, was found to have worsening wound ulcer on the foot, so she referred him to Emergency Room for possible IV antibiotics and wound care. The patient denies any fever or chills. No history of nausea or vomiting. No diarrhea. No chills. This patient states his left foot wound has been getting worse for the last one week. He had blood blister almost a week ago, so he came to see Dr. Solis who started him on Augmentin almost a week ago, and he was in the office for followup when she saw the wound in the left foot and heel. She advised him to go to ER. He has a history of status post amputation. He has a history of hypertension and hyperlipidemia, peripheral vascular disease, insulin-dependent diabetes, diabetic neuropathy. ALLERGIES: HE IS ALLERGIC TO VANCOMYCIN. MEDICATIONS: At home, the patient was on Augmentin, metformin 1000 twice a day, pantoprazole 40 mg daily, metoprolol 25 twice a day, lisinopril 10 mg daily. He is on Levemir 20 units at bedtime, Amaryl 4 mg twice a day, gabapentin 400 three times a day. SOCIAL HISTORY: He used to be a smoker in the past. Socially drinks. PHYSICAL EXAMINATION: GENERAL: He is awake, alert, oriented, communicative. VITAL SIGNS: He is afebrile, pulse 98, respirations 18, blood pressure 134/83. HEART: S1 and S2 audible. LUNGS: Bilateral fair airflow. No rhonchi or crackle. ABDOMEN: Soft, nontender. No rebound. No guarding. NEUROLOGICAL: The patient is awake, alert, oriented; communicative. LABORATORY DATA: WBC 13.8, hemoglobin 14, hematocrit 41, platelets 375. Chemistries, sodium 138, potassium 4.3, chloride 100, CO2 of 23, BUN 14, creatinine 0.6, blood sugar of 350. ASSESSMENT: 1. Left foot ulcer and cellulitis. 2. Status post right below-knee amputation. 3. Insulin-dependent diabetes. 4. Hypertension. 5. Peripheral vascular disease. 6. Hyperlipidemia. PLAN: The patient has been started on Teflaro. Dr. Bautista and Dr. Solis have been consulted. We will monitor blood sugar, and local wound care will be done by the Podiatry team. Stacey Ross MD
[2017-08-27] MEDS: Insulin Lispro (humaLOG) MEDIUM Coverage SC SCH (22:06)
[2017-08-27] MEDS: Insulin Detemir 100 units/ml Vial (Levemir) SC SCH (22:07)
[2017-08-27] MEDS ORDERED: Morphine 2 mg/ml ISec IVP ONE (22:40)
[2017-08-28] MEDS: Pantoprazole 40 mg EC Tab PO SCH (05:46)
[2017-08-28] MEDS: Insulin Lispro (humaLOG) MEDIUM Coverage SC SCH ×4 (08:05→21:56)
--- NOTE | 2017-08-28 13:59 | RAD ---
Date of service: 08/28/2017 PROCEDURE: Left Foot Radiographs. HISTORY: diabetic foot ulcer COMPARISON: None. FINDINGS: BONES: No evidence of osteomyelitis JOINTS: Previous amputation of the big toe. Degenerative changes in the midfoot SOFT TISSUES: Normal. OTHER FINDINGS: None. IMPRESSION: No evidence of acute osteomyelitis
--- NOTE | 2017-08-28 15:31 | CP.PCM.PN ---
Subjective - Date & Time of Evaluation Date of Evaluation: 08/28/17 Time of Evaluation: 12:55 - Subjective Subjective: Still with left foot pain but a little less, no fevers. Objective - Vital Signs/Intake and Output Vital Signs (last 24 hours): Temp Pulse Resp BP Pulse Ox 98.1 F 80 20 104/54 L 96 08/28/17 06:00 08/28/17 06:00 08/28/17 06:00 08/28/17 06:00 08/28/17 06:00 - Medications Medications: Current Medications Dextrose (Dextrose 50% Inj) 0 ml IV STAT PRN; Protocol PRN Reason: Hypoglycemia Protocol Gabapentin (Neurontin) 400 mg PO TID [facility] PRN Reason: Protocol Last Admin: 08/28/17 09:04 Dose: 400 mg Glimepiride (Amaryl) 4 mg PO BID [facility] Last Admin: 08/28/17 09:04 Dose: 4 mg Ceftaroline Fosamil 400 mg/ (Sodium Chloride) 100 mls @ 100 mls/hr IVPB Q12 [facility] PRN Reason: Protocol Stop: 09/03/17 22:01 Last Admin: 08/28/17 09:02 Dose: 100 mls/hr Dextrose (Dextrose 5% In Water 1000 Ml) 1,000 mls @ 0 mls/hr IV .Q0M PRN; Protocol; Per Protocol PRN Reason: Hypoglycemia Protocol Insulin Detemir (Levemir) 20 unit SC HS [facility] Last Admin: 08/27/17 22:07 Dose: Not Given Insulin Human Lispro (Humalog Med) 0 units SC ACHS [facility] PRN Reason: Protocol Last Admin: 08/28/17 08:05 Dose: Not Given Lisinopril (Zestril) 10 mg PO DAILY [facility] Last Admin: 08/28/17 09:05 Dose: 10 mg Metformin HCl (Glucophage) 1,000 mg PO BID [facility] Last Admin: 08/28/17 09:04 Dose: 1,000 mg Metoprolol Tartrate (Lopressor) 25 mg PO BID [facility] Last Admin: 08/28/17 09:05 Dose: 25 mg Oxycodone/Acetaminophen (Percocet 5/325 Mg Tab) 1 tab PO Q6H PRN PRN Reason: Pain, moderate (4-7) Stop: 08/30/17 12:46 Pantoprazole Sodium (Protonix Ec Tab) 40 mg PO 30 [facility] Last Admin: 08/28/17 05:46 Dose: Not Given - Labs Labs: 08/27/17 11:24 08/27/17 11:24 - Constitutional Appears: Non-toxic, Chronically Ill - Head Exam Head Exam: NORMAL INSPECTION - Neck Exam Neck Exam: absent: Meningismus - Respiratory Exam Respiratory Exam: Decreased Breath Sounds - Cardiovascular Exam Cardiovascular Exam: +S1, +S2 - GI/Abdominal Exam GI & Abdominal Exam: Soft. 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
--- NOTE | 2017-08-28 15:44 | CP.PCM.CON ---
Addendum entered and electronically signed by Allan Campo DPM 08/31/17 14:07 : Correction: ABIs/PVRs ordered for left lower extremity- waiting final read Wound culture taken of left foot-pending Original Note: <Allan Campo - Last Filed: 08/28/17 15:29> History of Present Illness - History of Present Illness History of Present Illness: Podiatry Consult Note- Dr. Solis 61 year old male patient with right BKA seen and evaluated for left ankle ulceration with cellulitis Patient was seen in [facility] [place] by Dr. Solis on 08/26/17 and was told to go to the ED for further evaluation and treatment for left ankle ulcer with cellulites. Patient reports that the ulcer started as a blister from wearing shoes and became a ulcer. Patient reports severe pain with pressure. Denies nausea, vomiting, shortness of breath, chest pain or chills. No other pedal complaints at this time. Past Patient History - Infectious Disease Hx of Infectious Diseases: None - Past Medical History & Family History Past Medical History?: Yes - Past Social History Smoking Status: Never Smoked - CARDIAC Hx Cardiac Disorders: Yes (STENT L LEG) Hx Congestive Heart Failure: No Hx Hypertension: No - PULMONARY Hx Chronic Obstructive Pulmonary Disease (COPD): No - NEUROLOGICAL HX Cerebrovascular Accident: No - HEENT Hx HEENT Problems: Yes Hx Blind: No Hx Cataracts: Yes Hx Deafness: No Hx Difficulty Chewing: No Hx Epistaxis: No Hx Glaucoma: No Hx Macular Degeneration: No - RENAL Hx Renal Failure: No - ENDOCRINE/METABOLIC Hx Diabetes Mellitus Type 1: No Hx Diabetes Mellitus Type 2: Yes Hx Hypothyroidism: No - HEMATOLOGICAL/ONCOLOGICAL Hx Blood Transfusions: No Hx Blood Transfusion Reaction: No - INTEGUMENTARY Hx Dermatological Problems: Yes Hx Psoriasis: Yes Other/Comment: INFECTED CHRONIC NECROTIC RIGHT HEEL,EXPOSED CALCANEUS.PLAN OF SKIN GRAFT DEBRIDEMENT. RIGHT PICC LINE. - MUSCULOSKELETAL/RHEUMATOLOGICAL Hx Arthritis: Yes - GASTROINTESTINAL Hx Gastrointestinal Disorders: No Hx Colostomy: No Hx Crohn's Disease: No Hx Diverticulitis: No Hx Gall Bladder Disease: No Hx Gastroesophageal Reflux: No Hx Ileostomy: No Hx Liver Failure: No Hx Pancreatitis: No HX Swallowing Problems: No - GENITOURINARY/GYNECOLOGICAL Hx Genitourinary Disorders: No Hx Hematuria: No Hx Incontinence: No Hx Prostate Problems: No Hx Sexually Transmitted Disorders: No Hx Urinary Tract Infection: No - PSYCHIATRIC Hx Emotional Abuse: No Hx Physical Abuse: No Hx Substance Use: No - SURGICAL HISTORY Hx Mastectomy: No Hx Orthopedic Surgery: Yes (right foot amputation) - ANESTHESIA Hx Anesthesia Reactions: No Hx Malignant Hyperthermia: No Meds Allergies/Adverse Reactions: Allergies Allergy/AdvReac Type Severity Reaction Status Date / Time vancomycin AdvReac ITCHING Verified 08/27/17 10:09 - Medications Medications: Current Medications Dextrose (Dextrose 50% Inj) 0 ml IV STAT PRN; Protocol PRN Reason: Hypoglycemia Protocol Gabapentin (Neurontin) 400 mg PO TID [facility] PRN Reason: Protocol Last Admin: 08/28/17 09:04 Dose: 400 mg Glimepiride (Amaryl) 4 mg PO BID [facility] Last Admin: 08/28/17 09:04 Dose: 4 mg Ceftaroline Fosamil 400 mg/ (Sodium Chloride) 100 mls @ 100 mls/hr IVPB Q12 [facility] PRN Reason: Protocol Stop: 09/03/17 22:01 Last Admin: 08/28/17 09:02 Dose: 100 mls/hr Dextrose (Dextrose 5% In Water 1000 Ml) 1,000 mls @ 0 mls/hr IV .Q0M PRN; Protocol; Per Protocol PRN Reason: Hypoglycemia Protocol Insulin Detemir (Levemir) 20 unit SC HS [facility] Last Admin: 08/27/17 22:07 Dose: Not Given Insulin Human Lispro (Humalog Med) 0 units SC [facility] PRN Reason: Protocol Last Admin: 08/28/17 12:08 Dose: Not Given Lisinopril (Zestril) 10 mg PO DAILY [facility] Last Admin: 08/28/17 09:05 Dose: 10 mg Metformin HCl (Glucophage) 1,000 mg PO BID [facility] Last Admin: 08/28/17 09:04 Dose: 1,000 mg Metoprolol Tartrate (Lopressor) 25 mg PO BID [facility] Last Admin: 08/28/17 09:05 Dose: 25 mg Oxychlorosene Sodium (Clorpactin Wcs-90) 2 gm TOP DAILY [facility] Oxycodone/Acetaminophen (Percocet 5/325 Mg Tab) 1 tab PO Q6H PRN PRN Reason: Pain, moderate (4-7) Stop: 08/30/17 12:46 Pantoprazole Sodium (Protonix Ec Tab) 40 mg PO 0630 [facility] Last Admin: 08/28/17 05:46 Dose: Not Given Silver Sulfadiazine (Silvadene 1% 25 Gm) 2 gm TP DAILY [facility] Physical Exam - Constitutional Appears: Well, Non-toxic, No Acute Distress - Extremities Exam Extremities exam: Negative for: calf tenderness Additional comments: Right BKA Left lower extremity exam: Vasc: DP/PT pulses are faintly palpable 1/4. Temperature gradient cool to cool. CFT delayed but present to all digits x4. Derm: Ulceration noted at the lateral posterior heel measuring approximately 0.9 x 0.6 x 0.9cm, ulceration probes deep to bone, erythema, mild serosanguinous drainage noted, mild malodor, no purulence, no fluctuance, no undermining. Neuro: Protective sensation absent, gross sensation diminished Ortho: Severe pain with palpation to periwound. Previous hallux amputation completely healed - Psychiatric Exam Psychiatric exam: Normal Affect, Normal Mood Results - Vital Signs Recent Vital Signs: Last Vital Signs Temp 98.1 F 08/28/17 06:00 Pulse 80 08/28/17 06:00 Resp 20 08/28/17 06:00 BP 104/54 L 08/28/17 06:00 Pulse Ox 96 08/28/17 06:00 - Labs Result Diagrams: 08/27/17 11:24 08/27/17 11:24 Labs: Laboratory Results - last 24 hr 08/27/17 08/28/17 08/28/17 22:05 08:01 11:52 POC Glucose (mg/dL) 162 H 115 H 147 H Assessment & Plan - Assessment and Plan (Free Text) Assessment: 61 year old male patient with right BKA seen and evaluated for left foot ulceration with cellulitis Plan: Patient seen and evaluated Discussed plan with attending Dr. Duncan Afebrile, leukocytosis WBC=13.8, trended down from 14.5 X-rays-no evidence of acute OM MRI ordered to r/o abscess, r/o OM ABIs/PVRs ordered for right lower extremity- waiting final read Wound culture taken of right foot-pending C/w IV abx per ID- Ceftaroline Cleansed ulceration with copious amounts of clorpactin mixed saline solution Applied silvadene to ulceration, and dressed with dsd, abd, kerlix Podiatry will continue to follow while in house Thank you for allowing us to participate in patient;'s care <Burke Duncan - Last Filed: 09/01/17 11:20> Meds - Medications Medications: Current Medications Dextrose (Dextrose 50% Inj) 0 ml IV STAT PRN; Protocol PRN Reason: Hypoglycemia Protocol Gabapentin (Neurontin) 400 mg PO TID [facility] PRN Reason: Protocol Last Admin: 09/01/17 10:45 Dose: 400 mg Glimepiride (Amaryl) 4 mg PO BID [facility] Last Admin: 09/01/17 10:46 Dose: 4 mg Hydromorphone HCl (Dilaudid) 1 mg IVP Q4H PRN PRN Reason: Pain, severe (8-10) Last Admin: 09/01/17 08:02 Dose: 1 mg Ceftaroline Fosamil 400 mg/ (Sodium Chloride) 100 mls @ 100 mls/hr IVPB Q12 [facility] PRN Reason: Protocol Stop: 09/03/17 22:01 Last Admin: 09/01/17 10:50 Dose: 100 mls/hr Dextrose (Dextrose 5% In Water 1000 Ml) 1,000 mls @ 0 mls/hr IV .Q0M PRN; Protocol; Per Protocol PRN Reason: Hypoglycemia Protocol Insulin Detemir (Levemir) 20 unit SC HS [facility] Last Admin: 08/31/17 21:32 Dose: Not Given Insulin Human Lispro (Humalog Med) 0 units SC ACHS [facility] PRN Reason: Protocol Last Admin: 09/01/17 07:33 Dose: Not Given Lisinopril (Zestril) 10 mg PO DAILY [facility] Last Admin: 09/01/17 10:47 Dose: 10 mg Metformin HCl (Glucophage) 1,000 mg PO BID [facility] Last Admin: 09/01/17 10:46 Dose: 1,000 mg Metoprolol Tartrate (Lopressor) 25 mg PO BID [facility] Last Admin: 09/01/17 10:47 Dose: 25 mg Oxychlorosene Sodium (Clorpactin Wcs-90) 2 gm TOP DAILY [facility] Last Admin: 08/31/17 12:30 Dose: 2 gm Oxycodone/Acetaminophen (Percocet 5/325 Mg Tab) 1 tab PO Q6H PRN PRN Reason: Pain, moderate (4-7) Stop: 09/03/17 12:56 Pantoprazole Sodium (Protonix Ec Tab) 40 mg PO 0630 [facility] Last Admin: 09/01/17 05:32 Dose: Not Given Silver Sulfadiazine (Silvadene 1% 25 Gm) 2 gm TP DAILY [facility] Last Admin: 08/31/17 12:33 Dose: 2 gm Results - Vital Signs Recent Vital Signs: Last Vital Signs Temp 98.3 F 08/31/17 23:20 Pulse 75 09/01/17 10:47 Resp 20 08/31/17 23:20 BP 123/75 09/01/17 10:47 Pulse Ox 98 08/31/17 23:20 - Labs Result Diagrams: 08/31/17 09:00 08/29/17 06:30 Labs: Laboratory Results - last 24 hr 08/29/17 08/29/17 08/29/17 11:23 16:12 18:43 POC Glucose (mg/dL) 184 H 75 121 H 08/29/17 08/30/17 08/30/17 21:40 02:49 06:39 POC Glucose (mg/dL) 69 81 82 08/30/17 08/30/17 08/30/17 10:55 15:59 21:14 POC Glucose (mg/dL) 98 156 H 81 08/31/17 08/31/17 08/31/17 06:30 11:14 15:58 POC Glucose (mg/dL) 102 151 H 125 H 08/31/17 09/01/17 09/01/17 21:30 06:36 10:57 POC Glucose (mg/dL) 125 H 127 H 191 H Attending/Attestation - Attestation I have personally seen and examined this patient.: Yes I have fully participated in the care of the patient.: Yes I have reviewed all pertinent clinical information: Yes
[2017-08-28] MEDS: Silver Sulfadiazine 1% Cream (25 gm) TP SCH (16:40)
[2017-08-28] MEDS: Insulin Detemir 100 units/ml Vial (Levemir) SC SCH (21:56)
[2017-08-29] MEDS ORDERED: Morphine 2 mg/ml ISec IVP ONE (02:58)
[2017-08-29 07:02] LABS: HEMOGLOBIN 13.2 g/dL (14.0-18.0); MEAN CELL VOLUME 79.3 fl (80.0-105.0); MEAN CORPUSCULAR HEMOGLOBIN 26.2 pg (25.0-35.0); MEAN CORPUSCULAR HGB CONC 33.1 g/dl (31.0-37.0); RBC 5.03 10^6/uL (3.5-6.1); RED CELL DISTRIBUTION WIDTH 13.8 % (11.5-14.5); WHITE BLOOD COUNT 15.3 10^3/ul (4.5-11.0)
[2017-08-29 08:06] LABS: ALBUMIN 3.6 g/dL (3.0-4.8); BLOOD UREA NITROGEN 12 mg/dL (7-21); CALCIUM 8.5 mg/dL (8.4-10.5); GFR AFRICAN-AMERICAN > 60; GFR NON-AFRICAN AMERICAN > 60
[2017-08-29 08:07] LABS: ALB/GLOB RATIO 1.2 (1.1-1.8); ALT/SGPT 22 U/L (7-56); AST/SGOT 33 U/L (17-59)
[2017-08-29] MEDS: Pantoprazole 40 mg EC Tab PO SCH (08:13)
[2017-08-29] MEDS: Insulin Lispro (humaLOG) MEDIUM Coverage SC SCH ×3 (09:28→17:20)
[2017-08-29] MEDS: Silver Sulfadiazine 1% Cream (25 gm) TP SCH (09:29)
[2017-08-29] MEDS: Oxychlorosene Topical 2 gm Packet TOP SCH (09:30)
[2017-08-29] MEDS ORDERED: Oxychlorosene Topical 2 gm Packet TOP SCH (10:00)
--- NOTE | 2017-08-29 11:28 | CP.PCM.PN ---
Addendum entered and electronically signed by Allan Campo DPM 08/31/17 14:08 : Correction: ABIs/PVRs ordered for left lower extremity- peripheral arterial disease, waiting final read Wound culture taken of left foot-pending Original Note: <Cierra Ariza - Last Filed: 08/29/17 16:39> Subjective - Date & Time of Evaluation Date of Evaluation: 08/29/17 Time of Evaluation: 11:25 - Subjective Subjective: Podiatry Progress Note- Dr. Duncan 61 year old male patient with right BKA seen and evaluated for left ankle ulceration with cellulitis. Patient is seen resting comfortably and in NAD. Patient is AAO x3. Patient reports severe pain with pressure. Denies nausea, vomiting, shortness of breath, chest pain or chills. Denies any overnight acute events. No other pedal complaints at this time. Patient states he is unable to lay flat due to back pain and therefore refuses to get an MRI. Objective - Vital Signs/Intake and Output Vital Signs (last 24 hours): Temp Pulse Resp BP Pulse Ox 98.3 F 81 20 123/73 97 08/29/17 08:42 08/29/17 09:28 08/29/17 08:42 08/29/17 09:28 08/29/17 08:42 - Medications Medications: Current Medications Dextrose (Dextrose 50% Inj) 0 ml IV STAT PRN; Protocol PRN Reason: Hypoglycemia Protocol Gabapentin (Neurontin) 400 mg PO TID [facility] PRN Reason: Protocol Last Admin: 08/29/17 09:26 Dose: 400 mg Glimepiride (Amaryl) 4 mg PO BID [facility] Last Admin: 08/29/17 09:26 Dose: 4 mg Ceftaroline Fosamil 400 mg/ (Sodium Chloride) 100 mls @ 100 mls/hr IVPB Q12 [facility] PRN Reason: Protocol Stop: 09/03/17 22:01 Last Admin: 08/29/17 09:30 Dose: 100 mls/hr Dextrose (Dextrose 5% In Water 1000 Ml) 1,000 mls @ 0 mls/hr IV .Q0M PRN; Protocol; Per Protocol PRN Reason: Hypoglycemia Protocol Insulin Detemir (Levemir) 20 unit SC [facility] Last Admin: 08/28/17 21:56 Dose: Not Given Insulin Human Lispro (Humalog Med) 0 units SC ACHS [facility] PRN Reason: Protocol Last Admin: 08/29/17 09:28 Dose: Not Given Lisinopril (Zestril) 10 mg PO DAILY [facility] Last Admin: 08/29/17 09:26 Dose: 10 mg Metformin HCl (Glucophage) 1,000 mg PO BID [facility] Last Admin: 08/29/17 09:26 Dose: 1,000 mg Metoprolol Tartrate (Lopressor) 25 mg PO BID [facility] Last Admin: 08/29/17 09:28 Dose: 25 mg Oxychlorosene Sodium (Clorpactin Wcs-90) 2 gm TOP DAILY [facility] Last Admin: 08/29/17 09:30 Dose: 2 gm Oxycodone/Acetaminophen (Percocet 5/325 Mg Tab) 1 tab PO Q6H PRN PRN Reason: Pain, moderate (4-7) Stop: 08/30/17 12:46 Pantoprazole Sodium (Protonix Ec Tab) 40 mg PO 0630 [facility] Last Admin: 08/29/17 08:13 Dose: Not Given Silver Sulfadiazine (Silvadene 1% 25 Gm) 2 gm TP DAILY [facility] Last Admin: 08/29/17 09:29 Dose: 2 gm - Labs Labs: 08/29/17 06:30 08/29/17 06:30 - Constitutional Appears: Well, Non-toxic, No Acute Distress - Head Exam Head Exam: ATRAUMATIC, NORMOCEPHALIC - Extremities Exam Additional comments: Right BKA Left lower extremity exam: Vasc: DP/PT pulses are faintly palpable 1/4. Temperature gradient cool to cool. CFT delayed but present to all digits x4. Derm: Ulceration noted at the lateral posterior heel measuring approximately 0.9 x 0.6 x 0.9cm, ulceration probes deep to bone, minimal erythema noted periwound, minimal serosanguinous drainage noted, no malodor, no fluctuance, no undermining noted. Due to patient noncompliance, unable to assess whether pus can be expressed from the wound. Neuro: Protective sensation absent, gross sensation diminished Ortho: Severe pain with palpation to periwound. Previous hallux amputation completely healed - Neurological Exam Neurological Exam: Alert, Awake, Oriented x3 Assessment and Plan - Assessment and Plan (Free Text) Assessment: 61 year old male patient with right BKA seen and evaluated for left foot ulceration with cellulitis Plan: Patient seen and evaluated Discussed plan with attending Dr. Duncan Charts, labs and vitals reviewed; Afebrile, WBC: 15.3 from 13.8 X-rays-no evidence of acute OM MRI ordered to r/o abscess, r/o OM: patient refuses to have MRI done on him due to back pain. Soft tissue ultrasound ordered to rule out abscess in the left ankle or foot Stat CBC ordered. ABIs/PVRs ordered for right lower extremity- peripheral arterial disease, waiting final read Wound culture taken of right foot-pending C/w IV abx per ID- Ceftaroline Cleansed ulceration with copious amounts of cloropactin mixed saline solution Applied silvadene to ulceration, and dressed with ABD, and DSD. Podiatry will continue to follow while in house <Burke Duncan - Last Filed: 09/01/17 11:18> Objective - Vital Signs/Intake and Output Vital Signs (last 24 hours): Temp Pulse Resp BP Pulse Ox 98.3 F 75 20 123/75 98 08/31/17 23:20 09/01/17 10:47 08/31/17 23:20 09/01/17 10:47 08/31/17 23:20 Intake and Output: 09/01/17 09/01/17 06:59 18:59 Intake Total 600 Output Total 750 Balance -150 - Medications Medications: Current Medications Dextrose (Dextrose 50% Inj) 0 ml IV STAT PRN; Protocol PRN Reason: Hypoglycemia Protocol Gabapentin (Neurontin) 400 mg PO TID [facility] PRN Reason: Protocol Last Admin: 09/01/17 10:45 Dose: 400 mg Glimepiride (Amaryl) 4 mg PO BID [facility] Last Admin: 09/01/17 10:46 Dose: 4 mg Hydromorphone HCl (Dilaudid) 1 mg IVP Q4H PRN PRN Reason: Pain, severe (8-10) Last Admin: 09/01/17 08:02 Dose: 1 mg Ceftaroline Fosamil 400 mg/ (Sodium Chloride) 100 mls @ 100 mls/hr IVPB Q12 [facility] PRN Reason: Protocol Stop: 09/03/17 22:01 Last Admin: 09/01/17 10:50 Dose: 100 mls/hr Dextrose (Dextrose 5% In Water 1000 Ml) 1,000 mls @ 0 mls/hr IV .Q0M PRN; Protocol; Per Protocol PRN Reason: Hypoglycemia Protocol Insulin Detemir (Levemir) 20 unit SC HS [facility] Last Admin: 08/31/17 21:32 Dose: Not Given Insulin Human Lispro (Humalog Med) 0 units SC ACHS [facility] PRN Reason: Protocol Last Admin: 09/01/17 07:33 Dose: Not Given Lisinopril (Zestril) 10 mg PO DAILY [facility] Last Admin: 09/01/17 10:47 Dose: 10 mg Metformin HCl (Glucophage) 1,000 mg PO BID [facility] Last Admin: 09/01/17 10:46 Dose: 1,000 mg Metoprolol Tartrate (Lopressor) 25 mg PO BID [facility] Last Admin: 09/01/17 10:47 Dose: 25 mg Oxychlorosene Sodium (Clorpactin Wcs-90) 2 gm TOP DAILY [facility] Last Admin: 08/31/17 12:30 Dose: 2 gm Oxycodone/Acetaminophen (Percocet 5/325 Mg Tab) 1 tab PO Q6H PRN PRN Reason: Pain, moderate (4-7) Stop: 09/03/17 12:56 Pantoprazole Sodium (Protonix Ec Tab) 40 mg PO 0630 [facility] Last Admin: 09/01/17 05:32 Dose: Not Given Silver Sulfadiazine (Silvadene 1% 25 Gm) 2 gm TP DAILY [facility] Last Admin: 08/31/17 12:33 Dose: 2 gm - Labs Labs: 08/31/17 09:00 08/29/17 06:30 Attending/Attestation - Attestation I have personally seen and examined this patient.: Yes I have fully participated in the care of the patient.: Yes I have reviewed all pertinent clinical information, including history, physical exam and plan: Yes
--- NOTE | 2017-08-29 15:39 | PN ---
DATE: 08/29/2017 SUBJECTIVE: The patient is seen earlier in 567, bed 2. No fevers or chills. No nausea. PHYSICAL EXAMINATION: VITAL SIGNS: Temperature of 97.8, blood pressure is 112/60, respiratory rate of 18. HEENT: Unremarkable. NECK: Supple. LUNGS: Have decreased breath sounds. HEART: Normal S1 and S2. ABDOMEN: Soft, nontender. LABORATORY DATA: Reveals a white count of 15,300, hemoglobin of 13. BUN of 12, creatinine of 0.7. Blood cultures are no growth. Left foot culture is pending. ASSESSMENT AND PLAN: A 62-year-old male with left foot infected ulcer, history of a right foot heel osteomyelitis in a diabetic. On Teflaro day #3. Pending culture results. Review of orders confirms the patient's Teflaro to be effective. Rakesh Bautista MD
[2017-08-29 21:06] LABS: HEMOGLOBIN 13.7 g/dL (14.0-18.0); MEAN CORPUSCULAR HEMOGLOBIN 26.9 pg (25.0-35.0); MEAN CORPUSCULAR HGB CONC 34.1 g/dl (31.0-37.0); RBC 5.09 10^6/uL (3.5-6.1); RED CELL DISTRIBUTION WIDTH 13.6 % (11.5-14.5); WHITE BLOOD COUNT 15.2 10^3/ul (4.5-11.0)
[2017-08-29] MEDS ORDERED: Morphine 2 mg/ml ISec IVP STA (22:29)
[2017-08-30] MEDS: Pantoprazole 40 mg EC Tab PO SCH (05:38)
[2017-08-30 07:48] LABS: HEMOGLOBIN 13.3 g/dL (14.0-18.0); MEAN CORPUSCULAR HEMOGLOBIN 26.5 pg (25.0-35.0); MEAN CORPUSCULAR HGB CONC 33.2 g/dl (31.0-37.0); MEAN PLATELET VOLUME 10.5 fl (7.0-11.0); RBC 5.01 10^6/uL (3.5-6.1); RED CELL DISTRIBUTION WIDTH 13.7 % (11.5-14.5)
[2017-08-30] MEDS: Oxychlorosene Topical 2 gm Packet TOP SCH (09:29)
[2017-08-30] MEDS: Insulin Lispro (humaLOG) MEDIUM Coverage SC SCH ×4 (09:30→22:00)
[2017-08-30] MEDS: Silver Sulfadiazine 1% Cream (25 gm) TP SCH (09:31)
--- NOTE | 2017-08-30 12:35 | US ---
PROCEDURE: Lower extremity MAURO exam HISTORY: Severe peripheral vascular disease. Diabetes. Smoker. Previous right BKA. Left foot ulcer. PHYSICIAN(S): Nir Paez MD. FINDINGS: The left resting MAURO is moderately abnormal, 0.60. The brachial systolic pressures are symmetric. The high thigh pressures and waveforms are relatively normal. The left calf PVR waveform does not augment. There is a 37 mm gradient across the left thigh. This is consistent with left SFA occlusive disease. The left ankle and metatarsal waveforms are moderately blunted. This is consistent with left tibial occlusive disease. IMPRESSION: 1. Moderately abnormal left MAURO at rest. 2. Left SFA occlusive disease. 3. Left tibial occlusive disease.
--- NOTE | 2017-08-30 14:31 | PN ---
DATE: 08/30/2017 SUBJECTIVE: The patient is in bed, seen early this morning, in no acute distress, nontoxic. PHYSICAL EXAMINATION: VITAL SIGNS: Temperature is 97, blood pressure is 120/70, respiratory rate of 20. HEENT: Examination of HEENT is unremarkable. NECK: Supple. LUNGS: Have decreased breath sounds. HEART: Normal S1, S2. ABDOMEN: Soft, nontender. LABORATORY DATA: Laboratory examination reveals the patient has coag-negative Staph in the foot, but this is a light growth. Blood cultures are reported to be negative. The patient had an ultrasound of the extremity, which revealed. Moderately abnormal left MAURO at rest. There is a left SFA occlusive disease, left tibial occlusive disease. The patient has refused an MRI. Currently, the patient is ceftaroline with sed rate of 29 and C-reactive protein is elevated at 30. ASSESSMENT AND PLAN: A 62-year-old male with left foot infected ulcer and history of right foot heel osteomyelitis, on Teflaro day #4 with coagulase-negative Staphylococcus from the culture, most likely a contamination, not a true pathogen with the patient's white count remains elevated at 15,000 with an elevated sedimentation rate and elevated C-reactive protein. Refusing an MRI. Should consider a bone scan. Currently on Teflaro. Vascular consultation for vascular evaluation, podiatric evaluation and rule out underlying osteomyelitis. We will follow with you. Rakesh Bautista MD
--- NOTE | 2017-08-30 15:14 | CP.PCM.PN ---
<Cierra Ariza - Last Filed: 08/30/17 15:10> Subjective - Date & Time of Evaluation Date of Evaluation: 08/30/17 Time of Evaluation: 15:10 - Subjective Subjective: Podiatry Progress Note- Dr. Solis 61 year old male patient with right BKA seen and evaluated for left ankle ulceration with cellulitis. Patient is seen resting comfortably and in NAD. Patient is AAO x3. Patient reports severe pain with pressure. Denies nausea, vomiting, shortness of breath, chest pain or chills. Denies any overnight acute events. No other pedal complaints at this time. Patient states he is unable to lay flat due to back pain and therefore refuses to get an MRI. Patient states the ultrasound that was done in his groin was very uncomfortable and therefore would not like to get soft tissue ultra sound of the foot. Objective - Vital Signs/Intake and Output Vital Signs (last 24 hours): Temp Pulse Resp BP Pulse Ox 97.7 F 79 20 126/68 97 08/30/17 06:00 08/30/17 14:00 08/30/17 14:00 08/30/17 14:00 08/30/17 14:00 Intake and Output: 08/30/17 08/30/17 06:59 18:59 Intake Total 780 1180 Output Total 850 700 Balance -70 480 - Medications Medications: Current Medications Dextrose (Dextrose 50% Inj) 0 ml IV STAT PRN; Protocol PRN Reason: Hypoglycemia Protocol Gabapentin (Neurontin) 400 mg PO TID [facility] PRN Reason: Protocol Last Admin: 08/30/17 13:10 Dose: 400 mg Glimepiride (Amaryl) 4 mg PO BID [facility] Last Admin: 08/30/17 09:28 Dose: 4 mg Ceftaroline Fosamil 400 mg/ (Sodium Chloride) 100 mls @ 100 mls/hr IVPB Q12 [facility] PRN Reason: Protocol Stop: 09/03/17 22:01 Last Admin: 08/30/17 09:28 Dose: 100 mls/hr Dextrose (Dextrose 5% In Water 1000 Ml) 1,000 mls @ 0 mls/hr IV .Q0M PRN; Protocol; Per Protocol PRN Reason: Hypoglycemia Protocol Insulin Detemir (Levemir) 20 unit SC [facility] Last Admin: 08/28/17 21:56 Dose: Not Given Insulin Human Lispro (Humalog Med) 0 units SC ACHS [facility] PRN Reason: Protocol Last Admin: 08/30/17 13:10 Dose: Not Given Lisinopril (Zestril) 10 mg PO DAILY [facility] Last Admin: 08/30/17 09:29 Dose: 10 mg Metformin HCl (Glucophage) 1,000 mg PO BID [facility] Last Admin: 08/30/17 09:28 Dose: 1,000 mg Metoprolol Tartrate (Lopressor) 25 mg PO BID [facility] Last Admin: 08/30/17 09:28 Dose: 25 mg Oxychlorosene Sodium (Clorpactin Wcs-90) 2 gm TOP DAILY [facility] Last Admin: 08/30/17 09:29 Dose: 2 gm Pantoprazole Sodium (Protonix Ec Tab) 40 mg PO 0630 [facility] Last Admin: 08/30/17 05:38 Dose: Not Given Silver Sulfadiazine (Silvadene 1% 25 Gm) 2 gm TP DAILY [facility] Last Admin: 08/30/17 09:31 Dose: 2 gm - Labs Labs: 08/30/17 07:00 08/29/17 06:30 - Constitutional Appears: Well, Non-toxic - Head Exam Head Exam: ATRAUMATIC, NORMOCEPHALIC - Extremities Exam Additional comments: Right BKA Left lower extremity exam: Vasc: DP/PT pulses are faintly palpable 1/4. Temperature gradient cool to cool. CFT delayed but present to all digits x4. Derm: Ulceration noted at the lateral posterior heel measuring approximately 0.9 x 0.6 x 0.9cm, ulceration probes deep to bone, minimal erythema noted periwound, minimal seroous drainage noted, no malodor, no fluctuance, no undermining noted. Due to patient noncompliance, unable to assess whether pus can be expressed from the wound. Neuro: Protective sensation absent, gross sensation diminished Ortho: Severe pain with palpation to periwound. Previous hallux amputation completely healed - Neurological Exam Neurological Exam: Alert, Awake, Oriented x3 - Psychiatric Exam Psychiatric exam: Normal Affect, Normal Mood Assessment and Plan - Assessment and Plan (Free Text) Assessment: 61 year old male patient with right BKA seen and evaluated for left ankle ulceration with resolving cellulitis Plan: Patient seen and evaluated Discussed plan with attending Dr. Solis Charts, labs and vitals reviewed; Afebrile, WBC: 15.3 from 13.8 X-rays-no evidence of acute OM MRI ordered to r/o abscess, r/o OM: patient refuses to have MRI done on him due to back pain. Soft tissue ultrasound ordered to rule out abscess in the left ankle or foot ; patient refuses ultrasound ABIs/PVRs ordered for right lower extremity- L sfa and tibial occlusive disease Wound culture taken of right foot-pending C/w IV abx per ID- Ceftaroline Cleansed ulceration with 5 cc of saline and clorpactin solution; unable to do more due to patient noncompliance Applied silvadene to ulceration, and dressed with ABD, and DSD. Podiatry will continue to follow while in house <Chantel Solis - Last Filed: 08/30/17 16:53> Objective - Vital Signs/Intake and Output Vital Signs (last 24 hours): Temp Pulse Resp BP Pulse Ox 97.7 F 79 20 126/68 97 08/30/17 06:00 08/30/17 14:00 08/30/17 14:00 08/30/17 14:00 08/30/17 14:00 Intake and Output: 08/30/17 08/30/17 06:59 18:59 Intake Total 780 1180 Output Total 850 700 Balance -70 480 - Medications Medications: Current Medications Dextrose (Dextrose 50% Inj) 0 ml IV STAT PRN; Protocol PRN Reason: Hypoglycemia Protocol Gabapentin (Neurontin) 400 mg PO TID [facility] PRN Reason: Protocol Last Admin: 08/30/17 13:10 Dose: 400 mg Glimepiride (Amaryl) 4 mg PO BID [facility] Last Admin: 08/30/17 09:28 Dose: 4 mg Ceftaroline Fosamil 400 mg/ (Sodium Chloride) 100 mls @ 100 mls/hr IVPB Q12 [facility] PRN Reason: Protocol Stop: 09/03/17 22:01 Last Admin: 08/30/17 09:28 Dose: 100 mls/hr Dextrose (Dextrose 5% In Water 1000 Ml) 1,000 mls @ 0 mls/hr IV .Q0M PRN; Protocol; Per Protocol PRN Reason: Hypoglycemia Protocol Insulin Detemir (Levemir) 20 unit SC [facility] Last Admin: 08/28/17 21:56 Dose: Not Given Insulin Human Lispro (Humalog Med) 0 units SC ACHS [facility] PRN Reason: Protocol Last Admin: 08/30/17 13:10 Dose: Not Given Lisinopril (Zestril) 10 mg PO DAILY [facility] Last Admin: 08/30/17 09:29 Dose: 10 mg Metformin HCl (Glucophage) 1,000 mg PO BID [facility] Last Admin: 08/30/17 09:28 Dose: 1,000 mg Metoprolol Tartrate (Lopressor) 25 mg PO BID [facility] Last Admin: 08/30/17 09:28 Dose: 25 mg Oxychlorosene Sodium (Clorpactin Wcs-90) 2 gm TOP DAILY [facility] Last Admin: 08/30/17 09:29 Dose: 2 gm Pantoprazole Sodium (Protonix Ec Tab) 40 mg PO 0630 [facility] Last Admin: 08/30/17 05:38 Dose: Not Given Silver Sulfadiazine (Silvadene 1% 25 Gm) 2 gm TP DAILY [facility] Last Admin: 08/30/17 09:31 Dose: 2 gm - Labs Labs: 08/30/17 07:00 08/29/17 06:30 Attending/Attestation - Attestation I have personally seen and examined this patient.: Yes I have fully participated in the care of the patient.: Yes I have reviewed all pertinent clinical information, including history, physical exam and plan: Yes
--- NOTE | 2017-08-30 19:31 | CP.PCM.PN ---
Subjective - Date & Time of Evaluation Date of Evaluation: 08/28/17 Time of Evaluation: 11:00 - Subjective Subjective: Admitted with left foot ulcer. He has DM II, controlled on current meds. PVD, s/p right foot BKA. Pain controlled with current meds. No fever, cough. Objective - Vital Signs/Intake and Output Vital Signs (last 24 hours): Temp Pulse Resp BP Pulse Ox 97.7 F 79 20 126/68 97 08/30/17 06:00 08/30/17 17:24 08/30/17 14:00 08/30/17 17:24 08/30/17 14:00 Intake and Output: 08/30/17 08/31/17 18:59 06:59 Intake Total 1180 Output Total 700 Balance 480 - Medications Medications: Current Medications Dextrose (Dextrose 50% Inj) 0 ml IV STAT PRN; Protocol PRN Reason: Hypoglycemia Protocol Gabapentin (Neurontin) 400 mg PO TID [facility] PRN Reason: Protocol Last Admin: 08/30/17 17:24 Dose: 400 mg Glimepiride (Amaryl) 4 mg PO BID [facility] Last Admin: 08/30/17 17:24 Dose: 4 mg Ceftaroline Fosamil 400 mg/ (Sodium Chloride) 100 mls @ 100 mls/hr IVPB Q12 [facility] PRN Reason: Protocol Stop: 09/03/17 22:01 Last Admin: 08/30/17 09:28 Dose: 100 mls/hr Dextrose (Dextrose 5% In Water 1000 Ml) 1,000 mls @ 0 mls/hr IV .Q0M PRN; Protocol; Per Protocol PRN Reason: Hypoglycemia Protocol Insulin Detemir (Levemir) 20 unit SC HS [facility] Last Admin: 08/28/17 21:56 Dose: Not Given Insulin Human Lispro (Humalog Med) 0 units SC ACHS [facility] PRN Reason: Protocol Last Admin: 08/30/17 17:17 Dose: 1 unit Lisinopril (Zestril) 10 mg PO DAILY [facility] Last Admin: 08/30/17 09:29 Dose: 10 mg Metformin HCl (Glucophage) 1,000 mg PO BID [facility] Last Admin: 08/30/17 17:24 Dose: 1,000 mg Metoprolol Tartrate (Lopressor) 25 mg PO BID [facility] Last Admin: 08/30/17 17:24 Dose: 25 mg Oxychlorosene Sodium (Clorpactin Wcs-90) 2 gm TOP DAILY [facility] Last Admin: 08/30/17 09:29 Dose: 2 gm Pantoprazole Sodium (Protonix Ec Tab) 40 mg PO 0630 [facility] Last Admin: 08/30/17 05:38 Dose: Not Given Silver Sulfadiazine (Silvadene 1% 25 Gm) 2 gm TP DAILY [facility] Last Admin: 08/30/17 09:31 Dose: 2 gm - Labs Labs: 08/30/17 07:00 08/29/17 06:30 - Constitutional Appears: Well, Non-toxic - Head Exam Head Exam: ATRAUMATIC, NORMAL INSPECTION, NORMOCEPHALIC - Eye Exam Pupil Exam: NORMAL ACCOMODATION - ENT Exam ENT Exam: Mucous Membranes Moist - Neck Exam Neck Exam: Normal Inspection - Respiratory Exam Respiratory Exam: Clear to Ausculation Bilateral, NORMAL BREATHING PATTERN - Cardiovascular Exam Cardiovascular Exam: REGULAR RHYTHM, +S1, +S2 - GI/Abdominal Exam GI & Abdominal Exam: Soft, Normal Bowel Sounds - Extremities Exam Extremities Exam: Normal Inspection - Back Exam Back Exam: NORMAL INSPECTION - Neurological Exam Neurological Exam: Alert, Awake, Oriented x3 - Skin Skin Exam: Normal Color, Warm Assessment and Plan - Assessment and Plan (Free Text) Assessment: 1. Left foot ulcer. Dr. Giraldo following. 2. ID : on IV antibiotics ceftaroline . Blood cultures negative. Wound culture pending. 3. Patient refusing MRI to r/o osteomyelitis due to chronic back pain. 4. Anemia, leukocytosis . likely due to chronic disease and cellulitis. discussed with Dr. Bello. Discussed with patient. He is asking to be discharged home and refusing any imaging on right foot. Advised that we need to continue IV antibiotics.
--- NOTE | 2017-08-30 19:37 | CP.PCM.PN ---
Subjective - Date & Time of Evaluation Date of Evaluation: 08/30/17 Time of Evaluation: 10:00 - Subjective Subjective: Comfortable in bed. No acute distress. No events overnight. Pain controlled with current meds. No fever. Declining MRI of the foot. Objective - Vital Signs/Intake and Output Vital Signs (last 24 hours): Temp Pulse Resp BP Pulse Ox 97.7 F 79 20 126/68 97 08/30/17 06:00 08/30/17 17:24 08/30/17 14:00 08/30/17 17:24 08/30/17 14:00 Intake and Output: 08/30/17 08/31/17 18:59 06:59 Intake Total 1180 Output Total 700 Balance 480 - Medications Medications: Current Medications Dextrose (Dextrose 50% Inj) 0 ml IV STAT PRN; Protocol PRN Reason: Hypoglycemia Protocol Gabapentin (Neurontin) 400 mg PO TID [facility] PRN Reason: Protocol Last Admin: 08/30/17 17:24 Dose: 400 mg Glimepiride (Amaryl) 4 mg PO BID [facility] Last Admin: 08/30/17 17:24 Dose: 4 mg Ceftaroline Fosamil 400 mg/ (Sodium Chloride) 100 mls @ 100 mls/hr IVPB Q12 [facility] PRN Reason: Protocol Stop: 09/03/17 22:01 Last Admin: 08/30/17 09:28 Dose: 100 mls/hr Dextrose (Dextrose 5% In Water 1000 Ml) 1,000 mls @ 0 mls/hr IV .Q0M PRN; Protocol; Per Protocol PRN Reason: Hypoglycemia Protocol Insulin Detemir (Levemir) [address] [facility] Last Admin: 08/28/17 21:56 Dose: Not Given Insulin Human Lispro (Humalog Med) 0 units SC [facility] PRN Reason: Protocol Last Admin: 08/30/17 17:17 Dose: 1 unit Lisinopril (Zestril) 10 mg PO DAILY [facility] Last Admin: 08/30/17 09:29 Dose: 10 mg Metformin HCl (Glucophage) 1,000 mg PO BID [facility] Last Admin: 08/30/17 17:24 Dose: 1,000 mg Metoprolol Tartrate (Lopressor) 25 mg PO BID [facility] Last Admin: 08/30/17 17:24 Dose: 25 mg Oxychlorosene Sodium (Clorpactin Wcs-90) 2 gm TOP DAILY [facility] Last Admin: 08/30/17 09:29 Dose: 2 gm Pantoprazole Sodium (Protonix Ec Tab) 40 mg PO 30 [facility] Last Admin: 08/30/17 05:38 Dose: Not Given Silver Sulfadiazine (Silvadene 1% 25 Gm) 2 gm TP DAILY [facility] Last Admin: 08/30/17 09:31 Dose: 2 gm - Labs Labs: 08/30/17 07:00 08/29/17 06:30 - Constitutional Appears: Well, Non-toxic - Head Exam Head Exam: ATRAUMATIC, NORMAL INSPECTION, NORMOCEPHALIC - Eye Exam Eye Exam: Normal appearance - ENT Exam ENT Exam: Mucous Membranes Moist, Normal Exam - Neck Exam Neck Exam: Normal Inspection - Respiratory Exam Respiratory Exam: Clear to Ausculation Bilateral, NORMAL BREATHING PATTERN - Cardiovascular Exam Cardiovascular Exam: REGULAR RHYTHM, +S1, +S2 - GI/Abdominal Exam GI & Abdominal Exam: Soft, Normal Bowel Sounds - Extremities Exam Additional comments: right BKA, left foot in dressing. - Back Exam Back Exam: NORMAL INSPECTION - Neurological Exam Neurological Exam: Alert, Awake, CN II-XII Intact, Oriented x3 - Skin Skin Exam: Normal Color, Warm Assessment and Plan - Assessment and Plan (Free Text) Assessment: 1. right foot cellulitis. IV ceftaroline as per ID. 2. r/o osteomyelitis. pt. refused MRI due to back pain. 3. Blood cultures negative. 4. Blood counts stable. leukocytois related to infection. 5. Podiatry following dressing changed. 6. Pain controlled with current meds.
[2017-08-30] MEDS: Insulin Detemir 100 units/ml Vial (Levemir) SC SCH (22:00)
[2017-08-30] MEDS ORDERED: Oxycodone/Acetaminophen 5/325 mg Tab PO ONE (23:37)
[2017-08-31] MEDS ORDERED: Morphine 2 mg/ml ISec IVP STA (00:18)
[2017-08-31] MEDS: Pantoprazole 40 mg EC Tab PO SCH (05:39)
[2017-08-31] MEDS: Insulin Lispro (humaLOG) MEDIUM Coverage SC SCH ×4 (07:41→21:32)
[2017-08-31 09:09] LABS: HEMOGLOBIN 14.8 g/dL (14.0-18.0); MEAN CELL VOLUME 80.7 fl (80.0-105.0); MEAN CORPUSCULAR HEMOGLOBIN 27.3 pg (25.0-35.0); MEAN CORPUSCULAR HGB CONC 33.8 g/dl (31.0-37.0); MEAN PLATELET VOLUME 10.5 fl (7.0-11.0); RBC 5.43 10^6/uL (3.5-6.1); RED CELL DISTRIBUTION WIDTH 13.7 % (11.5-14.5); WHITE BLOOD COUNT 15.4 10^3/ul (4.5-11.0)
[2017-08-31] MEDS: Oxychlorosene Topical 2 gm Packet TOP SCH (12:30)
[2017-08-31] MEDS: Silver Sulfadiazine 1% Cream (25 gm) TP SCH (12:33)
[2017-08-31] MEDS ORDERED: Oxycodone/Acetaminophen 5/325 mg Tab PO PRN (12:55)
--- NOTE | 2017-08-31 13:45 | CP.PCM.PN ---
Subjective - Date & Time of Evaluation Date of Evaluation: 08/31/17 Time of Evaluation: 13:30 - Subjective Subjective: Podiatry Progress Note- Dr. Solis 61 year old male patient with right BKA seen and evaluated for left ankle ulceration with cellulitis. WBC trends up to 15.4. Pt refuses MRI and still smoking. (+) pain with pressure. Denies nausea, vomiting, shortness of breath, chest pain or chills. Denies any overnight acute events. No other pedal complaints at this time. As per previous note, Patient states he is unable to lay flat due to back pain and therefore refuses to get an MRI. Patient states the ultrasound that was done in his groin was very uncomfortable and therefore would not like to get soft tissue ultra sound of the foot. Objective - Vital Signs/Intake and Output Vital Signs (last 24 hours): Temp Pulse Resp BP Pulse Ox 98.4 F 20 L 96 H 126/80 97 08/31/17 06:00 08/31/17 06:00 08/31/17 06:00 08/31/17 09:18 08/30/17 22:18 Intake and Output: 08/31/17 08/31/17 06:59 18:59 Intake Total 860 Output Total 875 Balance -15 - Medications Medications: Current Medications Dextrose (Dextrose 50% Inj) 0 ml IV STAT PRN; Protocol PRN Reason: Hypoglycemia Protocol Gabapentin (Neurontin) 400 mg PO TID [facility] PRN Reason: Protocol Last Admin: 08/31/17 09:15 Dose: 400 mg Glimepiride (Amaryl) 4 mg PO BID [facility] Last Admin: 08/31/17 09:16 Dose: 4 mg Ceftaroline Fosamil 400 mg/ (Sodium Chloride) 100 mls @ 100 mls/hr IVPB Q12 [facility] PRN Reason: Protocol Stop: 09/03/17 22:01 Last Admin: 08/31/17 09:17 Dose: 100 mls/hr Dextrose (Dextrose 5% In Water 1000 Ml) 1,000 mls @ 0 mls/hr IV .Q0M PRN; Protocol; Per Protocol PRN Reason: Hypoglycemia Protocol Insulin Detemir (Levemir) 20 unit SC HS [facility] Last Admin: 08/30/17 22:00 Dose: Not Given Insulin Human Lispro (Humalog Med) 0 units SC [facility] PRN Reason: Protocol Last Admin: 08/31/17 12:32 Dose: 1 unit Lisinopril (Zestril) 10 mg PO DAILY [facility] Last Admin: 08/31/17 09:18 Dose: 10 mg Metformin HCl (Glucophage) 1,000 mg PO BID [facility] Last Admin: 08/31/17 09:16 Dose: 1,000 mg Metoprolol Tartrate (Lopressor) 25 mg PO BID [facility] Last Admin: 08/31/17 09:18 Dose: 25 mg Oxychlorosene Sodium (Clorpactin Wcs-90) 2 gm TOP DAILY [facility] Last Admin: 08/31/17 12:30 Dose: 2 gm Oxycodone/Acetaminophen (Percocet 5/325 Mg Tab) 1 tab PO Q6H PRN PRN Reason: Pain, moderate (4-7) Stop: 09/03/17 12:56 Pantoprazole Sodium (Protonix Ec Tab) 40 mg PO 0630 [facility] Last Admin: 08/31/17 05:39 Dose: Not Given Silver Sulfadiazine (Silvadene 1% 25 Gm) 2 gm TP DAILY [facility] Last Admin: 08/31/17 12:33 Dose: 2 gm - Labs Labs: 08/31/17 09:00 08/29/17 06:30 - Constitutional Appears: No Acute Distress - Head Exam Head Exam: ATRAUMATIC, NORMAL INSPECTION, NORMOCEPHALIC - Eye Exam Eye Exam: EOMI, Normal appearance, PERRL. absent: Scleral icterus - ENT Exam ENT Exam: Mucous Membranes Moist - Extremities Exam Additional comments: Right BKA Left lower extremity exam: Vasc: DP/PT pulses are faintly palpable 1/4. Temperature gradient cool to cool. CFT delayed but present to all digits x4. Derm: Ulceration noted at the lateral posterior heel measuring approximately 0.9 x 0.6 x 0.9cm, ulceration probes deep to bone, minimal erythema noted periwound, (+) sinus track from heel to mid-lateral plantar plane (+) purulent drainage noted with abscess, no malodor, (+) undermining noted. Neuro: Protective sensation absent, gross sensation diminished. (+) pain upon deep palpation Ortho: Severe pain with palpation to periwound. Previous hallux amputation completely healed Assessment and Plan - Assessment and Plan (Free Text) Plan: Charts, labs and vitals reviewed; Afebrile, WBC ~ 15 x 3 days Physical exam: L heel, probe to bone X-rays-no evidence of acute OM MRI ordered to r/o abscess, r/o OM: patient refuses to have MRI done on him due to back pain. 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 I&D L heel by bedside (08/31) expressed 10cc purulent drainage, found foci of abscess, probe to bone Cleansed ulceration with clorpactin solution; dressed with ABD, with gauge soaked with clorpactin. DSD. Continue antibiotics 4-6 weeks for osteomyelitis of L heel because probe to bone Will notify Dr Wilkerson re: pt feeling mild nausea for teflaro. Not nausea per pt [employer] for smoking cessation Podiatry will continue to follow while in house Discussed with Dr. Ross, PMD PICC line (not midline) because of pt non-compliance s/r/d/w Dr. Solis
--- NOTE | 2017-08-31 14:39 | CP.PCM.PN ---
Subjective - Date & Time of Evaluation Date of Evaluation: 08/31/17 Time of Evaluation: 12:55 - Subjective Subjective: No fevers, not in distress, still with pain in the left foot but a little less. Refusing to go for MRI. Objective - Vital Signs/Intake and Output Vital Signs (last 24 hours): Temp Pulse Resp BP Pulse Ox 98.4 F 20 L 96 H 126/80 97 08/31/17 06:00 08/31/17 06:00 08/31/17 06:00 08/31/17 09:18 08/30/17 22:18 Intake and Output: 08/31/17 08/31/17 06:59 18:59 Intake Total 860 Output Total 875 Balance -15 - Medications Medications: Current Medications Dextrose (Dextrose 50% Inj) 0 ml IV STAT PRN; Protocol PRN Reason: Hypoglycemia Protocol Gabapentin (Neurontin) 400 mg PO TID [facility] PRN Reason: Protocol Last Admin: 08/31/17 09:15 Dose: 400 mg Glimepiride (Amaryl) 4 mg PO BID [facility] Last Admin: 08/31/17 09:16 Dose: 4 mg Ceftaroline Fosamil 400 mg/ (Sodium Chloride) 100 mls @ 100 mls/hr IVPB Q12 [facility] PRN Reason: Protocol Stop: 09/03/17 22:01 Last Admin: 08/31/17 09:17 Dose: 100 mls/hr Dextrose (Dextrose 5% In Water 1000 Ml) 1,000 mls @ 0 mls/hr IV .Q0M PRN; Protocol; Per Protocol PRN Reason: Hypoglycemia Protocol Insulin Detemir (Levemir) 20 unit SC [facility] Last Admin: 08/30/17 22:00 Dose: Not Given Insulin Human Lispro (Humalog Med) 0 units SC [facility] PRN Reason: Protocol Last Admin: 08/31/17 07:41 Dose: Not Given Lisinopril (Zestril) 10 mg PO DAILY [facility] Last Admin: 08/31/17 09:18 Dose: 10 mg Metformin HCl (Glucophage) 1,000 mg PO BID [facility] Last Admin: 08/31/17 09:16 Dose: 1,000 mg Metoprolol Tartrate (Lopressor) 25 mg PO BID [facility] Last Admin: 08/31/17 09:18 Dose: 25 mg Oxychlorosene Sodium (Clorpactin Wcs-90) 2 gm TOP DAILY [facility] Last Admin: 08/30/17 09:29 Dose: 2 gm Pantoprazole Sodium (Protonix Ec Tab) 40 mg PO 30 [facility] Last Admin: 08/31/17 05:39 Dose: Not Given Silver Sulfadiazine (Silvadene 1% 25 Gm) 2 gm TP DAILY [facility] Last Admin: 08/30/17 09:31 Dose: 2 gm - Labs Labs: 08/31/17 09:00 08/29/17 06:30 - Constitutional Appears: Non-toxic, Chronically Ill - Head Exam Head Exam: NORMAL INSPECTION - Respiratory Exam Respiratory Exam: Decreased Breath Sounds - Cardiovascular Exam Cardiovascular Exam: +S1, +S2 - GI/Abdominal Exam GI & Abdominal Exam: Soft. 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 Ross follow up further plans of Podiatry will continue to monitor clinically
--- NOTE | 2017-08-31 17:26 | PN ---
DATE: 08/31/2017 SUBJECTIVE: The patient is 62 years old, seen and examined, lying in bed, seems to be comfortable, refusing arterial sonogram, refusing MRI for his left foot, eating and tolerating. PHYSICAL EXAMINATION: VITAL SIGNS: He is afebrile, pulse 76, respirations 20, blood pressure 125/79. LUNGS: Bilateral good airflow. No rhonchi or crackle. HEART: S1 and S2 audible. ABDOMEN: Soft, nontender. No rebound. No guarding. NEUROLOGIC: He is awake, alert, oriented, and communicative. EXTREMITIES: Moves all extremities. He is status post right BKA. He is status post left big toe amputation. LABORATORY EXAMINATION: Hemoglobin 14, hematocrit 43. Chemistry: Blood sugar is 151. ASSESSMENT: 1. Left heel ulcer on the lateral aspect, below ankle. 2. Insulin-dependent diabetes. 3. Hypertension. 4. Severe peripheral vascular disease. 5. Hyperlipidemia. 6. Status post right below knee amputation. PLAN: So, currently, the patient is on Teflaro. He is refusing to have MRI done. Speak to Dr. Solis for the duration of antibiotic. Continue local wound care. Monitor his blood sugar closely. Analgesics as needed. Stacey Ross MD
[2017-08-31 19:17] VITALS: RESP 20; TEMP 98.3
[2017-08-31] MEDS: Insulin Detemir 100 units/ml Vial (Levemir) SC SCH (21:32)
[2017-08-31 23:20] VITALS: O2SAT 98
[2017-09-01] MEDS: Pantoprazole 40 mg EC Tab PO SCH (05:32)
[2017-09-01] MEDS: Insulin Lispro (humaLOG) MEDIUM Coverage SC SCH ×3 (07:33→16:58)
[2017-09-01] MEDS ORDERED: HYDROmorphone 1 mg/ml ISec IVP PRN (07:42)
[2017-09-01 10:48] VITALS: PULSE 75
--- NOTE | 2017-09-01 11:16 | RAD ---
Date of service: 09/01/2017 HISTORY: CONFIRM PICC LINE PLACEMENT COMPARISON: 04/07/2017 FINDINGS: LUNGS: No active pulmonary disease. PLEURA: No significant pleural effusion identified, no pneumothorax apparent. CARDIOVASCULAR: Normal. OSSEOUS STRUCTURES: No significant abnormalities. VISUALIZED UPPER ABDOMEN: Normal. OTHER FINDINGS: None. IMPRESSION: No active disease.
[2017-09-01 12:42] LABS: HEMOGLOBIN 13.5 g/dL (14.0-18.0); MEAN CORPUSCULAR HEMOGLOBIN 26.9 pg (25.0-35.0); MEAN CORPUSCULAR HGB CONC 33.7 g/dl (31.0-37.0); MEAN PLATELET VOLUME 10.1 fl (7.0-11.0); RBC 5.01 10^6/uL (3.5-6.1); RED CELL DISTRIBUTION WIDTH 13.7 % (11.5-14.5); WHITE BLOOD COUNT 13.4 10^3/ul (4.5-11.0)
--- NOTE | 2017-09-01 14:25 | CP.PCM.PN ---
<Allan Campo - Last Filed: 09/01/17 14:52> Subjective - Date & Time of Evaluation Date of Evaluation: 09/01/17 Time of Evaluation: 13:00 - Subjective Subjective: Podiatry Progress Note- Dr. Solis/Dr. Duncan 61 year old male patient with right BKA seen and evaluated for left ankle ulceration with 1 day s/p i and d of left heel abscess. Patient is seen resting comfortably, in NAD, and AA0x3. Pt refuses MRI and still smoking. (+) pain with pressure. Denies nausea, vomiting, shortness of breath, chest pain or chills. No other pedal complaints at this time. Objective - Vital Signs/Intake and Output Vital Signs (last 24 hours): Temp Pulse Resp BP Pulse Ox 98.3 F 75 20 123/75 98 08/31/17 23:20 09/01/17 10:47 08/31/17 23:20 09/01/17 10:47 08/31/17 23:20 Intake and Output: 09/01/17 09/01/17 06:59 18:59 Intake Total 600 Output Total 750 Balance -150 - Medications Medications: Current Medications Dextrose (Dextrose 50% Inj) 0 ml IV STAT PRN; Protocol PRN Reason: Hypoglycemia Protocol Gabapentin (Neurontin) 400 mg PO TID [facility] PRN Reason: Protocol Last Admin: 09/01/17 13:33 Dose: 400 mg Glimepiride (Amaryl) 4 mg PO BID [facility] Last Admin: 09/01/17 10:46 Dose: 4 mg Hydromorphone HCl (Dilaudid) 1 mg IVP Q4H PRN PRN Reason: Pain, severe (8-10) Last Admin: 09/01/17 08:02 Dose: 1 mg Ceftaroline Fosamil 400 mg/ (Sodium Chloride) 100 mls @ 100 mls/hr IVPB Q12 [facility] PRN Reason: Protocol Stop: 09/03/17 22:01 Last Admin: 09/01/17 10:50 Dose: 100 mls/hr Dextrose (Dextrose 5% In Water 1000 Ml) 1,000 mls @ 0 mls/hr IV .Q0M PRN; Protocol; Per Protocol PRN Reason: Hypoglycemia Protocol Insulin Detemir (Levemir) 20 unit SC [facility] Last Admin: 08/31/17 21:32 Dose: Not Given Insulin Human Lispro (Humalog Med) 0 units SC [facility] PRN Reason: Protocol Last Admin: 09/01/17 11:48 Dose: 1 unit Lisinopril (Zestril) 10 mg PO DAILY [facility] Last Admin: 09/01/17 10:47 Dose: 10 mg Metformin HCl (Glucophage) 1,000 mg PO BID [facility] Last Admin: 09/01/17 10:46 Dose: 1,000 mg Metoprolol Tartrate (Lopressor) 25 mg PO BID [facility] Last Admin: 09/01/17 10:47 Dose: 25 mg Oxychlorosene Sodium (Clorpactin Wcs-90) 2 gm TOP DAILY [facility] Last Admin: 08/31/17 12:30 Dose: 2 gm Oxycodone/Acetaminophen (Percocet 5/325 Mg Tab) 1 tab PO Q6H PRN PRN Reason: Pain, moderate (4-7) Stop: 09/03/17 12:56 Pantoprazole Sodium (Protonix Ec Tab) 40 mg PO 0630 [facility] Last Admin: 09/01/17 05:32 Dose: Not Given Silver Sulfadiazine (Silvadene 1% 25 Gm) 2 gm TP DAILY [facility] Last Admin: 08/31/17 12:33 Dose: 2 gm - Labs Labs: 09/01/17 12:20 08/29/17 06:30 - Constitutional Appears: Well, Non-toxic, No Acute Distress - Extremities Exam Extremities Exam: absent: Calf Tenderness Additional comments: Right BKA Left lower extremity exam: Vasc: DP/PT pulses are faintly palpable 1/4. Temperature gradient cool to cool. CFT delayed but present to all digits x4. Derm: Ulceration noted at the lateral posterior heel measuring approximately 0.9 x 0.6 x 0.9cm, ulceration probes deep to bone, minimal erythema noted periwound, (+) sinus track from heel to mid-lateral plantar plane, no purulent drainage noted today or abscess appreciated today, no malodor, (+) undermining noted. Neuro: Protective sensation absent, gross sensation diminished. (+) pain upon deep palpation Ortho: Severe pain with palpation to periwound. Previous hallux amputation completely healed - Neurological Exam Neurological Exam: Alert, Awake, Oriented x3 - Psychiatric Exam Psychiatric exam: Normal Affect, Normal Mood Assessment and Plan - Assessment and Plan (Free Text) Assessment: 62 y.o male with likely osteomyelitis of L heel with ulceration, undermining, and sinus tract Plan: Charts, labs and vitals reviewed; Afebrile, WBC trended down today 13.4 Physical exam: L heel, probe to bone. Likely osteomyelitis X-rays-no evidence of acute OM MRI ordered to r/o abscess, r/o OM: patient refuses to have MRI done on him due to back pain. 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 Packed iodoform to the plantar ulceration. Silvadene applied to the lateral malleolus ulceration. Dressed entire left lower extremity with clorpactin/saline wet to dry, dsd, abd and kerlix. Stockinette placed over. Patient to follow up with Dr. Solis in wound care this Thursday Nursing orders: Left foot dressing to be changed daily Flushed ulcerations at left plantar heel and the lateral heel inferior to the lateral malleolus including the sinus tract with cloropactin mixed saline solution with a flush. Packed plantar heel ulceration with 1/4 inch idoform packing. Apply Silvadene to the ulceration on the lateral heel inferior to the lateral malleolus to prevent ulceration from closing up as there is history of abscess formation. Abscess needs to be drained. Dressed entire left lower extremity with gauze, clorpactin/saline wet to dry dsd, abd and kerlix. Stockinette placed over. Patient to WB only in heel offloading shoe. Surgical shoe with the felt pads offloading is not sufficient. Please dispense heel offloading shoe at facility Patient to follow up with Dr. Solis in wound care clinic at [place] on Thursday at 11:45am <Burke Duncan - Last Filed: 09/01/17 16:23> Objective - Vital Signs/Intake and Output Vital Signs (last 24 hours): Temp Pulse Resp BP Pulse Ox 98.3 F 75 20 123/75 98 08/31/17 23:20 09/01/17 10:47 08/31/17 23:20 09/01/17 10:47 08/31/17 23:20 Intake and Output: 09/01/17 09/01/17 06:59 18:59 Intake Total 600 540 Output Total 750 Balance -150 540 - Medications Medications: Current Medications Dextrose (Dextrose 50% Inj) 0 ml IV STAT PRN; Protocol PRN Reason: Hypoglycemia Protocol Gabapentin (Neurontin) 400 mg PO TID [facility] PRN Reason: Protocol Last Admin: 09/01/17 13:33 Dose: 400 mg Glimepiride (Amaryl) 4 mg PO BID [facility] Last Admin: 09/01/17 10:46 Dose: 4 mg Hydromorphone HCl (Dilaudid) 1 mg IVP Q4H PRN PRN Reason: Pain, severe (8-10) Last Admin: 09/01/17 08:02 Dose: 1 mg Ceftaroline Fosamil 400 mg/ (Sodium Chloride) 100 mls @ 100 mls/hr IVPB Q12 [facility] PRN Reason: Protocol Stop: 09/03/17 22:01 Last Admin: 09/01/17 10:50 Dose: 100 mls/hr Dextrose (Dextrose 5% In Water 1000 Ml) 1,000 mls @ 0 mls/hr IV .Q0M PRN; Protocol; Per Protocol PRN Reason: Hypoglycemia Protocol Insulin Detemir (Levemir) 20 unit SC [facility] Last Admin: 08/31/17 21:32 Dose: Not Given Insulin Human Lispro (Humalog Med) 0 units SC [facility] PRN Reason: Protocol Last Admin: 09/01/17 11:48 Dose: 1 unit Lisinopril (Zestril) 10 mg PO DAILY [facility] Last Admin: 09/01/17 10:47 Dose: 10 mg Metformin HCl (Glucophage) 1,000 mg PO BID [facility] Last Admin: 09/01/17 10:46 Dose: 1,000 mg Metoprolol Tartrate (Lopressor) 25 mg PO BID [facility] Last Admin: 09/01/17 10:47 Dose: 25 mg Oxychlorosene Sodium (Clorpactin Wcs-90) 2 gm TOP DAILY [facility] Last Admin: 08/31/17 12:30 Dose: 2 gm Oxycodone/Acetaminophen (Percocet 5/325 Mg Tab) 1 tab PO Q6H PRN PRN Reason: Pain, moderate (4-7) Stop: 09/03/17 12:56 Pantoprazole Sodium (Protonix Ec Tab) 40 mg PO 0630 [facility] Last Admin: 09/01/17 05:32 Dose: Not Given Silver Sulfadiazine (Silvadene 1% 25 Gm) 2 gm TP DAILY [facility] Last Admin: 08/31/17 12:33 Dose: 2 gm - Labs Labs: 09/01/17 12:20 08/29/17 06:30 Attending/Attestation - Attestation I have personally seen and examined this patient.: Yes I have fully participated in the care of the patient.: Yes I have reviewed all pertinent clinical information, including history, physical exam and plan: Yes
[2017-09-01 17:35] VITALS: BP 118/74
--- NOTE | 2017-09-02 05:37 | DS ---
HISTORY OF PRESENT ILLNESS: Patient is a 62-year-old, seen and examined, lying in bed, seems to be comfortable, came in with left lateral malleolar worsening wound. He was seen by Dr. Solis and referred to ER for further evaluation. Patient was started on Teflaro since HE IS ALLERGIC TO VANCOMYCIN. He refused arterial Doppler and MRI. So he was evaluated by Dr. Solis again yesterday, who probed his left lateral malleolar wound and was able to break pus pocket and got culture. In her opinion, it is highly likely that it could be osteomyelitis. Since patient is refusing MRI, he is going to be treated as osteomyelitis. He had PICC line placed this morning. PHYSICAL EXAMINATION: GENERAL: Today, he is awake, alert, oriented, communicative. VITAL SIGNS: He is afebrile. Pulse 83, respirations 20, blood pressure 123/75. LUNGS: Bilateral fair airflow. No rhonchi or crackles. HEART: S1, S2 audible. ABDOMEN: Soft, nontender. No rebound. No guarding. NEUROLOGIC: Patient is awake, alert, oriented, communicative. EXTREMITIES: He is status post right BKA, and left ankle is in the dressing. LABORATORY DATA: CBC for today is pending. Blood sugar is 191. ASSESSMENT: 1. Left ankle abscess and ulcer. 2. Insulin-dependent diabetes. 3. Peripheral vascular disease, status post right below-knee amputation. 4. Hypertension. 5. Hyperlipidemia. PLAN: The patient has PICC line placed. We will talk to [employer] to make arrangement to transfer him to subacute rehab to complete his course of antibiotics, where his wound will be managed also. So, if he is accepted by [facility], he will be discharged. Stacey Ross MD
--- NOTE | 2017-09-02 14:32 | DS ---
HISTORY OF PRESENT ILLNESS: The patient is 62 years old, who has a history of insulin-dependent diabetes; coronary artery disease, status post angioplasty; severe peripheral vascular disease; status post right BKA. He was seen by Dr. Solis for wound care. He was being given Augmentin for the ulcer on his left lateral malleolus with no significant improvement, so he was admitted for IV antibiotic. The patient needed arterial Doppler and MRI, but he refused, so Dr. Solis did bedside I and D. Cultures were sent and she thinks it is osteomyelitis. Since the patient was refusing MRI, so it was decided to treat him as osteomyelitis. PICC line was placed. The patient was referred to a different long term, but was not accepted because of his insurance reason, so arrangements were made to get him antibiotic home, so the patient was discharged home to continue his antibiotic for 4-6 weeks and he will receive Teflaro and will be following with Dr. Solis as outpatient for wound care. Stacey Ross MD
--- NOTE | 2017-09-03 01:09 | PN ---
DATE: 09/01/2017 SUBJECTIVE: Patient was seen yesterday. No fevers. No chills. No nausea. No vomiting. PHYSICAL EXAMINATION: VITAL SIGNS: Temperature of 98, blood pressure is 120/70, respiratory rate of 16. HEENT: Unremarkable. NECK: Supple. LUNGS: Have decreased breath sounds. HEART: Normal S1 and S2. ABDOMEN: Soft and nontender. LABORATORY EXAMINATION: Noted. ASSESSMENT AND PLAN: This is a 62-year-old male with osteomyelitis, was on Teflaro and discussion took place choices of antibiotics and discussed with Dr. Ross, patient was discharged yesterday. Rakesh Bautista MD
== END 2017-09-01 20:46 | disposition home health service (06) | DRG 638 ==
LOC: ED 10:06 → ERH 10:59 → 5RNO 12:36
PROVIDERS: ADMIT Internal Medicine; ATTEND Internal Medicine
PROC: 0H9NXZZ Drainage of Left Foot Skin, External Approach (ICD-10-PCS; principal; 2017-08-31)
DX: E11.621 Type 2 diabetes mellitus with foot ulcer (principal); L02.416 Cutaneous abscess of left lower limb; L03.115 Cellulitis of right lower limb; L97.329 Non-pressure chronic ulcer of left ankle with unspecified severity; L97.429 Non-pressure chronic ulcer of left heel and midfoot with unspecified severity; M86.9 Osteomyelitis, unspecified; E11.51 Type 2 diabetes mellitus with diabetic peripheral angiopathy without gangrene; E11.40 Type 2 diabetes mellitus with diabetic neuropathy, unspecified; D63.8 Anemia in other chronic diseases classified elsewhere; E78.5 Hyperlipidemia, unspecified; I10 Essential (primary) hypertension; I25.10 Atherosclerotic heart disease of native coronary artery without angina pectoris; E11.69 Type 2 diabetes mellitus with other specified complication; Z53.20 Procedure and treatment not carried out because of patient's decision for unspecified reasons; F17.200 Nicotine dependence, unspecified, uncomplicated; Z79.4 Long term (current) use of insulin; Z88.1 Allergy status to other antibiotic agents; Z89.511 Acquired absence of right leg below knee; Z98.61 Coronary angioplasty status